=== PATIENT | female | born 1985 | race Caucasian/White ===

== ENCOUNTER 2018-04-10 06:57 | Emergency (ER) | payer BC, MEDICAID, SELFPAY ==
[2018-04-10 06:58] VITALS: BP 117/79; PULSE 81; RESP 18; TEMP 36.8; O2SAT 99; BMI 30.9
--- NOTE | 2018-04-10 07:19 | CT_ITS ---
STUDY: CT ABDOMEN AND PELVIS WITHOUT CONTRAST REASON FOR EXAM: Female, 33 years old. Abdominal pain and diarrhea. RADIATION DOSAGE (If Supplied By Facility): CTDIvol = ( 9.70 ) mGy, DLP = ( 484.84 ) mGycm TECHNIQUE: Transaxial images were obtained from the dome of the diaphragm to the symphysis pubis without oral contrast, and without intravenous contrast. Sagittal and coronal images were reconstructed. Individualized dose optimization techniques were used for this CT. COMPARISON: Comparison is made with prior study dated August 28, 2015. FINDINGS: Stable mild degree of increased linear markings at the bases and small bulla in the left lower lobe The visualized portions of the heart are within normal limits. Normal liver. The patient is status post cholecystectomy. Normal spleen. Normal pancreas. Normal bilateral adrenal glands. Normal right kidney. Normal left kidney. There is a small hiatal hernia. Normal small intestine. Normal colon. The appendix is visualized and appears normal. Normal abdominal aorta. Normal inferior vena cava. Normal retroperitoneum. Normal urinary bladder. IUD is seen within the uterus. Small benign-appearing bilateral inguinal lymph nodes. Normal abdominal wall. Normal osseous structures. CT/Abdomen/Pelvis without Cont IMPRESSION: No acute abnormality is seen. Electronically Signed: John Guan MD at 9:00 EDT Tel [phone], Service support ,
[2018-04-10] MEDS: Metoclopramide 10 MG Tablet PO (07:50)
[2018-04-10 08:01] LABS: Color, Urine Yellow (Yellow); Glucose, Dipstick Normal (Normal); Ketone-Dipstick Negative (Negative); Leukocyte Esterase-Dipstick 500 /ul (Negative); Nitrite-Dipstick Negative (Negative); Occult Blood-Urine 25 /ul (Negative); Protein-Dipstick 15 mg/dl (Negative); Specific Gravity, Urine 1.025 (1.002-1.030); Urine Clarity Cloudy (Clear); Urine Urobilinogen Normal (Normal)
[2018-04-10 08:02] LABS: Internal QC Validated? YES +Cl - CLEAR BKGD; Pregnancy, Urine Negative Negative
[2018-04-10 08:06] LABS: Urine Bilirubin Dipstick 1 mg/dL (Negative)
[2018-04-10 08:08] LABS: Bacteria 1+ /hpf (None Seen); Red Blood Cells-Urine 0-5 SEEN /hpf (0-5); Squamous Epithelial Cells - UA 0-5 SEEN /hpf (5-10); White Blood Cells 10-25 SEEN /hpf (0-5)
[2018-04-10 08:09] LABS: Mucous, Urine RARE /hpf (<or=2+)
--- NOTE | 2018-04-10 08:37 | ED.DCSUM_ITS ---
- ER Visit Summary Date of Service: 04/10/18 Chief Complaint: Diarrhea History of Present Illness: The patient is a 33 F who states that for the past several days she has been having diarrhea. She denies any urinary symptoms. She denies any fevers. She notes a diffuse crampy abdominal pain that is sharp and associated nausea. She describes the stool is mackey liquid without blood. She denies any recent travel any recent antibiotics. She has had prior cholecystectomy. She is on medications for GERD and depression. She is a smoker. Physical Examination: Afebrile vital signs are stable Gen: Well-nourished well-developed Head: Normocephalic atraumatic Eyes: Perrl EOMI ENT: TMs clear no rhinorrhea moist mucous membranes Neck: Supple no lymphadenopathy no JVD nontender CVS: Regular rate rhythm no murmurs normal S1-S2 Respiratory: No distress clear to auscultation bilaterally chest nontender Abdomen: Soft mild diffuse tenderness to palpation without guarding or rebound nondistended normal bowel sounds no masses Back: Nontender Extremity: Nontender no edema Skin: Normal color no rash Neuro: alert orientated ?3 CN II-XII intact normal strength sensation reflexes gait cerebellar Psych: Normal affect normal mood Test Results: Urinalysis demonstrated 10-25 white cells 1+ bacteria. Positive leukocyte esterase negative nitrate. test negative. Stool studies were negative for fecal leukocytes. CT the abdomen pelvis without contrast did not demonstrate any obvious obstructive pattern or inflammatory changes around the bowel. Emergency Department Course and Treatment: Patient received a dose of p.o. Reglan. Enteric pathogen panel is pending. I believe this to most likely be a viral illness. We will treat her urine with Macrobid. Diarrhea can be treated at home as needed Reglan. Patient will be notified if the enteric pathogen panel is positive. Impression: 1. Diarrhea 2. UTI This note was generated with [employer]hub dictation software. It may contain incorrect words, spelling, and punctuation that were not noted in review of the chart prior to signing ED Disposition - Plan for ED Patient: Disposition: Home or Assisted Living Chief Complaint: Diarrhea Instructions: ED Diarrhea Viral, ED UTI Cystitis Female Prescriptions: Nitrofurantoin Macrocrystals [Macrobid] 100 mg PO Q12 #10 cap Metoclopramide [Reglan] 10 mg PO 4X/DAY PRN #20 tab PRN Reason: abdominal cramps/nausea Referrals: Phil Jacobs MD [Primary Care Provider] - 3-5 Days if not improving Additional Instructions: Continue oral hydration. Take entire course of Macrobid for the urinary tract infection You will be notified if the stool studies are positive for the testable pathogens that can cause diarrhea.
[2018-04-10 09:50] VITALS: BP 113/59; PULSE 72; RESP 16; O2SAT 100
== END 2018-04-10 09:51 | disposition home or self-care (01) ==
PROVIDERS: Emergency Provider Emergency Medicine; Family Provider Family Medicine; PCP Family Medicine
DX: R19.7 Diarrhea, unspecified (principal); N39.0 Urinary tract infection, site not specified; K21.9 Gastro-esophageal reflux disease without esophagitis; F32.9 Major depressive disorder, single episode, unspecified; F17.200 Nicotine dependence, unspecified, uncomplicated; Z79.899 Other long term (current) drug therapy
CPT/HCPCS: 74176; 81001; 81025; 83630; 87506; 99283

== ENCOUNTER 2018-07-04 17:33 | Emergency (ER) | payer BC, MEDICAID, SELFPAY ==
[2018-07-04 17:34] VITALS: BP 145/74; PULSE 68; RESP 16; TEMP 36.9; O2SAT 98; BMI 32.2
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
--- NOTE | 2018-07-04 19:04 | ED.DEP ---
ED Disposition - Plan for ED Patient: Disposition: Home or Assisted Living Chief Complaint: Headache Instructions: ED Head Injury Closed, ED Fx Nasal Conf W X Ray Referrals: Phil Jacobs MD [Primary Care Provider] - As Needed Additional Instructions: Ice all sore areas. Tylenol and/or Motrin for pain. No skull fracture seen. You do have a nasal fracture.
[2018-07-04 19:15] VITALS: BP 107/74; PULSE 64; RESP 18; O2SAT 98
== END 2018-07-04 19:15 | disposition home or self-care (01) ==
PROVIDERS: Emergency Provider Emergency Medicine; Family Provider Family Medicine; PCP Family Medicine
DX: S02.2XXA Fracture of nasal bones, initial encounter for closed fracture (principal); S01.01XD Laceration without foreign body of scalp, subsequent encounter; R40.2410 Glasgow coma scale score 13-15, unspecified time; Y09 Assault by unspecified means; Y93.9 Activity, unspecified; Y92.9 Unspecified place or not applicable; K21.9 Gastro-esophageal reflux disease without esophagitis; F32.9 Major depressive disorder, single episode, unspecified; K58.9 Irritable bowel syndrome, unspecified; Z90.49 Acquired absence of other specified parts of digestive tract; Z79.899 Other long term (current) drug therapy; Z72.0 Tobacco use
CPT/HCPCS: 70450; 70486; 99283

== ENCOUNTER 2018-12-05 22:35 | Emergency (ER) | payer BC, SELFPAY ==
[2018-12-05 22:37] VITALS: BP 125/78; PULSE 80; RESP 16; TEMP 36.7; O2SAT 99; BMI 35.0
--- NOTE | 2018-12-05 23:12 | ED.VISSUMM ---
- ER Visit Summary Date of Service: 12/05/18 Chief Complaint: [] presents for cough History of Present Illness: The patient is a 33 F [] have a cough for last 30 days gradual onset intermittent. She had nasal congestion and runny nose. She is using albuterol, Flonase, Mucinex. She also came in because she has a chronic hernia that keeps popping out when she coughs. She said that for 10 years. She is able to reduce it. Physical Examination: [] Vital signs reviewed General: Well-nourished well-developed Head: Normocephalic atraumatic Eyes: Pupils equal round and reactive to light extraocular movements intact ENT: TMs clear no hemotympanum no trauma Neck: Nontender full range of motion Cardiovascular: Regular rate rhythm no murmurs normal S1-S2 Respiratory: No distress clear to auscultation bilaterally chest nontender Abdomen: Soft nontender nondistended. Easily reproducible periumbilical hernia, normal bowel sounds no masses Back: Nontender no CVA tenderness Extremities: Nontender active range of motion ?4 extremities no trauma Skin: Normal color no trauma Neuro alert oriented cranial nerves II through XII intact normal strength sensation reflexes Test Results: [] Emergency Department Course and Treatment: [] Chest x-ray negative. At this time I think patient likely just has a bronchitis or upper respiratory infection that is viral. I do not feel she needs antibiotics. Her hernia is easily visible. She will follow-up with surgery for this as an outpatient Treatment Plan: [] Disposition: [] Impression: [] Bronchitis viral Reducible umbilical hernia This note was generated with [employer] dictation software. It may contain incorrect words, spelling, and punctuation that were not noted in review of the chart prior to signing ED Disposition - Plan for ED Patient: Referrals: Phil Jacobs MD [Primary Care Provider] -
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
--- NOTE | 2018-12-05 23:36 | ED.DEP ---
ED Disposition - Plan for ED Patient: Disposition: Home or Assisted Living Instructions: Acute Bronchitis, What Is a Hernia? Referrals: Phil Jacobs MD [Primary Care Provider] - Gamal Christy MD [STAFF PHYSICIAN] -
[2018-12-05 23:37] VITALS: O2SAT 98
[2018-12-05 23:43] VITALS: PULSE 80; RESP 16; O2SAT 96
== END 2018-12-05 23:47 | disposition home or self-care (01) ==
PROVIDERS: Emergency Provider Emergency Medicine; Family Provider Family Medicine; PCP Family Medicine
DX: J40 Bronchitis, not specified as acute or chronic (principal); B34.9 Viral infection, unspecified; K42.9 Umbilical hernia without obstruction or gangrene; Z72.0 Tobacco use; Z79.899 Other long term (current) drug therapy
CPT/HCPCS: 71046; 99282

== ENCOUNTER 2019-07-28 18:34 | Emergency (ER) | payer BC, SELFPAY ==
[2019-07-28 18:36] VITALS: BP 115/73; PULSE 94; RESP 16; TEMP 36.9; O2SAT 96; BMI 30.9
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
[2019-07-28] MEDS: proCHLORPERazine 10 MG/2 ML Vial IV (19:17)
[2019-07-28] MEDS: DiphenhydrAMINE 50 MG/ML Syringe IV (19:17)
[2019-07-28] MEDS: 0.9% Normal Saline 1,000 ML 999 ML IV (19:17)
[2019-07-28 20:46] LABS: Internal QC Validated? YES +Cl - CLEAR BKGD; Pregnancy, Urine Negative Negative
[2019-07-28] MEDS: Ketorolac 15 MG/ML Vial IV (21:22)
[2019-07-28 21:52] VITALS: PULSE 88
== END 2019-07-28 21:53 | disposition home or self-care (01) ==
PROVIDERS: Emergency Provider Emergency Medicine; Family Provider Family Medicine; PCP Family Medicine
DX: R51 Headache (principal); F17.200 Nicotine dependence, unspecified, uncomplicated
CPT/HCPCS: 70450; 81025; 96361; 96374; 96375; 99283; J7030; A4216

== ENCOUNTER 2019-11-29 19:11 | Emergency (ER) | payer MEDICAID, SELFPAY ==
[2019-11-29 19:11] VITALS: BP 132/77; PULSE 90; RESP 15; TEMP 36.4; O2SAT 97; BMI 32.8
[2019-11-29] MEDS: 0.9% Normal Saline 1,000 ML 999 ML IV (19:40)
[2019-11-29] MEDS: DiphenhydrAMINE 50 MG/ML Syringe IV (19:41)
[2019-11-29] MEDS: Metoclopramide 10 MG/2 ML Vial IV (19:41)
[2019-11-29] MEDS: Ketorolac 30 MG/ML Syringe IV (19:42)
--- NOTE | 2019-11-29 19:58 | ED.DCSUM_ITS ---
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 She reports that she has a history of migraine headaches. She has a migraine that is typical for her that began a week ago and is gradually gotten worse. It is a dull, aching pain is 10 on 10 worsening a 10 currently. Is worsened by sitting up and light. Is relieved by laying down. She is had nausea without vomiting. She denies fever or recent injury. Physical Examination: Vitals: Stable. Afebrile. General: Well-nourished and well-developed. Head: Normocephalic atraumatic. Neck: Supple, no lymphadenopathy. No JVD. Nontender. Cardiovascular: Regular rate and rhythm. No murmurs. Respiratory: No respiratory distress. Clear to auscultation bilaterally. Abdominal: Soft, nontender, nondistended, normal bowel sounds. No guarding, rebound, or peritoneal signs. Back: Nontender. Extremities: Nontender, no edema. Skin: Normal color, no rash. Neurologic: Alert and oriented ?3. Cranial nerves II through XII are intact. Normal strength and sensation. Psych: Normal affect. Emergency Department Course and Treatment: Patient had an IV placed. She is given Toradol, Reglan, and Benadryl IV. She feels much improved and is resting comfortably. Treatment Plan: Patient be discharged instructed to follow-up with her primary care physician 1 to 2 days if not improving. Return to the emergency department for any worsening symptoms. Disposition: To home in improved and stable condition. Impression: 1. Cephalgia. This note was generated with [employer] dictation software. It may contain incorrect words, spelling, and punctuation that were not noted in review of the chart prior to signing ED Disposition - Plan for ED Patient: Disposition: Home or Assisted Living Instructions: ED, Migraine (Classical) Referrals: Phil Jacobs MD [Primary Care Provider] - 1-2 Days if not improving
== END 2019-11-29 22:01 | disposition home or self-care (01) ==
LOC: ED 19:46
PROVIDERS: Emergency Provider Emergency Medicine; PCP Family Medicine
DX: G43.909 Migraine, unspecified, not intractable, without status migrainosus (principal); Z87.820 Personal history of traumatic brain injury; F17.200 Nicotine dependence, unspecified, uncomplicated
CPT/HCPCS: 96361; 96374; 96375; 99283; A4216

== ENCOUNTER 2020-07-25 18:48 | Emergency (ER) | payer MEDICAID, SELFPAY ==
[2020-07-25 18:49] VITALS: BP 126/84; PULSE 88; RESP 16; TEMP 36.3; O2SAT 100; BMI 31.8
--- NOTE | 2020-07-25 19:01 | ED.DCSUM_ITS ---
History of Present Illness Chief Complaint: Laceration Informant: Patient Onset: Today Context: Sudden Onset Timing: Continuous Current Severity: Moderate Maximum Severity: Moderate Narrative: Patient is a [id number] female who presents to the emergency department with laceration to her right thumb. Patient was using a mandolin slicer. She states that she suffered a laceration to the thumb. She states that she was able to hold pressure but it was still bleeding. Her tetanus is up-to-date. She is otherwise been in her normal state of health. Prior similar symptoms: No Recent Illness/Hospitalization: No Past Medical History - Allergies and Home Meds Allergies/Adverse Reactions: Allergies adhesive Allergy (Verified 07/25/20 18:49) Rash codeine Adverse Reaction (Verified 07/25/20 18:49) Nausea Penicillins Adverse Reaction (Verified 07/25/20 18:49) Nausea Primary Care Physician: Phil Jacobs MD [Primary Care Provider] - 10 Day for suture removal Prior records reviewed: Yes Past Medical History: None Surgical History: noncontributory Smoking Status: Current every day smoker Review of Systems General: Denies: Chills, Fever, Sweats Eyes: Denies: Visual changes - bilaterally, Diplopia ENT: Denies: Rhinorrhea, Sore throat Cardiovascular: Denies: Chest pain, Palpitations Respiratory: Denies: Dyspnea, Cough, Dyspnea on exertion Gastrointestinal: Denies: Abdominal pain, Nausea, Vomiting, Diarrhea, Melena, Hematochezia Genitourinary: Denies: Dysuria, Hematuria, Frequency Musculoskeletal: Denies: Back pain, Extremity Pain Skin: Denies: Rash, Wounds Neurological: Denies: Headache, Weakness, Numbness Physical Exam Vital Signs/Narrative: Vital Signs Temp Pulse Resp BP Pulse Ox 07/25/20 18:49 97.4 F L 88 16 126/84 H 100 Inital Vital Signs reviewed: Yes General: Well nourished, Well developed, No Acute Distress Head: Normocephalic, Atraumatic Eyes: Perrl, EOMI ENT: Moist mucous membranes, No rhinorrhea Neck: Supple, Nontender Cardiovascular: Regular rate, Regular rhythm, No murmurs Respiratory: No distress, CTA bilaterally, Chest nontender Abdomen: Soft, Nontender, Nondistended, Normal bowel sounds Back: Nontender, Normal Inspection Extremities: No edema, Tenderness - Patient is 1 cm full-thickness laceration that is vertically oriented on the distal tip of the right thumb. It does lacerate through the nail approximately 2 mm. There is minimal bleeding. Two- point discrimination is preserved. Skin: Normal color, No rash Neurological: Alert, Oriented x3, Cranial nerves II-XII grossly intact, Normal Strength, Normal Sensation Psychological: Normal affect, Normal Mood Diagnostic/Tx/Re-eval - Medical Decision Making Patient presents with a 1.5 cm laceration of the distal tip of the right thumb. The area was anesthetized with 1% lidocaine without epinephrine. A total of 2 cc were used. It was irrigated and cleansed with chlorhexidine. It was closed using 2 simple 5-0 interrupted suture. The patient tolerated this without issue. She was counseled on local wound care and reasons to return. She will be discharged home. Impression 1. 1.5 cm thumb laceration with repair ED Disposition - Plan for ED Patient: Instructions: ED Laceration Hand Referrals: Phil Jacobs MD [Primary Care Provider] - 10 Day for suture removal
[2020-07-25 19:23] VITALS: BP 126/84; PULSE 88; RESP 15; O2SAT 100
== END 2020-07-25 19:15 | disposition home or self-care (01) ==
LOC: ED 19:45
PROVIDERS: Emergency Provider Emergency Medicine; PCP Family Medicine
DX: S61.011A Laceration without foreign body of right thumb without damage to nail, initial encounter (principal); W26.8XXA Contact with other sharp object(s), not elsewhere classified, initial encounter; Y93.9 Activity, unspecified; Y92.9 Unspecified place or not applicable; F17.200 Nicotine dependence, unspecified, uncomplicated
CPT/HCPCS: 12001; 99282

== ENCOUNTER 2020-10-07 07:09 | Emergency (ER) | payer MEDICAID, SELFPAY ==
[2020-10-07 07:10] VITALS: BP 123/77; PULSE 80; RESP 15; TEMP 37; O2SAT 97; BMI 34.6
[2020-10-07 07:12] VITALS: O2SAT 98
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
[2020-10-07 07:51] VITALS: BP 113/74; PULSE 62; RESP 15; O2SAT 99
== END 2020-10-07 07:51 | disposition home or self-care (01) ==
LOC: ED 07:44
PROVIDERS: Emergency Provider Emergency Medicine; PCP Family Medicine
DX: S16.1XXA Strain of muscle, fascia and tendon at neck level, initial encounter (principal); V49.40XA Driver injured in collision with unspecified motor vehicles in traffic accident, initial encounter; Y93.9 Activity, unspecified; Y92.9 Unspecified place or not applicable
CPT/HCPCS: 72040; 99284

== ENCOUNTER → 2020-11-06 | Outpatient (CLI) | payer MEDICAID, SELFPAY ==
[2020-11-06 16:28] VITALS: BMI 32.4
== END | disposition home or self-care (01) ==
LOC: LABSPEC 17:59
PROVIDERS: PCP Family Medicine; Visit Provider Physician Assistant Surgical
DX: Z20.822 Contact with and (suspected) exposure to COVID-19 (principal)
CPT/HCPCS: 87635; U0005; U0003

== ENCOUNTER → 2021-06-09 | Outpatient (CLI) | payer MEDICAID, SELFPAY ==
[2021-06-12 03:07] LABS: Covid Inpatient test code BILL Performed (.)
== END | disposition home or self-care (01) ==
LOC: LABSPEC 17:01
PROVIDERS: PCP Family Medicine; Visit Provider Physician Assistant
DX: Z11.52 Encounter for screening for COVID-19 (principal)
CPT/HCPCS: 87635; U0005; U0003

== ENCOUNTER 2022-10-17 08:00 | Outpatient (RCR) | payer MEDICAID, SELFPAY ==
--- NOTE | 2022-10-17 09:00 | BH.SGPN.GN ---
Behaviors/Verbalizations/Mental Status: [] Eye contact is good. Motor activity is appropriate. Appearance is casual. Speech is Appropriate. Mood is depressed. Affect is flat. Tearful. Thoughts are linear and logical. No evidence of psychosis. Reviewed daily check in sheet and no reports of suicidal ideations or intent. Client Response/Progress/Benefit: [] Pt participated at times during the group discussion. Attentive. This was her first day/group in [facility]. Briefly introduced herself stating that she entered [facility] to find herself. Admits to recently struggling however did not elaborate. Able to identify some progress over the weekend through self-reflection. Peers introduced themselves to patient and gave some feedback/suggestions for her first day and week in IOP which was beneficial. Will continue in IOP to prevent decompensation, stabilize mood, and improve functioning to return to work. Narrative Note: []
--- NOTE | 2022-10-17 10:06 | BH.SGPN.GN ---
Behaviors/Verbalizations/Mental Status: []Pt alert and oriented, casually dressed and groomed. Eye contact good. Motor activity appropriate. Speech within normal limits. Affect congruent, mood anxious, depressed. Thoughts linear, logical, no signs of hallucinations or delusions. Client Response/Progress/Benefit: []Pt new to IOP tx, however was able to be an active participant in group discussions. Participated with peers in experiential activity. Pt participated in an interactive discussion with peers in which they worked together to define what coping skills are. Group then identified unhealthy coping skills which included; isolating, not asking for help, procrastination, and lashing out on others or self. Group discussed what barriers commonly make using healthier coping skills more difficult. Pt displayed insight that she struggles with breaking unhealthy habits due to fear of the unknown and being uncomfortable which has been a barrier to choosing healthier coping skills in the past. Benefited from increased awareness and education the benefits of having a healthy coping repertoire and consequences of unhealthy coping on mental health and relationships. Will continue IOP tx to further promote healthy distress tolerance and stress management skills, improve emotion regulation, and prevent decompensation. Narrative Note: []
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
[2022-10-19 10:02] VITALS: BP 119/80; PULSE 86
--- NOTE | 2022-10-19 10:10 | BH.SGPN.GN ---
Behaviors/Verbalizations/Mental Status: []Client alert and oriented, casually dressed and groomed. Eye contact good. Motor activity appropriate. Speech within normal limits. Affect congruent, mood depressed and anxious. Thoughts linear, logical, no signs of hallucinations or delusions. Client Response/Progress/Benefit: []Client was an active participant in group discussions and activity. Attentive during psychoeducation. Client along with peers were able to identify several negatives on the picture given to the group. Client and peers also identified positives in the picture and made the connection that finding positives is much more difficult. Interactive discussion on the definition of perspective, how perspective is formed, and why perspective is important in treatment. Client along with peers also identified that perspective can either motivate and encourage treatment or become a barrier to receiving help. Client shared currently she has a more negative perspective towards life. Client stated current perspective has been impacted by a lack of healthy supports as well as past negative experiences. Will continue in IOP to continue use of healthy coping, increase emotion regulation skills, and prevent decompensation. Narrative Note: []
--- NOTE | 2022-10-19 11:10 | BH.SGPN.GN ---
Behaviors/Verbalizations/Mental Status: []Pt alert and oriented, casually dressed and groomed. Eye contact good. Motor activity appropriate. Speech within normal limits. Affect constricted, mood depressed. Thoughts linear, logical, no signs of hallucinations or delusions. Client Response/Progress/Benefit: []Pt was attentive and contributed in larger group discussion. Pt completed strengths exploration worksheet. Pt able to acknowledge how these strengths are helping pt and can continue to help pt in mental health journey. Reflected on how her honesty, love of learning, and artistic ability have helped pt in the past and continue to help pt with her mental health. Pt worked with group to identify strategies that can help increase utilization of personal strengths. Benefited from identifying personal strengths and strategies for enhancing use of identified strengths. Pt to continue IOP tx to improve daily functioning, increase healthy coping, and prevent decompensation.
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
--- NOTE | 2022-10-19 11:29 | BH.DR.ITP ---
Initial Treatment Plan Patient Information Visit Information: ADMISSION DATE: EXPECTED LOS: 4-6 weeks Problems/Symptoms Problem #1:: Depression Symptom:: Sadness, irritability, lack of motivation, worthlessness, hopelessness, difficulty completing tasks, anhedonia, biological disruption of sleep Problem #2:: Anxiety Symptom:: Worry, rumination, flashbacks, exaggerated startle reaction
--- NOTE | 2022-10-21 09:00 | BH.SGPN.GN ---
Behaviors/Verbalizations/Mental Status: []Eye contact fair to good, casually dressed, motor activity appropriate, speech normal rate and tone, mood depressed, agitated, and anxious, congruent affect, thoughts linear and intact, no evidence of delusions or hallucinations. Reviewed pt's symptom tracker, reports of suicidal ideation within pt baseline and pt denies any active plan, or intent as of this date 10/21/22. Future oriented. Client Response/Progress/Benefit: []Pt responded well to session, attentive and willing to process with group. Pt reports feeling bleh this morning as she in continuing to struggle with negative thoughts and anxiety associated with recent stressors. 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 Pt shared an additional win as not arguing when they shared plans to move pt to a different shift upon return to work, pt shared reminding herself ?this is a stressor for another day?. Noted that work and finances continue to be major sources of stress. Appeared to benefit from group?discussion and supportive environment. Recommended continued IOP tx to continue to improve consistency of healthy skill application, promote mood stability and use of healthy distress tolerance skills, as well as prevent decompensation. Narrative Note: []
--- NOTE | 2022-10-21 10:10 | BH.SGPN.GN ---
Behaviors/Verbalizations/Mental Status: []Client alert and oriented, casually dressed and groomed. Eye contact fair. Motor activity appropriate. Speech within normal limits, quiet. Affect constricted, mood dysthymic. Thoughts linear, logical, no signs of hallucinations or delusions. Client Response/Progress/Benefit: []Pt engaged participant AEB providing contributions throughout group discussion and taking notes. Pt appeared to be attentive during psychoeducation about acceptance. Pt worked with group to identify common barriers to acceptance to include: fear of relapse, anxious thoughts, fear of stigma, and fear of being vulnerable. Pt shared anxiety keeps her from being able to think clearly which has gotten in the way of her being able to accept certain things. Pt worked with small group to identify benefits of acceptance. Pt seemed to benefit from increased awareness of the benefits of being able to accept things out of her control. Pt to continue IOP to improve daily functioning, improve emotion regulation, and prevent decompensation.
--- NOTE | 2022-10-21 11:10 | BH.SGPN.GN ---
Behaviors/Verbalizations/Mental Status: []Pt alert and oriented, casually dressed and groomed. Eye contact good. Motor activity appropriate. Speech within normal limits. Affect constricted, mood dysthymic and irritable. Thoughts linear, logical, no signs of hallucinations or delusions. Client Response/Progress/Benefit: []Pt responded well to session, engaged and providing examples. Pt engaged as group continued discussion on acceptance and how lack of acceptance can impact mental health. Pt and peers identified what makes acceptance challenging and pt completed a self-reflection exercise on what is hard to accept in pt's life. Pt shared it is hard to accept that she does not always have control and her relationship status. Pt also identified how further lack of acceptance could lead to more harm for pt including: keeps pt from moving forward and prevents pt from getting the help she needs. Group identified strategies to increase acceptance and pt selected asking for help and setting more realistic goals to help pt increase acceptance. Pt appeared to benefit from gaining insight and strategies to increase acceptance. Pt will continue IOP tx to promote mood stability, increase work-related functioning, and improve emotional regulatioon skills. Narrative Note: []
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
--- NOTE | 2022-10-24 09:00 | BH.SGPN.GN ---
Behaviors/Verbalizations/Mental Status: []Pt alert and oriented, casually dressed and groomed. Eye contact good. Motor activity appropriate. Speech within normal limits. Affect constricted, mood depressed. Thoughts linear, logical, no signs of hallucinations or delusions. Reviewed pt?s symptom tracker, no risk for suicidal ideation, plan, or intent as of 10/24/22 Client Response/Progress/Benefit: []Pt responded well to session, attentive and receptive to feedback. Pt reports feeling blah this morning due to not feeling well physically and having stressors with her son. Pt shared her son has been expressing anger a lot more since pt and her boyfriend broke up which makes pt worried. Pt stated she and her son did have a good weekend together baking cookies and pt got to see her son at his wrestling match. Pt appeared to benefit from gentle thought challenging and acknowledging her wins. Pt will continue IOP tx to prevent decompensation, improve daily functioning, and increase distress tolerance skills. Narrative Note: []
--- NOTE | 2022-10-24 10:10 | BH.SGPN.GN ---
Behaviors/Verbalizations/Mental Status: [] Eye contact is good. Motor activity is appropriate. Appearance is casual. Speech is Appropriate. Mood is anxious. Affect is constricted. Thoughts are linear and logical. No evidence of psychosis. Client Response/Progress/Benefit: [] Client was did not provide much input during group, but was attentive AEB note taking and eye contact. Attentive during psychoeducation on the six types of boundaries (physical, emotional, intellectual, sexual, time, and material) AEB note-taking. Agreed with peers contributed interactive discussion on defining what a boundary is in mental health. Group identified challenges to setting boundaries which included; fear of other's response, not knowing how to set a boundary, fear of rejection, fear of disappointing the other person, historic patterns, etc. Group identified the benefits to setting boundaries such as to help maintain identity, increased control, minimize negative influences, and increased confidence. Group discussed the mental health benefits to establishing boundaries at work, school, and home. Client benefited from increased awareness and insight on the importance/benefit to setting health boundaries. Will continue in IOP to prevent decompensation, stabilize anxiety, and improve functioning. Narrative Note: []
--- NOTE | 2022-10-24 11:15 | BH.SGPN.GN ---
Behaviors/Verbalizations/Mental Status: [ ] Client alert and oriented, casually dressed and appropriately groomed. Eye contact good. Motor activity WNL. Speech within normal limits. Affect constricted, mood anxious and euthymic. Thoughts linear and intact. no signs of delusions or hallucinations. Client Response/Progress/Benefit: [] Client responded well to session AEB listening attentively to peers, providing some input, as well as taking notes throughout. Client contributed some throughout psychoeducation on different boundary setting styles with reporting connecting most with porous and rigid styles of boundary setting with indicating that its either or in situations and usually are extremes. Participated in group discussion brainstorming various strategies for improving healthy boundary setting. Client reports wanting to learn to say no more, especially in times where she is being using porous boundaries setting style. Seemed to benefit from increased awareness of how different boundary styles can impact mental health. Will continue IOP tx to increase consistent application of skills, increase self-care, decrease presenting anxiety, and prevent decompensation. Narrative Note: []
--- NOTE | 2022-10-26 10:45 | BH.MDN ---
Multi-Disciplinary Note - Note 45-min Individual Time Started:: 09:35 Date: 10/26/22 Purpose of session/treatment goals addressed:: To work on goal #1 of pt's tx plan. Another goal was to process current stressors. Eye Contact:: Good Motor Activity:: Appropriate Appearance:: Neat Speech:: Appropriate Mood:: Dysthymic Affect:: Constricted Thoughts:: Linear, Logical, No evidence of hallucinations/delusions noted Staff Interventions:: thought challenging, psychoeducation on: - maintenance cycles, CBT techniques, rapport building, strengths perspective, goal setting Client Response:: Pt responded well to session, open to meeting with therapist. Pt shared she has multiple mental health wins since last session including putting her dishes away, maintaining boundaries with her ex-boyfriend, and getting news that her short-term disability was approved. Pt stated she and her ex-boyfriend do not see each other now, but pt messages him daily. Pt shared he will respond in unkind ways, but pt has done well not to get escalated. Pt did not complete the homework from last session, but pt stated she has been sick recently. Feeling sick has made pt more fatigued and pt has been napping more than usual. Discussed being cognizant of why pt is sleep i.e because pt needs rest vs pt wanting to isolate. Pt receptive to learning about maintenance cycles and pt willing to work on practicing opposite action. Pt's goal this week is to continue cleaning her house as pt is currently trying to catch up what I haven't been doing. Risks/Concerns:: Pt denies any suicidal ideations, plan, or intent as of 10/26/22. Pt is future oriented. Progress Toward Goals/Plan:: Pt is responding well to tx AEB pt's consistent attendance and increasing engagement in group. Pt reports she is utilizing coping skills outside of IOP tx and is finding benefit. Pt's symptoms and stressors have not changed since last week, but pt is gaining insight. Pt endorses a depressed mood, negative thinking, lack of motivation, lack of energy, increased sleep, and rumination. Pt will continue IOP tx to prevent decompensation, improve distress tolerance skills, and improve daily functioning. Time Stopped:: 10:20
--- NOTE | 2022-10-28 09:10 | BH.SGPN.GN ---
Behaviors/Verbalizations/Mental Status: [] Eye contact is good. Motor activity is appropriate. Appearance is casual. Speech is Appropriate. Mood is anxious. Affect is congruent. Thoughts are linear and logical. No evidence of psychosis. Reviewed daily check in sheet and no reports of suicidal ideations or intent. Client Response/Progress/Benefit: [] Pt participated at times during the group discussion. Attentive. Pt states I'm doing OK. Shared that last evening she had what she believes was a mixture of an anxiety attacks and something medical. Woke up yesterday very anxious. I tried skills but nothing was working so I began to clean. Reports that she cleaned throughout the day I was even scrubbing floorboards. This was a nice distraction howeer she started to get dizzy and lightheaded. Reports that her BP dropped as well and ended up calling 911. Went to the ER and was evaluated, given fluids, and sent home. Anxious as she was given no answers. Group provided feedback and empathy. Less anxiety today, however ruminating on if this attack will occur again. Benefited from support and feedback. Will continue in IOP to prevent decompensation, stablize mood, and improve functioning to return to work. Narrative Note: []
--- NOTE | 2022-10-28 10:15 | BH.SGPN.GN ---
Behaviors/Verbalizations/Mental Status: []pt alert and oriented, casually dressed and groomed. Eye contact good. Motor activity appropriate. Speech within normal limits. Affect congruent, mood interested and stressed. Thoughts linear, logical, no signs of hallucinations or delusions.? Client Response/Progress/Benefit: []Pt responded well to session AEB contributing to discussion, taking notes, and listening attentively to others. Group discussed the benefits of managed anger and anger as a secondary emotion. Pt shared perspective on negatives from acting out in anger as damaged relationships and physical exhaustion.? Pt completed worksheet on anger triggers and personal warning signs of anger. Pt identified their biggest triggers as ?being lied to? and not being listened to.?Appeared to benefit from increased knowledge of the anger cycle as well as personal triggers. Will continue IOP tx to prevent decompensation, improve distress tolerance skills, and increase work-related functioning.? Narrative Note: []
--- NOTE | 2022-10-28 11:10 | BH.SGPN.GN ---
Behaviors/Verbalizations/Mental Status: []Client alert and oriented, casually dressed and groomed. Eye contact fair. Motor activity appropriate. Speech within normal limits. Affect constricted, mood dysthymic. Thoughts linear, logical, no signs of hallucinations or delusions. Client Response/Progress/Benefit: []Pt was engaged throughout AEB contributing to group discussion and self-reflection. Group finished processing cues to anger worksheet. Pt contributed as group brainstormed healthy coping skills for better managing anger which included: music, walking/exercise, changing the environment, communicating with supports, and journaling. Pt reported she would like to work on skill of stopping and thinking before responding to help decrease reactive anger responses. Pt appeared to benefit from identifying different techniques to manage anger as well as gaining awareness of potential consequences of unmanaged anger. Will continue IOP tx to improve emotion regulation, improve confidence, and prevent decompensation.
--- NOTE | 2022-10-31 09:05 | BH.SGPN.GN ---
Behaviors/Verbalizations/Mental Status: [] Eye contact is good. Motor activity is appropriate. Appearance is casual. Speech is Appropriate. Mood is euthymic. Affect is full. Thoughts are linear and logical. No evidence of psychosis. Reviewed daily check in sheet and no reports of suicidal ideations or intent. Client Response/Progress/Benefit: [] Narrative Note: []
--- NOTE | 2022-10-31 10:20 | BH.SGPN.GN ---
Behaviors/Verbalizations/Mental Status: []Client alert and oriented, casually dressed and groomed. Eye contact good. Motor activity appropriate. Speech within normal limits. Affect congruent, mood anxious, depressed. Thoughts linear, logical, no signs of hallucinations or delusions. Client Response/Progress/Benefit: []Client receptive to session AEB listening attentively to others, and taking notes. However, providing less input than in prior sessions. Worked with group to brainstorm the positive and negative aspects of stress on physical and mental health. Group did well to identify the benefits of stress as well as the impact of distress on performance, relationships, and mental health. Client identified their personal top stressors as: relationship issues, finances, and work. Client reports when the stress overflows client reacts by making impulsive decisions, giving up, and lashing out. Client seemed to benefit from increased awareness of current stressors and impact stress has on mental health. Recommended to continue IOP tx to stabilize moods, continue to promote consistent self-care and healthy conflict resolution, and prevent decompensation. Narrative Note: []
--- NOTE | 2022-10-31 11:20 | BH.SGPN.GN ---
Behaviors/Verbalizations/Mental Status: []Pt alert and oriented, casually dressed and groomed. Eye contact good. Motor activity appropriate. Speech within normal limits. Affect congruent, mood depressed, anxious. Thoughts linear, logical, no signs of hallucinations or delusions. Client Response/Progress/Benefit: []Pt engaged participant AEB listening attentively to others and contributing to discussion. Attentive during psychoeducation on the 4 A's of Coping with Stress (Avoid, Alter, Adapt, Accept). Participated in experiential activity in which group members had to utilize stress management skills in the moment. Pt was more passive during activity when the group was struggling with accomplishing the task however responded well to direction provided by peers. Pt engaged in review of the 4 A?s and picked wanting to work on adapting her mindset regarding her current occupational stress and focusing more on what is in her control in the situation. Benefited from processing in the moment stress management strategies and identifying new ways to cope with stress. Will continue in IOP tx to prevent decompensation, increase healthy coping skills, and improve application of self-care activities. Narrative Note: []
== END 2022-11-01 23:59 ==
LOC: BHIOP 08:00
PROVIDERS: PCP Family Medicine; Referring Provider Psychiatry & Neurology Psychiatry; Visit Provider Psychiatry & Neurology Psychiatry
DX: F33.1 Major depressive disorder, recurrent, moderate (principal); F41.1 Generalized anxiety disorder; F17.210 Nicotine dependence, cigarettes, uncomplicated
CPT/HCPCS: 90792; H2012; H2020; S9480; T1002; 90832; 90834

== ENCOUNTER 2022-10-27 17:47 | Emergency (ER) | payer MEDICAID, SELFPAY ==
[2022-10-27 17:48] VITALS: BP 97/71; PULSE 93; RESP 23; TEMP 36.3; O2SAT 97; BMI 30.9
--- NOTE | 2022-10-27 17:57 | EKG12_ITS ---
Test Reason : DYSRHYTHMIA Blood Pressure : / mmHG Vent. Rate : 091 BPM Atrial Rate : 091 BPM P-R Int : 160 ms QRS Dur : 096 ms QT Int : 370 ms P-R-T Axes : 054 -62 032 degrees QTc Int : 455 ms Normal sinus rhythm Left axis deviation Abnormal ECG Confirmed by HERBERT BAUTISTA, EUGENE ([id number]), material expeditor JOSE E GAN ([id number]) on 10/31/2022 9:13:33 AM Referred By: TL Confirmed By:EUGENE GODINEZ MD
--- NOTE | 2022-10-27 17:58 | EX.ED.DYSGE1 ---
HPI History of Present Illness Chief Complaint: Dizziness Informant: patient Narrative Narrative: 2 hours ago reports upon standing felt racing heart lightheaded and nausea. No syncopal episodes. No chest pains or shortness of breath. Denies recent cough. Denies recent vomiting or diarrhea. Denies urinary symptoms. She has the Mirena therefore does not have menstrual periods. Denies history of similar. States she is drinking fluids at home. Denies history of similar. Currently mild nausea. [facility] Medical History Encounter for screening for COVID-19 Generalized anxiety disorder Major depressive disorder, recurrent, moderate Home Medications levonorgestrel 21 mcg/24 hours (8 yrs) 52 mg intrauterine device (Mirena) 1 device intrauterine ONCE 11/06/20 [History Last Taken Unknown] albuterol sulfate 90 mcg/actuation aerosol inhaler 2 puff inhalation DAILY PRN PRN Shortness Of Breath 10/19/22 [History Last Taken Unknown] escitalopram oxalate 10 mg tablet (Lexapro) 10 mg PO DAILY 30 days #30 tabs 10/19/22 [Rx Last Taken Unknown] pantoprazole 40 mg tablet,delayed release (Protonix) 80 mg PO DAILY 10/19/22 [History Last Taken Unknown] hydroxyzine pamoate 25 mg capsule (Vistaril) 25 mg PO QHS 10/27/22 [History Last Taken Unknown] Allergy/AdvReac Type Severity Reaction Status Date / Time adhesive Allergy Rash Verified 10/27/22 17:51 codeine AdvReac Nausea Verified 10/27/22 17:51 Penicillins AdvReac Nausea Verified 10/27/22 17:51 Surgical History History of cholecystectomy History of removal of cyst History of tonsillectomy Social History Smoking Status: Current every day smoker tobacco type: cigarettes ROS ROS ED Constitutional Constitutional ED: Denies chills, fever(s) or sweats Eyes Eyes: Denies change in vision ENT ENT ED: Denies dysphagia or sore throat Cardiovascular Cardiovascular: Reports palpitations and racing heartbeat; Denies chest pain or leg edema Respiratory/Chest Respiratory/Chest: Denies cough, dyspnea or dyspnea on exertion Gastrointestinal Gastrointestinal: Reports nausea; Denies abdominal pain, diarrhea or vomiting Genitourinary Genitourinary ED: Denies dysuria, hematuria or urinary frequency Musculoskeletal Musculoskeletal: Denies back pain, extremity pain or neck pain Integumentary Denies rash or wounds Neurologic Neurologic: Denies headache(s), paresthesias or weakness EXAM Physical Exam Const Vital Signs: 10/27/22 17:48 10/27/22 17:52 10/27/22 19:42 Temperature 97.3 F L Temperature Source Temporal Pulse Rate 93 89 Respiratory Rate 23 H 18 Respiratory Pattern Normal Blood Pressure 97/71 111/71 Blood Pressure Mean 79 84 Pulse Ox 97 95 Oxygen Delivery Method Room Air Room Air Positive well nourished and well developed General Appearance ED: well developed and NAD HEENT Reports dry mucous membranes normocephalic and atraumatic Mouth ED: Yes dry mucous membranes Mouth: dry mucous membranes Eyes PERRL, EOMs intact bilaterally and conjunctivae normal General Eye ED: Yes normal appearance of both eyes Neck no lymphadenopathy and supple General: Negative for tenderness Chest Wall Chest: Negative for tenderness Resp normal respiratory effort and normal air movement Effort and Inspection: symmetric chest movement; Negative for respiratory distress Cardio regular rate, regular rhythm and no murmurs Peripheral Pulses: pulses 2+ throughout GI normal to inspection, nondistended, normoactive bowel sounds and non-tender Palpation: Negative for guarding or rebound tenderness present Back/Spine no CVA tenderness and no thoracic nor lumbar tenderness Extremity normal to inspection General Extremety ED: Negative for edema or tenderness General Extremity: Negative for edema Neuro oriented x3, CN's II-XII intact bilaterally and no sensory deficits noted Neuro Narrative: No focal deficits Sensorium / Orientation: awake and alert Skin no rashes or lesions noted and no wounds MDM MDM MDM Narrative Medical decision making narrative: Patient presented near syncope with palpitations. She has soft blood pressure on arrival and dry mucosal membranes. Differential dysrhythmia versus orthostasis. Possible electrolyte abnormalities. No focal deficit for concerns of stroke. She is given IV fluids EKG sinus rhythm with no signs of anemia. Laboratory studies notes normal hemoglobin therefore not anemia. Electrolytes potassium 3.4 orally replaced creatinine is normal BUN is 10. hCG negative. After fluids clinically feeling better blood pressure improved she is ambulating with no difficulties. Discussed near syncope likely orthostasis. She will continue oral fluids at home. She will monitor symptoms. Return precautions. All questions were answered. Lab Data Attestation: I reviewed the patient's lab results. Labs: Laboratory Results - last 24 hr 10/27/22 10/27/22 10/27/22 17:54 17:54 17:54 WBC 12.5 H RBC 5.38 Hgb 15.8 H Hct 46.4 MCV 86.2 MCH 29.4 MCHC 34.1 RDW Std Deviation 39.7 RDW Coeff of Narayan 12.7 Plt Count 220 MPV 11.4 Immature Gran % (Auto) 0.400 Neut % (Auto) 56.2 Lymph % (Auto) 37.3 [place] % (Auto) 4.8 Eos % (Auto) 0.9 Baso % (Auto) 0.4 Absolute Neuts (auto) 7.0 Absolute Lymphs (auto) 4.65 H Nucleated RBC % 0 Differential Comment SCANNED Reactive Lymphocytes 2+ Sodium 142 Potassium 3.4 L Chloride 110 H Carbon Dioxide 21.0 Anion Gap 11 BUN 10 Creatinine 0.84 Estim Creat Clear Calc 77.65 Est GFR (MDRD) Af Amer 97 Est GFR (MDRD) Non-Af 80 BUN/Creatinine Ratio 11.9 Glucose 103 Calcium 9.1 Serum , Qual NEGATIVE EKG Initial EKG: Attestation: I personally reviewed and interpreted this EKG as follows: Comments: Sinus rate 91, no ST or T wave changes Discharge Plan Triage Chief Complaint: Dizziness ED Provider: Sorin Brewster Dx/Rx/DC Orders Clinical Impression: Near syncope, Palpitation, Acute hypokalemia Instructions: ED Hypokalemia, ED Palpitations, ED Near-Fainting, Uncertain Cause Prescriptions: No Action levonorgestrel 20 mcg/24 hours (6 yrs) 52 mg intrauterine device 20 mcg/24 hours (6 yrs) 52 mg intrauterine device 1 device INTRA-UTER ONCE Rx Instructions: as a single dose escitalopram oxalate [Lexapro] 10 mg tablet 10 mg PO DAILY 30 Days Qty: 30 0RF pantoprazole [Protonix] 40 mg Tablet,Delayed Release (Dr/Ec) 80 mg PO DAILY albuterol sulfate 90 mcg/actuation HFA aerosol inhaler 2 puff INHALATION DAILY PRN PRN (Reason: Shortness Of Breath) Label Comments: TAKE 2 PUFFS BY MOUTH EVERY 4 HOURS NEEDED hydroxyzine pamoate [Vistaril] 25 mg capsule 25 mg PO QHS Primary Care Provider: Phil Jacobs Referrals: Phil Jacobs MD [Primary Care Provider] - Activity Restrictions/Additional Instructions: EKG normal labs stable except for potassium 3.4. Dry mucosal membranes continue oral fluids at home. Monitor symptoms follow-up with your doctor. Return if any worsening symptoms. Disposition Disposition: Home, Self Care Discharge Date/Time: 10/27/22 19:51
[2022-10-27] MEDS: 0.9% Normal Saline 1,000 ML 1000 ML IV (18:11)
[2022-10-27] MEDS: Ondansetron 4 MG/2 ML Vial IV (18:11)
[2022-10-27 18:17] LABS: Absolute Lymphocyte Count 4.65 X10^3/uL (0.83-4.51); Basophil# 0.05 X10^3/uL; Basophil% 0.4 % (0-1); Eosinophil# 0.11 X10^3/uL; Eosinophils% 0.9 % (0-5); Hematocrit 46.4 % (37-47); Hemoglobin 15.8 g/dL (12.0-15.0); Lymphocyte # 4.65 X10^3/ul (0.83-4.51); Lymphocyte % 37.3 % (19-41); Mean Corp Hgb Conc 34.1 g/dL (32-36); Mean Corpuscular Hgb 29.4 pg (27.0-32.0); Mean Corpuscular Volume 86.2 fL (81-99); Mean Platelet Vol. 11.4 fl (6.2-12.0); Monocyte% 4.8 % (0-10); NRBC Flagged by Analyzer 0 % (0-5); Neutrophil # 6.99 X10^3/uL (2.7-7.7); Neutrophil % 56.2 % (47-70); POSITIVE MORPHOLOGY YES; Platelet Count 220 K/mm3 (150-450); RBC Distribution Width CV 12.7 % (11.6-14.6); RBC Distribution Width SD 39.7 fl (35.1-43.9); Red Blood Count 5.38 M/mm3 (4.2-5.4); White Blood Count 12.5 K/mm3 (4.4-11.0)
[2022-10-27 18:20] LABS: Differential Indicated SCAN CRITERIA MET
[2022-10-27 18:37] LABS: Anion Gap 11 (5-15); BUN 10 mg/dL (7-18); BUN/Creat Ratio 11.9 RATIO (10-20); Calcium,Total 9.1 mg/dL (8.5-10.1); Chloride 110 mmol/L (98-107); Creatinine, Serum 0.84 mg/dL (0.55-1.02); EST Glomerular Filtration Rate 80 mL/min (>60); Est Glom Filt Rate - Afr Amer 97 mL/min (>60); Estimated Creatinine Clearance 77.65 ml/min; Glucose 103 mg/dL (74-106); Potassium 3.4 mmol/L (3.5-5.1); Sodium Level 142 mmol/L (136-145)
[2022-10-27 18:41] LABS: Differential Comment SCANNED; Reactive Lymphocyte 2+
[2022-10-27 19:00] LABS: Internal QC Validated? YES +Cl - CLEAR BKGD; Pregnancy, Serum, hCG Quali. NEGATIVE Negative
[2022-10-27] MEDS: Potassium Chloride Oral Tablet 20 MEQ 40 MEQ PO (19:41)
[2022-10-27 19:42] VITALS: BP 111/71; PULSE 89; RESP 18; O2SAT 95
== END 2022-10-27 19:51 | disposition home or self-care (01) ==
PROVIDERS: Emergency Provider Emergency Medicine; PCP Family Medicine; Visit Provider Emergency Medicine
DX: R55 Syncope and collapse (principal); F33.1 Major depressive disorder, recurrent, moderate; R00.2 Palpitations; E87.6 Hypokalemia; F41.1 Generalized anxiety disorder; F17.210 Nicotine dependence, cigarettes, uncomplicated; Z79.899 Other long term (current) drug therapy
CPT/HCPCS: 80048; 84703; 85025; 93005; 96361; 96374; 99285; J7030; A4216; J2405

== ENCOUNTER 2022-11-02 07:34 | Outpatient (RCR) | payer MEDICAID, SELFPAY ==
[2022-11-02 00:47] VITALS: BP 119/80; PULSE 86
--- NOTE | 2022-11-02 09:07 | BH.SGPN.GN ---
Behaviors/Verbalizations/Mental Status: []Eye contact good, casually dressed, motor activity appropriate, speech normal rate and tone, mood depressed and anxious, congruent affect, thoughts linear and intact, no evidence of delusions or hallucinations. Reviewed pt's symptom tracker, denies reports of suicidal ideation, plan, or intent as of this date. Future oriented. Client Response/Progress/Benefit: []Pt responded well to session, attentive and willing to process with group. Pt reports feeling overwhelmed this morning. Pt did well to identify current mental health wins which included officially completing the cleaning tasks in her home which is a major stress reliever for pt. Pt shared an additional win as being proactive and maintaining the maintenance work rather than letting the mess build up again. Shared stressor as finances and struggling to pay all of her bills each month. Receptive of supportive feedback and budgeting suggestions provided by the group. Appeared to benefit from group?discussion and supportive environment. Recommended continued IOP tx to continue to improve healthy skills, promote mood stability, as well as prevent decompensation. Narrative Note: []
--- NOTE | 2022-11-02 10:10 | BH.SGPN.GN ---
Behaviors/Verbalizations/Mental Status: [] Client alert and oriented, casually dressed and groomed. Eye contact good. Motor activity appropriate. Speech within normal limits. Affect congruent mood euthymic. Thoughts linear, logical, no signs of hallucinations or delusions. Client Response/Progress/Benefit: [] Client responded well to session AEB participating in discussion, taking notes throughout, and listening attentively to others. Client was attentive throughout group activity identifying famous individuals and how they overcame failure to be successful. Client helped group identify how fear of failure can impact mental health and relationships. Client with group identified how fear of failure leads to self-sabotage, not trying, and procrastination. Client participated in experiential activity, working with group members to problem solve. Appeared to benefit from increased knowledge of fear of failure. Will continue IOP tx to improve mood stability, reduce anxious thinking patterns, and improve overall thinking. Narrative Note: []
--- NOTE | 2022-11-02 11:10 | BH.SGPN.GN ---
Behaviors/Verbalizations/Mental Status: [] Client alert and oriented, casually dressed and groomed. Eye contact good. Motor activity appropriate. Speech within normal limits. Affect congruent, mood euthymic. Thoughts linear, logical, no signs of hallucinations or delusions. Client Response/Progress/Benefit: [] Client responded well to session, engaged in the experiential activity and attentive throughout group processing. Client reported fear of failure has kept client from happiness, good strong relationships, and job advancement. Client completed fear of failure worksheet and was able to identify thoughts and behaviors that reinforce personal fear of failure including memories of the past, lack of coping skills, and lack of support. Client participated in small group discussion regarding strategies to overcome fear of failure. Identified wanting to work on setting reachable boundaries, reflection and positive self talk. Appeared to benefit from increased knowledge of strategies to combat fear of failure and gaining self-awareness. Client will continue IOP tx to increase use of coping skills, prevent decompensation, and increase overall functioning. Narrative Note: []
--- NOTE | 2022-11-02 12:03 | PCM.BH.PN_ITS ---
Progress Note Progress Note: And history of Present Illness/Interim History: The patient is a 37-year-old female with a history of depression and anxiety who is seen in follow-up at the [facility] behavioral health IOP program. I last saw the patient 2 weeks ago and at that time she was started on Lexapro and hydroxyzine to help with sleep. The patient states she has been taking the medication her set for almost 2 weeks and is tolerating the medication well. She did go to the emergency room 1 week ago and these records were reviewed today and the patient was diagnosed with dehydration and low potassium. Her blood pressure was low but this resolved when the patient was given IV fluid and potassium. She has be en doing well since then. The patient feels she is benefiting from the program and learning valuable skills to help with her mental health symptoms. She states that her mood remains somewhat depressed and has not improved a lot. She still has some anxiety. She still has hopelessness on occasion less than before but still has it at times. She has financial stress now because its first of the month. She denies any passive thoughts of . Denies suicidal ideation, plan for suicide, homicidal ideation, hallucinations or delusions. Current Psychiatric Medications: [] Lexapro 10 mg p.o. daily (x2 weeks); hydroxyzine 25 mg, 1-2 nightly at bedtime as needed for sleep. Mental Status Examination: [] Patient is a 37-year-old female who appears normal for stated age and is casually dressed and groomed with good hygiene. She has a right lateral nose piercing and multiple bilateral ear piercings. She is ambulatory with a normal gait and has no psychomotor agitation or retardation. She is cooperative during the interview. Eye contact is good. Mood is depressed. Speech is normal rate and rhythm and fluent without pressure. Affect is constricted. Thought process is goal-directed and organized. Thought content: The patient feels she is benefiting from the IOP program. There is no evidence of passive thoughts of , plan for suicide, suicidal ideation, homicidal ideation, hallucinations or delusions. Reality testing is intact. Intelligence is average. Impulsivity is high. Insight is limited but improving. Diagnoses: [] 1. Major depressive disorder, recurrent, moderat 2. Generalized anxiety disorder 3. Cluster B and dependent traits 4. Poor primary support, job and financial issues Plan: [] The patient will continue the IOP program at [facility] as the structure, support, education and group therapy will hopefully prevent worsening of the patient's symptoms that might require hospitalization. She felt safe during the interview and if it anytime she does not feel safe she will let us know or go to the emergency room. The risks, options, possible complications and side effects of the medications were discussed with the patient and she understands and accepts these. They had the Lexapro was increased to 20 mg p.o. daily as she did okay on this in the past. She will continue the hydroxyzine as it has helped with her sleep. No other medication changes were made but I will still consider adding Wellbutrin later if it seems needed. She will continue to follow-up with her outpatient providers and I will see the patient in follow-up in several weeks.
--- NOTE | 2022-11-03 10:10 | BH.SGPN.GN ---
Behaviors/Verbalizations/Mental Status: []Eye contact is good. Motor activity is appropriate. Appearance is casual. Speech is Appropriate. Mood is mellow. Affect is congruent. Thoughts are linear and logical. No evidence of psychosis. Client Response/Progress/Benefit: []Pt was an active participant in group discussions and activities. Attentive during psychoeducation. Pt engaged during interactive discussion in which the group defined self-care and discussed its benefits. ?Worked with peers in a small group to identify myths related to self-care which included; Self-care is expensive, self-care is selfish, not everyone deserves self-care, self-care means a person is weak, and self-care takes up too much time. Pt participated in small groups where they worked to bust these self-care myths. Pt did well to relate experiential activity to the topic of self-care and its benefit to mental health. Benefited from increased awareness of self-care, its benefits, and the consequences of not utilizing self-care strategies. Pt made a lot of connections in group sharing that she has ?always? struggled with self-care. Will continue in IOP to improve mood stability, reduce avoidance, and increase emotional regulation skills. ??? Narrative Note: []
--- NOTE | 2022-11-03 11:10 | BH.SGPN.GN ---
Behaviors/Verbalizations/Mental Status: []Pt alert and oriented, casually dressed and groomed. Eye contact good. Motor activity appropriate. Speech within normal limits. Affect congruent, mood euthymic. Thoughts linear, logical, no signs of hallucinations or delusions. Client Response/Progress/Benefit: []Pt engaged participant AEB completing self-assessment worksheet and providing input throughout discussion. Participated in group discussion on the various areas of self-care. Pt completed worksheet identifying current self-care practices and what self-care activities pt wants to start using. Pt selected emotional and physical self-care to begin practicing more consistently. Pt plans to do this by challenging herself to laugh more often and stick to a sleep/wake schedule. Appeared to benefit from completing the self-care evaluation and gaining insights into current self-care practices, as well as identifying areas in which pt ?would like to improve upon. Will continue IOP tx to improve mood stability, reduce avoidance, and increase emotional regulation skills to help pt return to work. ? Narrative Note: []
--- NOTE | 2022-11-03 13:40 | BH.MDN_ITS ---
Multi-Disciplinary Note - Note 45-min Individual Time Started:: 09:20 Date: 11/03/22 Purpose of session/treatment goals addressed:: The purpose of this session was to practice grounding skills in the moment. Another goal was to provide psychoeducation on distortions. Eye Contact:: Good Motor Activity:: Appropriate Appearance:: Casual Speech:: Appropriate Mood:: Anxious, Dysthymic Affect:: Constricted Thoughts:: Linear, Logical, No evidence of hallucinations/delusions noted Staff Interventions:: thought challenging, CBT techniques, mindfulness skills - Practiced the 5-senses together, strengths perspective, goal setting Client Response:: Pt responded well to session, open to meeting with therapist. Pt reports feeling low energy today. Pt is still recovering from sickness and pt was recently in the ER for low blood pressure and potassium which has resolved. Pt reports she is doing okay and she feels like she is using skills outside of IOP. Pt continues to have stressors with her boyfriend, her son, and finances. P t still sees her boyfriend, but he is not living with pt. Pt shared this has been hard on her son as they were close. Pt continues to be unsure about her relationship with her boyfriend, but pt does not plan to completely end things yet. Pt receptive to practicing calming skills in session as pt recently had a panic attack at home. Pt shared sometimes deep breathing works and sometimes it does not. Pt and therapist practiced the 5-senses and also discussed PMR. Pt encouraged to practice these when pt is not anxious to help pt feel more confident in using it when she is anxious. Pt was given homework to look over the distortions worksheet in her binder and we will review these next session. Risks/Concerns:: Pt denies any suicidal ideations, plan, or intent as of 11/03/22. Progress Toward Goals/Plan:: Pt continues to make progress on her tx goals AEB pt's consistent attendance and report of increased ability to regulate her emotions. Pt continues to report depressive symptoms such as low energy, anhedonia, ruminations, and isolative behaviors. Pt is working on utilizing emotional regulation skills to manage anger and triggers. Pt was able to schedule with Dr. Mcneil and has an appointment on 12/15/22. Pt will continue IOP tx to prevent decompensation and improve emotional regulation skills. Time Stopped:: 10:00
--- NOTE | 2022-11-07 09:05 | BH.SGPN.GN ---
Behaviors/Verbalizations/Mental Status: []Eye contact good, casually dressed, motor activity appropriate, speech normal rate and tone, mood euthymic and anxious, congruent affect, thoughts linear and intact, no evidence of delusions or hallucinations. Reviewed pt's symptom tracker, suicidal ideation within baseline, pt denies plan, or intent as of this date. Future oriented. Client Response/Progress/Benefit: []Pt responded well to session, attentive and willing to process with group. Pt reports feeling mellow this morning. Pt did well to identify current mental health wins from the weekend, this included managing her emotions and not engaging in conflict with her boyfriend when instigated. Pt discussed utilizing grounding skills, such as the five senses, as well as walking away and taking some deep breaths to maintain calm. Expressed this helped to prevent escalation and contributed to her boyfriend calming down as well. Reconnecting with an old friend and being able to provide support without taking on her friend?s stressors too. Shared this felt empowering. Indicated that because she was able to utilize so many healthy skills, she feels she was able to prevent having any notable stressors this morning. Appeared to benefit from group?discussion and supportive environment. Recommended continued IOP tx to continue to improve healthy skills, promote mood stability, as well as prevent decompensation. Narrative Note: []
--- NOTE | 2022-11-07 10:10 | BH.SGPN.GN ---
Behaviors/Verbalizations/Mental Status: [ ] Client alert and oriented, neatly dressed and groomed. Eye contact normal. Motor activity appropriate. Speech within normal limits. Affect congruent, mood euthymic. Thoughts linear, logical, no signs of hallucinations or delusions. Client Response/Progress/Benefit: [] Client was an active participant AEB contributing to discussion, taking notes, and engaging in group activity. Connected with the topic of pitfalls and listened to group discussion on barriers that prevent from choosing a healthier path to mental wellness. Group worked together to identify examples of personal pitfalls which included; being in denial, emotional outbursts, and procrastination. Client identified emotional outbursts being a pitfall she is currently struggling with, Client benefited from group as client learned to better identify potential barriers to improving mental health symptoms. Client will continue IOP tx to increase self care, minimizing negative thinking patterns, and improve daily functioning. Narrative Note: []
--- NOTE | 2022-11-07 11:10 | BH.SGPN.GN ---
Behaviors/Verbalizations/Mental Status: [] Client alert and oriented, casually dressed and groomed. Eye contact good. Motor activity appropriate. Speech within normal limits. Affect congruent, mood euthymic. Thoughts linear, logical, no signs of hallucinations or delusions. Client Response/Progress/Benefit: [] Client receptive of session, engaged throughout AEB actively listening and contributing to discussion, as well as taking notes. Client participated in the experiential activity and did well to communicate ideas with peers and manage emotions. Client and group processed how the emotions and perspective of the group impacted the activity. Group worked together to identify different coping skills to help manage pitfalls. Client identified pitfalls they struggle with and shared wanting to work on strategies of open communication and boundary setting to help manage symptoms. Benefited from identifying personal pitfalls and strategies to overcome these pitfalls. Will continue IOP tx to increase overall functioning, prevent decompensation and challenge cognitive distortions. Narrative Note: []
--- NOTE | 2022-11-09 09:05 | BH.SGPN.GN ---
Behaviors/Verbalizations/Mental Status: []Eye contact good, casually dressed, motor activity appropriate, speech normal rate and tone, mood depressed and anxious, congruent affect, thoughts linear and intact, no evidence of delusions or hallucinations. Reviewed pt's symptom tracker, pt denies suicidal ideation, plan, or intent as of this date. Future oriented. Client Response/Progress/Benefit: []Pt responded well to session, attentive and willing to process with group. Pt reports feeling sleepy this morning. Pt did well to identify wins, which included getting up in time for group this morning despite not wanting to get out of bed. Additional win noted as challenging herself to make dinner rather than order out. Shared feeling more accomplished as a result. Discussed current stressor as her son?s mental health, indicating that he has been more irritable lately. Pt discussed trying to reach out and talk with him but that he has shut her out each time. Identified that she can continue to be a support without pushing him and reminding herself ?it?s not necessarily my fault that he?s angry?. Progress noted in increased acceptance and reported emotion regulation. Recommended continued IOP tx to continue to improve consistent use of healthy emotion regulation skills, promote mood stability, as well as prevent decompensation. Narrative Note: []
--- NOTE | 2022-11-09 10:10 | BH.SGPN.GN ---
Behaviors/Verbalizations/Mental Status: []Pt alert and oriented, neatly dressed and groomed. Eye contact good. Motor activity appropriate. Speech within normal limits. Affect constricted, mood irritable and tired. Thoughts linear, logical, no signs of hallucinations or delusions. Client Response/Progress/Benefit: []Pt responded well to session, attentive during psychoeducation on SMART goals (Specific, Measurable, Achievable, Realistic, and Time-bound) and engaged in group experiential activity. Participated in an interactive discussion with peers in which they worked together to define what a goal is and the benefits of having goals. Group identified benefits as; gives purpose, ?keeps us moving,? and personal growth. Participated in interactive discussion in which group identified barriers to setting goals and following through with goals. Personal barriers included negative self-talk, making excuses, lack of motivation, and being forgetful. Benefited from increased awareness of benefits and strategies for goal-setting. Will continue in IOP to improve mood stability, reduce negative thinking patterns, and improve daily functioning. Narrative Note: []
--- NOTE | 2022-11-09 11:10 | BH.SGPN.GN ---
Behaviors/Verbalizations/Mental Status: []Pt alert and oriented, neatly dressed and groomed. Eye contact good. Motor activity appropriate. Speech within normal limits. Affect constricted, mood irritable and tired. Thoughts linear, logical, no signs of hallucinations or delusions. Client Response/Progress/Benefit: []Pt was engaged during discussion and willing to complete the worksheet challenging them to develop a personal SMART goal. Pt chose the goal of saying two positive things about herself each day for one week. Pt stated this will benefit them by helping pt increase self-awareness, reduce anxiety, and increase confidence. Pt identified barriers which included lack of motivation, making excuses, being forgetful, and negative thoughts. Pt receptive to identifying solutions for these barriers and willing to begin working on this goal. Benefited from this group by developing a short-term SMART goal related to mental health. Will continue IOP tx to improve daily functioning, reduce negative thinking patterns, and increase symptom management skills. Narrative Note: []
--- NOTE | 2022-11-09 16:05 | BH.TPR ---
Treatment Plan Review Date of Admission:: 10/17/22 Date of Treatment Plan Review:: 11/09/22 Admitting Diagnoses:: Major depressive disorder, recurrent, moderate F 33.1; Generalized anxiety disorder F 41.1; Cluster B and dependent traits; Extensive trauma history, rule out PTSD Current Diagnoses:: Major depressive disorder, recurrent, moderate F 33.1; Generalized anxiety disorder F 41.1; Cluster B and dependent traits; Extensive trauma history, rule out PTSD Patient's Response to Treatment:: Pt has responded well to treatment AEB pt consistently attending IOP sessions and reduction of overall symptoms on the DSM-5 by 27% since admission. Pt contributes sometimes in group sessions, depending on her mood. Pt applies coping skills outside of IOP and reports overall biggest improvement in managing irritability. Pt reports improvement in functioning but pt is not at her baseline yet. Status of Current Problems and Symptoms: Pt's stressors with work and her relationships have not really changed since admission. Pt is receptive to reaching out to her work to figure out what the plan is for her return. Pt continues to report symptoms of depression and anxiety that are impacting her functioning, but she is making progress AEB sx reduction at 3 weeks. Problem #1 Problem Name:: depression, hopelessness, worthlessness, irritability, and anhedonia Status of Goals:: Objective 1-in progress. Pt?s depressive symptoms have decreased by 13% since admission and anger has decreased by 25%, but pt continues to report anhedonia and lack of motivation. Pt has gained knowledge of several coping skills for depression and has learned about maintenance cycles. Objective 2- not complete. Pt has gained awareness of distortions, but pt struggles to challenge distortions outside of IOP setting. Team Recommendations:: Treatment tx encourages pt to continue working on this tx goal as pt has made progress, but she can continue to reduce intensity of depressive symptoms. Pt also can benefit from challenging distortions as pt admits her motivation is dependent on her perspective for the day. Problem #2 Problem Name:: avoidance, anxiety, and rumination Status of Goals:: Objective 1- in progress. Pt?s DSM-5 scores for anxiety have decreased by 22% since admission. Pt continues to report constant worry, avoidance, and ruminations. Pt has practiced grounding skills in group and individual sessions. Objective 2- in progress. Pt self-reports improved ability to manage stressors and change her response to situations. This has helped pt de-escalate conflict and better communicate with her son. Team Recommendations:: Treatment tx encourages pt to continue working on this treatment goal to further reduce avoidance, increase self-confidence and mastery, and gain healthy support. Pt is also encouraged to practice coping skills when she is not anxious to help pt gain confidence in the skills.
--- NOTE | 2022-11-11 09:10 | BH.SGPN.GN ---
Behaviors/Verbalizations/Mental Status: []Eye contact good, casually dressed, motor activity appropriate, speech normal rate and tone, mood depressed and anxious, congruent affect, thoughts linear and intact, no evidence of delusions or hallucinations. Reviewed pt's symptom tracker, pt denies suicidal ideation, plan, or intent as of this date. Future oriented. Client Response/Progress/Benefit: []Pt responded well to session, attentive and willing to process with group. Pt reports feeling drained this morning as she had a busy day yesterday. Pt did well to identify wins, which included taking her car to have several parts fixed. 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 Additional win noted as making time for more enjoyable self-care activities and giving herself a manicure. Shared feeling refreshed as a result. Current stressor noted as ongoing difficulties in coordinating her return to work with her employer. Reports trying to remind herself that she is doing everything in her power to move forward with the process and it?s in their hands now. Appeared to benefit from group?discussion and supportive environment. Progress noted in increased engagement in the group setting. Recommended continued IOP tx to continue to improve consistent use of healthy distress tolerance skills, promote mood stability, as well as prevent decompensation. Narrative Note: []
--- NOTE | 2022-11-11 10:10 | BH.SGPN.GN ---
Behaviors/Verbalizations/Mental Status: [] Client alert and oriented, casually dressed and groomed. Eye contact good. Motor activity appropriate. Speech within normal limits. Affect congruent, mood euthymic. Thoughts linear, logical, no signs of hallucinations or delusions. Client Response/Progress/Benefit: [] Client responded well to session, contributing to discussion and engaged during the activity. Attentive during discussion on the quote and shared Anxiety is a big factor in preventing change. Group identified the benefits of change which included: personal growth, improved relationships, more confidence, and progress towards goals. Worked with the group to identify barriers to change, which included: uncomfortable emotions such as anxiety, lack of motivation, others's opinions, and negative thinking. Client participated along with group in activity where they identified and discussed the emotions related to change. Benefited from increased awareness and understanding of emotions, benefits, and barriers related to change. Will continue IOP tx to continue to increase positive self care and improve overall functioning. Narrative Note: []
--- NOTE | 2022-11-11 11:10 | BH.SGPN.GN ---
Behaviors/Verbalizations/Mental Status: [] Client alert and oriented, casually dressed and groomed. Eye contact good. Motor activity appropriate. Speech within normal limits. Affect congruent, mood euthymic. Thoughts linear, logical, no signs of hallucinations or delusions. Client Response/Progress/Benefit: [ ] Client responded well to session, attentive. Did well to process activity and work with group to relate the strategies used to overcome barriers in the activity to managing change in own life. Client identified she would like to focus on being more positive and thankful. Identified being in the preparation stage. Client stated her goal is to write in a gratitude journal 2 things she is thankful for each day. Appeared to benefit from identifying a small goal to work towards. Client will continue IOP tx to prevent decompensation, gain healthy coping skills, and increase self care. Narrative Note: []
--- NOTE | 2022-11-14 09:00 | BH.SGPN.GN ---
Behaviors/Verbalizations/Mental Status: [] Eye contact is good. Motor activity is appropriate. Appearance is casual. Speech is Appropriate. Mood is anxious/irritable. Affect is full. Thoughts are linear and logical. No evidence of psychosis. Reviewed daily check in sheet and no reports of suicidal ideations or intent. Client Response/Progress/Benefit: [] Pt was an active participant in group discussions. Attentive. Emotion for today is depressed and overwhelmed. She shared struggles that her son has had over the past week regarding his mental health. Believes that her son was more forthcoming and receptive to discussion due to her recent struggles. I think I'm more approachable and less angry. She reports that she continues to struggle with anxiety throughout most days and has been unable to find coping strategies than are consistently helpful. Primary coping skills is distraction and cleaning. Will continue in IOP to prevent decompensation, stabilize mood, and improve functioning to return to work. Narrative Note: []
--- NOTE | 2022-11-14 10:00 | BH.SGPN.GN ---
Behaviors/Verbalizations/Mental Status: []Eye contact is good. Motor activity is appropriate. Appearance is casual. Speech is Appropriate. Mood is anxious and dysthymic. Affect is congruent. Thoughts are linear and logical. No evidence of psychosis. Client Response/Progress/Benefit: []Pt was an active participant in group discussions and experiential activity. Attentive during psychoeducation on resilience. Participated in interactive discussion with peers on the definition of resilience and where it comes from. Shared beliefs that resilience has both genetic and learned components. Group identified that resiliency can be impacted by; past experiences, learned behaviors, and limited or toxic supports. Pt shared resilience has been difficult for her during times in which she has several different stressors she is juggling at once. Group also worked together to identify the benefits of being resilient and how it is related to mental health. Able to relate experiential activity of group juggle to topics of resilience. Worked well with peers in small group in which they identified factors that contribute to resilience. Benefited from increased awareness of resilience and the factors that contribute to building resilience. Will continue in IOP to prevent decompensation, increase healthy coping and mood stability, as well as continue to improve functioning in order to return to work. Narrative Note: []
--- NOTE | 2022-11-14 10:45 | PCM.BH.PN ---
Progress Note Progress Note: History of Present Illness/Interim History: The patient is a 37-year-old female with a history of depression and anxiety who is seen in follow-up at the [facility] behavioral health IOP program. I last saw the patient 2 weeks ago and at that time her dose of Lexapro was increased to 20 mg daily. The patient states that she is tolerating the medication well but has not noticed any improvement yet although she has barely taken it 2 weeks. She feels she has hit a wall. She feels that her mood has not gotten better in the last week or so and she is having trouble accomplishing things at home because she lacks motivation and has low energy level. She does enjoy still playing a game on her phone. She still feels that she is somewhat anxious still and has been stressed by wondering if her job is going to cover the IOP program. The patient denies passive thoughts of , suicidal ideation, homicidal ideation, hallucinations, delusions, hopelessness or thoughts of self-harm. She still feels somewhat depressed and occasionally worthless. She is benefiting from the IOP program and plans to attend the aftercare program after completing this program. Current Psychiatric Medications: [] Lexapro 20 mg p.o. daily (dose increased 2 weeks ago); hydroxyzine 25 mg, 1-2 nightly as needed for sleep Mental Status Examination: [] The patient is a 37-year-old female who appears normal for stated age and is casually dressed and groomed with good hygiene. She has a right lateral nose piercing and multiple bilateral ear piercings. She has no psychomotor agitation or retardation and is ambulatory with a normal gait. Eye contact is good and speech is normal rate and rhythm and fluent without pressure. Mood is depressed. Affect is somewhat flat. Thought process is goal-directed and organized. Thought content: The patient feels she has hit a wall. There is no evidence of passive thoughts of , suicidal ideation, plan for suicide, homicidal ideation, hallucinations or delusions. Reality testing is intact. Intelligence is average. Impulsivity is high. Insight is fair. Judgment is intact. Diagnoses: [] 1. Major depressive disorder, recurrent, moderate 2. Generalized anxiety disorder 3. Cluster B and dependent traits 4. Primary support, job and financial issues Plan: [] Patient will continue the IOP program at [facility] as the structure, support, education and group therapy will hopefully prevent worsening of the patient's symptoms which might require hospitalization. She felt safe during the interview and if it anytime she does not feel safe she will let us know or go to the emergency room. The risks, options, possible complications and side effects of the medications were discussed with the patient again and she understands and accepts these. In particular side effects of Wellbutrin were discussed and the patient agrees to add Wellbutrin XL 150 mg p.o. every morning to her medication regimen. Prescription is sent in for this. She will continue the other medications also. She took Wellbutrin in the past and did well on it. She will continue to follow-up with her outpatient providers and I will see the patient in follow-up while in the IOP program.
--- NOTE | 2022-11-14 11:10 | BH.SGPN.GN ---
Behaviors/Verbalizations/Mental Status: []Pt alert and oriented, casually dressed and groomed. Eye contact good. Motor activity appropriate. Speech within normal limits. Affect constricted, mood irritable. Thoughts linear, logical, no signs of hallucinations or delusions Client Response/Progress/Benefit: []Pt responded well to session AEB completing the resilience worksheet provided. Pt participated in the discussion and worked cooperatively with group to identify strategies to enhance each of the components discussed. Pt reports belief they already use resilience trait of??making connections? as pt had been consistent with therapy and she talks with her supports.?Pt stated they would like to continue to develop resilience trait of ?everything else? but more specifically, nurturing a positive view of self. Pt seemed to benefit from discussing strategies for improving personal resilience and identifying resilience traits pt already possesses. Pt reports belief she has regressed as pt feels more depressed this week. Will continue IOP tx to improve daily functioning, improve emotional regulation skills, and reduce negative thinking patterns. ? Narrative Note: []
--- NOTE | 2022-11-14 13:32 | BH.MDN ---
Multi-Disciplinary Note - Note 30-min Individual Time Started:: 12:10 Date: 11/14/22 Purpose of session/treatment goals addressed:: To work on goal #2 of pt's tx plan and discuss return to work. Eye Contact:: Fair Motor Activity:: Appropriate Appearance:: Casual Speech:: Soft Mood:: Anxious, Irritable Affect:: Constricted Thoughts:: Linear, Logical, No evidence of hallucinations/delusions noted Staff Interventions:: thought challenging, motivational interviewing, CBT techniques, discharge planning - and discussed return to work, strengths perspective Client Response:: Pt responded well to session, open to meeting with therapist. Pt reports feeling overwhelmed and stressed. Pt is not ready to return to work and feels increased anxiety. Pt also shared that her depression feels worse this week as pt is not doing much of anything. Pt stated she had noticed increased motivation and energy, but now pt is struggling to complete her ADLs. Pt is also anxious about her return to work and status of her job. Pt and therapist processed pt's choices and pt decided to contact her HR to discuss expectations. Pt also reminded of maintenance cycles and how to break these maintenance cycles. Pt reports her relationship is an ongoing stressor as well and so is managing her son's mental health. Risks/Concerns:: Pt denies any suicidal ideations, plan, or intent as of 11/14/22. There is a concern about pt's return to work as therapist recommended returning to work with restrictions for two weeks and then go to full-time after discharge, but pt wants to return to work full-time at the end of IOP. Progress Toward Goals/Plan:: Pt is making progress in some areas as pt reports increased ability to manage anger/irritability and better communication with her employer. Pt continues to struggle with managing anxiety and depression. Pt reports ongoing lack of motivation, poor sleep patterns, ruminations, lack of interest, and worry. Pt self-reports that she has not been using coping skills discussed for the last week due to increase stress and illness. Pt will continue IOP tx to promote use of healthy coping skills, improve work-related functioning, and increase motivation. Time Stopped:: 12:40
--- NOTE | 2022-11-16 09:00 | BH.SGPN.GN ---
Behaviors/Verbalizations/Mental Status: [] Eye contact is good. Motor activity is appropriate. Appearance is casual. Speech is Appropriate. Mood is anxious/irritable. Affect is congruent. Thoughts are linear and logical. No evidence of psychosis. Reviewed daily check in sheet and no reports of suicidal ideations or intent. Client Response/Progress/Benefit: [] Pt was an active participant in group discussions. Daily symptom tracker notes 02/03 for depression and anxiety. ?Provided appropriate feedback. Emotion for today is ?calm?. Mental health wins include utilizing skills. She shared that she was able to ?stop? and reframe negative thoughts. Improved awareness of negative automatic thoughts and instead of treating them as facts can identify them as untrue and apply coping strategies. Believed that Ramos?s Day was going to be very distressing to her however ? I handled things well?. Changed her mindset in the AM ? I woke up and told myself that today will be a good day and didn?t place any expectations on it?. Benefited from group support, encouragement, and feedback. Will continue in IOP to prevent decompensation, stabilize mood, and improve functioning to return to work. Narrative Note: []
--- NOTE | 2022-11-16 10:14 | BH.SGPN.GN ---
Behaviors/Verbalizations/Mental Status: [ ] Client alert and oriented, neatly dressed and groomed. Eye contact good. Motor activity appropriate. Speech normal. Affect congruent, mood euthymic. Thoughts linear, logical, no signs of hallucinations or delusions. Client Response/Progress/Benefit: [ ] Client was an engaged participant AEB client listening attentively to others and participating throughout. Attentive during psychoeducation on communication styles. Assisted group with identifying barriers of effective communication which included: assuming, shutting down, dominating the conversation, and getting emotional. Client identified she most often uses aggressive communication with her stating that she is trying to change and be more assertive. Client reports shes still learning how to approach conversations and see what works. Benefited from increased awareness of different communication barriers, styles, and the importance of communicating effectively to improve mental wellness. Will continue IOP tx to improve emotional regulation skills, increase self-awareness, and increase healthy coping. Narrative Note: []
--- NOTE | 2022-11-16 11:14 | BH.SGPN.GN ---
Behaviors/Verbalizations/Mental Status: [] Client alert and oriented, casually dressed and groomed. Eye contact good. Motor activity appropriate. Speech within normal limits. Affect congruent, mood euthymic. Thoughts linear, logical, no signs of hallucinations or delusions Client Response/Progress/Benefit: [] Client responded well to session AEB client listening attentively to others and providing input during group discussion. Client did well in the activity to be assertive and ask for feedback. Recognizes if group wasn't assertive in activity, they wouldn't have been successful. Discussed with group communication strategies used to make activity successful. Attentive during psychoeducation on interpersonal DBT skill TONY. Client set a goal to work on expressing herself better and appearing confident. Client seemed to benefit from increasing awareness of healthy strategies to improve communication. Will continue IOP tx to improve communication, increase self-awareness, and improve daily functioning. Narrative Note: []
--- NOTE | 2022-11-17 09:00 | BH.SGPN.GN ---
Behaviors/Verbalizations/Mental Status: [] Eye contact is good. Motor activity is appropriate. Appearance is casual. Speech is Appropriate. Mood is depressed/irritable. Affect is congruent. Thoughts are linear and logical. No evidence of psychosis. Reviewed daily check in sheet and no reports of suicidal ideations or intent. Client Response/Progress/Benefit: [] Pt was an active participant in group discussion. Attentive. Daily symptom tracker notes 02/03 for depression and anxiety. Pt's check-in was very brief and superficial this AM. Mental health win involved her son making a decision regarding his future that she felt was best for him. Reports being tired, depression, and anxious. She reports that she has been consistently low this week. Continues psychosocial stressors regarding here job and her currently relationship. She has plans to meet with her employer next week to discuss returning to work. Will continue in IOP to prevent decompensation, increase healthy coping, and to improve functioning to return to work. Narrative Note: []
--- NOTE | 2022-11-17 10:10 | BH.SGPN.GN ---
Behaviors/Verbalizations/Mental Status: []Client alert and oriented, casually dressed and groomed. Eye contact good. Motor activity appropriate. Speech within normal limits. Affect congruent, mood euthymic. Thoughts linear, logical, no signs of hallucinations or delusions Client Response/Progress/Benefit: []Client responded well to session AEB providing input, taking notes, and listening attentively to others. Client was engaged throughout group discussion defining fixed mindset and what it can look like. Group identified several aspects of fixed mindset which included; negative outlook, difficulties taking criticism, absolute thinking, and unrealistic expectations of self/others. Group discussed how fixed mindset affects mental health and why we use fixed thoughts. Client participated in experiential activity encouraging clients to find solutions to a seemingly impossible task. Client identified personal fixed thoughts in session which included ?I can?t?, ?I?m not good enough? and ?Nothing will change so why try??. Client gained insight to how these fixed thoughts reduce motivation, impact relationships, and keep client stuck in unhealthy cycles. Client appeared to benefit from increased knowledge of fixed mindset and self-awareness of personal fixed thoughts. Will continue IOP treatment to improve mood stability, increase healthy coping, and to prevent decompensation as pt transitions back to work. Narrative Note: []
--- NOTE | 2022-11-17 11:10 | BH.SGPN.GN ---
Behaviors/Verbalizations/Mental Status: []Pt alert and oriented, casually dressed and groomed. Eye contact good. Motor activity appropriate. Speech within normal limits. Affect constricted, mood euthymic. Thoughts linear, logical, no signs of hallucinations or delusions. Client Response/Progress/Benefit: []Pt engaged during activity and discussion AEB providing some input, connecting with peers, as well as taking notes throughout. Pt did well to engage as group worked on identifying characteristics and benefits of adopting a growth mindset. Worked with fellow participants in reframing the example fixed thoughts into growth mindset thoughts. Reframed personal fixed thought of ?nothing will change so why try? with growth mindset thought of ?with time things can change.? Benefitted from discussing benefits of growth mindset and brainstorming strategies for prompting growth-mindset. Pt selected ?thoughts are thoughts not facts? as the coping skill pt wants to work on this week. Pt reports difficulty challenging her thinking, but she has been advocating for herself at work. Pt will continue IOP tx to improve emotional regulation skills, reduce negative thinking, and improve daily functioning. ? Narrative Note: []
--- NOTE | 2022-11-21 09:03 | BH.SGPN.GN ---
Behaviors/Verbalizations/Mental Status: []Eye contact good, casually dressed, motor activity appropriate, speech normal rate and tone, mood depressed and anxious, constricted affect, thoughts linear and intact, no evidence of delusions or hallucinations. Reviewed pt's symptom tracker, pt denies suicidal ideation, plan, or intent as of this date. Future oriented. Client Response/Progress/Benefit: []Pt responded well to session, attentive and willing to process with group. Pt reports feeling ?numb, angry, and depressed? this morning noting that this is due to a recent stressor. Shared her boyfriend informed her that he does not plan for them to mend the relationship and he has started seeing someone else. Pt expressed feeling blindsided by this and struggling with sadness and grief throughout the weekend. Did however due well to reach out to healthy supports, as well as spend time with others to prevent negative rumination the entire weekend. Went on to identify additional win as going to meet with her employer about upcoming return to work. Shared feeling anxious but did well to address her concerns and take ownership for the mistakes she had made resulting in her previous suspension. Noted feeling accomplished as a result. Receptive of supportive feedback provided by the group and appeared to benefit from recognizing areas of personal progress. Recommended continued IOP tx to continue to improve consistent use of healthy coping skills, promote mood stability, as well as prevent decompensation in order for pt to return to work. Narrative Note: []
--- NOTE | 2022-11-21 10:10 | BH.SGPN.GN ---
Behaviors/Verbalizations/Mental Status: []Pt alert and oriented,casually dressed and groomed. Eye contact good. Motor activity appropriate. Speech within normal limits. Affect constricted, mood depressed. Thoughts linear, logical, no signs of hallucinations or delusions. Client Response/Progress/Benefit: []Pt was an engaged participant AEB providing input, listening to others, and taking notes. Participated in interactive group discussion on internal and external barriers to mental health progress. Pt described current reality using a roller coaster metaphor. Pt shared she feels ?stuck on the roller coaster? right now and she keeps experiencing the ?highs and lows.? Reported desired reality is being able to get unstuck and manage the highs and lows with boundaries and skills. Pt?s strengths in her current reality included willingness to get better and desire to be happy again. Pt shared personal barriers to desired realty include: fear of the unknown, lack of motivation, and negative thinking. Benefited from increased awareness of current barriers to progress as well as current/desired realities. Pt to continue IOP to improve work-related functioning, reduce negative thinking patterns, and increase mood stability. ? Narrative Note: []
--- NOTE | 2022-11-21 11:10 | BH.SGPN.GN ---
Behaviors/Verbalizations/Mental Status: []Pt alert and oriented, casually dressed and groomed. Eye contact fair. Motor activity appropriate. Speech within normal limits. Affect constricted, mood dysthymic. Thoughts linear, logical, no signs of hallucinations or delusions. Client Response/Progress/Benefit: []Pt engaged during activity, encouraging peers and contributed as group brainstormed ideas on how to cope with internal barriers that keep pts stuck from moving towards goals. Able to identify barriers to desired reality. Identified barriers to current reality to include: fear of the unknown, lack of support, and negative thinking. Pt wants to work on overcoming the barrier of fear of the unknown by purposefully getting out of her comfort zone. Benefited from group by identifying obstacles and solutions to desired reality.? Pt will continue IOP tx to increase consistent use of healthy coping skills, challenge negative/distorted perspective, and prevent decompensation.
--- NOTE | 2022-11-23 09:00 | BH.SGPN.GN ---
Behaviors/Verbalizations/Mental Status: []Pt alert and oriented, neatly dressed and groomed. Eye contact good. Motor activity appropriate. Speech within normal limits. Affect constricted, mood anxious. Thoughts linear, logical, no signs of hallucinations or delusions. Reviewed pt?s symptom tracker, no risk for suicidal ideation, plan, or intent as of 11/23/22 Client Response/Progress/Benefit: [] Pt responded well to session, attentive and receptive to feedback. Pt reports feeling anxious this morning due to relationship stressors and thoughts of returning to work. Pt shared her meeting with HR went well last week, but pt was approached by a lot of co-workers asking about pt which triggered anxiety. Group offered feedback on how to navigate returning to work after leave which pt appeared to benefit from. Pt reflecting on use of opposite action, emotional regulation skills, and self-care to manage recent stressors. Progress noted as pt's emotional regulation skills are improving, but pt continues to struggle with challenging her perspective. Pt will continue IOP tx to improve work-related functioning, increase mood stability, and combat distortions. Narrative Note: []
--- NOTE | 2022-11-23 10:15 | BH.SGPN.GN ---
Behaviors/Verbalizations/Mental Status: [] Eye contact is good. Motor activity is appropriate. Appearance is casual. Speech is Appropriate. Mood is depressed/irritable. Affect is congurent. Thoughts are linear and logical. No evidence of psychosis. Client Response/Progress/Benefit: [] Pt participated at times during group discussion. This group was very heavy on psychoeducation and pt was attentive AEB by note-taking, providing input when appropriate, and asking questions. Participated in interactive discussion in which peers attempted to define and give examples of automatic negative thoughts and cognitive distortions. Therapist presented and reviewed ten common cognitive distortions (All or Nothing thinking, mental filter, jumping to conclusions, emotional reasoning, labeling, overgeneralization, disqualifying the positives, catastrophizing, shoulds, and personalization). Benefited from increased understanding of cognitive distortions and how they impact automatic negative thoughts. Will continue in IOP to prevent decompensation, stabilize mood, and improve functioning to return to work. Narrative Note: []
--- NOTE | 2022-11-23 11:10 | BH.SGPN.GN ---
Behaviors/Verbalizations/Mental Status: []Eye contact is fair. Motor activity is appropriate. Appearance is casual. Speech is WNL. Mood is euthymic. Affect is constricted. Thoughts are linear and logical. No evidence of psychosis. Client Response/Progress/Benefit: []Pt engaged participant AEB providing input during small group discussion and engaging in activity. Activity involved working with peers to answer questions related to psychoeducation on cognitive distortions and practicing reframing distorted thoughts. Pt collaborated with the group to determine the answers. Identified cognitive distortion struggles with the most as all or nothing thinking. Benefited from rehearsing ways to challenge/reframe cognitive distortions and by gaining increased insight into examples/definitions of 10 most common cognitive distortions. Will continue in IOP to challenge negative thoughts, increase confidence, and prevent decompensation.
--- NOTE | 2022-11-23 12:36 | PCM.BH.PN_ITS ---
Progress Note Progress Note: History of Present Illness/Interim History: The patient is a 37-year-old female with a history of depression and anxiety who is seen in follow-up at the [facility] behavioral health IOP program. I last saw the patient 1 week ago and at that time Wellbutrin XL was added to her medication regimen to help with her depression. She is tolerating the medication well but it is too early to really notice any improvement. She had increased stress over the weekend and feels like she hit a brick wall again in terms of her depression and anxiety. The boyfriend issues she has been having were exacerbated when her boyfriend told her he has someone else in his life. The patient does not feel ready to return to work as her motivation is low and her energy is extremely low. She describes her mood and anxiety as horrible. When she is home she just sits on the couch and colors in her coloring book. She admits to passive thoughts of and decreased concentration. She denies suicidal ideation, plan for suicide, homicidal ideation, hallucinations or delusions. She endorses worthle ssness but denies hopelessness. She is trying to quit smoking again and has restarted her Chantix. Current Psychiatric Medications: [] Lexapro 20 mg p.o. daily; hydroxyzine 25 mg as needed nightly for sleep; Wellbutrin XL 150 mg p.o. every morning (x1 week) Mental Status Examination: [] The patient is a 37-year-old female who appears normal for stated age and is casually and dressed and groomed with good hygiene. She has no psychomotor agitation or retardation and is ambulatory with a normal gait. She is cooperative but tearful during the interview and eye contact is limited as she looks down when she is upset. Mood is depressed. Affect is constricted. Speech is normal rate and rhythm and fluent without pressure. Thought processes organized and goal-directed. Thought content: There is evidence of passive thoughts of but no evidence of suicidal ideation, homicidal ideation, hallucinations, delusions or plan for suicide. Reality testing is intact. Insight is improving. Impulsivity is moderate. Judgment is intact. Diagnoses: [] 1. Major depressive disorder, recurrent, moderate 2. Generalized anxiety disorder 3. Cluster B and dependent traits 4. Primary support, job and financial issues Plan: [] The patient will continue the IOP program at [facility] as the structure, support, education and group therapy will hopefully prevent worsening of the patient's symptoms. She felt safe during the interview and if it anytime she does not feel safe she will let us know or go to the emergency room. The risks, options, possible complications and side effects of medications were again discussed with the patient and she understands accepts these. I met with the treatment team after the patient and we are recommending an extension of her continuous leave from work until December 04, 2022 with a plan to return to work on December 05, 2022. She will continue to follow-up with outpatient providers and I will see the patient in follow-up while she is in the IOP program.
--- NOTE | 2022-11-25 11:01 | BH.COMM ---
Communication Note - Communication with Client Communication Note: Pt no called/no showed for her group and individual IOP sessions today. Due to this, pt was unable to meet with her individual therapist this week.
--- NOTE | 2022-11-28 09:05 | BH.SGPN.GN ---
Behaviors/Verbalizations/Mental Status: [] Eye contact is good. Motor activity is appropriate. Appearance is casual. Speech is Appropriate. Mood is depressed/irritable. Affect is congruent. Thoughts are linear and logical. No evidence of psychosis. Reviewed daily check in sheet and no reports of suicidal ideations or intent. Client Response/Progress/Benefit: [] Pt participated at times during group discussions. Attentive. Daily symptom tracker notes 01/04 for depression and irritability. Mental health win is that I haven't smoked since Monday. Stopped smoking to improve her health. Shared that she missed IOP last week due to a migraine. She took her PRN meds which led to sleeping a majority of Monday. She was proud of herself for not ruminating on her responsibilities and giving herself permission to slow down and have a low rainey weekend to aid in her recovery from the migraine. Briefly discussed her plan to return to work next week which is leading to increase anxiety. When asked about strategies to help with transitions pt stated I'm trying not to think about it. She has already met with her employer last week to discuss return which did ease anxiety. Beneifted from group support, encouragement, and feedback. Will continue in IOP to prevent decompensation, increase healthy coping skills, and to improve functioning to return to work. Narrative Note: []
--- NOTE | 2022-11-28 10:15 | BH.SGPN.GN ---
Behaviors/Verbalizations/Mental Status: []Client alert and oriented, casually dressed and groomed. Eye contact good. Motor activity appropriate. Speech within normal limits. Affect congruent, mood anxious and depressed. Thoughts linear, logical, no signs of hallucinations or delusions. Client Response/Progress/Benefit: []Client responded well to session AEB sharing and listening attentively to others. Client participated in group discussion defining anxiety and common characteristics. Group discussed the impacts of anxiety, its benefits, as well as when it becomes unhealthy. Clinician provided psychoeducation on anxiety diagnoses and the anxiety triangle of physical symptoms, safety behaviors, and common anxious thoughts. Client identified her own physical sx to include crying, migraines, and taping her feet and safety behaviors as avoidance, reassurance seeking, and lashing out at others. Client appeared to benefit from increased knowledge of anxiety diagnoses and causes, as well as improved self-awareness of anxiety symptoms. Will continue IOP treatment to increase consistency of healthy coping skills, maintain mood stability, and prevent decompensation in order to transition back to full-time work. Narrative Note: []
--- NOTE | 2022-11-28 11:10 | BH.SGPN.GN ---
Behaviors/Verbalizations/Mental Status: []Pt alert and oriented, casually dressed and groomed. Eye contact good. Motor activity appropriate. Speech within normal limits. Affect flat, mood irritable. Thoughts linear, logical, no signs of hallucinations or delusions. Client Response/Progress/Benefit: []Pt was an active participant in group discussion AEB? providing contributions throughout group and listening attentively to others. Pt able to connect how current safety behaviors are reinforcing anxiety. Attentive during psychoeducation on anxiety management skills. The group practiced gentle stretching and thought challenging during session. Engaged and attentive during group brainstorm of healthy anxiety reduction skills. Appeared to benefit from practicing in the moment coping skills and increasing repertoire of anxiety management skills. Pt selected wanting to work on ?breaking down or minimizing stressors? to reduce anxiety. Pt will continue IOP tx to further improve work-related functioning and reduce negative thinking patterns. ? Narrative Note: []
== END 2022-11-29 23:59 ==
LOC: BHIOP 07:34
PROVIDERS: PCP Family Medicine; Referring Provider Psychiatry & Neurology Psychiatry; Visit Provider Psychiatry & Neurology Psychiatry
DX: F33.1 Major depressive disorder, recurrent, moderate (principal); F41.1 Generalized anxiety disorder; Z79.899 Other long term (current) drug therapy
CPT/HCPCS: 99213; H2012; H2020; S9480; 90832; 90834

== ENCOUNTER 2022-11-30 06:45 | Outpatient (RCR) | payer MEDICAID, SELFPAY ==
[2022-11-30 00:29] VITALS: BP 119/80; PULSE 86
--- NOTE | 2022-11-30 09:05 | BH.SGPN.GN ---
Behaviors/Verbalizations/Mental Status: []Pt alert and oriented, casually dressed and groomed. Eye contact good. Motor activity appropriate. Speech within normal limits. Affect congruent, mood anxious. Thoughts linear, logical, no signs of hallucinations or delusions. Reviewed pt?s symptom tracker, no risk for suicidal ideation, plan, or intent as of 11/30/22 Client Response/Progress/Benefit: []Pt responded well to session, attentive and engaged. Pt reports feeling anxious this morning about returning to work soon. Pt shared she is most anxious about people asking her questions and how pt should respond. The group offered pt ideas which pt appeared to benefit from. Pt shared she had terrible headaches recently, so a mental health win today is that she is feeling better. Pt also reports belief that she is setting healthy boundaries and in general her communication has much improved. Pt will continue IOP tx to promote work-related functioning and increase mood stability. Narrative Note: []
--- NOTE | 2022-11-30 11:07 | BH.SGPN.GN ---
Behaviors/Verbalizations/Mental Status: []Client alert and oriented, casually dressed and groomed. Eye contact fair to good. Motor activity appropriate. Speech within normal limits. Affect congruent, mood anxious and dysthymic. Thoughts linear, logical, no signs of hallucinations or delusions. Client Response/Progress/Benefit: []Client responded well to session, taking notes and participating in worksheet discussion, at times however appearing to be distracted by own thoughts. Client connected with the zones of action/change and that making sustainable change comes from stepping out of one?s comfort zone into the learning zone. Client set a goal to gain control over smoking urges. Client reported plans to take her medication for smoking urges at the same time each day to prevent from forgetting this. Client identified keeping a progress tracker, having a medication shannon, and having supports remind her as supports needed to help accomplish this goal. Appeared to benefit from identifying a small goal to benefit mental health. Will continue IOP tx to increase healthy coping, promote mood stability, and prevent decompensation in order for client to transition back to work. Narrative Note: []
--- NOTE | 2022-11-30 14:48 | BH.MDN_ITS ---
Multi-Disciplinary Note - Note 45-min Individual Time Started:: 10:25 Date: 11/30/22 Purpose of session/treatment goals addressed:: To address anxiety and stressors about return to work and develop a return to work plan. Eye Contact:: Good Motor Activity:: Restless Appearance:: Casual Speech:: Appropriate Mood:: Anxious Affect:: Constricted Thoughts:: Linear, Logical, No evidence of hallucinations/delusions noted Staff Interventions:: thought challenging, discharge planning, strengths perspective, other - Worked on return to work coping skills plan. Client Response:: Pt responded well to session, receptive to meeting with therapist. Pt reports feeling anxious about returning to work next week. Pt shared she went to work to have a meeting with HR and her bosses and almost had a panic attack. Pt was triggered by the amount of people asking pt about how she was doing. Pt has changed her mind about going back full-time next week as pt previously desired. Pt receptive to returning part-time and having [facility] to help with the transition. Pt shared she continues to notice progress with her ability to communicate and manage conflict. Pt stated her employers also noticed a change and pt feels like they can support her when she returns. Pt receptive to completing a return to work plan. Pt's plan included warning signs and triggers for anxiety, irritability, and depression. Pt also identified coping skills she could use like deep breathing, taking breaks, positive self-talk, and communicating with her boss when she is not doing well. Pt also recognized that self-care such as coloring and meal-prepping will need to be a part of pt's work routine to maintain wellness. Pt hopes to also participate in IOP aftercare if pt can get her FMLA extended. Risks/Concerns:: No report of suicidal ideations or thoughts of . Progress Toward Goals/Plan:: Pt is making progress with her report of consistent use of healthy communication and better emotional regulation skills. Pt reports high anxiety, triggered by interpersonal relationships an return to work. Pt has also been experiencing psychical symptoms and was out earlier this week due to a migraine. Pt's symptom management is improving, but pt does not feel ready to return to work full-time next week. Pt and staff believe that having the support of [facility] while pt transitions back to work is beneficial. Plan is for pt to attend [facility] three times next week and work two days. Pt will then discharge from [facility] and return to full-time work. Time Stopped:: 11:10
--- NOTE | 2022-12-02 09:05 | BH.SGPN.GN ---
Behaviors/Verbalizations/Mental Status: [] Eye contact is good. Motor activity is appropriate. Appearance is casual. Speech is Appropriate. Mood is depressed/irritable. Affect is congruent. Thoughts are linear and logical. No evidence of psychosis. Reviewed daily check in sheet and no reports of suicidal ideations or intent. Client Response/Progress/Benefit: [] Pt participated when prompted. Attentive. Daily symptom tracker notes 3/5 for anxiety, depression, and irritability. Mental health win was completing self-care and going on a walk. Discussed how these choices benefited her mental health. She is stressed about returning to work next week. Attempting to decrease stress/anxiety by working with program therapist on plan for managing emotions when transitioning back to work. Group provided feedback and offered some suggestions for talking with co-workers who as where have you been? Benefited from group support, encouragement, and feedback. Will continue in IOP to prevent decompensation, stabilize mood, and improve functioning to return to work. Narrative Note: []
--- NOTE | 2022-12-02 10:20 | BH.SGPN.GN ---
Behaviors/Verbalizations/Mental Status: []Client alert and oriented, casually dressed and groomed. Eye contact good. Motor activity appropriate. Speech within normal limits. Affect congruent, mood euthymic. Thoughts linear, logical, no signs of hallucinations or delusions. Client Response/Progress/Benefit: []Client receptive to session AEB contributing to discussion, as well listening attentively to others, and taking notes. Worked with group to brainstorm the positive and negative aspects of stress on physical and mental health. Group did well to identify the benefits of stress as well as the impact of distress on performance, relationships, and mental health. Client identified their personal top stressors as: relationship issues, work, and financial issues. Client reports when the stress overflows client reacts with lashing out, crying, and shutting down. Client seemed to benefit from increased awareness of current stressors and impact stress has on mental health. Recommended to continue IOP tx to increase consistent use of coping skills, challenge distorted thoughts, and prevent decompensation.
--- NOTE | 2022-12-02 11:15 | BH.SGPN.GN ---
Behaviors/Verbalizations/Mental Status: []Pt alert and oriented, neatly dressed and groomed. Eye contact good. Motor activity appropriate. Speech within normal limits. Affect congruent, mood euthymic. Thoughts linear, logical, no signs of hallucinations or delusions. Client Response/Progress/Benefit: []?Pt engaged participant AEB listening attentively to others and contributing to discussion. Attentive during psychoeducation on the 4 A's of Coping with Stress (Avoid, Alter, Adapt, Accept). Participated in experiential activity in which group members had to utilize stress management skills in the moment. Pt was encouraging others and providing direction to group. Pt engaged in review of the 4 A?s and picked wanting to work on altering her thought patterns about returning to work.? Benefited from processing in the moment stress management strategies and identifying new ways to cope with stress. Will continue in IOP tx to promote mood stability, increase work-related functioning, and improve self-confidence. Narrative Note: []
--- NOTE | 2022-12-05 09:03 | BH.SGPN.GN ---
Behaviors/Verbalizations/Mental Status: []Eye contact is good. Motor activity is appropriate. Appearance is casual. Speech is Appropriate. Mood is euthymic, positive, some anxiety. Affect is congruent. Thoughts are linear and logical. No evidence of psychosis. Reviewed daily check in sheet and no reports of suicidal ideations or intent. Client Response/Progress/Benefit: []Pt was an active participant in group discussion. Attentive. Pt reported mental health positive as well as stressor as challenging herself to use healthy emotion regulation skills and not engage when her boyfriend became dysregulated over the weekend. Shared use of positive self-talk and deep breathing. Noted these skills will be important for her to implement upon returning to work tomorrow. Shared feeling anxious but hopeful about doing so. Went on to identify an additional positive as prioritizing self-care over the weekend and giving herself a pedicure which she enjoyed as well. Pt appeared to benefit from the supportive group environment as well as acknowledging her own progress. Will continue in [facility] tx to to improve consistent use of healthy anxiety management skills, promote mood stability, and prevent decompensation as pt transitions back to work. Narrative Note: []
--- NOTE | 2022-12-05 10:15 | BH.SGPN.GN ---
Behaviors/Verbalizations/Mental Status: []Pt alert and oriented, causally dressed and groomed. Eye contact good. Motor activity appropriate. Speech within normal limits. Affect congruent, mood euthymic. Thoughts linear, logical, no signs of hallucinations or delusions. Client Response/Progress/Benefit: []Pt participated at times during the group discussions. Participated during interactive discussion on defining conflict (internal/external) and possible benefits to conflict. Attentive during psychoeducation on conflict styles and engaged during small group activity in which peers identified the benefits and consequences to each conflict style. Pt identified that their primary conflict style used to be competing which led to feeling depressed and lost myself. Pt stated she now uses a more collaborating conflict resolution style and can see benefits of getting needs met more often. Benefited from increased awareness of the impact of conflict styles in mental health. Will continue in IOP to reinforce healthy coping skills and prevent decompensation.
--- NOTE | 2022-12-05 11:10 | BH.SGPN.GN ---
Behaviors/Verbalizations/Mental Status: []Pt alert and oriented, neatly dressed and groomed. Eye contact good. Motor activity appropriate. Speech within normal limits. Affect congruent, mood euthymic. Thoughts linear, logical, no signs of hallucinations or delusions. Client Response/Progress/Benefit: []Pt engaged in session AEB contributing to discussion and engaging in activity. Pt did well to review current conflict style and its impact on mental health. Attentive and taking notes during discussion on strategies for more effectively managing conflict in personal life.? Pt participated in activity and did well to talk through choices with peers. Pt given handout on fair fighting rules and identified that they want to work on discussing one topic at a time, not yelling, and being willing to compromise. Appeared to benefit from gaining strategies to help pt better manage conflict. Will continue IOP tx to reinforce healthy coping skills and establish aftercare. Narrative Note: []
--- NOTE | 2022-12-07 09:00 | BH.SGPN.GN ---
Behaviors/Verbalizations/Mental Status: [] Eye contact is good. Motor activity is appropriate. Appearance is casual. Speech is Appropriate. Mood is depressed/irritable. Affect is congruent. Thoughts are linear and logical. No evidence of psychosis. Reviewed daily check in sheet and no reports of suicidal ideations or intent. Client Response/Progress/Benefit: [] Pt participated at times during the group discussion. Attentive. Daily symptom tracker notes 12/04 for anxiety and 11/06 for depression. Shared with the group that she was supposed to return to work yesterday however according to pt there was a miscommunication. She showed to work and spoke with her boss who was unaware today was her first day back. Pt was upset however was assertive and had her paperwork with her to clarify the communication error. Able to utilize coping skills to manage stress, anxiety, and anger. I had a mini panic attack and was tearful yesterday during these events. She was proud of herself that she made it to work, encountered a stressor, and was able to manage. Increased confidence. Communication clarified with employer with plan to start tomorrow. Emotion for today is calm however nervous. Benefited from group support, encouragement, and feedback from group. Will continue in IOP to maintain gains and transition back to full-time work. Narrative Note: []
--- NOTE | 2022-12-07 10:15 | BH.SGPN.GN ---
Behaviors/Verbalizations/Mental Status: [] Client alert and oriented, casually dressed and groomed. Eye contact good. Motor activity appropriate. Speech within normal limits. Affect congruent, mood euthymic. Thoughts linear, logical, no signs of hallucinations or delusions. Client Response/Progress/Benefit: Pt participated at times during group discussion. Active during group activity. Attentive during psychoeducation on fear and the impact that fear of failure can have. Pt and peers provided insight on thoughts that contribute to fear of failure such as: I'm not good enough, I won't succeed, I know I can't/couldn't do it, and I could have done that better. Pt and peers were able to identify the benefits to failure in an attempt to reframe. Group identified that failure can be a way to: learn what to do differently, lead to personal growth, increase self-compassion, and problem-solve. Pt benefited from psychoeducation on the impact of fear of failure and changing perspective on how to view setbacks. Pt will continue in [facility] to help with transition back to work, maintain gains, and prevent decompensation.
--- NOTE | 2022-12-07 11:10 | BH.SGPN.GN ---
Behaviors/Verbalizations/Mental Status: []Client alert and oriented, casually dressed and groomed. Eye contact good. Motor activity appropriate. Speech within normal limits. Affect congruent, mood euthymic. Thoughts linear, logical, no signs of hallucinations or delusions. Client Response/Progress/Benefit: []Client responded well to session, engaged in the experiential activity and attentive throughout group processing. Client reported fear of failure has kept client from personal growth, healthy relationships, and happiness. Client completed fear of failure worksheet and was able to identify thoughts and behaviors that reinforce personal fear of failure including difficulty setting boundaries, negative core beliefs, and past experiences. Client participated in group discussion regarding strategies to overcome fear of failure. Identified wanting to work on giving herself credit for areas of progress. Appeared to benefit from increased knowledge of strategies to combat fear of failure and gaining self-awareness. Client will continue IOP tx to increase distress tolerance skills, healthy boundaries, and improve overall functioning. Narrative Note: []
--- NOTE | 2022-12-08 15:16 | BH.AFTERPLAN ---
Aftercare Plan - Demographics Treatment End Date:: 12/09/22 Psychiatrist:: Rajni Hinton Psychiatrist Office #:: [phone] [facility] Therapist:: Susannah Parada Therapist Phone #:: [phone] - Plan Details Progress/Aftercare Plan Details:: Chuyita has responded well to treatment as evidenced by Chuyita consistently attending IOP sessions and her reduction of DSM-5 scores since admission. Chuyita was always attentive and receptive to learning during group and individual sessions. Chuyita actively applied coping skills outside of IOP and reports overall her mood is improved and she is functioning better than she was several months ago. Chuyita?s overall symptom reduction is 73% since admission with anger decreasing by 75%, depression decreasing by 75%, and anxiety decreasing by 44%. Chuyita has increased self-confidence in her ability to manage stressors, emotions, and conflict. Strategies for Success:: 1. Opposite action! Continue to break that cycle of anxiety and depression by getting up and getting going. 2. Remember that thoughts are thoughts NOT facts! You have power in if you give thoughts the time of day or not. 3. self-care! You deserve to take time for you and you also deserve to face the not so fun self-care 4. Self-compassion! You are human and you will make a mistake?BUT that doesn?t mean you are a failure or not good enough. Give yourself credit for all the wonderful things you do. 5. continue with coloring and calming activities 6. Practice positive self-talk and keep track of your wins. 7. Remember progress isn?t linear! You may have a setback or bump in the road, but that doesn?t mean you?ve lost all progress. 8. self-reflection and self-awareness. 10. Live in the schmid!! - Appointments Appointments/Referrals to Other Services:: 1. Dr. Mcneil 12/15/22 2. [facility] 3. [facility] aftercare starting 12/15/22 - Medications Home Medications: Home Medications levonorgestrel 21 mcg/24 hours (8 yrs) 52 mg intrauterine device (Mirena) 1 device intrauterine ONCE 11/06/20 albuterol sulfate 90 mcg/actuation aerosol inhaler 2 puff inhalation DAILY PRN PRN Shortness Of Breath 01/18/23 pantoprazole 40 mg tablet,delayed release (Protonix) 80 mg PO DAILY 10/19/22 hydroxyzine pamoate 25 mg capsule (Vistaril) 25 mg PO QHS 10/27/22 escitalopram oxalate 20 mg tablet (Lexapro) 20 mg PO DAILY #30 tabs 11/02/22 bupropion HCl 150 mg 24 hr tablet, extended release (Wellbutrin XL) 150 mg PO DAILY 30 days #30 tabs 11/14/22
--- NOTE | 2022-12-09 10:15 | BH.MDN ---
Multi-Disciplinary Note - Note 45-min Individual Time Started:: 10:18 Date: 12/09/22 Purpose of session/treatment goals addressed:: To address current stressors and discuss strategies to help cope with these stressors. Another goal was to discuss discharge and aftercare. Eye Contact:: Good Motor Activity:: Appropriate Appearance:: Casual Speech:: Appropriate Mood:: Dysthymic Affect:: Congruent - tearful Thoughts:: Linear, Logical, No evidence of hallucinations/delusions noted Staff Interventions:: thought challenging, motivational interviewing, discharge planning, strengths perspective, other - provided emotional support Client Response:: Pt responded well to session, open to meeting with therapist. Pt was tearful throughout session because this morning her boyfriend told pt that she needed to pack up my things and go. Pt and her boyfriend have been on/off throughout pt's IOP tx, but recently pt felt like things were going better. Pt processed her thoughts, emotions, and worries about the future. Pt reports feeling frustrated and sad because her boyfriend will not get mental health and substance abuse treatment. Pt stated that his health is deteriorating due to his drinking. Pt has awareness that she needs to maintain boundaries when it comes to addiction, but pt still struggles with guilt. Pt receptive to normalizing this and reinforcing the need to boundaries. Pt reported she wants to isolate and fall into unhealthy skills, but pt knows that won't help. Pt reviewed her healthy coping skills and after seeing the progress she made in IOP, pt's mood slightly improved. Pt also shared that work went much better than expected which has helped pt stay positive. Pt was given her aftercare plan and congratulated on her progress. Risks/Concerns:: No report of suicidal ideations or thoughts of . Progress Toward Goals/Plan:: Despite this recent stressor, pt has made significant progress in IOP. Pt?s overall symptom reduction is 73% since admission with anger decreasing by 75%, depression decreasing by 75%, and anxiety decreasing by 44%. Pt has increased self-confidence in her ability to manage stressors, emotions, and conflict. Pt can continue to benefit from weekly counseling to process relationship stressors, past trauma, and work stress. Pt will discharge from IOP tx today. Time Stopped:: 11:00
--- NOTE | 2022-12-09 10:15 | BH.DS ---
Discharge Summary - Demographics Date of Admission:: 10/17/22 Discharge Date: 12/09/22 Presenting Problems at Admission:: Pt is a 37-year-old female with a history of MDD and MATT. Pt was referred to [facility] tx by [facility] crisis team following a walk-in assessment on 10/10/22. PT was seen by crisis due to increased mental health symptoms triggered by numerous psychosocial stressors at work and home. Pt reported that on 10/07/22 Pt blew up on her co-worker/boyfriend which resulted in suspension and her boyfriend moving out of their home. Pt has been experiencing frequent panic attacks, crying spells, and overwhelming stress. At admission, pt endorses a depressed mood, irritability, lack of motivation, ruminations, negative thinking, poor sleep, poor appetite, hopelessness, low energy, and avoidance. Pt's symptoms are currently impacting her daily functioning and her social and occupational functioning. Discharge Diagnoses:: Major depressive disorder, recurrent, moderate F 33.1; Generalized anxiety disorder F 41.1; Cluster B and dependent traits; Extensive trauma history, rule out PTSD Reason for Discharge:: Pt has accomplished her tx goals AEB her reduction of DSM-5 scores and self-report of improved mood, functioning, and ability to cope with stressors. Pt will continue with outpatient counseling and [facility] aftercare. - Treatment Progress During Treatment & Response: Pt has responded well to treatment as evidenced by Pt consistently attending IOP sessions and her reduction of DSM-5 scores since admission. Pt was always attentive and receptive to learning during group and individual sessions. Pt actively applied coping skills outside of [facility] and reports overall her mood is improved and she is functioning better than she was several months ago. Pt?s overall symptom reduction is 73% since admission with anger decreasing by 75%, depression decreasing by 75%, and anxiety decreasing by 44%. Pt has increased self-confidence in her ability to manage stressors, emotions, and conflict. Issues Still to be Addressed:: Interpersonal effectiveness skills, core beliefs, trauma (past) and ongoing triggers, self-care, and self-esteem. Discharge Recommendations/Instructions:: Pt will follow up with [facility] at [facility] for individual therapy. Pt is scheduled to see Angeline every Monday. Pt plans to attend [facility] aftercare starting on 12/15/22 for eight weeks. Pt is scheduled with Dr. Mcneil for psychiatry on 12/15/22 as well. Discharge Handout: Complete Discharge Handout with client on aftercare options and continuity of care.
--- NOTE | 2022-12-09 11:10 | BH.SGPN.GN ---
Behaviors/Verbalizations/Mental Status: []Pt alert and oriented, casually dressed and appropriately groomed. Eye contact good. Motor activity appropriate. Speech within normal limits. Affect congruent, mood anxious and euthymic. Thoughts linear, logical, no signs of hallucinations or delusions. Client Response/Progress/Benefit: []Pt responded well to session as evidenced by listening attentively to others and providing strategies during discussion.? Pt identified personal warning signs for crisis and gained further awareness of earliest warning signs. Pt created a crisis action plan to help better manage warning signs for crisis. Pt able to create action plan for warning sign of rapid mood swings. Pt's action plan included: communicating honestly with supports, reaching out, changing her surrounding, and using calming skills. Pt appeared to benefit from creating a crisis action plan and increasing self-awareness. Pt will d/c from program today and continue with individual outpatient tx to maintain gains, promote ongoing mood stability and healthy coping skill application. Narrative Note: []
== END 2022-12-09 12:24 | disposition home or self-care (01) ==
LOC: BHIOP 06:45
PROVIDERS: PCP Family Medicine; Referring Provider Psychiatry & Neurology Psychiatry; Visit Provider Psychiatry & Neurology Psychiatry
DX: F33.1 Major depressive disorder, recurrent, moderate (principal); F41.1 Generalized anxiety disorder; Z79.899 Other long term (current) drug therapy
CPT/HCPCS: H2012; H2020; S9480; 90834

== ENCOUNTER 2022-12-15 08:00 | Outpatient (RCR) | payer MEDICAID, SELFPAY ==
--- NOTE | 2022-12-15 14:00 | BH.COMM ---
Communication Note - Communication with Client Communication Note: Presented completed IOP and presents today to starting relapse prevention group which meets once weekly (1.5 hours) for 8 weeks. Case discussed with Dr. Toussaint with plan to admit with dx of F33.1
--- NOTE | 2022-12-15 14:00 | BH.SGPN.GN ---
Behaviors/Verbalizations/Mental Status: []Client alert and oriented, casual in appearance. Eye contact good. Motor activity appropriate. Speech within normal limits. Affect congruent. Mood euthymic. Thoughts linear, logical, no signs of hallucinations or delusions Client Response/Progress/Benefit: []Pt responded well to session AEB providing input throughout and listening attentively to others. Pt reported plans on meeting with outpatient counselor this month but is unsure of when and has a psychiatry appointment for later today. Reports taking medications as prescribed. Pt identified several coping skills she has been using over the past week to continue to manage mental health sx, which included: opposite action, thought challenging/reframing, and positive affirmations. Pt connected with self-reflection discussion. Worked with group to identify the benefits of self-reflection. Appeared to benefit from identifying how to incorporate self-reflection into daily life. Pt completed aftercare specific self-reflection activity and indicated she has seen improvements in her ability to consistently utilize positive self-talk when identifying negative thoughts but would like to continue to focus on making improvements in consistency. Willing to complete weekly self-reflection assignment for homework. Pt to continue aftercare to maintain gains and prevent decompensation. Narrative Note: []
--- NOTE | 2022-12-22 14:00 | BH.SGPN.GN ---
Behaviors/Verbalizations/Mental Status: []Pt alert and oriented, casually dressed and groomed. Eye contact good. Motor activity appropriate. Speech within normal limits. Affect congruent, mood euthymic. Thoughts linear, logical, no signs of hallucinations or delusions. Client Response/Progress/Benefit: []Pt responded well to session, pt reports she has been consistent with medications and seeing her outpatient therapist. ?Pt reports she has been using many calming skills at work as pt is working with someone who ?constantly criticizes.? Pt stated she is also using self-compassion and taking breaks. Pt engaged well during the discussion of the components of self-compassion. Pt connected with the benefits of self-compassion and participated in the activity of reframing a recent setback using self-compassion. Pt used self-compassion to combat negative self-talk and assisted peers in identifying examples of the three components of self-compassion.?Pt appeared to benefit from practicing self-compassion and connecting with peers. ?Will continue aftercare to promote mood stability and reinforce healthy coping skills.? Narrative Note: []
== END 2022-12-30 23:59 ==
LOC: BHOG 08:00
PROVIDERS: PCP Family Medicine; Referring Provider Psychiatry & Neurology Psychiatry; Visit Provider Psychiatry & Neurology Psychiatry
DX: F33.1 Major depressive disorder, recurrent, moderate (principal)
CPT/HCPCS: 90853

== ENCOUNTER 2023-01-02 08:13 | Outpatient (RCR) | payer MEDICAID, SELFPAY | END 2023-01-05 10:09 | disposition home or self-care (01) | LOC: BHOG 08:13 | PROVIDERS: PCP Family Medicine; Referring Provider Psychiatry & Neurology Psychiatry; Visit Provider Psychiatry & Neurology Psychiatry | DX: F33.1 Major depressive disorder, recurrent, moderate (principal) ==

== ENCOUNTER 2025-08-23 09:26 | Emergency (ER) | payer OTHER, SELFPAY ==
[2025-08-23 09:27] VITALS: BP 121/72; PULSE 78; RESP 14; TEMP 36.1; O2SAT 98; BMI 36.1
--- NOTE | 2025-08-23 09:54 | EDS_ITS ---
HPI History of Present Illness Chief Complaint: Headache Narrative Narrative: 40-year-old female past medical history of previous migraine headaches, although she has not had a headache in the last few years, presents with headache that she has had for the last 2 weeks. She denies any preceding aura, no paresthesias of arms or legs. She is nauseated but has not had vomiting. She states that she thought her headache was getting better, then it would worsen, and would fluctuate/wax and wane. She denies any fevers or chills. No exacerbating or alleviating factors. It is associated with mild photophobia and she states it depends on the intensity of the light. She states she does not have menstrual periods because she has a Mirena. She used to be on amitriptyline for her migraines, but the side effects were too great as it interfered with her antidepressant medications as well. She states that she has not had a headache in a few years, and additionally she has had to come to the emergency department for the migraine cocktail. [facility] Medical History Generalized anxiety disorder Major depressive disorder, recurrent, moderate Encounter for screening for COVID-19 Home Medications ?Medication ?Instructions ?Recorded ?Last Taken ?Type levonorgestrel (Mirena) 1 device intrauterine ONCE 0 11/06/20 Unknown History albuterol sulfate 90 mcg/actuation 2 puff inhalation D AILY PRN PRN 10/19/22 Unknown History aerosol inhaler Shortness Of Breath pantoprazole 40 mg tablet,delayed 80 mg PO DAILY 10/19 Unknown History release (Protonix) escitalopram oxalate 20 mg tablet 20 mg PO DAILY #90 t abs 08/12/24 Unknown Rx (Lexapro) bupropion HCl 300 mg 24 hr tablet, See Rx Instructions .Route 08/13/25 Unknown Rx extended release .COMPLEX #90 tabs Allergy/AdvReac Type Severity Reaction Status Date / Time adhesive Allergy Rash Verified 08/23/25 09:26 codeine AdvReac Nausea Verified 08/23/25 09:26 Penicillins AdvReac Nausea Verified 08/23/25 09:26 Family History Father , Cancer Cancer Esophageal Mother Depression Surgical History History of removal of cyst History of tonsillectomy History of cholecystectomy Social History (Updated 08/23/25 @ 11:31 by Michelle Pollock) household members: spouse Smoking Status: Current every day smoker tobacco type: cigarettes alcohol intake: current details: on occasion substance use type: does not use ROS ROS ED ROS Narrative Review of systems positive for migraine headache, mainly right-sided. No fevers or chills. Positive nausea but no vomiting. No paresthesias of arms or legs. Symptoms waxing and waning. No relief with [id number]-woexbyg medications including Tylenol, ibuprofen, and Excedrin. Currently rates it a 10 out of 10. EXAM Physical Exam Narrative Exam Narrative: Afebrile. Vital signs noted. Nontoxic-appearing. Cardiovascular examination reveals regular rate and rhythm. Lungs are clear to auscultation bilaterally. Abdomen is soft and nontender without guarding or rebound. Positive bowel sounds. Neurological examination nonfocal, nonlateralizing. Awake, alert, oriented x 3. DTRs bicipital and patellar equal and symmetric. Moves all extremities. PERRL, EOMI. Neck soft and supple without meningismus. Const Vital Signs: 08/23/25 09:27 08/23/25 11:57 Temperature 97 F L Temperature Source Temporal Pulse Rate 78 78 Respiratory Rate 14 16 Blood Pressure 121/72 H 113/62 Blood Pressure Mean 88 79 Pulse Ox 98 97 Oxygen Delivery Method Room Air Room Air MDM MDM MDM Narrative Medical decision making narrative: Differential diagnosis includes but not limited to recurrent migraine headache versus brain mass versus intracranial hemorrhage. She has a normal neurological examination. I do not feel CT of the brain is currently indicated. Seems like she is having more of another migraine headache. I reviewed her prior ED visits and she has received both Compazine and Reglan in the past. She was adminis tered Reglan 10 mg, Benadryl 25 mg and Toradol 15 mg intravenously as well as a bolus of normal saline. She will be reexamined. I do not feel that she currently needs any laboratory work or test as she has a Mirena and has not had menstrual periods. Upon repeat examination at approximately 1230, she states that her headache has improved, and instead of a 10 out of 10 it is a 5 out of 10. As it has come down a few points, I do feel she can be discharged to follow-up with her primary care provider. She was told she may need referral to neurology should her migraine headaches continue. There are newer medications out for prophylaxis as well. Return instructions to the emergency department were reviewed. Disposition is discharged home in stable condition. History & Record Review Discussion w/independent historian: Patient Discharge Plan Triage Chief Complaint: Headache ED Provider: Jose Johnson Dx/Rx/DC Orders Clinical Impression: Migraine headache, Nausea Instructions: ED Headache Unspecified, ED, Migraine (Classical) Prescriptions: No Action Mirena 20 mcg/24 hours (6 yrs) 52 mg intrauterine device 1 device INTRA-UTER ONCE Rx Instructions: as a single dose escitalopram oxalate [Lexapro] 20 mg tablet 20 mg PO DAILY Qty: 90 1RF bupropion HCl 300 mg tablet extended release 24 hr See Rx Instructions .ROUTE .COMPLEX Qty: 90 1RF Dose Instruction: TAKE 1 TABLET BY MOUTH EVERY DAY FOR 30 DAYS Rx Instructions: TAKE 1 TABLET BY MOUTH EVERY DAY FOR 30 DAYS pantoprazole [Protonix] 40 mg Tablet,Delayed Release (Dr/Ec) 80 mg PO DAILY albuterol sulfate 90 mcg/actuation HFA aerosol inhaler 2 puff INHALATION DAILY PRN PRN (Reason: Shortness Of Breath) Patient Comments: TAKE 2 PUFFS BY MOUTH EVERY 4 HOURS NEEDED Primary Care Provider: Mac Walsh NP Referrals: Phil Jacobs MD [Non-Staff, Family Practice] Activity Restrictions/Additional Instructions: Follow-up with your primary care provider in 3 to 5 days if not improving. Drink plenty of oral fluids today and rest. You may need follow-up with neurology regarding return of migraine headaches. Return to the emergency department with fever, new or worsening symptoms. Print Language: Irish Disposition Disposition: Home, Self Care
[2025-08-23] MEDS: DiphenhydrAMINE 50 MG/ML Syringe 25 MG IV (10:13)
[2025-08-23] MEDS: 0.9% Normal Saline (1000mL) 1,000 ML 999 ML IV (10:13)
--- OUTSIDE RECORDS SUMMARY | 2025-08-23 10:25 | XMS RPT_ITS | CCD ---
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 status; Translations: [Encounter for screening for human papillomavirus (HPV)] Episodic Mood disorders (1 source) Mood swings; Translations: [Emotional lability] 07-24-2023 Episodic Nausea and vomiting (2 sources) Nausea; Translations: [Nausea] Episodic Noninfectious gastroenteritis (2 sources) Chronic diarrhea; Translations: [Noninfective gastroenteritis and colitis, unspecified] Episodic Open wounds of extremities (1 source) Laceration of finger without foreign body; Translations: [Laceration without foreign body of right index finger without damage to nail, initial encounter] 05-28-2023 Episodic Other and unspecified benign neoplasm (2 sources) History of polyp of colon; Translations: [Personal history of colonic polyps] Episodic Other connective tissue disease (1 source) Pain in finger of left hand; Translations: [Pain in left finger(s)] 02-11-2024 Episodic Other ear and sense organ disorders (1 source) Popping sensation in ear; Translations: [Other specified disorders of right ear] Episodic Other endocrine disorders (3 sources) Adrenal hyperplasia; Translations: [Other specified disorders of adrenal gland] 06-18-2024 Chronic Other endocrine disorders (1 source) Other specified disorders of adrenal gland; Translations: [Adrenal hyperplasia (HCC)] Onset: 01-01-2025 Chronic Other female genital disorders (20 sources) Dyspareunia; Translations: [Dyspareunia] Onset: 11-04-2015 11-04-2015 Chronic Other female genital disorders (20 sources) Postcoital bleeding; Translations: [Postcoital and contact bleeding] Onset: 11-04-2015 11-04-2015 Chronic Other female genital disorders (3 sources) Abnormal uterine bleeding; Translations: [Abnormal uterine and vaginal bleeding, unspecified] Chronic Other gastrointestinal disorders (20 sources) Irritable bowel syndrome; Translations: [Mixed irritable bowel syndrome] Onset: 11-03-2010 Resolved: 12-23-2011 03-29-2018 Chronic Other gastrointestinal disorders (1 source) Abdominal distension, gaseous; Translations: [Abdominal distension (gaseous)] Episodic Other gastrointestinal disorders (2 sources) Abdominal bloating; Translations: [Abdominal distension (gaseous)] 06-07-2024 Episodic Other lower respiratory disease (20 sources) Respiratory bronchiolitis associated interstitial lung disease; Translations: [Respiratory bronchiolitis interstitial lung disease] Onset: 09-14-2015 09-27-2021 Chronic Other lower respiratory disease (1 source) Respiratory bronchiolitis interstitial lung disease; Translations: [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)] Onset: 09-27-2021 Chronic Other lower respiratory disease (2 sources) Cough; Translations: [Acute cough] Episodic Other lower respiratory disease (4 sources) Multiple lung cysts; Translations: [Other disorders of lung] 06-18-2024 Episodic Other lower respiratory disease (1 source) Wheezing; Translations: [Wheezing] 03-29-2021 Episodic Other lower respiratory disease (1 source) Cough; Translations: [Acute cough] 02-04-2025 Episodic Other non-traumatic joint disorders (2 sources) Multiple joint pain; Translations: [Pain in unspecified joint] 05-24-2024 Episodic Other nutritional; endocrine; and metabolic disorders (20 sources) Morbid obesity; Translations: [Morbid (severe) obesity due to excess calories] Onset: 10-09-2017 10-09-2017 Chronic Other nutritional; endocrine; and metabolic disorders (1 source) Obese class I; Translations: [Obesity, unspecified] 07-24-2023 Chronic Other nutritional; endocrine; and metabolic disorders (1 source) Weight gain; Translations: [Abnormal weight gain] 07-24-2023 Episodic Other skin disorders (1 source) Eruption; Translations: [Rash and other nonspecific skin eruption] Episodic Other skin disorders (1 source) Loss of hair; Translations: [Nonscarring hair loss, unspecified] 07-24-2023 Episodic Other upper respiratory disease (1 source) Hoarse; Translations: [Dysphonia] Episodic Other upper respiratory infections (2 sources) Chronic sinusitis; Translations: [Chronic sinusitis, unspecified] Onset: 02-04-2025 02-04-2025 Chronic Residual codes; unclassified (1 source) Flushing; Translations: [Flushing] 01-10-2025 Episodic Skin and subcutaneous tissue infections (1 source) Inflammatory dermatosis; Translations: [Local infection of the skin and subcutaneous tissue, unspecified] 02-11-2024 Episodic Substance-related disorders (2 sources) Smoker; Translations: [Nicotine dependence, unspecified, uncomplicated] Chronic Unclassified (1 source) Acute cough; Translations: [Acute cough] Onset: 02-04-2025 Past or Other Problems Problem Classification Problem Date Documented Da te Episodic/Chronic Abdominal pain (11 sources) Left upper quadrant pain; Translations: [Left upper quadrant pain] Onset: 4 Episodic Esophageal disorders (20 sources) Gastroesophageal reflux disease without esophagitis; Translations: [Gastro-esophageal reflux disease without esophagitis] Onset: 5 Resolved: 5 Chronic Malaise and fatigue (4 sources) Lack of energy; Translations: [Other fatigue] Onset: 5 07-24-2023 Episodic Open wounds of head; neck; and trunk (20 sources) Scalp laceration; Translations: [Laceration without foreign body of scalp, initial encounter] Onset: 8 07-09-2018 Episodic Other connective tissue disease (16 sources) Increased muscle tone; Translations: [Other specified disorders of muscle] Onset: 5 10-24-2024 Episodic Other connective tissue disease (1 source) Other specified disorders of muscle; Translations: [Muscle tightness] Onset: 5 Episodic Other gastrointestinal disorders (20 sources) Dysphagia, unspecified; Translations: [Dysphagia, unspecified] Onset: 5 Resolved: 5 Episodic Other gastrointestinal disorders (1 source) Abdominal distension (gaseous); Translations: [Abdominal bloating] Onset: 4 Episodic Other lower respiratory disease (1 source) Other disorders of lung; Translations: [Multiple idiopathic cysts of lung] Onset: 5 Episodic Other non-traumatic joint disorders (3 sources) Pain in left shoulder; Translations: [Pain in joint, shoulder region] Onset: 5 10-24-2024 Episodic Other non-traumatic joint disorders (14 sources) Chronic pain of left upper limb; Translations: [Pain in left shoulder] Onset: 5 11-05-2024 Episodic Other non-traumatic joint disorders (1 source) Pain in unspecified joint; Translations: [Polyarthralgia] Onset: 4 Episodic Other screening for suspected conditions (not mental disorders or infectious disease) (7 sources) Cancer cervix screening status; Translations: [Encounter for screening for malignant neoplasm of cervix] Onset: 4 Episodic Skull and face fractures (20 sources) Closed fracture of nasal bones; Translations: [Fracture of nasal bones, initial encounter for closed fracture] Onset: 8 07-09-2018 Episodic Sprains and strains (20 sources) Strain of neck muscle; Translations: [Strain of muscle, fascia and tendon at neck level, subsequent encounter] Onset: 1 Episodic Superficial injury; contusion (20 sources) Foreign body - finger; Translations: [Superficial foreign body of unspecified finger, initial encounter] Onset: 8 07-12-2018 Episodic Unclassified (1 source) Patient encounter status 03-25-2025 Results Test Name Value Interpretation Reference Range Facility MR/BMS.BP 02-10-2025 MR/BMS.[address], [place] [address] OFFICE VISIT Date of Service: 02/10/25 MR#: [id number] Acct: [id number] Name: THADDEUS CRAWFORD Rep #: [id number] : 1985 Provider: Dr. Elvin Keenan se, DO Age/Sex: 39/F Location: [facility] [place].BP Status: Signed Intake Vital Signs 08/12/24 15:59 02/10/25 16:07 Height 5 ft 4 in 5 ft 4 in Weight: 190 lb 184 lb BMI 32.5 31.6 BP 120/76 98/66 Blood Pressure Location Rt brachial Lt brachial Position Sitting Sitting Respiration 16 16 Pulse 76 82 Pulse Source Monitor Monitor BP Intake Visit Reasons: 6 M FU Accompanied by: Allergies adhesive Allergy (Verified 02/10/25 16:08) Rash codeine Adverse Reaction (Verified 02/10/25 16:08) Nausea Penicillins Adverse Reaction (Verified 02/10/25 16:08) Nausea Medications ???Medication ???Instructions ???Recorded ???Confirmed ???Type levonorgestrel (Mirena) 1 device intrauterine ONCE 1 02/10/25 History albuterol sulfate 90 mcg/actuation 2 puff inhalation DAILY PRN PRN 10/19/22 02/10/25 History aerosol inhaler Shortness Of Breath pantoprazole 40 mg tablet,delayed 80 mg PO DAILY 10/19/22 02/10/25 History release (Protonix) escitalopram oxalate 20 mg tablet 20 mg PO DAILY #90 tabs 08/12/24 02/10/25 Rx (Lexapro) bupropion HCl 300 mg 24 hr tablet, See Rx Instructions .Route 02/1002/10/25 Rx extended release .COMPLEX #90 tabs PFSH Medical History Generalized anxiety disorder Major depressive disorder, recurrent, moderate Encounter for screening for COVID-19 Surgical History History of removal of cyst History of tonsillectomy History of cholecystectomy Family History (Updated 08/12/24 @ 16:05 by Cielo Pelaez) Father , Cancer Cancer Esophageal Mother Depression Social History Smoking Status: Current every day smoker tobacco type: cigarettes alcohol intake: current details: on occasion substance use type: does not use HPI History of Present Illness History provided by: patient HPI: Thaddeus Crawford is a 39-year-old female who presents today for follow up evaluation. Patient reports that she has been sick in recent past. Still working at [employer]. Mood has been pretty good. Feels like she is overall doing well. Interested in potentially reducing medication as she has been doing largely well. Denies any major side effects. Sleep has been doing well, getting about 8 hours. Weight has remained stable. Denies SI/HI or AVH. Review of Systems Constitutional Denies: change in weight or fatigue Eyes Reports: change in vision, blurry vision and other (eye pain) Ears, Nose, Mouth, Throat Reports: dysphagia Cardiovascular Reports: dyspnea Respiratory Reports: dyspnea; Denies: wheezing Gastrointestinal Reports: abdominal pain, nausea, diarrhea, constipation, bloating, excessive flatus and dysphagia Genitourinary Denies: dysuria or urinary frequency Musculoskeletal Reports: back pain and joint pain; Denies: other (siffness,arthritis,sciati ca) Integumentary/Breast Reports: pruritus and other (dryness) Neurological Reports: headache(s) (stable) Endocrine Reports: cold intolerance and heat intolerance; Denies: fatigue Hematologic/Lymphatic Denies: easy bruising or easy bleeding Allergic/Immunologic Denies: wheezing Exam Mental Status Exam - Psych Appearance casually dressed Attitude cooperative and calm Activity/Motor Behavior MSE activity/motor behavior finding no adventitious movements Speech regular rate, regular volume and regular prosody Mood other (good) Affect restricted Thought Process linear, logical and coherent Thought Content no delusions and no hallucinations Suicidal Ideation none Homicidal Ideation none Attention intact Concentration intact Sensorium/Orientation awake, alert and oriented x3 Memory/Cognition other (appropriate for stated age) Insight good Judgement good Assessment Plan Assessment Plan (1) Major depressive disorder, recurrent, moderate: Plan: - Continue wellbutrin at 300 mg every day - reduce lexapro to 10 mg for 2 months, then 5 mg for one month, then will allow 3 months off of SSRI before considering adjustment to wellbutrin - largely doing very well - no acute concerns of side effects (2) Generalized anxiety disorder: Plan: - Continue hydroxyzine as needed Medications: Refilled bupropion HCl XL TAKE 1 TABLET BY MOUTH EVERY DAY FOR 30 DAYS 90 tabs 1RF Coding Level of Care Code Off vis,est,level 3 Diagnoses Major depressive disorder, recurrent, moderate F33.1 Ge (more content not included)... [facility] Office Visit (UCT[facility] ) -- YVETTETHADDEUS Saleh ([id number]) 1985 F Date Time Provider Department 02/04/25 4:00 PM LENNY BAIRD [facility] During your visit today, we recorded the following information about you: Temperature Pulse Respiration Blood pressure 98.6 degrees 80/minute 18/minute 124/80 Weight 87.8 kg Lenny Baird APRN.[employer] 02/04/2025 4:25 PM Signed [facility] Subjective HPI HPI Thaddeus Crawford is a 39 year old female who presents today for CC of cough, sob, wheezing, congestion, fatigue. This started 1 week ago. Has tried otc medication for relief. Symptoms are worsened by nothing. Risk factors smoker. Hx of asthma. .Patient presents with: Chest Congestion: cough, nasal congestion, drainage, wheezing, fatigue and lightheaded x over 1 week PAST MEDICAL HISTORY Diagnosis Date Asthma (HCC) Benign neoplasm of colon Benign polyp. 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 PAST SURGICAL HISTORY Procedure Laterality Date COLONOSCOPY 03/31/2023 COLONOSCOPY FLX DX W/COLLJ SPEC WHEN PFRMD 07/31/2012 Colonoscopy COLONOSCOPY FLX DX W/COLLJ SPEC WHEN PFRMD 08/07/2017 5 year repeat COLONOSCOPY SCREENING 08/19/2022 Diverticulosis, tubular adenoma, sessile serrated polyp. EGD W/O [facility] SPEC VARICIES INJ 08/19/2022 Active inflammation in lower esophagus ESOPHAGOGASTRODUODENOSCOPY TRANSORAL DIAGNOSTIC 11/20/2014 EGD ESOPHAGOGASTRODUODENOSCOPY TRANSORAL DIAGNOSTIC 02/20/2015 EGD ESOPHAGOGASTRODUODENOSCOPY TRANSORAL DIAGNOSTIC 08/07/2017 EGD ESOPHAGOGASTRODUODENOSCOPY TRANSORAL DIAGNOSTIC 12/18/2018 EGD INCISION AND REMOVAL FOREIGN BODY SUBQ TISS SIMPLE Left 07/12/2018 Removal foreign body left index finger INCISION AND REMOVAL FOREIGN BODY SUBQ TISS SIMPLE Left 07/12/2018 Excision foreign body left index finger LAPS SURG CHOLECYSTECTOMY W/CHOLANGIOGRAPHY 08/13/2010 MIRENA IUD 08/2012 OPEN REPAIR OF ROTATOR CUFF ACUTE Left 04/2000 Rotator cuff repair PAST SURGICAL HISTORY OF Removal ganglion cyst, foot, wrist, PAST SURGICAL HISTORY OF Excision Pilonidal cyst TONSILLECTOMY PRIMARY/SECONDARY Tonsillectomy ALLERGIES Adhesive, Codeine, and Penicillins MEDICATIONS pantoprazole DR (PROTONIX) 40 mg tablet Take 2 tablets by mouth once daily. methocarbamol (ROBAXIN) 500 mg tablet Take 1 tablet by mouth three times a day as needed. buPROPion XL (WELLBUTRIN XL) 300 mg 24 hr tablet Take 300 mg by mouth once daily. albuterol (PROVENTIL) 2.5 mg /3 mL (0.083 %) nebulizer solution Use 3 mL via nebulizer every 4 hours as needed for wheezing/shortness of breath. Use over 5-15minutes. budesonide-formoterol (SYMBICORT) 160-4.5 mcg/actuation inhaler Inhale 2 Puffs as instructed four times a day as needed. escitalopram oxalate (LEXAPRO) 20 mg tablet Take 1 tablet by mouth every afternoon. Ascorbic Acid 1,000 mg tablet Take 1,000 mg by mouth once daily. multivit,calc,mins/iron/fo lic (ONE-A-DAY WOMENS FORMULA ORAL) Take 1 tablet by mouth once daily. levonorgestrel (MIRENA) 20 mcg/24 hr (5 years) IUD Inserted in office dexAMETHasone (DECADRON) 1 mg tablet Take the tablet at 11 pm and go for labs the next morning on fasting at 8 am (Patient not taking: Reported on 01/10/2025) albuterol HFA (PROVENTIL HFA, VENTOLIN HFA) 90 mcg/actuation inhaler Inhale 2 Puffs as instructed every 4 hours as needed for wheezing/shortness of breath. FAMILY HISTORY Problem Relation Age of Onset Hypertension Mother 63 Stroke Mother Asthma Mother Heart disease Mother Cancer Father Throat cancer other (other) Maternal Grandmother Cancer Maternal Grandmother Colon other (other) Maternal Grandfather Cancer Maternal Grandfather Leukemia Heart Paternal Grandmother Breast Cancer Paternal Aunt other (DIverticulosis) Other Adrenal Insufficiency No Family History Social History Tobacco Use Smoking status: Every Day Current packs/day: 0.00 Average packs/day: 0.5 packs/day for 18.4 years (9.2 ttl pk-yrs) Types: Cigarettes Start date: 1997 Last attempt to quit: 08/23/2015 Years since quittin.4 Passive exposure: Current Smokeless tobacco: Never Vaping Use Vaping status: Never Used Substance Use Topics Alcohol use: Not Currently Drug use: No Review of Systems Constitutional: Positive for fatigue. Negative for chills and fever. HENT: Positive for rhinorrhea and sore throat. Negative for ear discharge, ear pain, sinus pressure and sinus pain. Eyes: Negative for discharge and redness. Respiratory: Positive for cough, shortness of breath and wheezing. Cardiovascular: Negative for chest pain. Skin: Negative (more content not included)... Normal [facility] XR CHEST 2V FRONTAL/LATon XR CHEST 2V FRONTAL/LAT * * *Final Report* * * DATE OF EXAM: Feb 04 2025 3:50PM WOX [id number] - XR CHEST 2V FRONTAL/LAT / PROCEDURE REASON: Acute cough * * * * Physician Interpretation * * * * EXAMINATION: CHEST RADIOGRAPH (2 VIEW FRONTAL and LATERAL) CLINICAL HISTORY: Acute cough MQ: XC2_6 EXAM DATE/TIME: 02/04/2025 3:50 PM COMPARISON: Chest x-ray of 07/12/2021 RESULT: Lines, tubes, and devices: None. Lungs and pleura: No consolidation. No lung mass. No pleural effusion. No pneumothorax. Cardiomediastinal silhouette: Normal cardiomediastinal silhouette. Bones and soft tissues: Unremarkable. IMPRESSION: No acute radiographic abnormality. Aerodynamic Consultant: [facility] Transcribe Date/Time: Feb 04 2025 3:54P Dictated by : NIGEL MA MD This examination was interpreted and the report reviewed and electronically signed by: NIGEL MA MD on Feb 04 2025 3:55PM EST [id number] Normal [facility] XR Chest PA and Lateralon IMPRESSION: No acute radiographic abnormality. Aerodynamic Consultant: [employer] Transcribe Date/Time: Feb 04 2025 3:54P Dictated by : NIGEL MA MD This examination was interpreted and the report reviewed and electronically signed by: NIGEL MA MD on Feb 04 2025 3:55PM EST DIVISION OF RADIOLOGY * * *Final Report* * * DATE OF EXAM: Feb 04 2025 3:50PM WOX [id number] - XR CHEST 2V FRONTAL/LAT / PROCEDURE REASON: Acute cough * * * * Physician Interpretation * * * * EXAMINATION: CHEST RADIOGRAPH (2 VIEW FRONTAL & LATERAL) CLINICAL HISTORY: Acute cough MQ: XC2_6 EXAM DATE/TIME: 02/04/2025 3:50 PM COMPARISON: Chest x-ray of 07/12/2021 RESULT: Lines, tubes, and devices: None. Lungs and pleura: No consolidation. No lung mass. No pleural effusion. No pneumothorax. Cardiomediastinal silhouette: Normal cardiomediastinal silhouette. Bones and soft tissues: Unremarkable. DIVISION OF RADIOLOGY Provider, [facility] - 02/04/2025 * * *Final Report* * * DATE OF EXAM: Feb 04 2025 3:50PM WOX [id number] - XR CHEST 2V FRONTAL/LAT / PROCEDURE REASON: Acute cough * * * * Physician Interpretation * * * * EXAMINATION: CHEST RADIOGRAPH (2 VIEW FRONTAL & LATERAL) CLINICAL HISTORY: Acute cough MQ: XC2_6 EXAM DATE/TIME: 02/04/2025 3:50 PM COMPARISON: Chest x-ray of 07/12/2021 RESULT: Lines, tubes, and devices: None. Lungs and pleura: No consolidation. No lung mass. No pleural effusion. No pneumothorax. Cardiomediastinal silhouette: Normal cardiomediastinal silhouette. Bones and soft tissues: Unremarkable. IMPRESSION IMPRESSION: No acute radiographic abnormality. Aerodynamic Consultant: [facility] Transcribe Date/Time: Feb 04 2025 3:54P Dictated by : NIGEL MA MD This examination was interpreted and the report reviewed and electronically signed by: NIGEL MA MD on Feb 04 2025 3:55PM EST [facility] Radiology Study observation (narrative) [facility] XR Chest PA and LateralOrder ed By: [facility] Provider on 02-04-2025 [facility] CNOVon 01-10-2025 [facility] Office Visit (ENWSTR ) -- THADDEUS CRAWFORD ([id number]) 1985 F Date Time Provider Department 01/10/25 11:00 AM AZUL MONTEJO ENWSTR During your visit today, we recorded the following information about you: Temperature Pulse Blood pressure Weight 97.8 degrees 83/minute 100/76 85.6 kg Azul Montejo MD 01/11/2025 7:35 PM Addendum [facility] Follow up note History of Present Illness: Ms. Thaddeus Crawford is a 39 year old female coming today for follow up of adrenal hyperplasia, referred to endocrinology by PCP Initial visit on 11/12/24 History in brief, she underwent CT abd/pelvis for left sided abdominal pain and bloating and was incidentally found to have b/l adrenal hyperplasia She is on mirena for control No issues with facial hair or body hair Hx of migraines, no worsening Intermittent blurriness of vision that corrects spontaneously Hair loss Feels thirsty a lot, mostly drinks water or tea, sometimes drinks pop No abdominal stretch disla, not even from . Has easy bruising, noticed it since last year Has delayed healing Fracture of left index finger from playing with dog, reports not healing well On further questioning about changes in voice, reports hoarseness difficulty raising arms overhead, difficulty getting up from a seated position: No No proximal muscle weakness Sometimes has flushing, jitteriness. She also has anxious spells sometimes Previous use of Steroids, oral, inhalers, injections: intermittently to reduce inflammation- I have been hurting all joints FH: not pertinent Past Medical History: PAST MEDICAL HISTORY Diagnosis Date Asthma (HCC) Benign neoplasm of colon Benign polyp. 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 Surgical History: PAST SURGICAL HISTORY Procedure Laterality Date COLONOSCOPY 03/31/2023 COLONOSCOPY FLX DX W/COLLJ SPEC WHEN PFRMD 07/31/2012 Colonoscopy COLONOSCOPY FLX DX W/COLLJ SPEC WHEN PFRMD 08/07/2017 5 year repeat COLONOSCOPY SCREENING 08/19/2022 Diverticulosis, tubular adenoma, sessile serrated polyp. EGD W/O [facility] SPEC VARICIES INJ 08/19/2022 Active inflammation in lower esophagus ESOPHAGOGASTRODUODENOSCOPY TRANSORAL DIAGNOSTIC 11/20/2014 EGD ESOPHAGOGASTRODUODENOSCOPY TRANSORAL DIAGNOSTIC 02/20/2015 EGD ESOPHAGOGASTRODUODENOSCOPY TRANSORAL DIAGNOSTIC 08/07/2017 EGD ESOPHAGOGASTRODUODENOSCOPY TRANSORAL DIAGNOSTIC 12/18/2018 EGD INCISION AND REMOVAL FOREIGN BODY SUBQ TISS SIMPLE Left 07/12/2018 Removal foreign body left index finger INCISION AND REMOVAL FOREIGN BODY SUBQ TISS SIMPLE Left 07/12/2018 Excision foreign body left index finger LAPS SURG CHOLECYSTECTOMY W/CHOLANGIOGRAPHY 08/13/2010 MIRENA IUD 08/2012 OPEN REPAIR OF ROTATOR CUFF ACUTE Left 04/2000 Rotator cuff repair PAST SURGICAL HISTORY OF Removal ganglion cyst, foot, wrist, PAST SURGICAL HISTORY OF Excision Pilonidal cyst TONSILLECTOMY PRIMARY/SECONDARY Tonsillectomy Family Medical History: FAMILY HISTORY Problem Relation Age of Onset Hypertension Mother 63 Stroke Mother Asthma Mother Heart disease Mother Cancer Father Throat cancer other (other) Maternal Grandmother Cancer Maternal Grandmother Colon other (other) Maternal Grandfather Cancer Maternal Grandfather Leukemia Heart Paternal Grandmother Breast Cancer Paternal Aunt other (DIverticulosis) Other Adrenal Insufficiency No Family History Social History: Social History Tobacco Use Smoking status: Every Day Current packs/day: 0.00 Average packs/day: 0.5 packs/day for 18.4 years (9.2 ttl pk-yrs) Types: Cigarettes Start date: 1997 Last attempt to quit: 08/23/2015 Years since quittin.3 Passive exposure: Current Smokeless tobacco: Never Vaping Use Vaping status: Never Used Substance Use Topics Alcohol use: Not Currently Drug use: No Allergies: ALLERGIES Allergen Reactions Adhesive Rash Codeine Vomiting Penicillins GI Upset Current medications: Current Outpatient Medications Medication Sig pantoprazole DR (PROTONIX) 40 mg tablet Take 2 tablets by mouth once daily. methocarbamol (ROBAXIN) 500 mg tablet Take 1 tablet by mouth three times a day as needed. buPROPion XL (WELLBUTRIN XL) 300 mg 24 hr tablet Take 300 mg by mouth once daily. albuterol (PROVENTIL) 2.5 mg /3 mL (0.083 %) nebulizer solution Use 3 mL via nebulizer every 4 hours as needed for wheezing/shortness of breath. Use over 5-15minutes. budesonide-formoterol (SYMBICORT) 160-4.5 mcg/actuation inhaler Inhale 2 Puffs as instructed four times a day as (more content not included)... Normal [facility] ALDOSTERONE/DIRECT RENIN RAT IOon 01-02-2025 SARAH RENIN RATIO 0.3 Normal <3.8 [facility]in [facility] Comment on above: Order Comment: Speci men Type: BLOOD SPECIMEN Ordering Facility: [facility] Address: [address] [place] [address] Result Comment: A ra armida of aldosterone in ng/dL to direct renin in pg/mL greater than or equal to 3.8 is a positive screening test result for primary aldosteronism, when aldosterone is greater than or equal to 15 ng/dL. Performed By: #### 1 157-5, 3015-12, 1988-01 #### [facility] CLIA [id number] [address] [place] [address] [place] Aldosterone [Mass/Vol] 6.4 ng/dL Normal 0.0-<35.4 [facility] Comment on above: Order Comment: Meka dugan Type: BLOOD SPECIMEN Ordering Facility: [facility] Address: [address] [place] [address] Result Comment: The reference interval for serum/plasma aldosterone is based on a normal sodium intake and upright position. High sodium intake may suppress aldosterone and low sodium intake may increase aldosterone. The supine reference interval is <23.7 ng/dL. A ratio of aldosterone in ng/dL to direct renin in pg/mL greater than or equal to 3.8 is a positive screening test result for primary aldosteronism, when aldosterone is greater than or equal to 15 ng/dL. Performed By: #### 1 1571-5, 1988-01 #### [facility] CLIA [id number] [address] [place] [address] [place] DIRECT RENIN 19.0 pg/mL Normal 3.6-81.6 [facility] Comment on above: Order Comment: Meka dugan Type: BLOOD SPECIMEN Ordering Facility: [facility] Address: [address] [place] [address] Result Comment: The reference interval for direct renin is based on an upright position. The supine reference intervals are: Age <41 years: 3.2-33.2 pg/mL Age >=41 years: 2.5-45.1 pg/mL A ratio of aldosterone in ng/dL to direct renin in pg/mL greater than or equal to 3.8 is a positive screening test result for primary aldosteronism, when aldosterone is greater than or equal to 15 ng/dL. Performed By: #### 1 1572-5, 3015-12, 1988-01 #### [facility] CLIA [id number] [address] [place] [address] [place] PATIENT UPRIGHT OR SUPINE Upright Normal [facility] Comment on above: Order Comment: Meka dugan Type: BLOOD SPECIMEN Ordering Facility: [facility] Address: [address] [place] [address] Performed By: #### 1 157-5, 3015-12, 1988-01 #### [facility] CLIA [id number] [address] [place] [address] [place] Cortis p Dex SerPl-mCncon Cortisol post dose dexamethasone [Mass/Vol] 1.0 ug/dL Normal <1.8 [facility] Comment on above: Order Comment: Meka dugan Type: BLOOD SPECIMENOrdering Facility: [facility] Address: [address] [place] [address] Result Comment: Afte r overnight 1 mg dexamethasone, an dental hygiene professor cortisol of <1.8 ug/dL may indicate an adequate cortisol suppression. This result should be interpreted within the clinical context and other test results. Pam et al. Evidence for the Low Dose Dexamethasone Suppression Test to Screen for Philo's Syndrome - Recommendations for a Protocol for Biochemistry Laboratories. 1997 Jessica. Clin. Biochem. 34 [phone]. Performed By: #### 4 7851-1 ####[facility] [id number] [address] [place] DEXAMETHASONEon 01-02-2025 DEXAMETHASONE 295.4 ng/dL Normal [facility] Comment on above: Order Comment: Meka dugan Type: BLOOD SPECIMEN Ordering Facility: [facility] Address: [address] [place] [address] Result Comment: INTE RPRETIVE INFORMATION: Dexamethasone, Serum or Plasma by LC-MS/MS Adults baseline: Less than 50 ng/dL 8:00 AM draw following 1 mg dexamethasone between 11:00 pm and 12:00 am the previous evenin - 295 ng/dL 8:00 AM draw following 8 mg dexamethasone (4 x 2 mg doses) between 11:00 pm and 12:00 am the previous evenin - 2850 ng/dL This test was developed and its performance characteristics determined by [employer]. It has not been cleared or approved by the US Food and Drug Administration. This test was performed in a CLIA certified laboratory and is intended for clinical purposes. Performed By: [facility] [employer] [address] [place] [address] Rfid Strategist: Lenny Kay MD, PhD CLIA Number: [id number] Performed By: #### D EXA #### [facility] CLIA [id number] [address] [place] [address] ACTH Plas-ncon 01-01-2025 Corticotropin (P) [Mass/Vol] 6.3 pg/mL Low 7.2-63.3 [facility] Comment on above: Order Comment: Speci men Type: BLOOD SPECIMEN Ordering Facility: [facility] Address: [address] [place] [address] Result Comment: ACTH Reference Range: 7-10 am: 7.2 - 63.3 pg/mL Performed By: #### 1 1572-5, 3016-3, 1988- #### [facility] CLIA [id number] [address] [place] [address] OF [facility] DHEA-S BLDon 01-01-2025 DHEA-S [Mass/Vol] 100.6 ug/dL Normal 60.9-337.0 [facility] Comment on above: Order Comment: Speci men Type: BLOOD SPECIMENOrdering Facility: [facility] Address: [address] [place] [address] Result Comment: Refe rence ranges are age and gender specific. For additional information, reference range tables can be found in the laboratory test directory. The normal values are based on the following source: Dehydroepiandrosterone sulfate (DHEA S) [package insert V 17.0 Citizen Of [place]]. [facility], [place], [place]: May 2013. Performed By: #### K 1, DHEAS ####[facility] [id number] [address] [place] POTASSIUMon 01-01-2025 Potassium [Moles/Vol] 4.7 mmol/L Normal 3.7-5.1 [facility] Comment on above: Order Comment: Speci men Type: BLOOD SPECIMENOrdering Facility: [facility] Address: [address] [place] [address] Performed By: #### K 1, DHEAS ####[facility] [id number] [address] [place] CNTHERAPYon 12-12-2024 CNTHERAPY OT/PT/Speech Visit ( PTWS) -- THADDEUS CRAWFORD ([id number]) 1985 F Date Time Provider Department 12/12/24 3:45 PM MATHEW MARKHAM PTWS Date Time Provider Department [place] 12/12/2024 3:45 PM [id number], BRENT PTWS Gerald Vragas Reason for Visit: Physical Therapy [503] PT Discharge [752] Primary Visit Diagnosis:Muscle tone increased [M62.89] Other Visit Diagnosis:Chronic left shoulder pain [M25.512, G89.29] Allergies As of Date: 12/12/2024 Noted Allergy Reaction ADHESIVE 07/28/2019 2 - Rash CODEINE 03/22/2007 11 - Vomiting PENICILLINS 03/22/2007 8 - GI Upset Date Reviewed: 11/12/2024 Reviewed by: Olinda Martinez, NICOL - Fully Assessed Prescriptions as of 12/12/2024 - dexAMETHasone (DECADRON) 1 mg tablet Take the tablet at 11 pm and go for labs the next morning on fasting at 8 am - methocarbamol (ROBAXIN) 500 mg tablet Take 1 tablet by mouth three times a day as needed. - buPROPion XL (WELLBUTRIN XL) 300 mg 24 hr tablet Take 300 mg by mouth once daily. - albuterol (PROVENTIL) 2.5 mg /3 mL (0.083 %) nebulizer solution Use 3 mL via nebulizer every 4 hours as needed for wheezing/shortness of breath. Use over 5-15minutes. - budesonide-formoterol (SYMBICORT) 160-4.5 mcg/actuation inhaler Inhale 2 Puffs as instructed four times a day as needed. - albuterol HFA (PROVENTIL HFA, VENTOLIN HFA) 90 mcg/actuation inhaler Inhale 2 Puffs as instructed every 4 hours as needed for wheezing/shortness of breath. - pantoprazole DR (PROTONIX) 40 mg tablet Take 2 tablets by mouth once daily. - escitalopram oxalate (LEXAPRO) 20 mg tablet Take 1 tablet by mouth every afternoon. - Ascorbic Acid 1,000 mg tablet Take 1,000 mg by mouth once daily. - multivit,calc,mins/iron/fo lic (ONE-A-DAY WOMENS FORMULA ORAL) Take 1 tablet by mouth once daily. - levonorgestrel (MIRENA) 20 mcg/24 hr (5 years) IUD Inserted in office Normal [facility] CNTHERAPYon 11-19-2024 CNTHERAPY OT/PT/Speech Visit ( PTWS) -- THADDEUS CRAWFORD ([id number]) 1985 F Date Time Provider Department 11/19/24 3:30 PM MATHEW MARKHAM PTOMAYRA Date Time Provider Department Center 11/19/2024 3:30 PM [id number], BRENT PTOMAYRA Vargas Reason for Visit: Physical Therapy [503] Primary Visit Diagnosis:Muscle tone increased [M62.89] Other Visit Diagnosis:Chronic left shoulder pain [M25.512, G89.29] Allergies As of Date: 11/19/2024 Noted Allergy Reaction ADHESIVE 07/28/2019 2 - Rash CODEINE 03/22/2007 11 - Vomiting PENICILLINS 03/22/2007 8 - GI Upset Date Reviewed: 11/12/2024 Reviewed by: Olinda Martinez RN - Fully Assessed Prescriptions as of 11/19/2024 - dexAMETHasone (DECADRON) 1 mg tablet Take the tablet at 11 pm and go for labs the next morning on fasting at 8 am - methocarbamol (ROBAXIN) 500 mg tablet Take 1 tablet by mouth three times a day as needed. - buPROPion XL (WELLBUTRIN XL) 300 mg 24 hr tablet Take 300 mg by mouth once daily. - albuterol (PROVENTIL) 2.5 mg /3 mL (0.083 %) nebulizer solution Use 3 mL via nebulizer every 4 hours as needed for wheezing/shortness of breath. Use over 5-15minutes. - budesonide-formoterol (SYMBICORT) 160-4.5 mcg/actuation inhaler Inhale 2 Puffs as instructed four times a day as needed. - albuterol HFA (PROVENTIL HFA, VENTOLIN HFA) 90 mcg/actuation inhaler Inhale 2 Puffs as instructed every 4 hours as needed for wheezing/shortness of breath. - pantoprazole DR (PROTONIX) 40 mg tablet Take 2 tablets by mouth once daily. - escitalopram oxalate (LEXAPRO) 20 mg tablet Take 1 tablet by mouth every afternoon. - Ascorbic Acid 1,000 mg tablet Take 1,000 mg by mouth once daily. - multivit,calc,mins/iron/fo lic (ONE-A-DAY WOMENS FORMULA ORAL) Take 1 tablet by mouth once daily. - levonorgestrel (MIRENA) 20 mcg/24 hr (5 years) IUD Inserted in office Normal [facility] CNTHERAPYon 11-13-2024 CNTHERAPY OT/PT/Speech Visit ( PTWS) -- THADDEUS CRAWFORD ([id number]) 1985 F Date Time Provider Department 11/13/24 4:00 PM MATHEW MARKHAM PTWS Date Time Provider Department [place] 11/13/2024 4:00 PM [id number], BRENT PTWS Gerald Vargas Reason for Visit: Physical Therapy [503] Primary Visit Diagnosis:Muscle tone increased [M62.89] Other Visit Diagnosis:Chronic left shoulder pain [M25.512, G89.29] Allergies As of Date: 11/13/2024 Noted Allergy Reaction ADHESIVE 07/28/2019 2 - Rash CODEINE 03/22/2007 11 - Vomiting PENICILLINS 03/22/2007 8 - GI Upset Date Reviewed: 11/12/2024 Reviewed by: Olinda Martinez RN - Fully Assessed Prescriptions as of 11/13/2024 - dexAMETHasone (DECADRON) 1 mg tablet Take the tablet at 11 pm and go for labs the next morning on fasting at 8 am - methocarbamol (ROBAXIN) 500 mg tablet Take 1 tablet by mouth three times a day as needed. - buPROPion XL (WELLBUTRIN XL) 300 mg 24 hr tablet Take 300 mg by mouth once daily. - albuterol (PROVENTIL) 2.5 mg /3 mL (0.083 %) nebulizer solution Use 3 mL via nebulizer every 4 hours as needed for wheezing/shortness of breath. Use over 5-15minutes. - budesonide-formoterol (SYMBICORT) 160-4.5 mcg/actuation inhaler Inhale 2 Puffs as instructed four times a day as needed. - albuterol HFA (PROVENTIL HFA, VENTOLIN HFA) 90 mcg/actuation inhaler Inhale 2 Puffs as instructed every 4 hours as needed for wheezing/shortness of breath. - pantoprazole DR (PROTONIX) 40 mg tablet Take 2 tablets by mouth once daily. - escitalopram oxalate (LEXAPRO) 20 mg tablet Take 1 tablet by mouth every afternoon. - Ascorbic Acid 1,000 mg tablet Take 1,000 mg by mouth once daily. - multivit,calc,mins/iron/fo lic (ONE-A-DAY WOMENS FORMULA ORAL) Take 1 tablet by mouth once daily. - levonorgestrel (MIRENA) 20 mcg/24 hr (5 years) IUD Inserted in office Shingle Grader: Therapy (PT/OT/Speech/Resp) ID: [id number] 11/13/2024 4:28 PM Author: MATHEW MARKHAM Signed by MATHEW MARKHAM PT on 11/13/2024 at 4:28 PM Document text: Program_ID:[id number] Access Code: [email or web address] URL: [email or web address] Date: 11-13-2024 Prepared By: Mathew Markham Program Notes Exercises - Gentle Levator Scapulae Stretch - 3 x daily - 7 x weekly - sets - 3 reps - Seated Cervical Retraction - 3 x daily - 7 x weekly - 2 sets - 10 reps - Corner Pec Major Stretch - 3 x daily - 7 x weekly - sets - 3 reps - Seated Thoracic Extension with Hands Behind Neck - 2 x daily - 7 x weekly - 2 sets - 10 reps Patient Education - cc Posture Training Slouch Overcorrect Normal [facility] THERAPY NTon 11-13-2024 THERAPY NT HNO ID: [id number] Author: MATHEW MARKHAM PT Service: ? Author Type: Physical Therapist Type: Therapy (PT/OT/Speech/Resp) Filed: 11/13/2024 16:28 Note Text: Program_ID:[id number] Access Code: [email or web address] URL: [email or web address] Date: 11-13-2024 Prepared By: Mathew Markham Program Notes Exercises - Gentle Levator Scapulae Stretch - 3 x daily - 7 x weekly - sets - 3 reps - Seated Cervical Retraction - 3 x daily - 7 x weekly - 2 sets - 10 reps - Corner Pec Major Stretch - 3 x daily - 7 x weekly - sets - 3 reps - Seated Thoracic Extension with Hands Behind Neck - 2 x daily - 7 x weekly - 2 sets - 10 reps Patient Education - cc Posture Training Slouch Overcorrect Normal [facility] CNOVon 11-12-2024 CNOV Office Visit (ENWSTR ) -- THADDEUS CRAWFORD ([id number]) 1985 F Date Time Provider Department 11/12/24 3:00 PM AZUL MONTEJO ENWSTR During your visit today, we recorded the following information about you: Pulse Respiration Blood pressure Weight 71/minute 19/minute 110/80 87.1 kg Height 1.6 m Azul Montejo MD 11/22/2024 12:54 PM Addendum [facility] Initial Clinic Visit Note Patient referred by: Mac Connelly APRN. FUR FINISHER My final recommendations will be communicated back to the requesting provider by way of shared medical record or letter via US mail. History of Present Illness: Ms. Thaddeus Crawford is a 39 year old female coming today for evaluation of adrenal hyperplasia History in brief, she underwent CT abd/pelvis for left sided abdominal pain and bloating and was incidentally found to have b/l adrenal hyperplasia She is on mirena for control No issues with facial hair or body hair Hx of migraines, no worsening Intermittent blurriness of vision that corrects spontaneously Hair loss Feels thirsty a lot, mostly drinks water or tea, sometimes drinks pop No abdominal stretch disla, not even from . Has easy bruising, noticed it since last year Has delayed healing Fracture of left index finger from playing with dog, reports not healing well On further questioning about changes in voice, reports hoarseness difficulty raising arms overhead, difficulty getting up from a seated position: No No proximal muscle weakness Sometimes has flushing, jitteriness. She also has anxious spells sometimes Previous use of Steroids, oral, inhalers, injections: intermittently to reduce inflammation- I have been hurting all joints FH: not pertinent Past Medical History: PAST MEDICAL HISTORY Diagnosis Date Asthma Benign neoplasm of colon Benign polyp. 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 Surgical History: PAST SURGICAL HISTORY Procedure Laterality Date COLONOSCOPY 03/31/2023 COLONOSCOPY FLX DX W/COLLJ SPEC WHEN PFRMD 07/31/2012 Colonoscopy COLONOSCOPY FLX DX W/COLLJ SPEC WHEN PFRMD 08/07/2017 5 year repeat COLONOSCOPY SCREENING 08/19/2022 Diverticulosis, tubular adenoma, sessile serrated polyp. EGD W/O BRSH SPEC VARICIES INJ 08/19/2022 Active inflammation in lower esophagus ESOPHAGOGASTRODUODENOSCOPY TRANSORAL DIAGNOSTIC 11/20/2014 EGD ESOPHAGOGASTRODUODENOSCOPY TRANSORAL DIAGNOSTIC 02/20/2015 EGD ESOPHAGOGASTRODUODENOSCOPY TRANSORAL DIAGNOSTIC 08/07/2017 EGD ESOPHAGOGASTRODUODENOSCOPY TRANSORAL DIAGNOSTIC 12/18/2018 EGD INCISION AND REMOVAL FOREIGN BODY SUBQ TISS SIMPLE Left 07/12/2018 Removal foreign body left index finger INCISION AND REMOVAL FOREIGN BODY SUBQ TISS SIMPLE Left 07/12/2018 Excision foreign body left index finger LAPS SURG CHOLECYSTECTOMY W/CHOLANGIOGRAPHY 08/13/2010 MIRENA IUD 08/2012 OPEN REPAIR OF ROTATOR CUFF ACUTE Left 04/2000 Rotator cuff repair PAST SURGICAL HISTORY OF Removal ganglion cyst, foot, wrist, PAST SURGICAL HISTORY OF Excision Pilonidal cyst TONSILLECTOMY PRIMARY/SECONDARY Tonsillectomy Family Medical History: FAMILY HISTORY Problem Relation Age of Onset Hypertension Mother 63 Stroke Mother Asthma Mother Heart disease Mother Cancer Father Throat cancer Breast Cancer Paternal Aunt other (other) Maternal Grandmother Cancer Maternal Grandmother Colon other (other) Maternal Grandfather Cancer Maternal Grandfather Leukemia Heart Paternal Grandmother other (DIverticulosis) Other Social History: Social History Tobacco Use Smoking status: Every Day Current packs/day: 0.00 Average packs/day: 0.5 packs/day for 18.4 years (9.2 ttl pk-yrs) Types: Cigarettes Start date: 1997 Last attempt to quit: 08/23/2015 Years since quittin.2 Smokeless tobacco: Never Vaping Use Vaping status: Never Used Substance Use Topics Alcohol use: Not Currently Drug use: No Allergies: ALLERGIES Allergen Reactions Adhesive Rash Codeine Vomiting Penicillins GI Upset Current medications: Current Outpatient Medications Medication Sig methocarbamol (ROBAXIN) 500 mg tablet Take 1 tablet by mouth three times a day as needed. buPROPion XL (WELLBUTRIN XL) 300 mg 24 hr tablet Take 300 mg by mouth once daily. albuterol (PROVENTIL) 2.5 mg /3 mL (0.083 %) nebulizer solution Use 3 mL via nebulizer every 4 hours as needed for wheezing/shortness of breath. Use over 5-15minutes. budesonide-formoterol (SYMBICORT) 160-4.5 mcg/actuation inhaler Inhale 2 Puffs as instructed four times a day as needed. (more content not included)... Normal [facility] CNTHERAPYon 11-05-2024 CNTHERAPY OT/PT/Speech Visit ( PTWS) -- THADDEUS CRAWFORD ([id number]) 1985 F Date Time Provider Department 11/05/24 1:15 PM MATHEW MARKHAM PTOMAYRA Date Time Provider Department Center 11/05/2024 1:15 PM [id number], BRENT PTOMAYRA Vargas Reason for Visit: PT Eval [747] Physical Therapy [503] Primary Visit Diagnosis:Muscle tone increased [M62.89] Other Visit Diagnoses:Muscle tightness [M62.89] Acute pain of left shoulder [M25.512] Chronic left shoulder pain [M25.512, G89.29] Allergies As of Date: 11/05/2024 Noted Allergy Reaction CODEINE 03/22/2007 11 - Vomiting PENICILLINS 03/22/2007 8 - GI Upset Date Reviewed: 10/30/2024 Reviewed by: Alexander Boston RPFT - Fully Assessed Prescriptions as of 11/05/2024 - methocarbamol (ROBAXIN) 500 mg tablet Take 1 tablet by mouth three times a day as needed. - buPROPion XL (WELLBUTRIN XL) 300 mg 24 hr tablet Take 300 mg by mouth once daily. - albuterol (PROVENTIL) 2.5 mg /3 mL (0.083 %) nebulizer solution Use 3 mL via nebulizer every 4 hours as needed for wheezing/shortness of breath. Use over 5-15minutes. - budesonide-formoterol (SYMBICORT) 160-4.5 mcg/actuation inhaler Inhale 2 Puffs as instructed four times a day as needed. - albuterol HFA (PROVENTIL HFA, VENTOLIN HFA) 90 mcg/actuation inhaler Inhale 2 Puffs as instructed every 4 hours as needed for wheezing/shortness of breath. - pantoprazole DR (PROTONIX) 40 mg tablet Take 2 tablets by mouth once daily. - escitalopram oxalate (LEXAPRO) 20 mg tablet Take 1 tablet by mouth every afternoon. - Ascorbic Acid 1,000 mg tablet Take 1,000 mg by mouth once daily. - multivit,calc,mins/iron/fo lic (ONE-A-DAY WOMENS FORMULA ORAL) Take by mouth. - levonorgestrel (MIRENA) 20 mcg/24 hr (5 years) IUD Inserted in office Shingle Grader: Addendum Therapy (PT/OT/Speech/Resp) ID: [id number] 11/05/2024 1:55 PM Author: MATHEW MARKHAM Signed by MATHEW MARKHAM PT on 11/05/2024 at 1:55 PM * * * This document replaces document [id number] * * * Document text: Program_ID:[id number] Access Code: [email or web address] URL: [email or web address] Date: 11-05-2024 Prepared By: Mathew Markham Program Notes Exercises - Gentle Levator Scapulae Stretch - 3 x daily - 7 x weekly - sets - 3 reps - Doorway Rhomboid Stretch - 3 x daily - 7 x weekly - sets - 3 reps - Seated Cervical Retraction - 3 x daily - 7 x weekly - 2 sets - 10 reps Patient Education - cc Posture Training Slouch Overcorrect Letter Text Normal [facility] THERAPY NTon 11-05-2024 THERAPY NT HNO ID: [id number] Author: MATHEW MARKHAM PT Service: ? Author Type: Physical Therapist Type: Therapy (PT/OT/Speech/Resp) Filed: 11/05/2024 13:55 Note Text: Program_ID:[id number] Access Code: [email or web address] URL: [email or web address] [email or web address]/ Date: 11-05-2024 Prepared By: Mathew Markham Program Notes Exercises - Gentle Levator Scapulae Stretch - 3 x daily - 7 x weekly - sets - 3 reps - Doorway Rhomboid Stretch - 3 x daily - 7 x weekly - sets - 3 reps - Seated Cervical Retraction - 3 x daily - 7 x weekly - 2 sets - 10 reps Patient Education - cc Posture Training Slouch Overcorrect Normal [facility] 10-31-2024 SAMINAN Telephone (ALEXANDR) -- THADDEUS CRAWFORD ([id number]) 1985 F Date Time Provider Department 10/31/24 [facility] During your visit today, we recorded the following information about you: Mac Connelly APRN.FUR FINISHER 10/31/2024 5:34 PM Signed Please let the patient know that her CT of the Chest shows scattered small lung nodules, some lymph node enlargement in the chest wall and an enlarged pulmonary artery. She potentially has a chronic lung disease. Recommendation is to see pulmonary medicine for further evaluation and treatment. I have placed a referral. Mac Connelly APRN.Holden Aggarwal LPN 11/01/2024 8:42 AM Signed Patient notified of results, verbalizes understanding of instructions. 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 - buPROPion XL (WELLBUTRIN XL) 300 mg 24 hr tablet Take 300 mg by mouth once daily. - albuterol (PROVENTIL) 2.5 mg /3 mL (0.083 %) nebulizer solution Use 3 mL via nebulizer every 4 hours as needed for wheezing/shortness of breath. Use over 5-15minutes. - budesonide-formoterol (SYMBICORT) 160-4.5 mcg/actuation inhaler Inhale 2 Puffs as instructed four times a day as needed. - albuterol HFA (PROVENTIL HFA, VENTOLIN HFA) 90 mcg/actuation inhaler Inhale 2 Puffs as instructed every 4 hours as needed for wheezing/shortness of breath. - pantoprazole DR (PROTONIX) 40 mg tablet Take 2 tablets by mouth once daily. - escitalopram oxalate (LEXAPRO) 20 mg tablet Take 1 tablet by mouth every afternoon. - Ascorbic Acid 1,000 mg tablet Take 1,000 mg by mouth once daily. - multivit,calc,mins/iron/fo lic (ONE-A-DAY WOMENS FORMULA ORAL) Take by mouth. - levonorgestrel (MIRENA) 20 mcg/24 hr (5 years) IUD Inserted in office Problem List As Of Date 10/31/2024 Noted Resolved S/P laparoscopic cholecystectomy [Z90.49] 11/03/2010 12/23/2011 Irritable bowel [K58.9] 11/03/2010 12/23/2011 Diverticulitis [K57.92] Dysphagia, unspecified(787.20) [R13.10] 11/20/2014 11/20/2014 Esophageal reflux [K21.9] 02/20/2015 02/20/2015 Respiratory bronchiolitis associated interstiti*09/14/2015 Dyspareunia [MVO7128] 11/04/2015 PCB (post coital bleeding) [N93.0] 11/04/2015 Morbid obesity (HCC) [E66.01] 10/09/2017 Asthma [J45.909] Irritable bowel syndrome with both constipation*03/29/2018 Superficial foreign body of finger without george*07/02/2018 Post concussion syndrome [F07.81] 07/09/2018 Scalp laceration [S01.01XA] 07/09/2018 Closed fracture of nasal bones [S02.2XXA] 07/09/2018 Cervical strain [S16.1XXA] 10/15/2020 Encounter Status:Closed by HOLDEN THOMPSON on 11/01/24 [facility] Amanda [facility] THADDE[facility] CRAWFORD ([id number]) 1985 F Date Time Provider Department 10/30/24 NIEVES JACOBS 4CQ During your visit today, we recorded the following information about you: Allergies As of Date: 10/30/2024 Noted Allergy Reaction CODEINE 03/22/2007 11 - Vomiting PENICILLINS 03/22/2007 8 - GI Upset Date Reviewed: 10/30/2024 Reviewed by: Alexander Boston RPFT - Fully Assessed Prescriptions as of 11/01/2024 - methocarbamol (ROBAXIN) 500 mg tablet Take 1 tablet by mouth three times a day as needed. - buPROPion XL (WELLBUTRIN XL) 300 mg 24 hr tablet Take 300 mg by mouth once daily. - albuterol (PROVENTIL) 2.5 mg /3 mL (0.083 %) nebulizer solution Use 3 mL via nebulizer every 4 hours as needed for wheezing/shortness of breath. Use over 5-15minutes. - budesonide-formoterol (SYMBICORT) 160-4.5 mcg/actuation inhaler Inhale 2 Puffs as instructed four times a day as needed. - albuterol HFA (PROVENTIL HFA, VENTOLIN HFA) 90 mcg/actuation inhaler Inhale 2 Puffs as instructed every 4 hours as needed for wheezing/shortness of breath. - pantoprazole DR (PROTONIX) 40 mg tablet Take 2 tablets by mouth once daily. - escitalopram oxalate (LEXAPRO) 20 mg tablet Take 1 tablet by mouth every afternoon. - Ascorbic Acid 1,000 mg tablet Take 1,000 mg by mouth once daily. - multivit,calc,mins/iron/fo lic (ONE-A-DAY WOMENS FORMULA ORAL) Take by mouth. - levonorgestrel (MIRENA) 20 mcg/24 hr (5 years) IUD Inserted in office Problem List As Of Date 10/30/2024 Noted Resolved S/P laparoscopic cholecystectomy [Z90.49] 11/03/2010 12/23/2011 Irritable bowel [K58.9] 11/03/2010 12/23/2011 Diverticulitis [K57.92] Dysphagia, unspecified(787.20) [R13.10] 11/20/2014 11/20/2014 Esophageal reflux [K21.9] 02/20/2015 02/20/2015 Respiratory bronchiolitis associated interstiti*09/14/2015 Dyspareunia [PPT4882] 11/04/2015 PCB (post coital bleeding) [N93.0] 11/04/2015 Morbid obesity (HCC) [E66.01] 10/09/2017 Asthma [J45.909] Irritable bowel syndrome with both constipation*03/29/2018 Superficial foreign body of finger without george*07/02/2018 Post concussion syndrome [F07.81] 07/09/2018 Scalp laceration [S01.01XA] 07/09/2018 Closed fracture of nasal bones [S02.2XXA] 07/09/2018 Cervical strain [S16.1XXA] 10/15/2020 Encounter Status:Closed by BELKYS QUINTERO on 11/01/24 [address] [facility] [address] CHEST WO IVCONon 10-30-19 CT CHEST WO IVCON * * *Final Report* * * DATE OF EXAM: Oct 30 2024 11:56AM [facility] 0541 - CT CHEST WO IVCON / PROCEDURE REASON: multiple diagnoses * * * * Physician Interpretation * * * * EXAMINATION: CHEST CT WITHOUT CONTRAST CLINICAL HISTORY: Interstitial disease Technique: Spiral CT acquisition of the chest from the thoracic inlet to the upper abdomen without contrast. MQ: CTCWO_6 CT Radiation dose: Integrated Dose-length product (DLP) for this visit = 369 mGy*cm CT Dose Reduction Employed: Automated exposure control(AEC) and iterative recon Comparison: CT abdomen and pelvis dated 06/18/2024 RESULT: Limitations: None. Lines, tubes, and devices: None. Lung parenchyma and airways: Again seen are innumerable bilateral renal cysts as well as subcentimeter pulmonary nodules scattered throughout both lungs. Consider cystic lung diseases such as pulmonary Langerhans cell histiocytosis, especially if there is a history of smoking. Nevertheless, other diseases are not excluded. There is no pneumothorax or endobronchial lesion. Pleural space: There is no pleural effusion. Lower neck, lymph nodes, and mediastinum: There is mediastinal and hilar lymphadenopathy. For example, a precarinal lymph node measures approximately 1.1 cm in short axis dimension (series 9, image #96). A right hilar lymph node measures approximately 1 cm in short axis dimension (series 9, image #132). Prominent, less than 1 cm bilateral axillary lymph nodes are likely reactive. Prominent distal paraesophageal lymph nodes are likely reactive. Heart, pericardium, and thoracic vessels: The main pulmonary is dilated, measuring approximately 3.1 cm, which can be seen with pulmonary arterial hypertension. The heart is normal in size. There is no significant pericardial effusion. Bones and soft tissues: There is no destructive bony lesion. Upper abdomen: Contents are seen within a distended stomach. Mild, nonspecific thickening of adrenal glands, bilaterally, with associated bilateral adrenal adenomas. Impression: 1. Again seen are innumerable bilateral renal cysts as well as subcentimeter pulmonary nodules scattered throughout both lungs. Consider cystic lung diseases such as pulmonary Langerhans cell histiocytosis, especially if there is a history of smoking. Nevertheless, other diseases are not excluded. 2. Mediastinal and hilar lymphadenopathy. 3. Dilated main pulmonary artery, measuring approximately 3.1 cm, which can be seen with pulmonary arterial hypertension. 4. Incidentally noted are bilateral adrenal adenomas. Aerodynamic Consultant: PSCB Transcribe Date/Time: Oct 31 2024 6:29A Dictated by : SUSAN MENDEZ MD This examination was interpreted and the report reviewed and electronically signed by: SUSAN MENDEZ MD on Oct 31 2024 4:04PM EST [id number] Normal [facility] CNOVon 10-24-2024 CNOV Office Visit (FAMPWS ) -- THADDEUS CRAWFORD ([id number]) 1985 F Date Time Provider Department 10/24/24 2:00 PM [facility] During your visit today, we recorded the following information about you: Pulse Respiration Blood pressure Weight 74/minute 16/minute 118/70 85.6 kg Nieves Jacobs MD 10/24/2024 4:58 PM Signed Chief Complaint Patient presents with: Pain: Left shoulder, upper back around shoulder blade HPI Thaddeus Crawford is a 39 year old female who presents here today for multiple concerns. Pt states she has missed work. Pain to left Shoulder and upper back left shoulder blade area intermittently for several months, constant last few weeks. Rated pain today 6-7/10, burning, ache. Pain does not go down the arm, just mostly across the shoulder blade and into shoulder. She has used biofreeze, heat, ibuprofen, Tylenol, massage which do not help much. Has not used any ice. Massage causes pain and hasn't really helped. Unsure what triggered the pain to start getting worse. Pretty much everything she does causes her pain. No injury to the arm or shoulder. She is having trouble sleeping due to pain, is a left side sleeper. The pain is causing nausea. She has missed work , Mon, and . Needs work excuse. Her job is pretty physical. She has been on Mobic in past but is no longer using it as it didn't help. Past medical history, appointments, medications, allergies reviewed. Previous Medical History PAST MEDICAL HISTORY Diagnosis Date Asthma Benign neoplasm of colon Benign polyp. 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 Previous Surgical History PAST SURGICAL HISTORY Procedure Laterality Date COLONOSCOPY 03/31/2023 COLONOSCOPY FLX DX W/COLLJ SPEC WHEN PFRMD 07/31/2012 Colonoscopy COLONOSCOPY FLX DX W/COLLJ SPEC WHEN PFRMD 08/07/2017 5 year repeat COLONOSCOPY SCREENING 08/19/2022 Diverticulosis, tubular adenoma, sessile serrated polyp. EGD W/O [facility] SPEC VARICIES INJ 08/19/2022 Active inflammation in lower esophagus ESOPHAGOGASTRODUODENOSCOPY TRANSORAL DIAGNOSTIC 11/20/2014 EGD ESOPHAGOGASTRODUODENOSCOPY TRANSORAL DIAGNOSTIC 02/20/2015 EGD ESOPHAGOGASTRODUODENOSCOPY TRANSORAL DIAGNOSTIC 08/07/2017 EGD ESOPHAGOGASTRODUODENOSCOPY TRANSORAL DIAGNOSTIC 12/18/2018 EGD INCISION AND REMOVAL FOREIGN BODY SUBQ TISS SIMPLE Left 07/12/2018 Removal foreign body left index finger INCISION AND REMOVAL FOREIGN BODY SUBQ TISS SIMPLE Left 07/12/2018 Excision foreign body left index finger LAPS SURG CHOLECYSTECTOMY W/CHOLANGIOGRAPHY 08/13/2010 MIRENA IUD 08/2012 OPEN REPAIR OF ROTATOR CUFF ACUTE Left 04/2000 Rotator cuff repair PAST SURGICAL HISTORY OF Removal ganglion cyst, foot, wrist, PAST SURGICAL HISTORY OF Excision Pilonidal cyst TONSILLECTOMY PRIMARY/SECONDARY Tonsillectomy Family History FAMILY HISTORY Problem Relation Age of Onset Hypertension Mother 63 Stroke Mother Asthma Mother Heart disease Mother Cancer Father Throat cancer Breast Cancer Paternal Aunt other (other) Maternal Grandmother Cancer Maternal Grandmother Colon other (other) Maternal Grandfather Cancer Maternal Grandfather Leukemia Heart Paternal Grandmother other (DIverticulosis) Other Patient Allergies ALLERGIES Allergen Reactions Codeine Vomiting Penicillins GI Upset Current Medications Current Outpatient Medications on File Prior to Visit Medication Sig meloxicam (MOBIC) 15 mg tablet Take 1 tablet by mouth once daily. With food. buPROPion XL (WELLBUTRIN XL) 300 mg 24 hr tablet Take 300 mg by mouth once daily. albuterol (PROVENTIL) 2.5 mg /3 mL (0.083 %) nebulizer solution Use 3 mL via nebulizer every 4 hours as needed for wheezing/shortness of breath. Use over 5-15minutes. budesonide-formoterol (SYMBICORT) 160-4.5 mcg/actuation inhaler Inhale 2 Puffs as instructed four times a day as needed. albuterol HFA (PROVENTIL HFA, VENTOLIN HFA) 90 mcg/actuation inhaler Inhale 2 Puffs as instructed every 4 hours as needed for wheezing/shortness of breath. pantoprazole DR (PROTONIX) 40 mg tablet Take 2 tablets by mouth once daily. escitalopram oxalate (LEXAPRO) 20 mg tablet Take 1 tablet by mouth every afternoon. Ascorbic Acid 1,000 mg tablet Take 1,000 mg by mouth once daily. (Patient not taking: Reported on 05/24/2024) multivit,calc,mins/iron/fo lic (ONE-A-DAY WOMENS FORMULA ORAL) Take by mouth. (Patient not taking: Reported on 05/24/2024) levonorgestrel (MIRENA) 20 mcg/24 hr (5 years) IUD Inserted in office No current facility-administered medications on file prior to visit. Social History (more content not included)... [facility] MR/Edward 08-12-2024 MR/BMS. [address], [place] [address] OFFICE VISIT Date of Service: 08/12/24 MR#: [id number] Acct: [id number] Name: THADDEUS CRAWFORD Rep #: [id number] : 1985 Provider: Dr. Elvin Keenan se, DO Age/Sex: 39/F Location: [facility] [place].BP Status: Signed Intake Vital Signs 02/05/24 08:36 08/12/24 15:59 Height 5 ft 4 in 5 ft 4 in Weight: 190 lb BMI 32.5 BP 106/69 120/76 Blood Pressure Location Rt brachial Rt brachial Position Sitting Sitting Respiration 16 Pulse 69 76 Pulse Source Monitor Monitor BP Intake Visit Reasons: 6 M FU Accompanied by: Self Allergies adhesive Allergy (Verified 08/12/24 16:01) Rash codeine Adverse Reaction (Verified 08/12/24 16:01) Nausea Penicillins Adverse Reaction (Verified 08/12/24 16:01) Nausea Medications ???Medication ???Instructions ???Recorded ???Confirmed ???Type levonorgestrel (Mirena) 1 device intrauterine ONCE 11/06/20 08/12/24 History albuterol sulfate 90 mcg/actuation 2 puff inhalation DAILY PRN PRN 10/19/22 08/12/24 History aerosol inhaler Shortness Of Breath pantoprazole 40 mg tablet,delayed 80 mg PO DAILY 10/19/22 08/12/24 History release (Protonix) bupropion HCl 300 mg 24 hr tablet, See Rx Instructions .Route 08/12/24 08/12/24 Rx extended release .COMPLEX #90 tabs escitalopram oxalate 20 mg tablet 20 mg PO DAILY #90 tabs 08/12/24 08/12/24 Rx (Lexapro) PFSH Medical History Generalized anxiety disorder Major depressive disorder, recurrent, moderate Encounter for screening for COVID-19 Surgical History History of removal of cyst History of tonsillectomy History of cholecystectomy Family History (Updated 08/12/24 @ 16:05 by Cielo Pelaez) Father , Cancer Cancer Esophageal Mother Depression Social History Smoking Status: Current every day smoker tobacco type: cigarettes alcohol intake: current details: on occasion substance use type: does not use HPI History of Present Illness History provided by: patient HPI: Thaddeus Crawford is a 39-year-old female who presents today for follow up evaluation. Has been working at [employer] and has been enjoying much more than her previous job. Finds that overall she is doing pretty good. Sleep has been largely ok. Does at time oversleep if she is working a lot. Feels like medication is alright. Recently found out that both her adrenal glands are enlarged and thinks that this might be contributing to the way she has been feeling. 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 Appetite is comes and goes but no changes in weight. Denies SI/HI or AVH. Review of Systems Constitutional Denies: change in weight or fatigue Eyes Reports: change in vision, blurry vision and other (eye pain) Ears, Nose, Mouth, Throat Reports: dysphagia and other (hoarseness) Cardiovascular Reports: dyspnea Respiratory Reports: dyspnea; Denies: wheezing Gastrointestinal Reports: abdominal pain, nausea, diarrhea, constipation, bloating, excessive flatus and dysphagia Genitourinary Denies: dysuria or urinary frequency Musculoskeletal Reports: back pain and joint pain; Denies: other (siffness,arthritis,sciati ca) Integumentary/Breast Reports: pruritus and other (dryness) Neurological Reports: headache(s) (stable) Endocrine Reports: cold intolerance and heat intolerance; Denies: fatigue Hematologic/Lymphatic Denies: easy bruising or easy bleeding Allergic/Immunologic Denies: wheezing Exam Mental Status Exam - Psych Appearance casually dressed Attitude cooperative and calm Activity/Motor Behavior MSE activity/motor behavior finding no adventitious movements Speech regular rate, regular volume, regular prosody and other (somewhat hoarse) Mood other (good) Affect restricted Thought Process linear, logical and coherent Thought Content no delusions and no hallucinations Suicidal Ideation none Homicidal Ideation none Attention intact Concentration intact Sensorium/Orientation awake, alert and oriented x3 Memory/Cognition other (appropriate for stated age) Insight good Judgement good Assessment Plan Assessment Plan (1) Major depressive disorder, recurrent, moderate: Plan: - Continue wellbutrin at 300 mg every day - Continue lexapro - largely doing very well - no acute concerns of side effects (2) Generalized anxiety disorder: Plan: - Continue hydroxyzine as needed Medications: Refilled bupropion HCl XL TAKE 1 TABLET BY MOUTH EVERY DAY FOR 30 DAYS 90 tabs 1RF escitalopram oxalate (Lexapro) 20 mg PO DAILY 90 tabs 1RF 08/13/24 0649 (more content not included)... Normal [facility] CNPRadha 06-18-2024 JAYMIE Telephone (FAMPWS) -- THADDEUS CRAWFORD ([id number]) 1985 F Date Time Provider Department 06/18/24 MAC CONNELLY [facility] During your visit today, we recorded the following information about you: Mac Connelly APRN.CNP 06/18/2024 12:32 PM Signed Please let the patient know that her CT of the abdomen pelvis is completed. She does have a fat-containing supraumbilical hernia. Unclear if this is causing her abdominal discomfort. I referred her to general surgery for second opinion. Other findings include thickening of the bilateral adrenal glands. This can be seen in some disorders involving cortisol levels. I have referred her to endocrinology for further evaluation. This could be causing her fatigue potentially. She also had an abnormal appearance on her left lower lung lobe. Few scattered cysts also. I reached out to pulmonology via an E consult to ask what further steps should be done. I will get back to her on this Mac Connelly APRN.Cheryl Swanson LPN 06/18/2024 12:40 PM Signed Left message to return call Latasha Thomson RN 06/18/2024 1:27 PM Signed Pt called and is notified of providers results and instructions. Pt voices understanding. She states she will call back in to scheduled with General Surgery and Endocrinology as she is still at work. NICOL Roman Jesse, APRN.CNP 06/20/2024 1:42 PM Signed Please let the patient know that I have heard back from pulmonology. They are recommending a dedicated CT of the chest and updated spirometry to test lung function. Depending on the results, I would refer to pulmonary. Two tests are ordered. Mac Connelly APRN.Radha Salinas MA 06/20/2024 2:02 PM Signed Pt notified and voiced understanding. Transferred to PSS to set up appts. 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 With food. - buPROPion XL (WELLBUTRIN XL) 300 mg 24 hr tablet Take 300 mg by mouth once daily. - albuterol (PROVENTIL) 2.5 mg /3 mL (0.083 %) nebulizer solution Use 3 mL via nebulizer every 4 hours as needed for wheezing/shortness of breath. Use over 5-15minutes. - budesonide-formoterol (SYMBICORT) 160-4.5 mcg/actuation inhaler Inhale 2 Puffs as instructed four times a day as needed. - albuterol HFA (PROVENTIL HFA, VENTOLIN HFA) 90 mcg/actuation inhaler Inhale 2 Puffs as instructed every 4 hours as needed for wheezing/shortness of breath. - pantoprazole DR (PROTONIX) 40 mg tablet Take 2 tablets by mouth once daily. - escitalopram oxalate (LEXAPRO) 20 mg tablet Take 1 tablet by mouth every afternoon. - Ascorbic Acid 1,000 mg tablet Take 1,000 mg by mouth once daily. - multivit,calc,mins/iron/fo lic (ONE-A-DAY WOMENS FORMULA ORAL) Take by mouth. - levonorgestrel (MIRENA) 20 mcg/24 hr (5 years) IUD Inserted in office Facility-Administered Medications as of 06/20/2024 - lidocaine (PF) 10 mg/mL (1 %) 1-2 mg injection (XYLOCAINE) - lactated ringers iv infusion - lactated ringers iv infusion Problem List As Of Date 06/18/2024 Noted Resolved S/P laparoscopic cholecystectomy [Z90.49] 11/03/2010 12/23/2011 Irritable bowel [K58.9] 11/03/2010 12/23/2011 Diverticulitis [K57.92] Dysphagia, unspecified(787.20) [R13.10] 11/20/2014 11/20/2014 Esophageal reflux [K21.9] 02/20/2015 02/20/2015 Respiratory bronchiolitis associated interstiti*09/14/2015 Dyspareunia [WGV2411] 11/04/2015 PCB (post coital bleeding) [N93.0] 11/04/2015 Morbid obesity (HCC) [E66.01] 10/09/2017 Asthma [J45.909] Irritable bowel syndrome with both constipation*03/29/2018 Superficial foreign body of finger without george*07/02/2018 Post concussion syndrome [F07.81] 07/09/2018 Scalp laceration [S01.01XA] 07/09/2018 Closed fracture of nasal bones [S02.2XXA] 07/09/2018 Cervical strain [S16.1XXA] 10/15/2020 Encounter Status:Closed by RADHA GENTILE on 06/20/[address] [facility] [address] ABD/PEL WO IVCONon 2023 CT ABD/PEL WO IVCON * * *Final Report* * * DATE OF EXAM: Jun 18 2024 9:59AM [facility] 0531 - CT ABD/PEL WO IVCON / PROCEDURE REASON: multiple diagnoses * * * * Physician Interpretation * * * * EXAMINATION: CT ABDOMEN AND PELVIS WITHOUT IV CONTRAST CLINICAL HISTORY: Left-sided pain. Abdominal bloating. TECHNIQUE: Non-IV contrast imaging of the abdomen and pelvis was performed using standard technique, scanning from just above the dome of the diaphragm to the symphysis pubis. Unenhanced imaging is limited for the evaluation of some intra-abdominal and pelvic pathology. MQ: CTAPWO_3 Contrast: IV: None Oral: 10 ml of Omni 240 10-25ml diluted with water CT Radiation dose: Integrated Dose-length product (DLP) for this visit = 651 mGy*cm. CT Dose Reduction Employed: Automated exposure control(AEC) and iterative recon COMPARISON: None. RESULT: Abdomen / Pelvis: Liver: Unremarkable unenhanced liver. Biliary: Gallbladder not visualized. Spleen: No splenomegaly. Pancreas: Unremarkable unenhanced pancreas. Adrenals: Mild thickening of the bilateral adrenal glands compatible with adenomatous hyperplasia. Kidneys: No calculus, hydronephrosis or finding to suggest a cyst or mass in the unenhanced kidney. GI Tract: No bowel dilation. Left-sided predominant colonic diverticulosis without CT evidence of complications. Normal appendix. Lymph Nodes: No lymphadenopathy. Mesentery/peritoneum: No ascites. Retroperitoneum: No mass. Vasculature: Arterial atherosclerotic disease without aneurysm. Pelvis: Bladder normal in appearance. Intrauterine device present. 5 cm left adnexal cyst. Bones/Soft Tissues: Small fat-containing umbilical hernia. Fat-containing supraumbilical hernia with the hernia mouth measuring 2 cm and with the hernia sac measuring 4.1 cm. This is supraumbilical hernia demonstrates infiltration of the herniated fat. No destructive osseous lesion. Lower thorax: Reticulonodular prominence of the interstitial markings in the bilateral lung bases. Couple of nonspecific thin-walled cysts scattered within the bilateral lower lobes measuring up to 1 cm in size in the left lower lobe. Localizer images: No additional findings. IMPRESSION: 1. 5 cm left adnexal cyst. 2. Fat-containing epigastric hernia with infiltration of the herniated fat. 3. Adenomatous hyperplasia of the bilateral adrenal glands. 4. Reticulonodular prominence of the interstitial markings in the bilateral visualized lung bases with a few scattered thin-walled cysts. Clinical correlation for an inflammatory or infectious process is advised. 5. Additional incidental findings as described. Aerodynamic Consultant: [facility] Transcribe Date/Time: Jun 18 2024 10:08A Dictated by : NEGAR FALLON MD This examination was interpreted and the report reviewed and electronically signed by: NEGAR FALLON MD on Jun 18 2024 10:22AM EST [id number] Normal [facility] CT Abdomen and Pelvis WO con traston 06-18-2024 IMPRESSION: 1. 5 cm left adnexal cyst. 2. Fat-containing epigastric hernia with infiltration of the herniated fat. 3. Adenomatous hyperplasia of the bilateral adrenal glands. 4. Reticulonodular prominence of the interstitial markings in the bilateral visualized lung bases with a few scattered thin-walled cysts. Clinical correlation for an inflammatory or infectious process is advised. 5. Additional incidental findings as described. Aerodynamic Consultant: [facility] Transcribe Date/Time: Jun 18 2024 10:08A Dictated by : NEGAR FALLON MD This examination was interpreted and the report reviewed and electronically signed by: NEGAR FALLON MD on Jun 18 2024 10:22AM [facility] DIVISION OF RADIOLOGY * * *Final Report* * * DATE OF EXAM: Jun 18 2024 9:59AM [facility] 0531 - CT ABD/PEL WO IVCON / PROCEDURE REASON: multiple diagnoses * * * * Physician Interpretation * * * * EXAMINATION: CT ABDOMEN AND PELVIS WITHOUT IV CONTRAST CLINICAL HISTORY: Left-sided pain. Abdominal bloating. TECHNIQUE: Non-IV contrast imaging of the abdomen and pelvis was performed using standard technique, scanning from just above the dome of the diaphragm to the symphysis pubis. Unenhanced imaging is limited for the evaluation of some intra-abdominal and pelvic pathology. MQ: CTAPWO_3 Contrast: IV: None Oral: 10 ml of Omni 240 10-25ml diluted with water CT Radiation dose: Integrated Dose-length product (DLP) for this visit = 651 mGy*cm. CT Dose Reduction Employed: Automated exposure control(AEC) and iterative recon COMPARISON: None. RESULT: Abdomen / Pelvis: Liver: Unremarkable unenhanced liver. Biliary: Gallbladder not visualized. Spleen: No splenomegaly. Pancreas: Unremarkable unenhanced pancreas. Adrenals: Mild thickening of the bilateral adrenal glands compatible with adenomatous hyperplasia. Kidneys: No calculus, hydronephrosis or finding to suggest a cyst or mass in the unenhanced kidney. GI Tract: No bowel dilation. Left-sided predominant colonic diverticulosis without CT evidence of complications. Normal appendix. Lymph Nodes: No lymphadenopathy. Mesentery/peritoneum: No ascites. Retroperitoneum: No mass. Vasculature: Arterial atherosclerotic disease without aneurysm. Pelvis: Bladder normal in appearance. Intrauterine device present. 5 cm left adnexal cyst. Bones/Soft Tissues: Small fat-containing umbilical hernia. Fat-containing supraumbilical hernia with the hernia mouth measuring 2 cm and with the hernia sac measuring 4.1 cm. This is supraumbilical hernia demonstrates infiltration of the herniated fat. No destructive osseous lesion. Lower thorax: Reticulonodular prominence of the interstitial markings in the bilateral lung bases. Couple of nonspecific thin-walled cysts scattered within the bilateral lower lobes measuring up to 1 cm in size in the left lower lobe. Localizer images: No additional findings. DIVISION OF RADIOLOGY Provider, [facility] - 06/18/2024 * * *Final Report* * * DATE OF EXAM: Jun 18 2024 9:59AM [facility] 0531 - CT ABD/PEL WO IVCON / PROCEDURE REASON: multiple diagnoses * * * * Physician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 following antigens: dsDNA, Chromatin, Ribosomal P, SS-A 60, SS-A 52, SS-B, Sm, SmRNP, [facility] A, [facility] 68, Scl-70, Cassidy-1, and Centromere B. Methodology: Multiplex flow immunoassay. Performed By: #### 4 7383-5 ####[facility] [id number] [place] [address] [place] Rheumatoid fact SerPl-aCncon 05-24-2024 Rheumatoid factor Qn 10 [IU]/mL Normal <16 [facility] Comment on above: Order Comment: Speci men Type: BLOOD SPECIMEN Ordering Facility: [facility] Address: [address] [place] [address] Performed By: #### 1 1572-5, 3015-12, 1988-01 #### [facility] CLIA [id number] [address] [place] [address] [place] TSH SerPl-aCncon 05-24-2024 TSH Qn 2.300 m[IU]/L Normal 0.270-4.200 [facility] Comment on above: Order Comment: Speci men Type: BLOOD SPECIMEN Ordering Facility: [facility] Address: [address] [place] [address] Result Comment: If t he patient is , TSH reference range varies by gestational period: First Trimester (weeks 9-12): 0.180-2.990 mIU/L Second Trimester: 0.110-3.980 mIU/L Third Trimester: 0.480-4.710 mIU/L Naseem Negrete et al. A Practical Approach for the Verifications and Determination of Site- and Trimester-Specific Reference Intervals for Thyroid Function tests in . Thyroid, 2019:29:3:412-420. Anthony E, et al. 2017 Guidelines of the [place] Thyroid [employer] for the Diagnosis and Management of Thyroid Disease during and the . Thyroid, 2017:27:3:315-389. Performed By: #### 1 1572-5, 3015-12, 1988-01 #### [facility] CLIA [id number] [address] [place], [place] [id number] [place] XR Finger - left AP and Late ral and obliqueon 02-12-2024 IMPRESSION: Acute fracture of the base of the second distal phalanx as described. Aerodynamic Consultant: PSCB Transcribe Date/Time: Feb 12 2024 12:24P Dictated by : NEGAR FALLON MD This examination was interpreted and the report reviewed and electronically signed by: NEGAR FALLON MD on Feb 12 2024 12:29PM [facility] DIVISION OF RADIOLOGY * * *Final Report* * * DATE OF EXAM: Feb 12 2024 12:24PM WOX [id number] - XR DIGIT 3V FRONTAL/LAT/OBL LT / PROCEDURE REASON: Finger pain, left * * * * Physician Interpretation * * * * CLINICAL INDICATION: Pain TECHNIQUE: 3 view radiographic study of the left second finger COMPARISON: Radiograph dated June 25, 2018 FINDINGS: Acute mildly comminuted though essentially nondisplaced fracture of the radial aspect of the base of the second distal phalanx. DIVISION OF RADIOLOGY Provider, [facility] - 02/12/2024 * * *Final Report* * * DATE OF EXAM: Feb 12 2024 12:24PM WOX [id number] - XR DIGIT 3V FRONTAL/LAT/OBL LT / PROCEDURE REASON: Finger pain, left * * * * Physician Interpretation * * * * CLINICAL INDICATION: Pain TECHNIQUE: 3 view radiographic study of the left second finger COMPARISON: Radiograph dated June 25, 2018 FINDINGS: Acute mildly comminuted though essentially nondisplaced fracture of the radial aspect of the base of the second distal phalanx. IMPRESSION IMPRESSION: Acute fracture of the base of the second distal phalanx as described. Aerodynamic Consultant: USHA Transcribe Date/Time: Feb 12 2024 12:24P Dictated by : NEGAR FALLON MD This examination was interpreted and the report reviewed and electronically signed by: NEGAR FALLON MD on Feb 12 2024 12:29PM [facility] Radiology Study observation (narrative) [facility] XR Finger - left AP and Late ral and obliqueOrdered By: Cc Provider on 02-12-2024 [facility] Colonoscopy Study observatio non 03-31-2023 [facility] Patient Name: Thaddeus Crawford Procedure Date: 03/31/2023 8:01 AM Date of : 1985 Admit Type: Outpatient Age: 37 Room: [place] [address] Gender: Female Note Status: Finalized Attending MD: Wiliam Iyer MD Procedure: Colonoscopy Indications: High risk colon cancer surveillance: Personal history of colonic polyps Providers: Wiliam Iyer MD Patient Profile: This is a 37 year old female. Last Colonoscopy: within the past year. Referring Physician: Etelvina Vasquez (pa) (Referring ) Medicines: Monitored Anesthesia Care Complications: No immediate complications. Requesting Provider: Procedure: Pre-Anesthesia Assessment: - [place] Protocol: - Pre-procedure Verification: Prior to the procedure, the patient's identity was verified by full name and date of . The patient's identity was verified on all pertinent medical records, including History and Physical. Also prior to the procedure, a History and Physical was performed, and patient medications, allergies and sensitivities were reviewed. The patient's tolerance of previous anesthesia was reviewed. The patient is competent. The risks and benefits of the procedure and the sedation options and risks were discussed with the patient. All questions were answered and informed consent was obtained. - Marking: The correct endoscopic procedure was verified by verbal agreement. - Time-Out: Prior to the start of the procedure, the patient's identification, proposed procedure, accurate signed consent, correctly labeled images and records, and need for prophylactic antibiotics were verified by the physician, the nurse and the anesthesiologist in the pre-procedure area in the procedure room in the endoscopy suite. - ASA Grade Assessment: II - A patient with mild systemic disease. After I obtained informed consent, the scope was passed under direct vision. Throughout the procedure, the patient's blood pressure, pulse, and oxygen saturations were monitored continuously. The Colonoscope was introduced through the anus and advanced to the cecum, identified by appendiceal orifice and ileocecal valve. I was present and participated during the entire procedure, including non-rainey portions, and during the administration and monitoring of Moderate Sedation. The colonoscopy was performed without difficulty. The patient tolerated the procedure well. The quality of the bowel preparation was good. The quality of the bowel preparation was evaluated using the BBPS (Castaner Bowel Preparation Scale) with scores of: Right Colon = 3, Transverse Colon = 3 and Left Colon = 3 (entire mucosa seen well with no residual staining, small fragments of stool or opaque liquid). The total BBPS score equals 9. The ileocecal valve, appendiceal orifice, and rectum were photographed. Moderate Sedation: MAC anesthesia was administered by the anesthesia team. Findings: Multiple small and large-mouthed diverticula were found in the sigmoid colon, transverse colon and ascending colon. The exam was otherwise without abnormality. Impression: - Diverticulosis in the sigmoid colon, in the transverse colon and in the ascending colon. - The examination was otherwise normal. - No specimens collected. Recommendation: - Repeat colonoscopy in 3 years for surveillance. - Return to referring physician as previously (more content not included)... PROVATION [facility] Radiology Study observation (narrative) [facility] Influenza virus A and B RNA and SARS-CoV-2 (COVID-19) N gene panel YOANNA+probe (Resp)on 09-13-2022 FLUAV RNA YOANNA+probe Ql (Unsp spec) Positive Abnormal Negative for Influenza A by RT-PCR [facility] FLUBV RNA YOANNA+probe Ql (Unsp spec) Negative Negative for Influenza B by RT-PCR [facility] SARS-CoV-2 (COVID-19) RNA YOANNA+probe Ql (Resp) SARS-CoV-2 (Agent of COVID-19) Not Detected by RT-PCR or equivalent method. Not Detected [facility] SURGICAL PATHOLOGYOrdered By : Alanna Rizzo on 08-23-2022 Case Report Surgical Pathology R eport Case: [id number] Authorizing Provider: Nicko Mcadams MD Collected: 08/19/2022 08:28 AM Ordering Location: Ambulatory Surgery Received: 08/19/2022 07:27 PM Pathologist: Alanna Rizzo MD Specimens: A) - STOMACH BIOPSY B) - ESOPHAGOGASTRIC JUNCTION BIOPSY C) - TRANSVERSE COLON POLYP D) - ASCENDING COLON POLYP E) - COLON BIOPSY, random F) - DESCENDING COLON POLYP [facility] Work Phone: FINAL DIAGNOSIS a9ogiWNlDGDmhZSzEKLh NVxhbn BfAQMyaFWnY8TsqkvvBUaxMP8v CF9qdYtvmEAqzJLyGFAxIeUca2 xbh671oQVbb5edQDOBfbqktDx2 yWqvN65qt9S9PtomA06qkUXpNG F7BIEoMMXxkUHaUKRoJNH8ASRa nXJbQ6lbHKAiBF4thpzhCZbzAD ysZZApkBC2MHAacUWmG9KrBZQg VSmuGICzxsr9DuXpTt2enSMjuI cyMFxwYXJkXHBsYWluXGZzMjAg YH9rYKQ6z35iF8lwTVKtz6KsnY fvNARDMCL2yjkyLQUvlUTupUMm flUhl6l0osNqAcIaePHkp2Oiq8 l1kRQfVMVxfTo3CTCbNDW9dz4b CSVevG8jjFgbOYTwIJ6iVE6vfy Bgt4lgO2hxMZJ6ePLgsmWhKD5q OEkxdLywm4XlJ9ImufHqzSgfqq phy4ZoZC5pu51sSvrhbI8nVXoi rdXtRu3xBFCla4IrEZvxR3IjhB KqKgRmnC9feMiehzxyHwonuXH9 Yj8kPC2liWFvJNPuX6RrFMjxIl XqNFbcHLB1oETpzZCui7JpIJVh VEqpyJm7KVYwc0YkqC06SJU4bT 3thVLnGOQrkOmar3wkLWHsXFAf eXNwbGFzaWEuXGxpbmUgLSBTcX HtbQ61kjWpyEOtl6Udr1w3zSKv ofCisTGvdm8gzDzfCIHesq0smO LliKZ5TodjuV8cGJlzhwQaRa2y MPPwiQ7sKVG4umNwy4KfvnPoMW Sqj5s4oZzyYegzwGP5WbHkHPS5 FmBjFCHnILLdqj0fCF4gqMyrCS bvlW9cIGEqSBZRv8cosoyxEXVb ZE5lpZ1rJQPdn4w6nJutCzpxvX R9KC3pE1Fmn9poDIIbKUNjLMCr NIOsj2i9cF8taOkoREgnhW9oTT DpYJKYu2gewvmourNyGF7fXIBf dU3qu9k8KJ7sR14fw14dUaQnxY Cdi4Ftz6j6cJMlobBcqRYkqz2y xIeyKZMeyh6kzQVntWT8OvzxFK GzCAOAnqEcxdlaGJ8bFLMlTzMu tFIkm3Gxr5UvDgEcl6cbjHkhTi iggN5dAXwjycFwIf5jYKUcrT3y VCXiEMQuEY9usO1eRMHxd2y2yJ syGzhrrKR5WhLmKBz6lZOuvBpy s9KhPkApz0o0bT3knWubWHcubR 8mFKOEH4mPTOUwQB7hMg9gIQPy XHBhcn0= [facility] Work Phone: Gross Description t2dbcVVuJTGddLNWLLYu MDNcYW 1suFsjvUa0gZgiZPHenhD9hLOt QYrnq4akSYB9z2lidhGQElueOH XrKLmiDRFxtppgLoN7TIzaFVNr ooptUCv2LMcpBUYatCG2TUTdgZ SqW8BoDAWfIO8lyys7COS3XFnb AYPpOtR3CQLyQaXyLzkhVGh0DZ WvvlT4Qwi3KFYbOVBgfZKus7D2 YVmyeqlnSECkpOSnB703RCbkn0 VjdGQgDQpccGFyZCANCntcKlxl sCvsz2VrfXCeKNwmOWIfCMNwSI tkkeheZVz4CCWlTLbiyRTjEH8h mAtyFvnlwFdgb5PqtOPmWKgsYI TwSUCmFWceGLClYE2EZoAyWYE4 PdY1Ayy3AqM2SAw4ABRLHyVtPx CoCsMxPHJ6TkTmLGl9ROj9HGaN ChD2RbEvLvcvRHCkCTO3CVUzYV xcdCAyIFxcZiBBcmlhbCBcXGZs EKeffhM6UOItHDbwQZLyXZPSK0 3IP9gxBktPVSKMRDLuraBADran cGljTmVzdERvYzEgDQpcbHRycG FyXGxpbjBccmluMCANClxsdHJj oKppwaCjJBByT2CnjzMoJSneDI Oxxo5weJsdPMUmHLTpqVq4eGVo LCIhlSBaBKBtl4JluOGpVTAco9 J9CLCxa9Q8YYPsP5hxUVrsvVcj UiF6dmClIxhqeRMsJtGoxUAaRw XeX52aOUWrgFPqgGrcu3ExyCp0 oZEbSQhtFH2cXHAvRXKzYUO1ER 8QLcrvdHuaUiSsuASzFjEeooO0 KAOhyZXnKXH8SR9lNVBirfxbAM YpVLDmEDM9WZtsaT66kLXeOJHh MTZccGFyfVxwbGFpbiANCntcKl czyLxqa3ZpnQYqZXqkNTUfVFUd RMdrTHXlXG9JTpRiDLX0GyZ8Lz x2AeG2YTo9KRPBOiPbUeVrAvKp TJDgTOhwDRi5OFw7QVqAWpL7Cp EaAahoLUB9DXE0MINtBRljkHWj IFxcZiBBcmlhbCBcXGZsIFxcbm M3YLJoJQweVBZzFUGqlScduB3q Mk4dRTYQDTmDZ77AMTQSJqwOIO tPTnMSYZ4OBVRKD1TUIZqsBGDq GIlmMSNbD80xb8HQq7MaPA0JMR p5gsLrwzbxhP0iPKSrkvSaPRsc rSLrX1jzExEcUMFPNNSzlHXnBJ IvksIav3MvOFifrrDdobXblqVx bEfuT9Epx8WvtRIwYMDiq0M9AN Wlu3G3OBBlEGJgtAPwubrgVQ48 BLiqBN8sFTboZB1oMSLeKlGEp8 CptKh5PSI9Gv0frXUdRDJserNs eoEvI2Kcu7Y5jWRfHDctAQViR8 3wg5UVs4XfPUAtd2pkyRbyh2Xq pYUrQTpuJDVrgKBlRWdcaN7zBe Ham1qwePj5AXvoioW4UUFvwb1g vUliwY8hHNq2NIjhHBNaU9KuR0 MoXApiLAR8LOOfZkDaXHHlDRWX LmRgMrCbBmKeEeH9UNOwGEv0ZS dmV7RKPDJiZKMiYmR0WPk8VcL1 TQt0IIVSZu1cOTSqFjM3IpX5XI L6OKXfXXPdPCDqLpJuYWYfHWQf BFteWZpxxOMqIB2tzOvliMEjfj oivpI1TLSbYIvoEGQeQMRYRA2E LoLOS7AlK86FV33bAL5GMYPspF AxTM8NVDOtvIGFRVD2UD3xVBIG XawsaENaZBSgiGwyHWdimI0fTL 0PFGz1wrFgIKYeJcGyXjWtRKr8 LNXafA2mAg9ngFEuzX0gJZVhNX 41sZXdhBnvUMWhZXJzpqOcHtZ0 XW8zBDEuGuRscOwro2OvWOJsJ3 HaX5P9vA6pFDVsDFWsLwN9UCWi PnZ3RGMcKaTcqD2hAR88TQvayJ KqrSOkpQH6ZXCsfV1vm45sUSYm z1GnuEJxVo2ZDRXwnUSHPHQ2IO 9tEDo8KPusYUJhI7AjB2NrevOp lSOdYCJqmlPml7llIVE0EXIxfA GvfCJuXiUwIwblJYA3YKTcJEyv CO3Xi9srHCGtkVPjVCN9BPfwoV VoALWvOXGeAPwqXpLtN7BGHIVy HSw6PpcmEisbVCw8GVh6BH8PSk ZxRXYjCsM9Mlt3CQBkBQo1ZMcc UR1JABzaGCX7JvR5UZGaKQJkQH TmBOa7GFRmKXtnVNCcuTUwCLea EftwYAeiB64riWgcqF3iYsCzAm ywoPLlxzFOMuIWA4ODVhEDWecf S59JP88sBD8XCTPneYRaHW3ADX ClpOUHSOG9RF3oOHYDCymtlLCb OAXylCpfFOouuD9kHI9TCOb7as FdLIXsUdCvZyNwVIp9TZGnyB4n Qy0wxILprH5hDPRoSL93iVOlqH tlMQPdT93oxxDmOX9lTSZxvhBr e7q7xA0hKNE9nBZetZTberFwG0 lvXaGiirPneIcnVCFil21uWC21 RCedQW78CWbvHH9kHKKiBDQsHH QdMfQ4KMZnTgC8CKVlMPYdnD8b BZ7yUEJ7UVdireEsflKflh01VX VqTRAGxIAzbTwhJYSir6XuzxIm QRL3qO4nZAKqILFmo2HfUC3gXV YrASWwYRKtOCLfg8CpD1ngIQ3g QENvQMVbaJRoY8UvZE1iRXKsBD BzbWFsbGVyIHNwZWNpbWVucyBh vfWick22DULjH5Kxq29yNG2vTL WliERtxCcov0VebDj2rHJtPZet ROWaqy2kcCwaPIfzKCShaDYxB2 Dsm9I0gVLnZp0DIEIkeOBSLWV1 LR0sBDy0FWdfPCEkX2VcG9Fxyn JnxZTvJTDbrxZjp0onXZW3CSTo mZJbcZYhFtLcLkixWVY3JWGnEK soYH5Ze4unIVZitRKrVUU6JCvp xWBlWBNkXWAgTTprOlExT4AWZI TnYFy7CnlxZtohZYv5QNr6IV5P QtXbKVMeLeR7VsWcPKUgDIt4HZ olHH8WMTgtNPQ6ThK1OXntUKDy ULVnDRr6RGWaVWrrVFQknVAfLH lbQesgSEeaM08evXmolW8lVlKn OellzPBicgLYTpMRP9tRNhPAJN 8KC3chiOBjDG3JCGIvcCYLOMS5 ZD2bVOTZJcifzOMsWKGocAujJN hopP0bXL7NLLk4jhKtQADvBiEg NtRlOIa4QIVyuN0eJz8sfJClpY 3tPNNuLY52aPWhdSkhMEGsRTYi giHjAqL8NZ9cNRCdAqCwzTjek8 BlGDEvO4HeV4M3qK3mQBDvPUIc KUE0AECiWnD9ELDxNiEamR0eMY 79CZshrNNvvZKgwGU0QBWxpS9i m55mGBHrk5FsrZOqXc7MLKEybE WCWFU1GD7tHTf6VDxnKQRoN4Dh U5ZykkUsyNWpNPWqdpFvh0wzJN A9GSGmnLIljPXhUsDjIfppZCY1 KAHgNOemPX4Zi7mdLAZfpDWwNV R3AHinrMQqSPNsRGNrVNulOsBq F6DKRRSxSYb6PgwiChkeHOl0FY b9SN5MEnAsMSZkXeS9DgLyQzPm BFm4UXouBG0IZJuvGRI9JlN5LS EtTNDwTKOqZSb0KFBeBCeyQVKa kELvUTfvNwxyZHtjR19ubHtquI 5cZnMxNlxwbGFpbiBGLiBERVND SA4PFJ9AWVKXLF5ZBGPTKAzSXJ BhciANClxlcGljTmVzdERvYzEg DQpcbHRycGFyXGxpbjBccmluMC NMQlplhGVqhMjsnqHxCMVpN7Av toJsLTvcNIAznk5zgExfSOypJA Eku8PucRCucHYoFpH9CX6ldN6s rISrqPTdfOevf0DkBZ5jAQL7rd luZyAxLjUgeCAwLjUgeCAwLjIg G08wCFNJuoUqfVWklsXkltEvb5 FtMZ0rEACaDFMvoJ4wGJ1jHGNq c0EvmYwhqgDzyiBky5KpCO9fVA XgGWFysVSdpQ3hczAancJpnYAl Q0CgUKKiglVagD25ADcqiBVflT GmvIN7LHOoBi1ddFAfaD7ddV0r d47tYUXzq6HzgIIhJjBazVWsSO 8CQWAjceJVNuqjx7MiAWD7NW0z ftH3zA0hRLEcfwNemn8iXCJcxF JMwIN9QRyabsPzC8kfiutfTUL5 YVKeGMH5W8jpCPFFfyJuCQJBxS T3XCpxmbEfJC3QGRG0GEj2YTVh muBMLevjBAQnTQnWXE8nBRDnYT epAqFvSzAwXMkfUBMMRS5IFSVe dOPOSMJ9EL2xTIv5YEquKNSoS7 NqK8WxxkJoeTCfLEIhxqAqd9rd RRW5WEVacCFftWLnKvUgUbemCD U8MATnPFmxDV6OLGViYNH7BOmk lA95zRLmGV3HXYToIHymDCLnEL CyweT4VDOhbLTxBMO6IK2qvEro lYNzbqeklsK0MH9HeH== [facility] Work Phone: Performing Lab b9vdfHMjQAVnsXPdHlHw MDAwXG Njb6faGTPbhFJhBcZxHhCaXhFt WgvvoBHlJUNuZvTry3tqy375nY Dbe4zjLYJaZhZ4vVFbYOBcdZKw C563EXLeAOtkg9mqb1BeOZKbiH Vez8E2KQTGbgdrjDt1jMpeQ52f c1L6JiwuL1hbVOHeJZKdO1KtHW 0jRGRpBqk9LDA5IBE6EIXrHATa Z0MsBP0fURRulOUpWYg7e9kheO gaNERyGHT3c5tbBZymmkElHY0b jr0zsEj5r7tuedDeUSRcMNXggK WWHIXbO2XqsEzjAj9ayNo2pFcu JvpbBML6Vtc6DE0mcu82vyj0kG zeTSVacqquMzJ7YFpvKSDkczgb FVj0BCoyEGNckWA4UVLhoTUjM9 ZmOAtpID5qauq3ADN1AWziJENv DmW6KQHdsECoPADdnPnhDUvoz2 03PKB9JmJbMR1aL6Gjl7O6fY0w iCHlMAMqnYEfJiTvZFSnal6ihP OzMQxzc9JeSTG1olJ4pHJzbLJj UDOrWF76Ufeht9GpZvpky0FlV4 6qmCT7WRshh6evFG9jRcJ4dhWq RMdpx2koeS9qNsS7WAhfVY7hAO 9zVHGhfW7pgmigPOVxLgVwpibi LZCnmDoyfuEwRw9haQzuQTR6LG rwG3tweF0tJzT4HXdhO1hktV9s QNx3VLdjxNX9MBAmiS5sPE0rea pqw1yuWAmgWIarHHOphrV1ioVp PWVjjQSaE3XagA1fYOBrLF9knd pjm2jkOXN6KCduKIIuLCW0UhEo PBMsy6Xfhtc8NuWel1YbaRDtNP zlR12lb130GZPucwSzV0ofiYRw yvplkZFevekoSPahsaH5TAMpNY BsYWluXGYxXGZzMjJcbGFuZzEw MzNcaGljaFxmMVxkYmNoXGYxXG mlY7yvJaRiOnKfQbOYdODdlo0d jJdoIThdmBVccFIbbEH5wU8lCL GpelHkck2aRTKccDXLlOP2PCfg swWiU9ujeivzFDQ4YURwDBT5I5 xpZCBBdmUsIENsZXZlbGFuZCBP BEL1DLZ6KMIiTQRXBUMgGBL9VG C8CXCoPTRdsAFwZDJdvgjtWUBz XHBsYWluXGYwXGZzMjRccGxhaW 4qYzTiPxTpNjlrPS0iNHSqR6hj qPYnVKVtKCEbE0nhEbTxnS3nlX xmMVxjZjJcZnMyMlxsdHJjaCBM IOPdkbO0s8Y9CHjnhUXuhlxlQU ojwiFkHLjoaybyTDEoTEalR2ia OpQdJJEzzNqhSNons5SsVIRqTS AeQuGdKDulMBB6m2Z1KChzjKIf klPUEePMVX5fvWZkwxfcEF5UPp xwYXJ9 [facility] Work Phone: [facility] Work Phone: EGD Study observation Narrat roman 08-19-2022 [facility] Patient Name: Thaddeus Crawford Procedure Date: 08/19/2022 8:16 AM Date of : 1985 Admit Type: Outpatient Age: 37 Room: [place] [address] Gender: Female Note Status: Finalized Attending MD: Nicko Mcadams MD Procedure: Upper GI endoscopy Indications: Heartburn Providers: Nicko Mcadams MD Patient Profile: This is a 37 year old female. Refer to note in patient chart for documentation of history and physical. Referring Physician: Etelvina Vasquez (pa) (Referring MD) Medicines: Propofol per Anesthesia Complications: No immediate complications. Requesting Provider: Procedure: Pre-Anesthesia Assessment: - Prior to the procedure, a History and Physical was performed, and patient medications and allergies were reviewed. The patient is competent. The risks and benefits of the procedure and the sedation options and risks were discussed with the patient. All questions were answered and informed consent was obtained. Patient identification and proposed procedure were verified by the physician and the nurse in the pre-procedure area in the procedure room. Mental Status Examination: alert and oriented. Airway Examination: normal oropharyngeal airway and neck mobility. Respiratory Examination: clear to auscultation. CV Examination: normal. Prophylactic Antibiotics: The patient does not require prophylactic antibiotics. Prior Anticoagulants: The patient has taken no anticoagulant or antiplatelet agents. ASA Grade Assessment: II - A patient with mild systemic disease. After reviewing the risks and benefits, the patient was deemed in satisfactory condition to undergo the procedure. The anesthesia plan was to use monitored anesthesia care (MAC). Immediately prior to administration of medications, the patient was re-assessed for adequacy to receive sedatives. The heart rate, respiratory rate, oxygen saturations, blood pressure, adequacy of pulmonary ventilation, and response to care were monitored throughout the procedure. The physical status of the patient was re-assessed after the procedure. - Pre-procedure physical examination revealed no contraindications to sedation. After obtaining informed consent, the endoscope was passed under direct vision. Throughout the procedure, the patient's blood pressure, pulse, and oxygen saturations were monitored continuously. The Colonoscope was introduced through the mouth, and advanced to the second part of duodenum. I was present and participated during the entire procedure, including non-rainey portions, and during the administration and monitoring of Moderate Sedation. The upper GI endoscopy was accomplished without difficulty. The patient tolerated the procedure well. Moderate Sedation: MAC anesthesia was administered by the anesthesia team. Findings: The Z-line was irregular and was found 39 cm from the incisors. Biopsies were taken with a cold forceps for histology. The examined esophagus was normal. Diffuse moderately erythematous mucosa without bleeding was found in the entire examined stomach. Biopsies were taken with a cold forceps for histology. Bilious fluid was found in the entire examined stomach. The duodenal bulb, first portion of the duodenum and second portion of the duodenum were normal. Impression: - Z-line irregular, 39 cm from the incisors. Biopsied. - Normal esophagus. - Erythematous mucosa in the stomach. Biopsied. - Bilious gastric fluid. (more content not included)... PROVATION [facility] Radiology Study observation (narrative) [facility] Flexible sigmoidoscopy study on 08-19-2022 [facility] G[facility] End[facility] Patient Name: Thaddeus Crawford Procedure Date: 08/19/2022 8:15 AM Date of : 1985 Admit Type: Outpatient Age: 37 Room: [facility] Gender: Female Note Status: Finalized Attending MD: Nicko Mcadams MD Procedure: Colonoscopy Indications: High risk colon cancer surveillance: Personal history of colonic polyps Providers: Nicko Mcadams MD Patient Profile: This is a 37 year old female. Refer to note in patient chart for documentation of history and physical. Last Colonoscopy: 5 years ago. Referring Physician: Etelvina Vasquez (pa) (Referring MD) Medicines: Propofol per Anesthesia Complications: No immediate complications. Requesting Provider: Procedure: Pre-Anesthesia Assessment: - Prior to the procedure, a History and Physical was performed, and patient medications and allergies were reviewed. The patient is competent. The risks and benefits of the procedure and the sedation options and risks were discussed with the patient. All questions were answered and informed consent was obtained. Patient identification and proposed procedure were verified by the physician and the nurse in the pre-procedure area. Mental Status Examination: alert and oriented. Airway Examination: normal oropharyngeal airway and neck mobility. Respiratory Examination: clear to auscultation. CV Examination: normal. Prophylactic Antibiotics: The patient does not require prophylactic antibiotics. Prior Anticoagulants: The patient has taken no anticoagulant or antiplatelet agents. ASA Grade Assessment: II - A patient with mild systemic disease. After reviewing the risks and benefits, the patient was deemed in satisfactory condition to undergo the procedure. The anesthesia plan was to use monitored anesthesia care (MAC). Immediately prior to administration of medications, the patient was re-assessed for adequacy to receive sedatives. The heart rate, respiratory rate, oxygen saturations, blood pressure, adequacy of pulmonary ventilation, and response to care were monitored throughout the procedure. The physical status of the patient was re-assessed after the procedure. After I obtained informed consent, the scope was passed under direct vision. Throughout the procedure, the patient's blood pressure, pulse, and oxygen saturations were monitored continuously. The Colonoscope was introduced through the anus and advanced to the terminal ileum. I was present and participated during the entire procedure, including non-rainey portions, and during the administration and monitoring of Moderate Sedation. The colonoscopy was performed without difficulty. The patient tolerated the procedure well. The quality of the bowel preparation was good. The terminal ileum, ileocecal valve, appendiceal orifice, and rectum were photographed. Moderate Sedation: MAC anesthesia was administered by the anesthesia team. Findings: A 20 mm polyp was found in the ascending colon. The polyp was sessile. The polyp was removed with a piecemeal technique using a cold snare. Resection and retrieval were complete. A 3 mm polyp was found in the transverse colon. The polyp was sessile. The polyp was removed with a cold biopsy forceps. Resection and retrieval were complete. A 10 mm polyp was found in the descending colon. The polyp was sessile. The polyp was removed with a cold snare. Resection and retrieval were complete. Many small-mouthed diverticula were found in the sigmoid colon and descending colon. Biopsies for histology wer (more content not included)... [employer] [facility] Radiology Study observation (narrative) [facility] MRI CERVICAL SPINE WO IVCONo n 04-19-2022 [facility] XR Chest PA and Lateralon IMPRESSION: No acute radiographic abnormality. Stable chest x-ray. Aerodynamic Consultant: [facility] Transcribe Date/Time: Jul 12 2021 5:47P Dictated by : TERRY HERNANDEZ MD This examination was interpreted and the report reviewed and electronically signed by: TERRY HERNANDEZ MD on Jul 12 2021 5:49PM [facility] DIVISION OF RADIOLOGY * * *Final Report* * * DATE OF EXAM: Jul 12 2021 5:44PM WOX [id number] - XR CHEST 2V FRONTAL/LAT / PROCEDURE REASON: Cough * * * * Physician Interpretation * * * * EXAMINATION: CHEST RADIOGRAPH (2 VIEW FRONTAL & LATERAL) CLINICAL HISTORY: Cough MQ: XC2_6 EXAM DATE/TIME: 07/12/2021 5:44 PM COMPARISON: 03/29/2021, 03/18/2016 RESULT: Lines, tubes, and devices: None. Lungs and pleura: There is persistence of diffuse bilateral reticular nodular opacities. No consolidation. No lung mass. No pleural effusion. No pneumothorax. Cardiomediastinal silhouette: Stable cardiomediastinal silhouette. Bones and soft tissues: Slight anterior wedging of a midthoracic vertebral body similar to prior studies. DIVISION OF RADIOLOGY Provider, [facility] - 07/12/2021 * * *Final Report* * * DATE OF EXAM: Jul 12 2021 5:44PM WOX [id number] - XR CHEST 2V FRONTAL/LAT / PROCEDURE REASON: Cough * * * * Physician Interpretation * * * * EXAMINATION: CHEST RADIOGRAPH (2 VIEW FRONTAL & LATERAL) CLINICAL HISTORY: Cough MQ: XC2_6 EXAM DATE/TIME: 07/12/2021 5:44 PM COMPARISON: 03/29/2021, 03/18/2016 RESULT: Lines, tubes, and devices: None. Lungs and pleura: There is persistence of diffuse bilateral reticular nodular opacities. No consolidation. No lung mass. No pleural effusion. No pneumothorax. Cardiomediastinal silhouette: Stable cardiomediastinal silhouette. Bones and soft tissues: Slight anterior wedging of a midthoracic vertebral body similar to prior studies. IMPRESSION IMPRESSION: No acute radiographic abnormality. Stable chest x-ray. Aerodynamic Consultant: [facility] Transcribe Date/Time: Jul 12 2021 5:47P Dictated by : TERRY HERNANDEZ MD This examination was interpreted and the report reviewed and electronically signed by: TERRY HERNANDEZ MD on Jul 12 2021 5:49PM EST [facility] Radiology Study observation (narrative) [facility] XR Chest PA and LateralOrder ed By: [facility] Provider on 07-12-2021 [facility] XR Chest PA and Lateralon IMPRESSION: No acute radiographic abnormality is identified. Refer to the result. Aerodynamic Consultant: [facility] Transcribe Date/Time: Mar 29 2021 5:04P Dictated by : SHERLYN BAÑUELOS MD This examination was interpreted and the report reviewed and electronically signed by: SHERLYN BAÑUELOS MD on Mar 29 2021 5:08PM [facility] DIVISION OF RADIOLOGY * * *Final Report* * * DATE OF EXAM: Mar 29 2021 5:04PM WOX 5291 - XR CHEST 2V FRONTAL/LAT / PROCEDURE REASON: Wheeze * * * * Physician Interpretation * * * * EXAMINATION: CHEST RADIOGRAPH (2 VIEW FRONTAL & LATERAL) CLINICAL HISTORY: Wheeze MQ: XC2_6 EXAM DATE/TIME: 03/29/2021 5:04 PM COMPARISON: 03/18/2016, correlation was also made with CT chest exam of 08/21/2015 RESULT: Lines, tubes, and devices: None. Lungs and pleura: No acute consolidation, significant pleural effusion or pneumothorax. Diffuse bilateral reticular nodular opacities again noted, similar to exam from 2016. Cardiomediastinal silhouette: Stable Bones and soft tissues: No acute osseous abnormality. DIVISION OF RADIOLOGY Provider, Darius Danielle - 03/29/2021 * * *Final Report* * * DATE OF EXAM: Mar 29 2021 5:04PM WOX 5291 - XR CHEST 2V FRONTAL/LAT / PROCEDURE REASON: Wheeze * * * * Physician Interpretation * * * * EXAMINATION: CHEST RADIOGRAPH (2 VIEW FRONTAL & LATERAL) CLINICAL HISTORY: Wheeze MQ: XC2_6 EXAM DATE/TIME: 03/29/2021 5:04 PM COMPARISON: 03/18/2016, correlation was also made with CT chest exam of 08/21/2015 RESULT: Lines, tubes, and devices: None. Lungs and pleura: No acute consolidation, significant pleural effusion or pneumothorax. Diffuse bilateral reticular nodular opacities again noted, similar to exam from 2016. Cardiomediastinal silhouette: Stable Bones and soft tissues: No acute osseous abnormality. IMPRESSION IMPRESSION: No acute radiographic abnormality is identified. Refer to the result. Aerodynamic Consultant: [facility] Transcribe Date/Time: Mar 29 2021 5:04P Dictated by : SHERLYN BAÑUELOS MD This examination was interpreted and the report reviewed and electronically signed by: SHERLYN BAÑUELOS MD on Mar 29 2021 5:08PM EST [facility] Radiology Study observation (narrative) [facility] XR Chest PA and LateralOrder ed By: [facility] Provider on 03-29-2021 [facility] Vital Signs Date Time Vital Sign Value Performing Clinician Dudley fernando 02-04-2025 15:32-0400 Body mass index (BMI) [Ratio] 34.29 kg/m2 Lenny Baird APRN.FUR FINISHER Work Phone: [facility] 02-04-2025 15:32-0400 Body temperature 98.6 [degF] Lenny Baird APRN.CNP Work Phone: [facility] 02-04-2025 15:32-0400 Body weight 87.8 kg Lenny Baird APRN.CNP Work Phone: [facility] 02-04-2025 15:32-0400 Diastolic blood pressure 80 mm[Hg] Lenny Oli 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 Work Phone: [facility] 02-04-2025 15:32-0400 Heart rate 80 /min Lenny Oli 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 Work Phone: [facility] 02-04-2025 15:32-0400 Respiratory rate 18 /min Lenny Baird 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 Work Phone: [facility] 02-04-2025 15:32-0400 SaO2% (BldA) [Mass fraction] 97 % Lenny Baird 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 Work Phone: [facility] 02-04-2025 15:32-0400 Systolic blood pressure 124 mm[Hg] Lenny Oli 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 Work Phone: [facility] 01-10-2025 11:04-0400 Body mass index (BMI) [Ratio] 33.44 kg/m2 Azul Montejo MD Work Phone: [facility] 01-10-2025 11:04-0400 Body temperature 97.81 [degF] Azul Montejo MD Work Phone: [facility] 01-10-2025 11:04-0400 Body weight 85.64 kg Azul Montejo MD Work Phone: [facility] 01-10-2025 11:04-0400 Diastolic blood pressure 76 mm[Hg] Azul Montejo MD Work Phone: [facility] 01-10-2025 11:04-0400 Heart rate 83 /min Azul Montejo MD Work Phone: [facility] 01-10-2025 11:04-0400 SaO2% (BldA) [Mass fraction] 96 % Azul Montejo MD Work Phone: [facility] 01-10-2025 11:04-0400 Systolic blood pressure 100 mm[Hg] Azul Montejo MD Work Phone: [facility] 11-12-2024 15:00-0500 Body height 160 cm Azul Montejo MD Work Phone: [facility] 11-12-2024 15:00-0500 Body mass index (BMI) [Ratio] 34.01 kg/m2 Azul Montejo MD Work Phone: [facility] 11-12-2024 15:00-0500 Body weight 87.09 kg Azul Montejo MD Work Phone: [facility] 11-12-2024 15:00-0500 Diastolic blood pressure 80 mm[Hg] Azul Montejo MD Work Phone: [facility] 11-12-2024 15:00-0500 Heart rate 71 /min Azul Montejo MD Work Phone: [facility] 11-12-2024 15:00-0500 Respiratory rate 19 /min Azul Montejo MD Work Phone: [facility] 11-12-2024 15:00-0500 SaO2% (BldA) [Mass fraction] 96 % Azul Montejo MD Work Phone: [facility] 11-12-2024 15:00-0500 Systolic blood pressure 110 mm[Hg] Azul Montejo MD Work Phone: [facility] 11-05-2024 13:00-0500 Diastolic blood pressure 73 mm[Hg] Mathew Golias PT Work Phone: [facility] 11-05-2024 13:00-0500 Heart rate 77 /min Mathew Golias PT Work Phone: [facility] 11-05-2024 13:00-0500 Systolic blood pressure 112 mm[Hg] Mathew Golias PT Work Phone: [facility] 10-30-2024 11:08-0500 Body height 160.1 cm Pulm Wstr Work Phone: [facility] 10-30-2024 11:08-0500 Body mass index (BMI) [Ratio] 32.94 kg/m2 Pulm Wstr Work Phone: [facility] 10-30-2024 11:08-0500 Body weight 84.37 kg Pulm Wstr Work Phone: [facility] 10-30-2024 11:08-0500 Heart rate 79 /min Pulm Wstr Work Phone: [facility] 10-30-2024 11:08-0500 Respiratory rate 14 /min Pulm Wstr Work Phone: [facility] 10-30-2024 11:08-0500 SaO2% (BldA) [Mass fraction] 97 % Pulm Wstr Work Phone: [facility] 10-24-2024 14:01-0500 Body mass index (BMI) [Ratio] 32.39 kg/m2 Nieves Jacobs MD Work Phone: [facility] 10-24-2024 14:01-0500 Body weight 85.6 kg Nieves Jacobs MD Work Phone: [facility] 10-24-2024 14:01-0500 Diastolic blood pressure 70 mm[Hg] Nieves Jacobs MD Work Phone: [facility] 10-24-2024 14:01-0500 Heart rate 74 /min Nieves Jacobs MD Work Phone: [facility] 10-24-2024 14:01-0500 Respiratory rate 16 /min Nieves Jacobs MD Work Phone: [facility] 10-24-2024 14:01-0500 Systolic blood pressure 118 mm[Hg] Nieves Jacobs MD Work Phone: [facility] 06-07-2024 13:41-0400 Body mass index (BMI) [Ratio] 32.85 kg/m2 Mac Connelly APRN.FUR FINISHER Work Phone: [facility] 06-07-2024 13:41-0400 Body weight 86.8 kg Mac Connelly APRN.CNP Work Phone: [facility] 06-07-2024 13:41-0400 Diastolic blood pressure 70 mm[Hg] Mac Godwin 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 Work Phone: [facility] 06-07-2024 13:41-0400 Heart rate 79 /min Mac Godwin 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 Work Phone: [facility] 06-07-2024 13:41-0400 Respiratory rate 16 /min Mac Godwin 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 Work Phone: [facility] 06-07-2024 13:41-0400 SaO2% (BldA) [Mass fraction] 98 % Mac Godwin 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 Work Phone: [facility] 06-07-2024 13:41-0400 Systolic blood pressure 110 mm[Hg] Mac Godwin 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 Work Phone: [facility] 05-24-2024 15:25-0400 Body mass index (BMI) [Ratio] 32.17 kg/m2 Mac Godwin 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 Work Phone: [facility] 05-24-2024 15:25-0400 Body weight 85 kg Mac Godwin 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 Work Phone: [facility] 05-24-2024 15:25-0400 Diastolic blood pressure 70 mm[Hg] Mac Godwin 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 Work Phone: [facility] 05-24-2024 15:25-0400 Heart rate 75 /min Mac Godwin 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 Work Phone: [facility] 05-24-2024 15:25-0400 Respiratory rate 16 /min Mac Godwin 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 Work Phone: [facility] 05-24-2024 15:25-0400 SaO2% (BldA) [Mass fraction] 97 % Mac Godwin 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 Work Phone: [facility] 05-24-2024 15:25-0400 Systolic blood pressure 110 mm[Hg] Mac Godwin 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 Work Phone: [facility] 02-11-2024 12:15-0400 Body mass index (BMI) [Ratio] 32.92 kg/m2 Lenny King 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 Work Phone: [facility] 02-11-2024 12:15-0400 Body temperature 97.7 [degF] Lenny Oli 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 Work Phone: [facility] 02-11-2024 12:15-0400 Body weight 87 kg Lenny Oli 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 Work Phone: [facility] 02-11-2024 12:15-0400 Diastolic blood pressure 64 mm[Hg] Lenny King 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 Work Phone: [facility] 02-11-2024 12:15-0400 Heart rate 95 /min Lenny Oli 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 Work Phone: [facility] 02-11-2024 12:15-0400 Respiratory rate 18 /min Lenny Baird 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 Work Phone: [facility] 02-11-2024 12:15-0400 SaO2% (BldA) [Mass fraction] 96 % Lenny Baird 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 Work Phone: [facility] 02-11-2024 12:15-0400 Systolic blood pressure 101 mm[Hg] Lenny Oli 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 Work Phone: [facility] 02-02-2024 13:52-0400 Body mass index (BMI) [Ratio] 32.13 kg/m2 Nieves Jacobs MD Work Phone: [facility] 02-02-2024 13:52-0400 Body weight 84.91 kg Nieves Jacobs MD Work Phone: [facility] 02-02-2024 13:52-0400 Diastolic blood pressure 78 mm[Hg] Nieves Jacobs MD Work Phone: [facility] 02-02-2024 13:52-0400 Heart rate 98 /min Nieves Jacobs MD Work Phone: [facility] 02-02-2024 13:52-0400 Respiratory rate 18 /min Nieves Jacobs MD Work Phone: [facility] 02-02-2024 13:52-0400 SaO2% (BldA) [Mass fraction] 95 % Nieves Jacobs MD Work Phone: [facility] 02-02-2024 13:52-0400 Systolic blood pressure 128 mm[Hg] Nieves Jacobs MD Work Phone: [facility] 07-24-2023 18:27-0400 Body weight 89.99 kg Nieves Jacobs MD Work Phone: [facility] 07-24-2023 18:27-0400 Diastolic blood pressure 78 mm[Hg] Nieves Jacobs MD Work Phone: [facility] 07-24-2023 18:27-0400 Heart rate 68 /min Nieves Jacobs MD Work Phone: [facility] 07-24-2023 18:27-0400 Respiratory rate 16 /min Nieves Jacobs MD Work Phone: [facility] 07-24-2023 18:27-0400 Systolic blood pressure 114 mm[Hg] Nieves Jacobs MD Work Phone: [facility] 05-28-2023 11:32-0400 Body temperature 98.2 [degF] Terrence Yeager 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 Work Phone: [facility] 05-28-2023 11:32-0400 Body weight 83.01 kg Terrence Yeager 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 Work Phone: [facility] 05-28-2023 11:32-0400 Diastolic blood pressure 80 mm[Hg] Terrence Yeager 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 Work Phone: [facility] 05-28-2023 11:32-0400 Heart rate 68 /min Terrence Yeager 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 Work Phone: [facility] 05-28-2023 11:32-0400 Respiratory rate 16 /min Terrence Golddonte 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 Work Phone: [facility] 05-28-2023 11:32-0400 SaO2% (BldA) [Mass fraction] 99 % Terrence Yeager 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 Work Phone: [facility] 05-28-2023 11:32-0400 Systolic blood pressure 126 mm[Hg] Terrence Golddonte 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 Work Phone: [facility] 04-14-2023 16:34-0400 Body height 162.6 cm Mimi Razo MD Work Phone: [facility] 04-14-2023 16:34-0400 Body weight 80.74 kg Mimi Razo MD Work Phone: [facility] 04-14-2023 16:34-0400 Diastolic blood pressure 65 mm[Hg] Mimi Razo MD Work Phone: [facility] 04-14-2023 16:34-0400 Heart rate 59 /min Mimi Razo MD Work Phone: [facility] 04-14-2023 16:34-0400 Respiratory rate 16 /min Mimi Razo MD Work Phone: [facility] 04-14-2023 16:34-0400 SaO2% (BldA) [Mass fraction] 97 % Mimi Razo MD Work Phone: [facility] 04-14-2023 16:34-0400 Systolic blood pressure 120 mm[Hg] Mimi Razo MD Work Phone: [facility] 03-31-2023 08:47-0400 Body temperature 97.39 [degF] Wiliam Iyer MD Work Phone: [facility] 03-31-2023 08:47-0400 Diastolic blood pressure 75 mm[Hg] Wiliam Iyer MD Work Phone: [facility] 03-31-2023 08:47-0400 Heart rate 59 /min Wiliam Iyer MD Work Phone: [facility] 03-31-2023 08:47-0400 Respiratory rate 16 /min Wiliam Iyer MD Work Phone: [facility] 03-31-2023 08:47-0400 SaO2% (BldA) [Mass fraction] 97 % Wiliam Iyer MD Work Phone: [facility] 03-31-2023 08:47-0400 Systolic blood pressure 120 mm[Hg] Wiliam Iyer MD Work Phone: [facility] 03-31-2023 07:14-0400 Body height 162.6 cm Wiliam Iyer MD Work Phone: [facility] 03-31-2023 07:14-0400 Body mass index (BMI) [Ratio] 29.87 kg/m2 Wiliam Iyer MD Work Phone: [facility] 03-31-2023 07:14-0400 Body weight 78.93 kg Wiliam Iyer MD Work Phone: [facility] 12-10-2022 13:47-0500 Body temperature 97.5 [degF] Cuca Christian 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 Work Phone: [facility] 12-10-2022 13:47-0500 Body weight 78.93 kg Cuca Christian 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 Work Phone: [facility] 12-10-2022 13:47-0500 Diastolic blood pressure 72 mm[Hg] Cuca Christian 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 Work Phone: [facility] 12-10-2022 13:47-0500 Heart rate 97 /min Cuca Christian 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 Work Phone: [facility] 12-10-2022 13:47-0500 Respiratory rate 21 /min Cuca Christian 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 Work Phone: [facility] 12-10-2022 13:47-0500 SaO2% (BldA) [Mass fraction] 98 % Cuca Christian 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 Work Phone: [facility] 12-10-2022 13:47-0500 Systolic blood pressure 100 mm[Hg] Cuca Gonzales APRN.FUR FINISHER Work Phone: [facility] 10-10-2022 19:06-0500 Body weight 82.19 kg Nieves Jacobs MD Work Phone: [facility] 10-10-2022 19:06-0500 Diastolic blood pressure 78 mm[Hg] Nieves Jacobs MD Work Phone: [facility] 10-10-2022 19:06-0500 Heart rate 88 /min Nieves Jacbos MD Work Phone: [facility] 10-10-2022 19:06-0500 Respiratory rate 16 /min Nieves Jacobs MD Work Phone: [facility] 10-10-2022 19:06-0500 Systolic blood pressure 120 mm[Hg] Nieves Jacobs MD Work Phone: [facility] 09-12-2022 13:11-0500 Body temperature 97.9 [degF] Margie Bogner PA-C Work Phone: [facility] 09-12-2022 13:11-0500 Body weight 82.28 kg Margie Bogner PA-C Work Phone: [facility] 09-12-2022 13:11-0500 Diastolic blood pressure 72 mm[Hg] Margie Bogner PA-C Work Phone: [facility] 09-12-2022 13:11-0500 Heart rate 78 /min Margie Bogner PA-C Work Phone: [facility] 09-12-2022 13:11-0500 Respiratory rate 18 /min Margie Bogner PA-C Work Phone: [facility] 09-12-2022 13:11-0500 SaO2% (BldA) [Mass fraction] 100 % Margie Bogner PA-C Work Phone: [facility] 09-12-2022 13:11-0500 Systolic blood pressure 102 mm[Hg] Margie Lamas PA-C Work Phone: [facility] 09-05-2022 16:08-0500 Body height 162.6 cm Etelvina Kalka PA-C Work Phone: [facility] 09-05-2022 16:08-0500 Body weight 83.46 kg Etelvina Kalka PA-C Work Phone: [facility] 09-05-2022 16:08-0500 Diastolic blood pressure 72 mm[Hg] Etelvina Kalka PA-C Work Phone: [facility] 09-05-2022 16:08-0500 Heart rate 67 /min Etelvina Kalka PA-C Work Phone: [facility] 09-05-2022 16:08-0500 Systolic blood pressure 108 mm[Hg] Etelvina Kalka PA-C Work Phone: [facility] 08-19-2022 09:15-0500 Diastolic blood pressure 75 mm[Hg] Nicko Mcadams MD Work Phone: [facility] 08-19-2022 09:15-0500 Heart rate 67 /min Nicko Mcadams MD Work Phone: [facility] 08-19-2022 09:15-0500 Respiratory rate 16 /min Nicko Mcadams MD Work Phone: [facility] 08-19-2022 09:15-0500 SaO2% (BldA) [Mass fraction] 100 % Nicko Mcadams MD Work Phone: [facility] 08-19-2022 09:15-0500 Systolic blood pressure 109 mm[Hg] Nicko Mcadams MD Work Phone: [facility] 08-19-2022 08:59-0500 Body temperature 97.39 [degF] Nicko Mcadams MD Work Phone: [facility] 08-19-2022 07:50-0500 Body height 162.6 cm Nicko Mcadams MD Work Phone: [facility] 08-19-2022 07:50-0500 Body mass index (BMI) [Ratio] 31.07 kg/m2 Nicko Mcadams MD Work Phone: [facility] 08-19-2022 07:50-0500 Body weight 82.1 kg Nicko Mcadams MD Work Phone: [facility] 08-16-2022 16:03-0500 Body height 160 cm Mer [place] 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 Work Phone: [facility] 08-16-2022 16:03-0500 Body weight 84.91 kg Mer Senia 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 Work Phone: [facility] 08-16-2022 16:03-0500 Diastolic blood pressure 62 mm[Hg] Mer Senia 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 Work Phone: [facility] 08-16-2022 16:03-0500 Systolic blood pressure 118 mm[Hg] Mer Senia 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 Work Phone: [facility] 07-29-2022 15:31-0400 Body weight 81.47 kg Mer [place] 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 Work Phone: [facility] 07-29-2022 15:31-0400 Diastolic blood pressure 66 mm[Hg] Mer Senia 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 Work Phone: [facility] 07-29-2022 15:31-0400 Systolic blood pressure 110 mm[Hg] Mer [place] 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 Work Phone: [facility] 03-30-2022 18:14-0400 Body weight 82.1 kg Nieves Jacobs MD Work Phone: [facility] 03-30-2022 18:14-0400 Diastolic blood pressure 64 mm[Hg] Nieves Jacobs MD Work Phone: [facility] 03-30-2022 18:14-0400 Heart rate 78 /min Nieves Jacobs MD Work Phone: [facility] 03-30-2022 18:14-0400 Respiratory rate 16 /min Nieves Jacobs MD Work Phone: [facility] 03-30-2022 18:14-0400 Systolic blood pressure 112 mm[Hg] Nieves Jacobs MD Work Phone: [facility] Encounters Encounter Date Encounter Type Care Provider Facility Start: 03-25-2025 End: 04-25-2025 ambulatory Nieves Jacobs MD Work Phone: [facility] [place] Start: 02-10-2025 End: 02-10-2025 ambulatory Nieves Jacobs Facility:[facility] Start: 02-04-2025 End: 02-04-2025 Patient encounter procedure Lenny Baird APRN.FUR FINISHER Work Phone: [facility] Comment on above: Sinobronchitis (Prim nydia Dx); Acute cough Start: 02-04-2025 End: 02-04-2025 Subsequent hospital visit by physician Jina [facility] Work Phone: Radiology Comment on above: Acute cough [R05.1] Start: 02-04-2025 End: 02-04-2025 ambulatory LENNY BAIRD Facility:[facility] Start: 01-10-2025 End: 01-10-2025 ambulatory AZUL [facility] Facility:[facility] Start: 01-10-2025 End: 01-10-2025 Patient encounter procedure Azul Montejo MD Work Phone: Endocrinology Comment on above: Flushing (Primary Dx ); Adrenal hyperplasia (HCC) Start: 01-03-2025 End: 01-03-2025 Refill Mac Connelly 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 Work Phone: [facility] [place] Comment on above: Refill Request Start: 01-02-2025 End: 01-02-2025 [facility] Start: 01-01-2025 End: 01-01-2025 ambulatory NIEVES JACOBS Facility:[facility] Start: 12-12-2024 End: 12-12-2024 ambulatory Mathew Golias PT Work Phone: [facility] Comment on above: Muscle tone increase d (Primary Dx); Chronic left shoulder pain Start: 11-19-2024 End: 11-19-2024 ambulatory Mathew Golias PT Work Phone: [facility] Comment on above: Muscle tone increase d (Primary Dx); Chronic left shoulder pain Start: 11-13-2024 End: 11-13-2024 ambulatory Mathew Golias PT Work Phone: [facility] Comment on above: Muscle tone increase d (Primary Dx); Chronic left shoulder pain Start: 11-12-2024 End: 11-12-2024 ambulatory MAC CONNELLY Facility:[facility] Start: 11-12-2024 End: 11-12-2024 Patient encounter procedure Azul Montejo MD Work Phone: Endocrinology Comment on above: Adrenal hyperplasia (HCC) (Primary Dx) Start: 11-05-2024 End: 11-05-2024 ambulatory Mathew Golias PT Work Phone: [facility] Comment on above: Muscle tone increase d (Primary Dx); Muscle tightness; Acute pain of left shoulder; Chronic left shoulder pain Start: 10-31-2024 End: 11-01-2024 Telephone encounter Mac Connelly APRN.FUR FINISHER Work Phone: [facility] Comment on above: Results Start: 10-30-2024 End: 11-01-2024 Telephone encounter Nieves Jacobs MD Work Phone: [place] Start: 10-30-2024 End: 10-30-2024 ambulatory Pulm Lab [facility] Work Phone: [facility] Comment on above: Spirometry Start: 10-30-2024 End: 10-30-2024 Patient encounter procedure Pulm Lab [facility] Work Phone: [facility] Start: 10-30-2024 End: 10-30-2024 Subsequent [facility] Work Phone: Cat Scan Comment on above: Abnormal CT of the a yuliana [R93.5] Start: 10-24-2024 End: 10-24-2024 ambulatory NIEVES JACOBS Facility:[facility] Start: 10-24-2024 End: 10-24-2024 Patient encounter procedure Nieves Jacobs MD Work Phone: [facility] [place] Comment on above: Muscle tightness (Pr imary Dx); Acute pain of left shoulder Start: 08-12-2024 End: 08-12-2024 ambulatory Elvin Mcneil Facility:[facility] Start: 06-20-2024 End: 06-20-2024 Patient encounter procedure Jasmin Cano MD Work Phone: [facility] Start: 06-18-2024 End: 06-20-2024 Telephone encounter Mac Connelly APRN.FUR FINISHER Work Phone: [facility] Comment on above: Results Start: 06-18-2024 End: 06-18-2024 ambulatory MAC GODWIN Facility:[facility] Start: 06-18-2024 End: 06-18-2024 Subsequent hospital visit by physician [facility] Work Phone: Cat Scan Comment on above: Left upper quadrant abdominal pain [R10.12] Start: 06-11-2024 End: 06-11-2024 ambulatory MAC GODWIN Facility:[facility] Start: 06-11-2024 End: 06-11-2024 Subsequent hospital visit by physician Us [facility] Work Phone: Radiology Comment on above: Abnormal CBC [R79.89 ] Start: 06-07-2024 End: 06-07-2024 ambulatory MAC GODWIN Facility:[facility] Start: 06-07-2024 End: 06-07-2024 Office outpatient visit 25 minutes Mac Connelly 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 Work Phone: [facility] [place] Comment on above: Polyarthralgia (Prim nydia Dx); Left upper quadrant abdominal pain; Flank pain; Abdominal bloating Start: 05-24-2024 End: 05-24-2024 ambulatory MAC CONNELLY Facility:[facility] Start: 05-24-2024 End: 05-24-2024 Office outpatient visit 25 minutes Mac Connelly APRN.FUR FINISHER Work Phone: [facility] [place] Comment on above: Polyarthralgia (Prim nydia Dx) Start: 04-24-2024 ambulatory Nieves gomez MD Work Phone: Internal Medicine [facility] Start: 02-12-2024 Telephone encounter Lenny higgins APRN.FUR FINISHER Work Phone: [facility] Comment on above: Results Start: 02-12-2024 End: 02-12-2024 Subsequent hospital visit by physician Xr [facility] Work Phone: Radiology Comment on above: Finger pain, left [M 79.645] Start: 02-11-2024 End: 02-11-2024 Patient encounter procedure Lenny Baird APRN.FUR FINISHER Work Phone: [facility] Comment on above: Finger pain, left (P rimary Dx); Skin inflammation Start: 02-02-2024 End: 02-02-2024 Patient encounter procedure Nieves Jacobs MD Work Phone: [facility] Comment on above: Moderate persistent asthma with (acute) exacerbation (Primary Dx) Start: 02-01-2024 Refill Nieves gomez MD Work Phone: [facility] Comment on above: Opened In Error Start: 01-31-2024 ambulatory Nieves gomez MD Work Phone: [facility] Comment on above: Inhaler and nebulize r Start: 11-01-2023 Refill Mac Connelly APRN.FUR FINISHER Work Phone: [facility] Comment on above: Refill Request Start: 07-24-2023 End: 07-24-2023 Patient encounter procedure Nieves Jacobs MD Work Phone: [facility] Comment on above: Decreased energy (Pr imary Dx); Mood swings; Hair loss; Weight gain; Smoking; Screening for lipid disorders; Obesity, Class I, BMI 30-34.9; Dental infection Start: 07-23-2023 Refill Nieves gomez MD Work Phone: [facility] Comment on above: Refill Request Start: 05-28-2023 End: 05-28-2023 Office outpatient visit 15 minutes Terrence Yeager APRN.CNP Work Phone: [facility] Comment on above: Laceration of right index finger without foreign body without damage to nail, initial encounter (Primary Dx) Start: 05-17-2023 ambulatory Nieves gomez MD Work Phone: Internal Medicine [facility] [place] Start: 05-10-2023 Refill Mimi Razo MD Work Phone: Neurology Comment on above: Refill Request Start: 04-14-2023 End: 04-14-2023 Office outpatient visit 15 minutes Mimi Razo MD Work Phone: Neurology Comment on above: Post concussion synd blaze (Primary Dx) Start: 03-31-2023 End: 03-31-2023 Subsequent hospital visit by physician Wiliam Iyer MD Work Phone: Ambulatory Surgery Comment on above: History of colonic p olyps [Z86.010] Start: 03-28-2023 ambulatory Nieves gomez MD Work Phone: [facility] Comment on above: Inhaler Start: 03-12-2023 Orders Only Nieves gomez MD Work Phone: [facility] Start: 01-25-2023 Telephone encounter Etelvina cohn PA-C Work Phone: Gastroenterology [place] Comment on above: repeat colonscopy Start: 01-14-2023 Refill Nieves gomez MD Work Phone: [facility] Comment on above: Refill Request Medication Start: 12-13-2022 Telephone encounter Nieves finn MD [facility] Comment on above: Forms/letter Start: 12-11-2022 Telephone encounter Cuca Gonzales APRWilliamFUR FINISHER Work Phone: [facility] Comment on above: Results Start: 12-10-2022 End: 12-10-2022 Patient encounter procedure Cuca Gonzales BYRON.FUR FINISHER Work Phone: [facility] Comment on above: Rash (Primary Dx) Start: 10-19-2022 ambulatory Nieves gomez MD Work Phone: [facility] Comment on above: Chantix Start: 10-10-2022 End: 10-10-2022 Patient encounter procedure Nieves Jacobs MD [facility] Comment on above: Anxiety with depress ion (Primary Dx) Start: 09-12-2022 End: 09-12-2022 Office outpatient visit 15 minutes Margie Lamas PA-C Work Phone: [facility] Comment on above: Acute cough (Primary Dx) Start: 09-06-2022 ambulatory Nieves gomez MD [facility] Comment on above: Chantix Start: 09-05-2022 End: 09-05-2022 Patient encounter procedure Etelvina Vasquez PA-C Work Phone: [facility] [place] Comment on above: LUQ pain (Primary Dx ); Abdominal distension (gaseous); Gastroesophageal reflux disease with esophagitis without hemorrhage; Chronic diarrhea; History of colonic polyps; Nausea Start: 08-29-2022 Telephone encounter Nieves finn MD Work [facility] Comment on above: Medication Problem Start: 08-19-2022 End: 08-19-2022 Subsequent hospital visit by physician Nicko Mcadams MD Work Phone: Ambulatory Surgery Comment on above: Gastroesophageal ref lux disease, unspecified whether esophagitis present [K21.9] Start: 08-17-2022 ambulatory Nicko Peralta i, MD Work Phone: Ambulatory Surgery Start: 08-16-2022 End: 08-16-2022 Patient encounter procedure Mer Franciscocalf BYRON.FUR FINISHER Work Phone: OB/Gynecology Comment on above: Encounter for gyneco logical examination (general) (routine) without abnormal findings (Primary Dx); Encounter for screening for human papillomavirus (HPV); Screening for malignant neoplasm of cervix; DUB (dysfunctional uterine bleeding); Encounter for IUD insertion Start: 08-16-2022 End: 08-16-2022 Patient encounter status Mer Conn BYRON.FUR FINISHER Work Phone: OB/Gynecology Start: 08-11-2022 End: 08-11-2022 Patient encounter procedure Josefina Brasher MD Work Phone: OB/Gynecology Comment on above: DUB (dysfunctional u terine bleeding) (Primary Dx) Start: 07-29-2022 End: 07-29-2022 Patient encounter procedure Mer Franciscocalf 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 Work Phone: OB/Gynecology Comment on above: Abnormal uterine ble eding (AUB) (Primary Dx) Start: 07-18-2022 Refill Mimi Razo MD Work Phone: Neurology Comment on above: Refill Request Start: 06-23-2022 Refill Nieves gomez MD Work Phone: [facility] Comment on above: Refill Request Start: 04-27-2022 End: 04-27-2022 Patient encounter procedure Courtney Danielson MD Work Phone: Otolaryngology Comment on above: Gastroesophageal ref lux disease without esophagitis (Primary Dx); Ear popping, right Start: 04-27-2022 Telephone encounter Courtney Danielson MD Work Phone: Otolaryngology Comment on above: New Gastro Consult O rder Start: 04-25-2022 Telephone encounter Mac negrete APRN.FUR FINISHER Work Phone: [facility] Comment on above: Results Start: 04-19-2022 End: 04-19-2022 Subsequent hospital visit by physician Mri Radio [facility] (I-Stat/1.5t) Work Phone: Radiology Comment on above: Cervical strain, sub sequent encounter [S16.1XXD] Start: 04-09-2022 ambulatory Nieves gomez MD Work Phone: [facility] Comment on above: Mri Start: 2022 Telephone encounter Nieves finn MD Work Phone: [facility] Comment on above: Peer To Peer Consult ation (MRI cervical spine wo ivcon) Start: 03-30-2022 End: 03-30-2022 Patient encounter procedure Nieves Jacobs MD Work Phone: [facility] Comment on above: Cervical strain, sub sequent encounter (Primary Dx); Hoarse; Smoking Start: 07-12-2021 End: 07-12-2021 Subsequent hospital visit by physician Xr [facility] Work Phone: Radiology Comment on above: Cough [R05.9] Start: 03-29-2021 End: 03-29-2021 Subsequent hospital visit by physician Xr [facility] Work Phone: Radiology Comment on above: Wheeze [R06.2] Procedures Date Procedure Procedure Detail Performing Clinician Start: 02-04-2025 Radiologic exam chest 2 views Lenny higgins APRN.FUR FINISHER Work Phone: Start: 10-30-2024 Brncdilat rspse spmtry pre&post-brncdilat admn Mac Connelly APRN.FUR FINISHER Work Phone: Start: 06-18-2024 Ct abdomen & pelvis w/o contrast material Mac Connelly APRN.FUR FINISHER Work Phone: Start: 06-11-2024 Us abdominal real time w/image limited Mac Connelly APRN.FUR FINISHER Work Phone: Start: 02-12-2024 Radex fingr minimum 2 views Lenny townsend APRN.FUR FINISHER Work Phone: Start: 03-31-2023 Colonoscopy flx dx w/collj spec when pfrmd Etelvina Kalka PA-C Work Phone: Start: 03-31-2023 Colonoscopy Mimi Razo MD Work Phone: Start: 09-12-2022 COVID WITH FLUA+B, ROUTINE Margie Lalit gner PA-C Work Phone: Start: 08-19-2022 Level iv surg pathology gross&microscopic exam Nicko Mcadams MD Work Phone: Start: 08-19-2022 Esophagogastroduodenoscopy transoral diagnostic Etelvina Kalka PA-C Work Phone: Start: 08-19-2022 Colonoscopy flx dx w/collj spec when pfrmd Etelvina Kalka PA-C Work Phone: Start: 08-19-2022 Colonoscopy Nieves Jacobs MD Work Phone: Start: 04-19-2022 Mri spinal canal cervical w/o contrast matrl Nieves Jacobs MD Work Phone: Start: 07-12-2021 Radiologic exam chest 2 views Angeline Romo 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 Work Phone: Start: 03-29-2021 Radiologic exam chest 2 views Kalpesh negrete 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 Work Phone: Start: 12-09-2020 Adult depression screening assessment Nieves Jacobs MD Work Phone: Start: 08-07-2017 Colonoscopy Nieves Jacobs MD Work Phone: Start: 11-03-2010 End: 12-23-2011 History of cholecystectomy S/P laparoscopic cholecystectomy Nieves Jacobs MD Work Phone: Plan of Treatment Date Care Activity Detail Author Start: 03-31-2030 Colonoscopy COLONOSCOPY [facility] Start: 03-31-2030 COLORECTAL CANCER SCREENING COLORECTAL CANCER SCREENING [facility] Start: 08-19-2029 Colonoscopy COLONOSCOPY [facility] Start: 08-19-2029 COLORECTAL CANCER SCREENING COLORECTAL CANCER SCREENING [facility] Start: 06-25-2028 Urine microalbumin profile [facility] Start: 08-16-2027 HPV TESTING HPV TESTING [facility] Start: 08-16-2027 PAP TESTING PAP TESTING [facility] Start: 08-16-2027 Screening for malign ant neoplasm of cervix [facility] Start: 03-31-2026 Colonoscopy COLONOSCOPY [facility] Start: 03-31-2026 COLORECTAL CANCER SCREENING COLORECTAL CANCER SCREENING [facility] Start: 03-31-2026 Screening for malign ant neoplasm of colon [facility] Start: 10-24-2025 Annual PCP Team Lathe Set Up Operator mark Disease Visit Annual PCP Team Chronic Disease Visit [facility] Start: 10-24-2025 Covid-19 Vaccine () Covid-19 Vaccine () [facility] Comment on above: Postponed from 06/02 (Declined at this time) Start: 10-24-2025 Hepatitis C screening Hepatitis C [facility] Comment on above: Postponed from 04/05 (Declined at this time) Start: 10-24-2025 HIV screening HIV Screening [facility] Comment on above: Postponed from 04/05 (Declined at this time) Start: 10-24-2025 Pneumococcal vaccination Pneumococcal Vaccine (1 of 2 - PCV) [facility] Comment on above: Postponed from 04/05 (Declined at this time) Start: 06-07-2025 Annual PCP Team Lathe Set Up Operator mark Disease Visit Annual PCP Team Chronic Disease Visit [facility] Start: 06-02-2025 Influenza vaccination [facility] Start: 05-24-2025 Annual PCP Team Lathe Set Up Operator mark Disease Visit Annual PCP Team Chronic Disease Visit [facility] Start: 03-31-2025 Influenza vaccination Influenza Vacc ine (#1) [facility] Comment on above: Postponed from 06/02 (Declined at this time) Start: 02-01-2025 Annual PCP Team Lathe Set Up Operator mark Disease Visit Annual PCP Team Chronic Disease Visit [facility] Start: 01-10-2025 End: 01-10-2025 Patient encounter procedure 01/10/2025 3:40 PM EDT Office Visit Endocrinology [address] [place] [address] Azul Montejo MD [address] [place] [address] 2 MTH F/U Endocrinology Comment on above: 2 MTH F/U Start: 12-12-2024 End: 12-12-2024 ambulatory 12/12/2024 3:45 PM EDT OT/PT/Speech Visit [facility] [address] [place] [address] GolMathew novoa, PT [address] [place] [address] M62.89 (ICD-10-CM) - Muscle tightness [facility] Comment on above: M62.89 (ICD-10-CM) - Muscle tightness Start: 11-26-2024 End: 11-26-2024 ambulatory 11/26/2024 3:30 PM EST OT/PT/Speech Visit [facility] [address] [place] [address] Sharmin Phyllis, VEHICLE SERVICE ATTENDANT [address] [place] [address] M62.89 (ICD-10-CM) - Muscle tightness [facility] Comment on above: M62.89 (ICD-10-CM) - Muscle tightness Start: 11-19-2024 End: 11-19-2024 ambulatory 11/19/2024 3:30 PM EST OT/PT/Speech Visit [facility] [address] [place] [address] GoliasTaylornt, PT [address] [place] [address] M62.89 (ICD-10-CM) - Muscle tightness [facility] Comment on above: M62.89 (ICD-10-CM) - Muscle tightness Start: 11-13-2024 End: 11-13-2024 ambulatory 11/13/2024 4:00 PM EST OT/PT/Speech Visit [facility] [address] [place] [address] Mathew Markham, PT [address] [place] [address] M62.89 (ICD-10-CM) - Muscle tightness [facility] Comment on above: M62.89 (ICD-10-CM) - Muscle tightness Start: 11-13-2024 End: 02-12-2025 Corticotropin [Mass/volume] in Plasma ACTH BLD Lab Routine Adrenal hyperplasia (HCC) Expected: 11/13/2024, Expires: 02/12/2025 [facility] Work Phone: Comment on above: Expected: 11/13/2024 , Expires: 02/12/2025 Start: 11-13-2024 End: 02-12-2025 Cortisol [Mass/volume] in Serum or Plasma --post dose dexamethasone CORTISOL SUPRES POST Lab Routine Adrenal hyperplasia (HCC) Expected: 11/13/2024, Expires: 02/12/2025 [facility] Comment on above: Expected: 11/13/2024 , Expires: 02/12/2025 Start: 11-13-2024 End: 02-12-2025 DEXAMETHASONE DEXAMETHASONE Lab Routine Adrenal hyperplasia (HCC) Expected: 11/13/2024, Expires: 02/12/2025 [facility] Comment on above: Expected: 11/13/2024 , Expires: 02/12/2025 Start: 11-13-2024 End: 02-12-2025 DHEA-S BLD DHEA-S BLD Lab Routine Adrenal hyperplasia (HCC) Expected: 11/13/2024, Expires: 02/12/2025 [facility] Comment on above: Expected: 11/13/2024 , Expires: 02/12/2025 Start: 11-12-2024 End: 11-12-2024 Patient encounter procedure 11/12/2024 3:00 PM EST Office Visit Endocrinology [address] [place] [address] Azul Montejo MD [address] [place] [address] Adrenal hyperplasia Endocrinology Comment on above: Adrenal hyperplasia Start: 11-12-2024 End: 02-11-2025 ALDOSTERONE/DIRECT RENIN RATIO ALDOSTERONE/DIRECT RENIN RATIO Lab Routine Adrenal hyperplasia (HCC) Expected: 11/12/2024, Expires: 02/11/2025 [facility] Comment on above: Expected: 11/12/2024 , Expires: 02/11/2025 Start: 11-12-2024 End: 02-11-2025 Potassium [Moles/volume] in Serum or Plasma POTASSIUM Lab Routine Adrenal hyperplasia (HCC) Expected: 11/12/2024, Expires: 02/11/2025 [facility] Comment on above: Expected: 11/12/2024 , Expires: 02/11/2025 Start: 11-05-2024 End: 11-05-2024 ambulatory 11/05/2024 1:15 PM EST OT/PT/Speech Visit [facility] [address] [place] [address] Mathew Markham PT [address] [place] [address] Muscle tightness [M62.89]; Acute pain of left shoulder [M25.512] [facility] Comment on above: Muscle tightness [M6 2.89]; Acute pain of left shoulder [M25.512] Start: 10-30-2024 End: 10-30-2024 Patient encounter procedure 10/30/2024 11:40 AM EST Appointment Cat Scan [address] [place] [address] CT CHEST WO IVCON Cat Scan Comment on above: CT CHEST WO IVCON Start: 10-30-2024 End: 10-30-2024 ambulatory 10/30/2024 11:00 AM EST Procedure [facility] [address] [place] [address] [facility], Pulm Lab [facility] [address] [facility] [place] [address] SPIROMETRY - BASELINE AND POST DILATOR PULM LAB [facility] Comment on above: SPIROMETRY - BASELIN E AND POST DILATOR Start: 08-07-2024 Colonoscopy COLONOSCOPY [facility] Start: 08-07-2024 COLORECTAL CANCER SCREENING COLORECTAL CANCER SCREENING [facility] Start: 07-24-2024 Annual PCP Team Lathe Set Up Operator mark Disease Visit Annual PCP Team Chronic Disease Visit [facility] Start: 06-18-2024 End: 06-18-2024 Patient encounter procedure Cat Scan Comment on above: Left upper quadrant abdominal pain [R10.12]; Flank pain [R10.9]; Abdominal bloating [R14.0] Start: 06-11-2024 End: 06-11-2024 Patient encounter procedure 06/11/2024 8:30 AM EDT Appointment Radiology [address] [address] Abnormal CBC [R79.89]; Left sided abdominal pain [R10.9] Radiology Comment on above: Abnormal CBC [R79.89 ]; Left sided abdominal pain [R10.9] Start: 06-07-2024 End: 06-07-2024 Patient encounter procedure 06/07/2024 2:00 PM EDT Office Visit Family [facility] [address] [place] [address] Mac Connelly APRN.FUR FINISHER [address] [facility] [address] 2 wk f/u Family [facility] Gerald Comment on above: 2 wk f/u Start: 06-02-2024 Covid-19 Vaccine () Covid-19 Vaccine () [facility] Start: 06-02-2024 Covid-19 Vaccine () Covid-19 Vaccine () [facility] Start: 06-02-2024 Influenza vaccination C [facility] Start: 05-24-2024 End: 08-23-2024 C reactive protein [Mass/volume] in Serum or Plasma [facility] Comment on above: Expected: 05/24/2024 , Expires: 08/23/2024 Start: 05-24-2024 End: 08-23-2024 Erythrocyte sedimentation rate [facility] Work Phone: Comment on above: Expected: 05/24/2024 , Expires: 08/23/2024 Start: 05-24-2024 End: 08-23-2024 Nuclear Ab [Presence] in Serum by Immunoassay [facility] Comment on above: Expected: 05/24/2024 , Expires: 08/23/2024 Start: 05-24-2024 End: 08-23-2024 Rheumatoid factor [Units/volume] in Serum or Plasma [facility] Comment on above: Expected: 05/24/2024 , Expires: 08/23/2024 Start: 05-24-2024 End: 08-23-2024 Thyrotropin [Units/volume] in Serum or Plasma [facility] Comment on above: Expected: 05/24/2024 , Expires: 08/23/2024 Start: 02-02-2024 End: 02-02-2024 Patient encounter procedure 02/02/2024 2:00 PM EDT Office Visit Family [facility] [address] [place], [place] [id number] Nieves Jacobs MD [address] [place], [place] [id number] Inhaler and nebulizer refills [facility] Comment on above: Inhaler and nebulize r refills Start: 10-10-2023 ANNUAL PCP TEAM STRINGER UP SOLDERING MACHINE MARK DISEASE VISIT ANNUAL PCP TEAM CHRONIC DISEASE VISIT [facility] Start: 10-02-2023 Behavioral Health Screening Behavioral Health Screening [facility] Start: 10-02-2023 Depression Assessment Depression Ass essment [facility] Start: 07-24-2023 End: 10-23-2023 CBC panel - Blood by Automated count CBC Lab Routine Decreased energy Hair loss Weight gain Expected: 07/24/2023, Expires: 10/23/2023 [facility] Work Phone: Comment on above: Expected: 07/24/2023 , Expires: 10/23/2023 Start: 07-24-2023 End: 10-23-2023 Comprehensive metabolic 2000 panel - Serum or Plasma COMP METABOLIC PANEL Lab Routine Decreased energy Hair loss Weight gain Expected: 07/24/2023, Expires: 10/23/2023 [facility] Work Phone: Comment on above: Expected: 07/24/2023 , Expires: 10/23/2023 Start: 07-24-2023 End: 10-23-2023 Lipid 1996 panel - Serum or Plasma LIPID PANEL BASIC Lab Routine Weight gain Smoking Screening for lipid disorders Obesity, Class I, BMI 30-34.9 Expected: 07/24/2023, Expires: 10/23/2023 [facility] Work Phone: Comment on above: Expected: 07/24/2023 , Expires: 10/23/2023 Start: 07-24-2023 End: 10-23-2023 Thyrotropin [Units/volume] in Serum or Plasma TSH BLD Lab Routine Decreased energy Hair loss Weight gain Expected: 07/24/2023, Expires: 10/23/2023 [facility] Work Phone: Comment on above: Expected: 07/24/2023 , Expires: 10/23/2023 Start: 06-02-2023 Covid-19 Vaccine () Covid-19 Vaccine () [facility] Start: 06-02-2023 Influenza vaccination C [facility] Start: 2023 Mammography [facility] Start: 2023 Screening for malign ant neoplasm of breast Mammogram Screening [facility] Start: 03-30-2023 ANNUAL PCP TEAM STRINGER UP SOLDERING MACHINE MARK DISEASE VISIT ANNUAL PCP TEAM CHRONIC DISEASE VISIT [facility] Start: 02-03-2023 End: 09-05-2023 Screening colonoscopy COLONOSCOPY SCREENING Endoscopy Routine History of colonic polyps Expected: 02/03/2023, Expires: 09/05/2023 [facility] Work Phone: Comment on above: Expected: 02/03/2023 , Expires: 09/05/2023 Start: 12-10-2022 End: 02-09-2023 Herpes simplex virus+Varicella zoster virus DNA [Presence] in Unspecified specimen by YOANNA with probe detection HSV1,2/VZV NAAT LESION Lab Routine Rash Expected: 12/10/2022, Expires: 02/09/2023 [facility] Work Phone: Comment on above: Expected: 12/10/2022 , Expires: 02/09/2023 Start: 09-05-2022 End: 11-05-2022 CELIAC SCREEN WITH REFLEX CELIAC SCREEN WITH REFLEX Lab Routine Chronic diarrhea Expected: 09/05/2022, Expires: 11/05/2022 [facility] Work Phone: Comment on above: Expected: 09/05/2022 , Expires: 11/05/2022 Start: 07-29-2022 End: 07-29-2023 PELVIC US WHI PELVIC US WHI Anc Imaging Routine Abnormal uterine bleeding (AUB) Expected: 07/29/2022, Expires: 07/29/2023 [facility] Work Phone: Comment on above: Expected: 07/29/2022 , Expires: 07/29/2023 Start: 06-02-2022 Influenza vaccination C [facility] Start: 12-09-2021 Adult depression screening assessment DEPRESSION SCREENING [facility] Start: 10-28-2021 COVID-19 VACCINE (3 - Booster for Pfizer series) COVID-19 VACCINE (3 - Booster for Pfizer series) [facility] Start: 10-02-2021 DEPRESSION ASSESSMENT DEPRESSION ASS ESSMENT [facility] Start: 07-23-2021 COVID-19 VACCINE (3 - Booster for Pfizer series) COVID-19 VACCINE (3 - Booster for Pfizer series) [facility] Start: 07-23-2021 COVID-19 VACCINE (3 - Pfizer series) COVID-19 VACCINE (3 - Pfizer series) [facility] Start: 11-04-2020 HPV TESTING HPV TESTING [facility] Start: 11-04-2020 PAP TESTING PAP TESTING [facility] Start: 11-21-2010 HEPATITIS B (3 of 3 - 19+ 3-dose series) HEPATITIS B (3 of 3 - 19+ 3-dose series) [facility] Start: 08-16-2010 HEPATITIS B (3 of 3 - 3-dose series) [facility] Start: 08-16-2010 Hepatitis B Vaccine (3 of 3 - 19+ 3-dose series) Hepatitis B Vaccine (3 of 3 - 19+ 3-dose series) [facility] Start: 2001 Anxiety Screening Anxiety Screening [facility] Start: 2001 Depression Screening Depression Scre ening [facility] Start: 2001 HEPATITIS C SCREENING HEPATITIS C [facility] Start: 2001 Hepatitis C screening Hepatitis C [facility] Start: 2001 HIV SCREENING HIV SCREENING [facility] Start: 2001 HIV screening HIV Screening [facility] Start: 1989 PNEUMOCOCCAL (1 - PCV) PNEUMOCOCCAL (1 - PCV) [facility] Start: 1989 Pneumococcal vaccination [facility] 5-Hydroxyindoleaceta te [Mass/time] in 24 hour Urine HIAA-5 QUANT 24H UR Lab Routine Flushing Ordered: 01/10/2025 [facility] Comment on above: Ordered: 01/10/2025 CBC W Auto Different ial panel - Blood COMPLETE BLOOD COUNT AND DIFFERENTIAL Lab Routine Polyarthralgia 05/24/2024 3:53 PM EDT [facility] CREATININE, 24 HOUR URINE CREATININE, 24 HOUR URINE Lab Routine Flushing Ordered: 01/10/2025 [facility] Work Phone: Comment on above: Ordered: 01/10/2025 End: 10-05-2023 Ct abdomen & pelvis w/contrast material CT ABD/PEL W IVCON Radiology Routine Abdominal distension (gaseous) LUQ pain Nausea 1 Occurrences starting 09/05/2022 until 10/05/2023 [facility] Work Phone: Comment on above: 1 Occurrences starti ng 09/05/2022 until 10/05/2023 End: 07-07-2025 CT Abdomen and Pelvis WO contrast CT ABD/PEL WO IVCON Radiology Routine Left upper quadrant abdominal pain Flank pain Abdominal bloating 1 Occurrences starting 06/07/2024 until 07/07/2025 [facility] Work Phone: Comment on above: 1 Occurrences starti ng 06/07/2024 until 07/07/2025 End: 07-20-2025 CT Chest WO contrast CT CHEST WO IVCON Radiology Routine Abnormal CT of the abdomen Multiple idiopathic cysts of lung Fatigue, unspecified type 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) 1 Occurrences starting 06/20/2024 until 07/20/2025 [facility] Work Phone: Comment on above: 1 Occurrences starti ng 06/20/2024 until 07/20/2025 CT Chest WO contrast CT CHEST WO IVCON Radiology Routine Abnormal CT of the abdomen Multiple idiopathic cysts of lung Fatigue, unspecified type 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) 10/30/2024 11:57 AM EST [facility] Work Phone: End: 05-24-2025 DBT Breast - bilateral screening SOFIA SCREENING W [facility] Radiology Routine Encounter for screening mammogram for breast cancer 1 Occurrences starting 04/24/2024 until 05/24/2025 [facility] Work Phone: Comment on above: 1 Occurrences starti ng 04/24/2024 until 05/24/2025 End: 04-24-2026 DBT Breast - bilateral screening SOFIA SCREENING W [facility] Radiology Routine Encounter for screening mammogram for breast cancer 1 Occurrences starting 03/25/2025 until 04/24/2026 [facility] Work Phone: Comment on above: 1 Occurrences starti ng 03/25/2025 until 04/24/2026 Insertion intrauteri ne device iud INSERT INTRAUTERINE DEVICE Procedures Routine DUB (dysfunctional uterine bleeding) Ordered: 08/16/2022 [facility] Work Phone: Comment on above: Ordered: 08/16/2022 End: 06-15-2024 SOFIA SCREENING SOFIA SCREENING Radiology Routine Encounter for screening mammogram for breast cancer 1 Occurrences starting 05/17/2023 until 06/15/2024 [facility] Work Phone: Comment on above: 1 Occurrences starti ng 05/17/2023 until 06/15/2024 End: 04-29-2023 Mri spinal canal cervical w/o contrast matrl MRI CERVICAL SPINE WO IVCON Radiology Routine Cervical strain, subsequent encounter 1 Occurrences starting 03/30/2022 until 04/29/2023 [facility] Work Phone: Comment on above: 1 Occurrences starti ng 03/30/2022 until 04/29/2023 PANC ELASTASE, FECAL PANC ELASTA SE, FECAL Lab Routine Chronic diarrhea Ordered: 09/05/2022 [facility] Work Phone: Comment on above: Ordered: 09/05/2022 PAP FLUID CERVICAL SCREENING PAP FLUID CERVICAL SCREENING Lab Routine Encounter for screening for human papillomavirus (HPV) Screening for malignant neoplasm of cervix Ordered: 08/16/2022 [facility] Work Phone: Comment on above: Ordered: 08/16/2022 Removal intrauterine device iud REMOVE INTRAUTERINE DEVICE Procedures Routine DUB (dysfunctional uterine bleeding) Ordered: 08/16/2022 [facility] Work Phone: Comment on above: Ordered: 08/16/2022 End: 07-20-2025 SPIROMETRY - BASELINE AND POST DILATOR SPIROMETRY - BASELINE AND POST DILATOR PFT Routine Abnormal CT of the abdomen 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) 1 Occurrences starting 06/20/2024 until 07/20/2025 [facility] Comment on above: 1 Occurrences starti ng 06/20/2024 until 07/20/2025 SPIROMETRY - BASELIN E AND POST DILATOR SPIROMETRY - BASELINE AND POST DILATOR PFT Routine Abnormal CT of the abdomen 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 08-02-2022 influenza, seasonal, injectable Nieves Jacobs MD Work Phone: [facility] 08-02-2022 influenza virus vaccine, unspecified formulation Nieves Jacobs MD Work Phone: [facility] 05-28-2021 COVID-19 vaccine, ag e 12+ yr ([employer] - [facility]) Nieves Jacobs MD Work Phone: [facility] 05-07-2021 COVID-19 vaccine, ag e 12+ yr ([employer] - [facility]) Nieves Jacobs MD Work Phone: [facility] 08-23-2019 Influenza, injectabl e, Madin Sharon Canine Kidney, preservative free, quadrivalent Nieves Jacobs MD Work Phone: [facility] 07-13-2018 influenza, injectabl e, quadrivalent, contains preservative Nieves Jacobs MD Work Phone: [facility] 06-25-2018 tetanus toxoid, reduced diphtheria toxoid, and acellular pertussis vaccine, adsorbed Nieves Jacobs MD Work Phone: [facility] Work Phone: 07-04-2011 influenza virus vaccine, whole virus Nieves Jacobs MD Work Phone: [facility] 06-21-2010 hepatitis B vaccine, adult dosage Nieves Jacobs MD Work Phone: [facility] 06-21-2010 tuberculin skin test ; purified protein derivative solution, intradermal Mac Godwin 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 Work Phone: [facility] 06-21-2010 hepatitis B vaccine, unspecified formulation Mac Godwin 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 Work Phone: [facility] 10-27-2009 novel [id number], preservative-free, injectable Nieves Jacobs MD Work Phone: [facility] 06-08-2007 hepatitis B vaccine, adult dosage Nieves Jacobs MD Work Phone: [facility] 04-02-2007 tuberculin skin test ; purified protein derivative solution, intradermal Mac Godwin 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 Work Phone: [facility] Work Phone: 03-22-2007 tuberculin skin test ; purified protein derivative solution, intradermal Mac Godwin 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 Work Phone: [facility] 06-12-2006 hepatitis B immune globulin Nieves Jacobs MD Work Phone: [facility] 05-10-2006 diphtheria, tetanus toxoids and pertussis vaccine Nieves Jacobs MD Work Phone: [facility] 05-10-2006 hepatitis B immune globulin Nieves Jacobs MD Work Phone: [facility] 05-10-2006 hepatitis B vaccine, pediatric or pediatric/adolescent dosage Nieves Jacobs MD Work Phone: [facility] 05-10-2006 tetanus toxoid, reduced diphtheria toxoid, and acellular pertussis vaccine, adsorbed Nieves Jacobs MD Work Phone: [facility] 05-10-2006 tuberculin skin test ; purified protein derivative solution, intradermal Mac Godwin 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 Work Phone: [facility] 05-24-1995 measles, mumps and rubella virus vaccine Nieves Jacobs MD Work Phone: [facility] 05-27-1988 diphtheria, tetanus toxoids and acellular pertussis vaccine Nieves Jacobs MD Work Phone: [facility] 05-27-1988 trivalent poliovirus vaccine, live, oral Nieves Jacobs MD Work Phone: [facility] 05-07-1988 DTP-Haemophilus influenzae type b conjugate vaccine Nieves Jacobs MD Work Phone: [facility] 12-14-1984 diphtheria, tetanus toxoids and pertussis vaccine Nieves Jacobs MD Work Phone: [facility] 12-14-1984 DTP-Haemophilus influenzae type b conjugate vaccine Nieves Jacobs MD Work Phone: [facility] 12-14-1984 measles, mumps and rubella virus vaccine Nieves Jacobs MD Work Phone: [facility] 12-14-1984 trivalent poliovirus vaccine, live, oral Nieves Jacobs MD Work Phone: [facility] 12-14-1984 tuberculin skin test ; purified protein derivative solution, intradermal 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 Godwin 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 Work Phone: [facility] 1985 DTP-Haemophilus influenzae type b conjugate vaccine Nieves Jacobs MD Work Phone: [facility] 1985 diphtheria, tetanus toxoids and pertussis vaccine Nieves Jacobs MD Work Phone: [facility] 1985 trivalent poliovirus vaccine, live, oral Nieves Jacobs MD Work Phone: [facility] 1985 diphtheria, tetanus toxoids and pertussis vaccine Nieves Jacobs MD Work Phone: [facility] 1985 DTP-Haemophilus influenzae type b conjugate vaccine Nieves Jacobs MD Work Phone: [facility] 1985 trivalent poliovirus vaccine, live, oral Nieves Jacobs MD Work Phone: [facility] 1985 diphtheria, tetanus toxoids and pertussis vaccine Nieves Jacobs MD Work Phone: [facility] 1985 poliovirus vaccine, unspecified formulation Nievse Jacobs MD Work Phone: [facility] 1985 DTP-Haemophilus influenzae type b conjugate vaccine Nieves Jacobs MD Work Phone: [facility] 1985 trivalent poliovirus vaccine, live, oral Nieves Jacobs MD Work Phone: [facility] Payers Date Payer Category Payer Unknown [id number] 2024 Self-pay 2024 Private Health Insurance [id number] 2024 Unknown [id number] 2022 Medicaid [id number] 2020 Medicaid [facility] MEDICAID [id number] 2020-Present [phone] [address] [place] [address] Medicaid [id number] 2020 Medicaid [id number] Unknown [id number] Unknown [id number] Social History Date Type Detail Facility Start: 1997 End: 11-12-2024 Tobacco smoking status NHIS Smokes tobacco daily [facility] Start: 1997 End: 08-23-2015 History of tobacco use Cigarette Smoker [facility] Start: 12-07-2018 End: 04-14-2023 Cigarettes smoked current (pack per day) - Reported 0.5 [facility] Work Phone: Start: 12-07-2018 End: 11-12-2024 Tobacco use and exposure Smokeless tobacco non-user [facility] Start: 03-30-2022 End: 01-10-2025 Alcohol intake Ex-drinker (finding) [facility] Start: 1985 Sex Assigned At Female C [facility] Start: 02-27-2021 End: 09-05-2022 Exposure to SARS-CoV-2 (event) Not sure [facility] Start: 05-24-2022 End: 06-03-2022 Exposure to SARS-CoV-2 (event) Unable to assess [facility] Work Phone: Start: 10-10-2022 End: 04-14-2023 Tobacco use panel [facility] Work Phone: Adult Depression Screening Assessment 4 [facility] Work Phone: Start: 03-28-2022 Gender identity Identifies as female gender (finding) [facility] Start: 03-28-2022 Sexual orientation Heterosexual (autumn rawls) [facility] History of tobacco use Passive smoker [facility] Functional Status Date Assessment Result Facility 02-06-2015 Are you deaf, or do you have serious difficulty hearing No 02/06/2015 2:17 PM EDT Katie Snyder Cma No [facility] 02-06-2015 Are you blind, or do you have serious difficulty seeing, even when wearing glasses No 02/06/2015 2:17 PM EDT Claudio CmaKatie No [facility] 02-06-2015 Do you have serious difficulty walking or climbing stairs No 02/06/2015 2:17 PM EDT Claudio Katie Vasquez No [facility] 02-06-2015 Do you have difficul ty dressing or bathing No 02/06/2015 2:17 PM EDT Claudio Katie Vasquez No [facility] 02-06-2015 Because of a physica l, mental, or emotional condition, do you have difficulty doing errands alone such as visiting a physician's office or shopping No 02/06/2015 2:17 PM EDT Claudio CmaKatie No [facility] Mental Status Date Assessment Result Facility 02-06-2015 Because of a physica l, mental, or emotional condition, do you have serious difficulty concentrating, remembering, or making decisions No 02/06/2015 2:17 PM EDT Claudio CmaKatie No [facility] Clinical Notes 02-20-2015 to 03-25-2025 Lenny Baird APRN.CNP - 02/04/2025 3:50 PM Mandie Vegas Tech - 02/04/2025 3:50 PM EDTPatient Azul Velasquez MD - 01/10/2025 11:12 AM EDTPatient Instructions Note Date & Type Note Facility 03-25-2025 Note Patient Outreach (FA MPWS) THADDEUS CRAWFORD ([id number]) 1985 F Date Time Provider Department 03/25/25 NIEVES JACOBS During your visit today, we recorded the following information about you: Allergies As of Date: 03/25/2025 Noted Allergy Reaction ADHESIVE 07/28/2019 2 - Rash CODEINE 03/22/2007 11 - Vomiting PENICILLINS 03/22/2007 8 - GI Upset Date Reviewed: 02/04/2025 Reviewed by: Rebecca Celestin MA - Fully Assessed Visit Diagnosis:Encounter for screening mammogram for breast cancer [Z12.31] Order(s):SOFIA SCREENING W [facility] [[id number]] Order #: [id number] FUTURE Prescriptions as of 04/25/2025 - albuterol HFA (PROVENTIL HFA, VENTOLIN HFA) 90 mcg/actuation inhaler Inhale 2 puffs as instructed every 4 hours as needed for wheezing/shortness of breath. - pantoprazole DR (PROTONIX) 40 mg tablet Take 2 tablets by mouth once daily. - methocarbamol (ROBAXIN) 500 mg tablet Take 1 tablet by mouth three times a day as needed. - buPROPion XL (WELLBUTRIN XL) 300 mg 24 hr tablet Take 300 mg by mouth once daily. - albuterol (PROVENTIL) 2.5 mg /3 mL (0.083 %) nebulizer solution Use 3 mL via nebulizer every 4 hours as needed for wheezing/shortness of breath. Use over 5-15minutes. - budesonide-formoterol (SYMBICORT) 160-4.5 mcg/actuation inhaler Inhale 2 Puffs as instructed four times a day as needed. - albuterol HFA (PROVENTIL HFA, VENTOLIN HFA) 90 mcg/actuation inhaler Inhale 2 Puffs as instructed every 4 hours as needed for wheezing/shortness of breath. - escitalopram oxalate (LEXAPRO) 20 mg tablet Take 1 tablet by mouth every afternoon. - Ascorbic Acid 1,000 mg tablet Take 1,000 mg by mouth once daily. - multivit,calc,mins/iron/folic (ONE-A-DAY WOMENS FORMULA ORAL) Take 1 tablet by mouth once daily. - levonorgestrel (MIRENA) 20 mcg/24 hr (5 years) IUD Inserted in office Problem List As Of Date 03/25/2025 Noted Resolved S/P laparoscopic cholecystectomy [Z90.49] 11/03/2010 12/23/2011 Irritable bowel [K58.9] 11/03/2010 12/23/2011 Diverticulitis [K57.92] Dysphagia, unspecified(787.20) [R13.10] 11/20/2014 11/20/2014 Esophageal reflux [K21.9] 02/20/2015 02/20/2015 Respiratory bronchiolitis associated interstiti*09/14/2015 Dyspareunia [[id number]] 11/04/2015 PCB (post coital bleeding) [N93.0] 11/04/2015 Morbid obesity (HCC) [E66.01] 10/09/2017 Asthma [J45.909] Irritable bowel syndrome with both constipation*03/29/2018 Superficial foreign body of finger without george*07/02/2018 Post concussion syndrome [F07.81] 07/09/2018 Scalp laceration [S01.01XA] 07/09/2018 Closed fracture of nasal bones [S02.2XXA] 07/09/2018 Cervical strain [S16.1XXA] 10/15/2020 Muscle tone increased [M62.89] 11/05/2024 Chronic left shoulder pain [M25.512, G89.29] 11/05/2024 Encounter Status:Closed by EPIC, PRODUSER on 04/25/25 [facility] 02-04-2025 Note HNO ID: [id number] Author: LENNY BAIRD APRN.FUR FINISHER Service: ? Author Type: Nurse Practitioner Type: Progress Notes Filed: 02/04/2025 16:25 Note Text: [facility] Subjective HPI HPI Thaddeus Crawford is a 39 year old female who presents today for CC of cough, sob, wheezing, congestion, fatigue. This started 1 week ago. Has tried otc medication for relief. Symptoms are worsened by nothing. Risk factors smoker. Hx of asthma. .Patient presents with: Chest Congestion: cough, nasal congestion, drainage, wheezing, fatigue and lightheaded x over 1 week PAST MEDICAL HISTORY Diagnosis Date Asthma (HCC) Benign neoplasm of colon Benign polyp. 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 PAST SURGICAL HISTORY Procedure Laterality Date COLONOSCOPY 03/31/2023 COLONOSCOPY FLX DX W/COLLJ SPEC WHEN PFRMD 07/31/2012 Colonoscopy COLONOSCOPY FLX DX W/COLLJ SPEC WHEN PFRMD 08/07/2017 5 year repeat COLONOSCOPY SCREENING 08/19/2022 Diverticulosis, tubular adenoma, sessile serrated polyp. EGD W/O BRSH SPEC VARICIES INJ 08/19/2022 Active inflammation in lower esophagus ESOPHAGOGASTRODUODENOSCOPY TRANSORAL DIAGNOSTIC 11/20/2014 EGD ESOPHAGOGASTRODUODENOSCOPY TRANSORAL DIAGNOSTIC 02/20/2015 EGD ESOPHAGOGASTRODUODENOSCOPY TRANSORAL DIAGNOSTIC 08/07/2017 EGD ESOPHAGOGASTRODUODENOSCOPY TRANSORAL DIAGNOSTIC 12/18/2018 EGD INCISION AND REMOVAL FOREIGN BODY SUBQ TISS SIMPLE Left 07/12/2018 Removal foreign body left index finger INCISION AND REMOVAL FOREIGN BODY SUBQ TISS SIMPLE Left 07/12/2018 Excision foreign body left index finger LAPS SURG CHOLECYSTECTOMY W/CHOLANGIOGRAPHY 08/13/2010 MIRENA IUD 08/2012 OPEN REPAIR OF ROTATOR CUFF ACUTE Left 04/2000 Rotator cuff repair PAST SURGICAL HISTORY OF Removal ganglion cyst, foot, wrist, PAST SURGICAL HISTORY OF Excision Pilonidal cyst TONSILLECTOMY PRIMARY/SECONDARY Tonsillectomy ALLERGIES Adhesive, Codeine, and Penicillins MEDICATIONS pantoprazole DR (PROTONIX) 40 mg tablet Take 2 tablets by mouth once daily. methocarbamol (ROBAXIN) 500 mg tablet Take 1 tablet by mouth three times a day as needed. buPROPion XL (WELLBUTRIN XL) 300 mg 24 hr tablet Take 300 mg by mouth once daily. albuterol (PROVENTIL) 2.5 mg /3 mL (0.083 %) nebulizer solution Use 3 mL via nebulizer every 4 hours as needed for wheezing/shortness of breath. Use over 5-15minutes. budesonide-formoterol (SYMBICORT) 160-4.5 mcg/actuation inhaler Inhale 2 Puffs as instructed four times a day as needed. escitalopram oxalate (LEXAPRO) 20 mg tablet Take 1 tablet by mouth every afternoon. Ascorbic Acid 1,000 mg tablet Take 1,000 mg by mouth once daily. multivit,calc,mins/iron/folic (ONE-A-DAY WOMENS FORMULA ORAL) Take 1 tablet by mouth once daily. levonorgestrel (MIRENA) 20 mcg/24 hr (5 years) IUD Inserted in office dexAMETHasone (DECADRON) 1 mg tablet Take the tablet at 11 pm and go for labs the next morning on fasting at 8 am (Patient not taking: Reported on 01/10/2025) albuterol HFA (PROVENTIL HFA, VENTOLIN HFA) 90 mcg/actuation inhaler Inhale 2 Puffs as instructed every 4 hours as needed for wheezing/shortness of breath. FAMILY HISTORY Problem Relation Age of Onset Hypertension Mother 63 Stroke Mother Asthma Mother Heart disease Mother Cancer Father Throat cancer other (other) Maternal Grandmother Cancer Maternal Grandmother Colon other (other) Maternal Grandfather Cancer Maternal Grandfather Leukemia Heart Paternal Grandmother Breast Cancer Paternal Aunt other (DIverticulosis) Other Adrenal Insufficiency No Family History Social History Tobacco Use Smoking status: Every Day Current packs/day: 0.00 Average packs/day: 0.5 packs/day for 18.4 years (9.2 ttl pk-yrs) Types: Cigarettes Start date: 1997 Last attempt to quit: 08/23/2015 Years since quittin.4 Passive exposure: Current Smokeless tobacco: Never Vaping Use Vaping status: Never Used Substance Use Topics Alcohol use: Not Currently Drug use: No Review of Systems Constitutional: Positive for fatigue. Negative for chills and fever. HENT: Positive for rhinorrhea and sore throat. Negative for ear discharge, ear pain, sinus pressure and sinus pain. Eyes: Negative for discharge and redness. Respiratory: Positive for cough, shortness of breath and wheezing. Cardiovascular: Negative for chest pain. Skin: Negative for rash. Neurological: Positive for headaches. Objective BP 124/80 Pulse 80 Temp 37 ?C (98.6 ?F) Resp 18 Wt 87.8 kg (193 lb 9 oz) LMP (LMP Unknown) SpO2 97% BMI 34.29 kg/m? Physical Exam Constitutional: General: She is not in acute distress. Appearance: She is n (more content not included)... [facility] 02-04-2025 History of Presen t illness Narrative [facility] Subjective HPI HPI Thaddeus Crawford is a 39 year old female who presents today for CC of cough, sob, wheezing, congestion, fatigue. This started 1 week ago. Has tried otc medication for relief. Symptoms are worsened by nothing. Risk factors smoker. Hx of asthma. .Patient presents with: Chest Congestion: cough, nasal congestion, drainage, wheezing, fatigue and lightheaded x over 1 week PAST MEDICAL HISTORY Diagnosis Date Asthma (HCC) Benign neoplasm of colon Benign polyp. 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 PAST SURGICAL HISTORY Procedure Laterality Date COLONOSCOPY 03/31/2023 COLONOSCOPY FLX DX W/COLLJ SPEC WHEN PFRMD 07/31/2012 Colonoscopy COLONOSCOPY FLX DX W/COLLJ SPEC WHEN PFRMD 08/07/2017 5 year repeat COLONOSCOPY SCREENING 08/19/2022 Diverticulosis, tubular adenoma, sessile serrated polyp. EGD W/O BRSH SPEC VARICIES INJ 08/19/2022 Active inflammation in lower esophagus ESOPHAGOGASTRODUODENOSCOPY TRANSORAL DIAGNOSTIC 11/20/2014 EGD ESOPHAGOGASTRODUODENOSCOPY TRANSORAL DIAGNOSTIC 02/20/2015 EGD ESOPHAGOGASTRODUODENOSCOPY TRANSORAL DIAGNOSTIC 08/07/2017 EGD ESOPHAGOGASTRODUODENOSCOPY TRANSORAL DIAGNOSTIC 12/18/2018 EGD INCISION & REMOVAL FOREIGN BODY SUBQ TISS SIMPLE Left 07/12/2018 Removal foreign body left index finger INCISION & REMOVAL FOREIGN BODY SUBQ TISS SIMPLE Left 07/12/2018 Excision foreign body left index finger LAPS SURG CHOLECYSTECTOMY W/CHOLANGIOGRAPHY 08/13/2010 MIRENA IUD 08/2012 OPEN REPAIR OF ROTATOR CUFF ACUTE Left 04/2000 Rotator cuff repair PAST SURGICAL HISTORY OF Removal ganglion cyst, foot, wrist, PAST SURGICAL HISTORY OF Excision Pilonidal cyst TONSILLECTOMY PRIMARY/SECONDARY <AGE 12 Tonsillectomy ALLERGIES Adhesive, Codeine, and Penicillins MEDICATIONS pantoprazole DR (PROTONIX) 40 mg tablet Take 2 tablets by mouth once daily. methocarbamol (ROBAXIN) 500 mg tablet Take 1 tablet by mouth three times a day as needed. buPROPion XL (WELLBUTRIN XL) 300 mg 24 hr tablet Take 300 mg by mouth once daily. albuterol (PROVENTIL) 2.5 mg /3 mL (0.083 %) nebulizer solution Use 3 mL via nebulizer every 4 hours as needed for wheezing/shortness of breath. Use over 5-15minutes. budesonide-formoterol (SYMBICORT) 160-4.5 mcg/actuation inhaler Inhale 2 Puffs as instructed four times a day as needed. escitalopram oxalate (LEXAPRO) 20 mg tablet Take 1 tablet by mouth every afternoon. Ascorbic Acid 1,000 mg tablet Take 1,000 mg by mouth once daily. multivit,calc,mins/iron/folic (ONE-A-DAY WOMENS FORMULA ORAL) Take 1 tablet by mouth once daily. levonorgestrel (MIRENA) 20 mcg/24 hr (5 years) IUD Inserted in office dexAMETHasone (DECADRON) 1 mg tablet Take the tablet at 11 pm and go for labs the next morning on fasting at 8 am (Patient not taking: Reported on 01/10/2025) albuterol HFA (PROVENTIL HFA, VENTOLIN HFA) 90 mcg/actuation inhaler Inhale 2 Puffs as instructed every 4 hours as needed for wheezing/shortness of breath. FAMILY HISTORY Problem Relation Age of Onset Hypertension Mother 63 Stroke Mother Asthma Mother Heart disease Mother Cancer Father Throat cancer other (other) Maternal Grandmother Cancer Maternal Grandmother Colon other (other) Maternal Grandfather Cancer Maternal Grandfather Leukemia Heart Paternal Grandmother Breast Cancer Paternal Aunt other (DIverticulosis) Other Adrenal Insufficiency No Family History Social History Tobacco Use Smoking status: Every Day Current packs/day: 0.00 Average packs/day: 0.5 packs/day for 18.4 years (9.2 ttl pk-yrs) Types: Cigarettes Start date: 1997 Last attempt to quit: 08/23/2015 Years since quittin.4 Passive exposure: Current Smokeless tobacco: Never Vaping Use Vaping status: Never Used Substance Use Topics Alcohol use: Not Currently Drug use: No Review of Systems Constitutional: Positive for fatigue. Negative for chills and fever. HENT: Positive for rhinorrhea and sore throat. Negative for ear discharge, ear pain, sinus pressure and sinus pain. Eyes: Negative for discharge and redness. Respiratory: Positive for cough, shortness of breath and wheezing. Cardiovascular: Negative for chest pain. Skin: Negative for rash. Neurological: Positive for headaches. Objective BP 124/80 Pulse 80 Temp 37 C (98.6 F) Resp 18 Wt 87.8 kg (193 lb 9 oz) LMP (LMP Unknown) SpO2 97% BMI 34.29 kg/m Physical Exam Constitutional: General: She is not in acute distress. Appearance: She is not toxic-appearing or diaphoretic. HENT: Head: Normocephalic and atraumatic. Cardiovascular: Rate and Rhythm: Normal rate and regular rhythm. Heart sounds: Normal heart sounds, S1 normal and S2 normal. Pulmonary: Effort: Pulmonary effort is normal. Breath sounds: Rhonchi (scattered bilat, clear with cough) present. No decreased breath sounds, wheezing or rales. Neurological: Mental Status: She is alert and oriented to person, place, and time. {ASSESSMENT/PLAN: 1. Sinobronchitis - ICD9: 473.9, 490, ICD10: J32.9, J40 (primary diagnosis) - Will begin treatment with as per antibiotic as written, see orders - Supportive care with plenty of fluids, rest, and analgesia prn. - Follow up in 3-5 days if symptoms persist or worsen. - DOXYCYCLINE HYCLATE 100 MG TABLET - PREDNISONE 20 MG TABLET - ALBUTEROL SULFATE HFA 90 MCG/ACTUATION AEROSOL INHALER 2. Acute cough - ICD9: 786.2, ICD10: R05.1 - XR CHEST 2V FRONTAL/LAT IMPRESSION: No acute radiographic abnormality. Dictated by : MD Lenny MOLINA APRN.CNP History and Record Review External record(s) reviewed: prior outpatient record. Findings from review of outpatient records: asthmatic Systemic symptoms present included: Fatigue Disposition The patient was discharged. Procedures documented in this encounter [facility] 02-04-2025 History of Presen t illness Narrative Radiology Service Progress Note PATIENT NAME: Thaddeus Crawford DATE OF SERVICE: February 04, 2025 TIME: 3:46 PM PATIENT IDENTITY VERIFICATION COMPLETED USING TWO (2) IDENTIFIERS: Name and Date of confirmed by patient verbally. FALL SCREENING: Has the patient had 2 falls in the last year or 1 fall with injury or currently using an Ambulatory Assistive Device (Walker, Cane, Wheelchair, Crutches, etc.)? No PATIENT GENDER DATA: Assigned female at . status: : No status: NO. PATIENT RELEVANT IMPLANT DATA REVIEWED: Not Applicable PATIENT PRESENTS WITH AN IMPLANTABLE OR ATTACHED PLASTICS AND COMPOSITES INSPECTOR: No RADIOLOGY DEPARTMENT: General X-ray: Exam(s) Completed: Chest X-Ray PERIPHERAL IV DATA: Not applicable SIGNED BY: Tim Rahman February 04, 2025 3:46 PM documented in this encounter [facility] 02-04-2025 Note HNO ID: [id number] Author: MANDIE NELSON Tech Service: ? Author Type: Technologist Type: Progress Notes Filed: 02/04/2025 15:50 Note Text: Radiology Service Progress Note PATIENT NAME: Thaddeus Crawford DATE OF SERVICE: February 04, 2025 TIME: 3:46 PM PATIENT IDENTITY VERIFICATION COMPLETED USING TWO (2) IDENTIFIERS: Name and Date of confirmed by patient verbally. FALL SCREENING: Has the patient had 2 falls in the last year or 1 fall with injury or currently using an Ambulatory Assistive Device (Walker, Cane, Wheelchair, Crutches, etc.)? No PATIENT GENDER DATA: Assigned female at . status: : No status: NO. PATIENT RELEVANT IMPLANT DATA REVIEWED: Not Applicable PATIENT PRESENTS WITH AN IMPLANTABLE OR ATTACHED PLASTICS AND COMPOSITES INSPECTOR: No RADIOLOGY DEPARTMENT: General X-ray: Exam(s) Completed: Chest X-Ray PERIPHERAL IV DATA: Not applicable SIGNED BY: Tim Rahman February 04, 2025 3:46 PM [facility] 01-10-2025 Instructions Azul Montejo MD - 01/10/2025 11:18 AM EDT COLLECTING URINE FOR 24 HOURS: 1. Best done the morning of one day to the morning of the next day ( two consecutive mornings). 2. Imperative that you arise from bed at the exact same time on Day 1 and Day 2. 3. When you arise on Day 1 you will have to urinate. This goes into the toilet and is flushed away. 4. Every time from then on for the remainder of Day 1 and at night Day 1 to Day 2, every drop of urine that you pass must go into the container that we will provide for you. 5. When you arise on Day 2 you will also have to urinate. This goes into the container and completes the urine collection. 6. The container should be kept refrigerated until it is turned in to the laboratory. 7. Bring the completed urine collection container to the laboratory as soon as possible. Please avoid these for atleast 3 days before starting to collect urine: Foods like avocados, pineapples, bananas, kiwi fruit, plums, eggplants, walnuts, hickory nuts, pecans, tomatoes, plantains, butternut squash Medications like tylenol, ibuprofen, cough medications, anti-seizure medications Drinks containing alcohol, caffeine documented in this encounter [facility] 01-10-2025 Note HNO ID: [id number] Author: AZUL MONTEJO MD Service: ? Author Type: Physician Type: Progress Notes Filed: 01/11/2025 19:35 Note Text: [facility] Follow up note History of Present Illness: Ms. Thaddeus Crawford is a 39 year old female coming today for follow up of adrenal hyperplasia, referred to endocrinology by PCP Initial visit on 11/12/24 History in brief, she underwent CT abd/pelvis for left sided abdominal pain and bloating and was incidentally found to have b/l adrenal hyperplasia She is on mirena for control No issues with facial hair or body hair Hx of migraines, no worsening Intermittent blurriness of vision that corrects spontaneously Hair loss Feels thirsty a lot, mostly drinks water or tea, sometimes drinks pop No abdominal stretch disla, not even from . Has easy bruising, noticed it since last year Has delayed healing Fracture of left index finger from playing with dog, reports not healing well On further questioning about changes in voice, reports hoarseness difficulty raising arms overhead, difficulty getting up from a seated position: No No proximal muscle weakness Sometimes has flushing, jitteriness. She also has anxious spells sometimes Previous use of Steroids, oral, inhalers, injections: intermittently to reduce inflammation- I have been hurting all joints FH: not pertinent Past Medical History: PAST MEDICAL HISTORY Diagnosis Date Asthma (HCC) Benign neoplasm of colon Benign polyp. 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 Surgical History: PAST SURGICAL HISTORY Procedure Laterality Date COLONOSCOPY 03/31/2023 COLONOSCOPY FLX DX W/COLLJ SPEC WHEN PFRMD 07/31/2012 Colonoscopy COLONOSCOPY FLX DX W/COLLJ SPEC WHEN PFRMD 08/07/2017 5 year repeat COLONOSCOPY SCREENING 08/19/2022 Diverticulosis, tubular adenoma, sessile serrated polyp. EGD W/O BRSH SPEC VARICIES INJ 08/19/2022 Active inflammation in lower esophagus ESOPHAGOGASTRODUODENOSCOPY TRANSORAL DIAGNOSTIC 11/20/2014 EGD ESOPHAGOGASTRODUODENOSCOPY TRANSORAL DIAGNOSTIC 02/20/2015 EGD ESOPHAGOGASTRODUODENOSCOPY TRANSORAL DIAGNOSTIC 08/07/2017 EGD ESOPHAGOGASTRODUODENOSCOPY TRANSORAL DIAGNOSTIC 12/18/2018 EGD INCISION AND REMOVAL FOREIGN BODY SUBQ TISS SIMPLE Left 07/12/2018 Removal foreign body left index finger INCISION AND REMOVAL FOREIGN BODY SUBQ TISS SIMPLE Left 07/12/2018 Excision foreign body left index finger LAPS SURG CHOLECYSTECTOMY W/CHOLANGIOGRAPHY 08/13/2010 MIRENA IUD 08/2012 OPEN REPAIR OF ROTATOR CUFF ACUTE Left 04/2000 Rotator cuff repair PAST SURGICAL HISTORY OF Removal ganglion cyst, foot, wrist, PAST SURGICAL HISTORY OF Excision Pilonidal cyst TONSILLECTOMY PRIMARY/SECONDARY Tonsillectomy Family Medical History: FAMILY HISTORY Problem Relation Age of Onset Hypertension Mother 63 Stroke Mother Asthma Mother Heart disease Mother Cancer Father Throat cancer other (other) Maternal Grandmother Cancer Maternal Grandmother Colon other (other) Maternal Grandfather Cancer Maternal Grandfather Leukemia Heart Paternal Grandmother Breast Cancer Paternal Aunt other (DIverticulosis) Other Adrenal Insufficiency No Family History Social History: Social History Tobacco Use Smoking status: Every Day Current packs/day: 0.00 Average packs/day: 0.5 packs/day for 18.4 years (9.2 ttl pk-yrs) Types: Cigarettes Start date: 1997 Last attempt to quit: 08/23/2015 Years since quittin.3 Passive exposure: Current Smokeless tobacco: Never Vaping Use Vaping status: Never Used Substance Use Topics Alcohol use: Not Currently Drug use: No Allergies: ALLERGIES Allergen Reactions Adhesive Rash Codeine Vomiting Penicillins GI Upset Current medications: Current Outpatient Medications Medication Sig pantoprazole DR (PROTONIX) 40 mg tablet Take 2 tablets by mouth once daily. methocarbamol (ROBAXIN) 500 mg tablet Take 1 tablet by mouth three times a day as needed. buPROPion XL (WELLBUTRIN XL) 300 mg 24 hr tablet Take 300 mg by mouth once daily. albuterol (PROVENTIL) 2.5 mg /3 mL (0.083 %) nebulizer solution Use 3 mL via nebulizer every 4 hours as needed for wheezing/shortness of breath. Use over 5-15minutes. budesonide-formoterol (SYMBICORT) 160-4.5 mcg/actuation inhaler Inhale 2 Puffs as instructed four times a day as needed. albuterol HFA (PROVENTIL HFA, VENTOLIN HFA) 90 mcg/actuation inhaler Inhale 2 Puffs as instructed every 4 hours as needed for wheezing/shortness of breath. escitalopram oxalate (LEXAPRO) 20 mg tablet Take 1 tablet by mouth every afternoon. Ascorbic Acid 1,000 mg tablet Take 1,000 (more content not included)... [facility] 01-10-2025 History of Presen t illness Narrative [facility] Follow up note History of Present Illness: Ms. Thaddeus Crawford is a 39 year old female coming today for follow up of adrenal hyperplasia, referred to endocrinology by PCP Initial visit on 11/12/24 History in brief, she underwent CT abd/pelvis for left sided abdominal pain and bloating and was incidentally found to have b/l adrenal hyperplasia She is on mirena for control No issues with facial hair or body hair Hx of migraines, no worsening Intermittent blurriness of vision that corrects spontaneously Hair loss Feels thirsty a lot, mostly drinks water or tea, sometimes drinks pop No abdominal stretch disla, not even from . Has easy bruising, noticed it since last year Has delayed healing Fracture of left index finger from playing with dog, reports not healing well On further questioning about changes in voice, reports hoarseness difficulty raising arms overhead, difficulty getting up from a seated position: No No proximal muscle weakness Sometimes has flushing, jitteriness. She also has anxious spells sometimes Previous use of Steroids, oral, inhalers, injections: intermittently to reduce inflammation- I have been hurting all joints FH: not pertinent Past Medical History: PAST MEDICAL HISTORY Diagnosis Date Asthma (HCC) Benign neoplasm of colon Benign polyp. 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 Surgical History: PAST SURGICAL HISTORY Procedure Laterality Date COLONOSCOPY 03/31/2023 COLONOSCOPY FLX DX W/COLLJ SPEC WHEN PFRMD 07/31/2012 Colonoscopy COLONOSCOPY FLX DX W/COLLJ SPEC WHEN PFRMD 08/07/2017 5 year repeat COLONOSCOPY SCREENING 08/19/2022 Diverticulosis, tubular adenoma, sessile serrated polyp. EGD W/O [facility] SPEC VARICIES INJ 08/19/2022 Active inflammation in lower esophagus ESOPHAGOGASTRODUODENOSCOPY TRANSORAL DIAGNOSTIC 11/20/2014 EGD ESOPHAGOGASTRODUODENOSCOPY TRANSORAL DIAGNOSTIC 02/20/2015 EGD ESOPHAGOGASTRODUODENOSCOPY TRANSORAL DIAGNOSTIC 08/07/2017 EGD ESOPHAGOGASTRODUODENOSCOPY TRANSORAL DIAGNOSTIC 12/18/2018 EGD INCISION & REMOVAL FOREIGN BODY SUBQ TISS SIMPLE Left 07/12/2018 Removal foreign body left index finger INCISION & REMOVAL FOREIGN BODY SUBQ TISS SIMPLE Left 07/12/2018 Excision foreign body left index finger LAPS SURG CHOLECYSTECTOMY W/CHOLANGIOGRAPHY 08/13/2010 MIRENA IUD 08/2012 OPEN REPAIR OF ROTATOR CUFF ACUTE Left 04/2000 Rotator cuff repair PAST SURGICAL HISTORY OF Removal ganglion cyst, foot, wrist, PAST SURGICAL HISTORY OF Excision Pilonidal cyst TONSILLECTOMY PRIMARY/SECONDARY <AGE 12 Tonsillectomy Family Medical History: FAMILY HISTORY Problem Relation Age of Onset Hypertension Mother 63 Stroke Mother Asthma Mother Heart disease Mother Cancer Father Throat cancer other (other) Maternal Grandmother Cancer Maternal Grandmother Colon other (other) Maternal Grandfather Cancer Maternal Grandfather Leukemia Heart Paternal Grandmother Breast Cancer Paternal Aunt other (DIverticulosis) Other Adrenal Insufficiency No Family History Social History: Social History Tobacco Use Smoking status: Every Day Current packs/day: 0.00 Average packs/day: 0.5 packs/day for 18.4 years (9.2 ttl pk-yrs) Types: Cigarettes Start date: 1997 Last attempt to quit: 08/23/2015 Years since quittin.3 Passive exposure: Current Smokeless tobacco: Never Vaping Use Vaping status: Never Used Substance Use Topics Alcohol use: Not Currently Drug use: No Allergies: ALLERGIES Allergen Reactions Adhesive Rash Codeine Vomiting Penicillins GI Upset Current medications: Current Outpatient Medications Medication Sig pantoprazole DR (PROTONIX) 40 mg tablet Take 2 tablets by mouth once daily. methocarbamol (ROBAXIN) 500 mg tablet Take 1 tablet by mouth three times a day as needed. buPROPion XL (WELLBUTRIN XL) 300 mg 24 hr tablet Take 300 mg by mouth once daily. albuterol (PROVENTIL) 2.5 mg /3 mL (0.083 %) nebulizer solution Use 3 mL via nebulizer every 4 hours as needed for wheezing/shortness of breath. Use over 5-15minutes. budesonide-formoterol (SYMBICORT) 160-4.5 mcg/actuation inhaler Inhale 2 Puffs as instructed four times a day as needed. albuterol HFA (PROVENTIL HFA, VENTOLIN HFA) 90 mcg/actuation inhaler Inhale 2 Puffs as instructed every 4 hours as needed for wheezing/shortness of breath. escitalopram oxalate (LEXAPRO) 20 mg tablet Take 1 tablet by mouth every afternoon. Ascorbic Acid 1,000 mg tablet Take 1,000 mg by mouth once daily. multivit,calc,mins/iron/folic (ONE-A-DAY WOMENS FORMULA ORAL) Take 1 tablet by mouth once daily. levonorgestrel (MIRENA) 20 mcg/24 hr (5 years) IUD Inserted in office dexAMETHasone (DECADRON) 1 mg tablet Take the tablet at 11 pm and go for labs the next morning on fasting at 8 am (Patient not taking: Reported on 01/10/2025) No current facility-administered medications for this visit. Review of Systems: 10 point ROS was reviewed and negative unless indicated in the HPI Physical exam: BP 100/76 (BP Site: Right Arm, BP Position: Sitting, BP Cuff Size: Regular Adult) Pulse 83 Temp 36.6 C (97.8 F) (Temporal Artery) Wt 85.6 kg (188 lb 12.8 oz) LMP (LMP Unknown) SpO2 96% BMI 33.44 kg/m Unchanged from prior visit 2 months ago General Appearance: Well appearing, alert, in no acute distress, well-hydrated, well nourished, obese body habitus Skin: Skin color, texture, turgor normal, no suspicious rashes or lesions. Eyes: Anicteric sclera. Extraocular movements are intact. Neck: Supple, no adenopathy; thyroid symmetric, normal size, no bruits. Dorsal neck fat pad noted Lungs: unlabored breathing on room air Heart: Regular rate and rhythm, S1 and S2 normal. Abdomen:: no stretch disla on abdomen Extremities: No deformities, edema, skin discoloration, clubbing or cyanosis. No tremors of outstretched arms Musculoskeletal: No joint swelling, deformity, or tenderness. Peripheral Pulses: Normal. Neurologic: Gait normal. Reflexes normal and symmetric. Previous laboratory results: Latest Ref Rng 01/01/2025 01/02/2025 Aldosterone 0.0 - <35.4 ng/dL 6.4 Direct Renin 3.6 - 81.6 pg/mL 19.0 Aldosterone/Renin Ratio <3.8 0.3 Patient Upright or Supine Upright ACTH 7.2 - 63.3 pg/mL 6.3 (L) DHEA-S 60.9 - 337.0 ug/dL 100.6 Potassium 3.7 - 5.1 mmol/L 4.7 Cortisol,ON DEX,Post <1.8 ug/dL 1.0 Dexamethasone ng/dL 295.4 Legend: (L) Low Imaging: CT abdomen/pelvis without IV contrast: 06/18/2024 CLINICAL HISTORY: Left-sided pain. Abdominal bloating. TECHNIQUE: Non-IV contrast imaging of the abdomen and pelvis was performed using standard technique, scanning from just above the dome of the diaphragm to the symphysis pubis. Unenhanced imaging is limited for the evaluation of some intra-abdominal and pelvic pathology. MQ: [id number] Contrast: IV: None Oral: 10 ml of Omni 240 10-25ml diluted with water CT Radiation dose: Integrated Dose-length product (DLP) for this visit = 651 mGy*cm. CT Dose Reduction Employed: Automated exposure control(AEC) and iterative recon COMPARISON: None. RESULT: Abdomen / Pelvis: Liver: Unremarkable unenhanced liver. Biliary: Gallbladder not visualized. Spleen: No splenomegaly. Pancreas: Unremarkable unenhanced pancreas. Adrenals: Mild thickening of the bilateral adrenal glands compatible with adenomatous hyperplasia. Kidneys: No calculus, hydronephrosis or finding to suggest a cyst or mass in the unenhanced kidney. GI Tract: No bowel dilation. Left-sided predominant colonic diverticulosis without CT evidence of complications. Normal appendix. Lymph Nodes: No lymphadenopathy. Mesentery/peritoneum: No ascites. Retroperitoneum: No mass. Vasculature: Arterial atherosclerotic disease without aneurysm. Pelvis: Bladder normal in appearance. Intrauterine device present. 5 cm left adnexal cyst. Bones/Soft Tissues: Small fat-containing umbilical hernia. Fat-containing supraumbilical hernia with the hernia mouth measuring 2 cm and with the hernia sac measuring 4.1 cm. This is supraumbilical hernia demonstrates infiltration of the herniated fat. No destructive osseous lesion. Lower thorax: Reticulonodular prominence of the interstitial markings in the bilateral lung bases. Couple of nonspecific thin-walled cysts scattered within the bilateral lower lobes measuring up to 1 cm in size in the left lower lobe. Localizer images: No additional findings. IMPRESSION: 1. 5 cm left adnexal cyst. 2. Fat-containing epigastric hernia with infiltration of the herniated fat. 3. Adenomatous hyperplasia of the bilateral adrenal glands. 4. Reticulonodular prominence of the interstitial markings in the bilateral visualized lung bases with a few scattered thin-walled cysts. Clinical correlation for an inflammatory or infectious process is advised. 5. Additional incidental findings as described ASSESSMENT/PLAN: Patient presents for evaluation of incidentally found adrenal hyperplasia DDx include micronodular adrenal hyperplasia, macronodular hyperplasia, Philo's disease - subclinical Labs done with 1 mg DST, DHEAs normal, while ACTH is low, although concerning for adrenal Kit's, DST was normal. No clinical signs of Kit's noted either For evaluating flushing, we discussed checking 5HIAA. I discussed that this is a rare diagnosis, but she would prefer this. I will check urine cortisol along with the 24 hr urine 5HIAA. Instructions with urine collection, foods to avoid before collection reviewed Patient understands and agrees with the plan discussed. Follow up TBD Azul Montejo MD Endocrinology Associate Staff [facility] Endocrinology and Metabolism [place] [phone] Medical Decision Making: Problems: Moderate: New problem with uncertain prognosis Data: Unique test result(s) reviewed: 3+ Unique test(s) ordered: 3+ Medical Decision Making Level: 4 - Moderate documented in this encounter [facility] 01-03-2025 Telephone encounter Note The following approved medication requests have been transmitted electronically. Requested Prescriptions Pending Prescriptions Disp Refills pantoprazole DR (PROTONIX) 40 mg tablet 60 tablet 11 Sig: Take 2 tablets by mouth once daily. Mac Connelly APRN.CNP [facility] 01-03-2025 Miscellaneous Notes The following approved medication requests have been transmitted electronically. Requested Prescriptions Pending Prescriptions Disp Refills pantoprazole DR (PROTONIX) 40 mg tablet 60 tablet 11 Sig: Take 2 tablets by mouth once daily. Mac Connelly APRN.CNP Prescription Refill Information The patient has been identified by name and date of : Yes Caregiver verified no other encounters exist for this prescription request: Yes Caregiver confirmed with patient/requestor that no other refills are due, in the near future, with this provider at this time: Yes The last office visit in the department: 10/24/24 Does the patient have a future office visit with this provider/department: No My chart message sent Requested Prescriptions Pending Prescriptions Disp Refills pantoprazole DR (PROTONIX) 40 mg tablet 60 tablet 0 Sig: Take 2 tablets by mouth once daily. Holden Thompson LPN January 03, 2025 7:22 AM documented in this encounter [facility] 01-03-2025 Telephone encounter Note Prescription Refill Information The patient has been identified by name and date of : Yes Caregiver verified no other encounters exist for this prescription request: Yes Caregiver confirmed with patient/requestor that no other refills are due, in the near future, with this provider at this time: Yes The last office visit in the department: 10/24/24 Does the patient have a future office visit with this provider/department: No My chart message sent Requested Prescriptions Pending Prescriptions Disp Refills pantoprazole DR (PROTONIX) 40 mg tablet 60 tablet 0 Sig: Take 2 tablets by mouth once daily. Holden Thompson LPN January 03, 2025 7:22 AM [facility] 12-12-2024 Note HNO ID: [id number] Author: MATHEW MARKHAM PT Service: ? Author Type: Physical Therapist Type: Progress Notes Filed: 12/12/2024 17:14 Note Text: Episode Visit Count: 4 Therapist That Will Accept/Oversee The Plan Of Care: Mathew Markham PT Start of Care Date: 11/05/24 Onset Date: 09/04/24 Plan of Care Certification Date: 01/05/21 Next Certification Due Date: 03/07/21 Patient Identified by Name and Date of : Yes REHABILITATION AND SPORTS THERAPY PHYSICAL THERAPY DISCONTINUANCE OF CARE PLAN OF CARE UPDATE: Assessment: Thaddeus Crawford is discontinued from Physical Therapy services due to goal achievement. and Patient/Clinician mutual decision to discontinue current plan of care.. Patient was seen for 4 visits from Start of Care Date: 11/05/24 to 12/12/2024 and treatment included: Therapeutic exercise, Manual therapy, Self-custodial management, Patient/Family/Caregiver Education, and Body mechanics training. Updated:12/12/24 Goals for Episode of Care: established 11/05/24 Patient reported outcome of physical function will increase T-score by a minimum 5 points. - Partially MET Independent in a Home Exercise Program. - MET Patient will decrease pain to 0/10 with functional activities to allow patient to improve lifting, work and sleep. - MET Restore pain free cervical ROM to WFL to allow for improved sleep. - MET Sleep throughout the night without pain/symptoms. - MET Patient will increase strength of postural muscles to WFL to allow for improve ability to maintain proper posture, improve mechanics, and decrease pain. - MET Patient Goals: eliminate pain - MET SUBJECTIVE: Pt reports that overall she is slightly better since starting PT. She reports increased postural awareness and improved alignment on a more consistent basis. She reports that she is no longer having the severe pain, just fatigue from difficult work. She reports compliance with HEP 2-3x day and that HEP is successful in relieving symptoms of tension when she has them. She feels confident that she can self-manage with HEP after d/c from supervised PT. She denies any limitations with lifting, working or sleeping. She reports sleeping through the night. Pain: Pain Pain Level: 0 (more soreness than pain) Pain Location: Scapula - Left Description: (I haven't felt that familiar pain) Frequency: Intermittent Post Treatment Pain Post Treatment Pain Level: Better Post Treatment Pain Location: Scapula - Left Post Treatment Symptoms: After manual therapy pt reported feeling much better with tension decreased. PROMIS Scales 12/12/2024 11/05/2024 Higher is Better Phys Func - T Score 44 (mild dysfunction) 42 (mild dysfunction) Phys Func - Percentile 27 21 Self-Eff Symptom - T Score 41 (Average) 32 (Low) Self-Eff Symptom - Percentile 18 4 Proxy-reported T-scores: mean of general population = 50. 5 points is clinically meaningfully difference Percentiles provide an indication of how the patient's score ranks in relation to the general population. Higher percentile rankings indicate better function/quality of life. 50th percentile is the average of the general population and indicates half of respondents had a worse score. OBJECTIVE MEASURES WITH LEVEL OF FUNCTION: Posture / Alignment Posture: (much improved awareness and alignment) Cervical Spine ROM Cervical ROM : Limitation AROM Cervical Flexion AROM: Normal Cervical Extension AROM: Normal Cervical Side-Bend Right AROM: Normal (57 degrees) Cervical Side-Bend Left AROM: Normal (50 degrees) Cervical Rotation Right AROM: Normal (87 degrees) Cervical Rotation Left AROM: Normal (88 degrees) TREATMENT: Therapeutic Exercise: 1: SciFit StepOne seat #12 x6 minutes (Pt provided an update on her condition and subjective portion of goals assessed) 2: seated cervical retraction 2x10 3: seated L levator scapulae stretch 3x30 seconds 4: corner pectoral stretch 3x30 seconds 5: seated scapular retraction 2x10 in front of mirror to avoid scapular elevation. 6: re-assessment results were reviewed with pt and used as rationale for d/c recommendations. 7: HEP was reviewed and continuation encouraged to tolerance. She was also urged to contact PT via [employer] with any future concerns. Skilled Intervention: Patient was educated in proper exercise technique and purpose for exercises. Skilled judgment was used in selection of appropriate interventions. Correct performance of therapeutic exercises was facilitated with verbal, visual, and tactile cuing. Patient education as noted. Manual Therapy: Soft Tissue Mobilization: After therex, manual therapy to cervical spine and surrounding musculature with pt supine. Techniques include massage, muscle bending, trigger point release, sub occipital release and finally intermittent manual cervical traction with 20 second holds and 10 second rests. Total time with manual therapy was 15 min (more content not included)... [facility] 12-12-2024 History of Presen t illness Narrative Images from the original note were not included. Episode Visit Count: 4 Therapist That Will Accept/Oversee The Plan Of Care: Mathew Markham PT Start of Care Date: 11/05/24 Onset Date: 09/04/24 Plan of Care Certification Date: 01/05/21 Next Certification Due Date: 03/07/21 Patient Identified by Name and Date of : Yes REHABILITATION AND SPORTS THERAPY PHYSICAL THERAPY DISCONTINUANCE OF CARE PLAN OF CARE UPDATE: Assessment: Thaddeus Crawford is discontinued from Physical Therapy services due to goal achievement. and Patient/Clinician mutual decision to discontinue current plan of care.. Patient was seen for 4 visits from Start of Care Date: 11/05/24 to 12/12/2024 and treatment included: Therapeutic exercise, Manual therapy, Self-custodial management, Patient/Family/Caregiver Education, and Body mechanics training. Updated:12/12/24 Goals for Episode of Care: established 11/05/24 Patient reported outcome of physical function will increase T-score by a minimum 5 points. - Partially MET Independent in a Home Exercise Program. - MET Patient will decrease pain to 0/10 with functional activities to allow patient to improve lifting, work and sleep. - MET Restore pain free cervical ROM to WFL to allow for improved sleep. - MET Sleep throughout the night without pain/symptoms. - MET Patient will increase strength of postural muscles to WFL to allow for improve ability to maintain proper posture, improve mechanics, and decrease pain. - MET Patient Goals: eliminate pain - MET SUBJECTIVE: Pt reports that overall she is slightly better since starting PT. She reports increased postural awareness and improved alignment on a more consistent basis. She reports that she is no longer having the severe pain, just fatigue from difficult work. She reports compliance with HEP 2-3x day and that HEP is successful in relieving symptoms of tension when she has them. She feels confident that she can self-manage with HEP after d/c from supervised PT. She denies any limitations with lifting, working or sleeping. She reports sleeping through the night. Pain: Pain Pain Level: 0 (more soreness than pain) Pain Location: Scapula - Left Description: (I haven't felt that familiar pain) Frequency: Intermittent Post Treatment Pain Post Treatment Pain Level: Better Post Treatment Pain Location: Scapula - Left Post Treatment Symptoms: After manual therapy pt reported feeling much better with tension decreased. PROMIS Scales 12/12/2024 11/05/2024 Higher is Better Phys Func - T Score 44 (mild dysfunction) 42 (mild dysfunction) Phys Func - Percentile 27 21 Self-Eff Symptom - T Score 41 (Average) 32 (Low) Self-Eff Symptom - Percentile 18 4 Proxy-reported T-scores: mean of general population = 50. 5 points is clinically meaningfully difference Percentiles provide an indication of how the patient's score ranks in relation to the general population. Higher percentile rankings indicate better function/quality of life. 50th percentile is the average of the general population and indicates half of respondents had a worse score. OBJECTIVE MEASURES WITH LEVEL OF FUNCTION: Posture / Alignment Posture: (much improved awareness and alignment) Cervical Spine ROM Cervical ROM : Limitation AROM Cervical Flexion AROM: Normal Cervical Extension AROM: Normal Cervical Side-Bend Right AROM: Normal (57 degrees) Cervical Side-Bend Left AROM: Normal (50 degrees) Cervical Rotation Right AROM: Normal (87 degrees) Cervical Rotation Left AROM: Normal (88 degrees) TREATMENT: Therapeutic Exercise: 1: SciFit StepOne seat #12 x6 minutes (Pt provided an update on her condition and subjective portion of goals assessed) 2: seated cervical retraction 2x10 3: seated L levator scapulae stretch 3x30 seconds 4: corner pectoral stretch 3x30 seconds 5: seated scapular retraction 2x10 in front of mirror to avoid scapular elevation. 6: re-assessment results were reviewed with pt and used as rationale for d/c recommendations. 7: HEP was reviewed and continuation encouraged to tolerance. She was also urged to contact PT via [employer] with any future concerns. Skilled Intervention: Patient was educated in proper exercise technique and purpose for exercises. Skilled judgment was used in selection of appropriate interventions. Correct performance of therapeutic exercises was facilitated with verbal, visual, and tactile cuing. Patient education as noted. Manual Therapy: Soft Tissue Mobilization: After therex, manual therapy to cervical spine and surrounding musculature with pt supine. Techniques include massage, muscle bending, trigger point release, sub occipital release and finally intermittent manual cervical traction with 20 second holds and 10 second rests. Total time with manual therapy was 15 minutes. Skilled Intervention: Manual skills to improve joint mobility, ROM, and decrease pain. Utilized anatomy knowledge of the therapist, and assessment of patient's response to intervention. Billing Therapeutic Exercise Treatment Minutes: 27 Manual TherapyTreatment Minutes: 15 Skilled Treatment Time Minutes (timed and untimed codes): 42 Total Session Time (minutes): 42 Session Start Time : 1547 Session Stop Time : 162 Mathew Markham PT documented in this encounter [facility] 11-19-2024 Note HNO ID: [id number] Author: MATHEW MARKHAM PT Service: ? Author Type: Physical Therapist Type: Progress Notes Filed: 11/19/2024 17:19 Note Text: Episode Visit Count: 3 Therapist That Will Accept/Oversee The Plan Of Care: Mathew Markham PT Start of Care Date: 11/05/24 Onset Date: 09/04/24 Plan of Care Certification Date: 01/05/21 Next Certification Due Date: 03/07/21 Patient Identified by Name and Date of : Yes REHABILITATION AND SPORTS THERAPY PHYSICAL THERAPY TREATMENT NOTE ASSESSMENT: Thaddeus Crawford tolerated the session with decreased symptoms. She demonstrated improvements in pain and exercise tolerance. The patient will continue to benefit from ongoing skilled physical therapy to progress toward set goals. PLAN FOR NEXT VISIT: Continue with postural stretching and strengthening and manual therapy. SUBJECTIVE: Pt reports that overall she is better. She reports having good days and bad days. She reports feeling better for several days after manual therapy done last session. She reports compliance with HEP. She reports that she worked a 14 hour shift yesterday and is sore today as a result. Pain: Pain Pain Level: 8 Pain Location: Scapula - Left Description: Dull Frequency: Intermittent, With movement (currently constant) Post Treatment Pain Post Treatment Pain Level: Better Post Treatment Pain Location: Scapula - Left Post Treatment Symptoms: After manual therapy, pt reported feeling better with less pain and less tightness. OBJECTIVE MEASURES WITH LEVEL OF FUNCTION: TREATMENT: Therapeutic Exercise: 1: [employer] StepOne seat #12 x5 minutes (Pt provided an update on her condition and plan of care reviewed.) 2: seated cervical retraction x10 3: seated L levator scapulae stretch x30 seconds 4: L UE horizontal adduction stretch 3x30 seconds 5: seated thoracic extension 2x10 with fingers laced behind neck. 6: corner pectoral stretch 3x30 seconds 7: seated scapular retraction 2x10 in front of mirror to avoid scapular elevation. Skilled Intervention: Patient was educated in proper exercise technique and purpose for exercises. Skilled judgment was used in selection of appropriate interventions. Correct performance of therapeutic exercises was facilitated with verbal and visual cuing. Manual Therapy: Soft Tissue Mobilization: After therex, manual therapy to cervical spine and surrounding musculature with pt supine. Techniques include massage, muscle bending, trigger point release, sub occipital release and finally intermittent manual cervical traction with 20 second holds and 10 second rests. Total time with manual therapy was 16 minutes. Skilled Intervention: Manual skills to improve joint mobility, ROM, and decrease pain. Utilized anatomy knowledge of the therapist, and assessment of patient's response to intervention. Billing Therapeutic Exercise Treatment Minutes: 29 Manual TherapyTreatment Minutes: 16 Skilled Treatment Time Minutes (timed and untimed codes): 45 Total Session Time (minutes): 45 Session Start Time : 1535 Session Stop Time : 1620 Mathew Markham PT [facility] 11-19-2024 History of Presen t illness Narrative Episode Visit Count: 3 Therapist That Will Accept/Oversee The Plan Of Care: Mathew Markham PT Start of Care Date: 11/05/24 Onset Date: 09/04/24 Plan of Care Certification Date: 01/05/21 Next Certification Due Date: 03/07/21 Patient Identified by Name and Date of : Yes REHABILITATION AND SPORTS THERAPY PHYSICAL THERAPY TREATMENT NOTE ASSESSMENT: Thaddeus Crawford tolerated the session with decreased symptoms. She demonstrated improvements in pain and exercise tolerance. The patient will continue to benefit from ongoing skilled physical therapy to progress toward set goals. PLAN FOR NEXT VISIT: Continue with postural stretching and strengthening and manual therapy. SUBJECTIVE: Pt reports that overall she is better. She reports having good days and bad days. She reports feeling better for several days after manual therapy done last session. She reports compliance with HEP. She reports that she worked a 14 hour shift yesterday and is sore today as a result. Pain: Pain Pain Level: 8 Pain Location: Scapula - Left Description: Dull Frequency: Intermittent, With movement (currently constant) Post Treatment Pain Post Treatment Pain Level: Better Post Treatment Pain Location: Scapula - Left Post Treatment Symptoms: After manual therapy, pt reported feeling better with less pain and less tightness. OBJECTIVE MEASURES WITH LEVEL OF FUNCTION: TREATMENT: Therapeutic Exercise: 1: SciFit StepOne seat #12 x5 minutes (Pt provided an update on her condition and plan of care reviewed.) 2: seated cervical retraction x10 3: seated L levator scapulae stretch x30 seconds 4: L UE horizontal adduction stretch 3x30 seconds 5: seated thoracic extension 2x10 with fingers laced behind neck. 6: corner pectoral stretch 3x30 seconds 7: seated scapular retraction 2x10 in front of mirror to avoid scapular elevation. Skilled Intervention: Patient was educated in proper exercise technique and purpose for exercises. Skilled judgment was used in selection of appropriate interventions. Correct performance of therapeutic exercises was facilitated with verbal and visual cuing. Manual Therapy: Soft Tissue Mobilization: After therex, manual therapy to cervical spine and surrounding musculature with pt supine. Techniques include massage, muscle bending, trigger point release, sub occipital release and finally intermittent manual cervical traction with 20 second holds and 10 second rests. Total time with manual therapy was 16 minutes. Skilled Intervention: Manual skills to improve joint mobility, ROM, and decrease pain. Utilized anatomy knowledge of the therapist, and assessment of patient's response to intervention. Billing Therapeutic Exercise Treatment Minutes: 29 Manual TherapyTreatment Minutes: 16 Skilled Treatment Time Minutes (timed and untimed codes): 45 Total Session Time (minutes): 45 Session Start Time : 1535 Session Stop Time : 1620 Mathew Markham PT documented in this encounter [facility] 11-13-2024 Note HNO ID: [id number] Author: MATHEW MARKHAM PT Service: ? Author Type: Physical Therapist Type: Progress Notes Filed: 11/13/2024 17:28 Note Text: Episode Visit Count: 2 Therapist That Will Accept/Oversee The Plan Of Care: Mathew Markham PT Start of Care Date: 11/05/24 Onset Date: 09/04/24 Plan of Care Certification Date: 01/05/21 Next Certification Due Date: 03/07/21 Patient Identified by Name and Date of : Yes REHABILITATION AND SPORTS THERAPY PHYSICAL THERAPY TREATMENT NOTE ASSESSMENT: Thaddeus Crawford tolerated the session with decreased symptoms. She demonstrated improvements in pain and muscle tension. The patient will continue to benefit from ongoing skilled physical therapy to progress toward set goals. PLAN FOR NEXT VISIT: Continue with postural stretching and strengthening and manual therapy. SUBJECTIVE: Pt reports that overall her neck is better but pain between shoulder blades is no different. She also reports that L rhomboid doorknob stretch causes pain in L flank. She reports compliance with HEP multiple times throughout the day. Pt reports increased postural awareness and that she is working on this. Pain: Pain Pain Level: (5-6/10) Pain Location: Scapula - Left Description: Dull Frequency: Intermittent, With movement Post Treatment Pain Post Treatment Pain Level: Better (1-2/10) Post Treatment Pain Location: Scapula - Left Post Treatment Pain Description: (relaxed) Post Treatment Symptoms: After session, pt reported a decrease in pain from 5-6/10 at start to 1-2/10 as she was leaving OBJECTIVE MEASURES WITH LEVEL OF FUNCTION: Posture / Alignment Posture: Forward head, Increased thoracic kyphosis, Rounded shoulders Special Tests - Cervical Cervical Special Tests: Vertebral Artery Test, Spurling Vertebral Artery Test: Negative Spurling: Left Positive, Right Negative TREATMENT: Therapeutic Exercise: 1: SciFit StepOne seat #12 x5 minutes (Pt provided an update on her condition and plan of care reviewed.) 2: seated cervical retraction 2x10 3: seated L levator scapulae stretch 3x30 seconds 4: L rhomboid doorknob stretch reviewed but stopped and removed from HEP secondary to discomfort in L flank and L shoulder. 5: *seated thoracic extension 2x10 with fingers laced behind neck. 6: *corner pectoral stretch 3x30 seconds 7: seated scapular retraction 2x10 in front of mirror to avoid scapular elevation. Skilled Intervention: Patient was educated in proper exercise technique and purpose for exercises. Reviewed and educated patient on additions/changes for home exercise program as above (*). Skilled judgment was used in selection of appropriate interventions. Provided written instruction for home exercise program to facilitate proper performance and compliance. Correct performance of therapeutic exercises was facilitated with verbal, visual, and tactile cuing. Patient education as noted. Manual Therapy: Soft Tissue Mobilization: After therex, manual therapy to cervical spine and surrounding musculature with pt supine. Techniques include massage, muscle bending, trigger point release, sub occipital release and finally intermittent manual cervical traction with 20 second holds and 10 second rests. Total time with manual therapy was 16 minutes. Skilled Intervention: Manual skills to improve joint mobility, ROM, and decrease pain. Utilized anatomy knowledge of the therapist, and assessment of patient's response to intervention. Self-Residential Management: 1: postural correction reviewed and encouraged Skilled Intervention: Reviewed patient specific diagnosis in relation to activities of daily living/home management. Billing Therapeutic Exercise Treatment Minutes: 31 Manual TherapyTreatment Minutes: 16 Self-Care/Home Management Treatment Minutes: 5 Skilled Treatment Time Minutes (timed and untimed codes): 52 Total Session Time (minutes): 52 Session Start Time : 1603 Session Stop Time : 1655 Mathew Markham PT [facility] 11-13-2024 History of Presen t illness Narrative Episode Visit Count: 2 Therapist That Will Accept/Oversee The Plan Of Care: Mathew Markham PT Start of Care Date: 11/05/24 Onset Date: 09/04/24 Plan of Care Certification Date: 01/05/21 Next Certification Due Date: 03/07/21 Patient Identified by Name and Date of : Yes REHABILITATION AND SPORTS THERAPY PHYSICAL THERAPY TREATMENT NOTE ASSESSMENT: Thaddeus Crawford tolerated the session with decreased symptoms. She demonstrated improvements in pain and muscle tension. The patient will continue to benefit from ongoing skilled physical therapy to progress toward set goals. PLAN FOR NEXT VISIT: Continue with postural stretching and strengthening and manual therapy. SUBJECTIVE: Pt reports that overall her neck is better but pain between shoulder blades is no different. She also reports that L rhomboid doorknob stretch causes pain in L flank. She reports compliance with HEP multiple times throughout the day. Pt reports increased postural awareness and that she is working on this. Pain: Pain Pain Level: (5-6/10) Pain Location: Scapula - Left Description: Dull Frequency: Intermittent, With movement Post Treatment Pain Post Treatment Pain Level: Better (1-2/10) Post Treatment Pain Location: Scapula - Left Post Treatment Pain Description: (relaxed) Post Treatment Symptoms: After session, pt reported a decrease in pain from 5-6/10 at start to 1-2/10 as she was leaving OBJECTIVE MEASURES WITH LEVEL OF FUNCTION: Posture / Alignment Posture: Forward head, Increased thoracic kyphosis, Rounded shoulders Special Tests - Cervical Cervical Special Tests: Vertebral Artery Test, Spurling Vertebral Artery Test: Negative Spurling: Left Positive, Right Negative TREATMENT: Therapeutic Exercise: 1: SciFit StepOne seat #12 x5 minutes (Pt provided an update on her condition and plan of care reviewed.) 2: seated cervical retraction 2x10 3: seated L levator scapulae stretch 3x30 seconds 4: L rhomboid doorknob stretch reviewed but stopped and removed from HEP secondary to discomfort in L flank and L shoulder. 5: *seated thoracic extension 2x10 with fingers laced behind neck. 6: *corner pectoral stretch 3x30 seconds 7: seated scapular retraction 2x10 in front of mirror to avoid scapular elevation. Skilled Intervention: Patient was educated in proper exercise technique and purpose for exercises. Reviewed and educated patient on additions/changes for home exercise program as above (*). Skilled judgment was used in selection of appropriate interventions. Provided written instruction for home exercise program to facilitate proper performance and compliance. Correct performance of therapeutic exercises was facilitated with verbal, visual, and tactile cuing. Patient education as noted. Manual Therapy: Soft Tissue Mobilization: After therex, manual therapy to cervical spine and surrounding musculature with pt supine. Techniques include massage, muscle bending, trigger point release, sub occipital release and finally intermittent manual cervical traction with 20 second holds and 10 second rests. Total time with manual therapy was 16 minutes. Skilled Intervention: Manual skills to improve joint mobility, ROM, and decrease pain. Utilized anatomy knowledge of the therapist, and assessment of patient's response to intervention. Self-Residential Management: 1: postural correction reviewed and encouraged Skilled Intervention: Reviewed patient specific diagnosis in relation to activities of daily living/home management. Billing Therapeutic Exercise Treatment Minutes: 31 Manual TherapyTreatment Minutes: 16 Self-Care/Home Management Treatment Minutes: 5 Skilled Treatment Time Minutes (timed and untimed codes): 52 Total Session Time (minutes): 52 Session Start Time : 1603 Session Stop Time : 1655 Mathew Markham PT Program_ID:[id number] Access Code: [email or web address] URL: [email or web address] Date: 11-13-2024 Prepared By: Mathew Markham Program Notes Exercises - Gentle Levator Scapulae Stretch - 3 x daily - 7 x weekly - sets - 3 reps - Seated Cervical Retraction - 3 x daily - 7 x weekly - 2 sets - 10 reps - Corner Pec Major Stretch - 3 x daily - 7 x weekly - sets - 3 reps - Seated Thoracic Extension with Hands Behind Neck - 2 x daily - 7 x weekly - 2 sets - 10 reps Patient Education - cc Posture Training Slouch Overcorrect documented in this encounter [facility] 11-12-2024 Instructions Azul Montejo MD - 11/12/2024 3:19 PM EST Labs to be done on 2 days , fasting at 8 am Hold supplements with biotin for 3 to 4 days before labs are drawn Day 1: ACTH, DHEA-s Day 2: Dexamethasone suppression test: Directions for dexamethasone suppression test: 1. Take dexamethasone 1-mg tab by mouth at 11 PM the evening before your test. 2. Go to the lab the next morning and have your blood drawn at ~8 AM. *Do not eat or drink anything other than water from the time you take dexamethasone to the time you get your blood drawn. 3. If either of the following situations happen, DO NOT HAVE YOUR BLOOD DRAWN: A. You forget to take the pill at 11 PM the evening before B. You cannot get your blood drawn the next morning at ~8 AM C. If either situation happens, please call me to let me know documented in this encounter [facility] 11-12-2024 Note HNO ID: [id number] Author: AZUL MONTEJO MD Service: ? Author Type: Physician Type: Progress Notes Filed: 11/22/2024 12:54 Note Text: [facility] Initial Clinic Visit Note Patient referred by: Mac Connelly APRN. SAMINA My final recommendations will be communicated back to the requesting provider by way of shared medical record or letter via US mail. History of Present Illness: Ms. Thaddeus Crawford is a 39 year old female coming today for evaluation of adrenal hyperplasia History in brief, she underwent CT abd/pelvis for left sided abdominal pain and bloating and was incidentally found to have b/l adrenal hyperplasia She is on mirena for control No issues with facial hair or body hair Hx of migraines, no worsening Intermittent blurriness of vision that corrects spontaneously Hair loss Feels thirsty a lot, mostly drinks water or tea, sometimes drinks pop No abdominal stretch disla, not even from . Has easy bruising, noticed it since last year Has delayed healing Fracture of left index finger from playing with dog, reports not healing well On further questioning about changes in voice, reports hoarseness difficulty raising arms overhead, difficulty getting up from a seated position: No No proximal muscle weakness Sometimes has flushing, jitteriness. She also has anxious spells sometimes Previous use of Steroids, oral, inhalers, injections: intermittently to reduce inflammation- I have been hurting all joints FH: not pertinent Past Medical History: PAST MEDICAL HISTORY Diagnosis Date Asthma Benign neoplasm of colon Benign polyp. 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 Surgical History: PAST SURGICAL HISTORY Procedure Laterality Date COLONOSCOPY 03/31/2023 COLONOSCOPY FLX DX W/COLLJ SPEC WHEN PFRMD 07/31/2012 Colonoscopy COLONOSCOPY FLX DX W/COLLJ SPEC WHEN PFRMD 08/07/2017 5 year repeat COLONOSCOPY SCREENING 08/19/2022 Diverticulosis, tubular adenoma, sessile serrated polyp. EGD W/O BRSH SPEC VARICIES INJ 08/19/2022 Active inflammation in lower esophagus ESOPHAGOGASTRODUODENOSCOPY TRANSORAL DIAGNOSTIC 11/20/2014 EGD ESOPHAGOGASTRODUODENOSCOPY TRANSORAL DIAGNOSTIC 02/20/2015 EGD ESOPHAGOGASTRODUODENOSCOPY TRANSORAL DIAGNOSTIC 08/07/2017 EGD ESOPHAGOGASTRODUODENOSCOPY TRANSORAL DIAGNOSTIC 12/18/2018 EGD INCISION AND REMOVAL FOREIGN BODY SUBQ TISS SIMPLE Left 07/12/2018 Removal foreign body left index finger INCISION AND REMOVAL FOREIGN BODY SUBQ TISS SIMPLE Left 07/12/2018 Excision foreign body left index finger LAPS SURG CHOLECYSTECTOMY W/CHOLANGIOGRAPHY 08/13/2010 MIRENA IUD 08/2012 OPEN REPAIR OF ROTATOR CUFF ACUTE Left 04/2000 Rotator cuff repair PAST SURGICAL HISTORY OF Removal ganglion cyst, foot, wrist, PAST SURGICAL HISTORY OF Excision Pilonidal cyst TONSILLECTOMY PRIMARY/SECONDARY Tonsillectomy Family Medical History: FAMILY HISTORY Problem Relation Age of Onset Hypertension Mother 63 Stroke Mother Asthma Mother Heart disease Mother Cancer Father Throat cancer Breast Cancer Paternal Aunt other (other) Maternal Grandmother Cancer Maternal Grandmother Colon other (other) Maternal Grandfather Cancer Maternal Grandfather Leukemia Heart Paternal Grandmother other (DIverticulosis) Other Social History: Social History Tobacco Use Smoking status: Every Day Current packs/day: 0.00 Average packs/day: 0.5 packs/day for 18.4 years (9.2 ttl pk-yrs) Types: Cigarettes Start date: 1997 Last attempt to quit: 08/23/2015 Years since quittin.2 Smokeless tobacco: Never Vaping Use Vaping status: Never Used Substance Use Topics Alcohol use: Not Currently Drug use: No Allergies: ALLERGIES Allergen Reactions Adhesive Rash Codeine Vomiting Penicillins GI Upset Current medications: Current Outpatient Medications Medication Sig methocarbamol (ROBAXIN) 500 mg tablet Take 1 tablet by mouth three times a day as needed. buPROPion XL (WELLBUTRIN XL) 300 mg 24 hr tablet Take 300 mg by mouth once daily. albuterol (PROVENTIL) 2.5 mg /3 mL (0.083 %) nebulizer solution Use 3 mL via nebulizer every 4 hours as needed for wheezing/shortness of breath. Use over 5-15minutes. budesonide-formoterol (SYMBICORT) 160-4.5 mcg/actuation inhaler Inhale 2 Puffs as instructed four times a day as needed. albuterol HFA (PROVENTIL HFA, VENTOLIN HFA) 90 mcg/actuation inhaler Inhale 2 Puffs as instructed every 4 hours as needed for wheezing/shortness of breath. pantoprazole DR (PROTONIX) 40 mg tablet Take 2 tablets by mouth once daily. escitalopram oxalate (LEXAPRO) 20 mg tablet Take 1 tablet by mouth jacklyn (more content not included)... [facility] 11-12-2024 History of Presen t illness Narrative [facility] Initial Clinic Visit Note Patient referred by: Mac Connelly APRN. SAMINA History of Present Illness: Ms. Thaddeus Crawford is a 39 year old female coming today for evaluation of adrenal hyperplasia History in brief, she underwent CT abd/pelvis for left sided abdominal pain and bloating and was incidentally found to have b/l adrenal hyperplasia She is on mirena for control No issues with facial hair or body hair Hx of migraines, no worsening Intermittent blurriness of vision that corrects spontaneously Hair loss Feels thirsty a lot, mostly drinks water or tea, sometimes drinks pop No abdominal stretch disla, not even from . Has easy bruising, noticed it since last year Has delayed healing Fracture of left index finger from playing with dog, reports not healing well On further questioning about changes in voice, reports hoarseness difficulty raising arms overhead, difficulty getting up from a seated position: No No proximal muscle weakness Sometimes has flushing, jitteriness. She also has anxious spells sometimes Previous use of Steroids, oral, inhalers, injections: intermittently to reduce inflammation- I have been hurting all joints FH: not pertinent Past Medical History: PAST MEDICAL HISTORY Diagnosis Date Asthma Benign neoplasm of colon Benign polyp. 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 Surgical History: PAST SURGICAL HISTORY Procedure Laterality Date COLONOSCOPY 03/31/2023 COLONOSCOPY FLX DX W/COLLJ SPEC WHEN PFRMD 07/31/2012 Colonoscopy COLONOSCOPY FLX DX W/COLLJ SPEC WHEN PFRMD 08/07/2017 5 year repeat COLONOSCOPY SCREENING 08/19/2022 Diverticulosis, tubular adenoma, sessile serrated polyp. EGD W/O BRSH SPEC VARICIES INJ 08/19/2022 Active inflammation in lower esophagus ESOPHAGOGASTRODUODENOSCOPY TRANSORAL DIAGNOSTIC 11/20/2014 EGD ESOPHAGOGASTRODUODENOSCOPY TRANSORAL DIAGNOSTIC 02/20/2015 EGD ESOPHAGOGASTRODUODENOSCOPY TRANSORAL DIAGNOSTIC 08/07/2017 EGD ESOPHAGOGASTRODUODENOSCOPY TRANSORAL DIAGNOSTIC 12/18/2018 EGD INCISION & REMOVAL FOREIGN BODY SUBQ TISS SIMPLE Left 07/12/2018 Removal foreign body left index finger INCISION & REMOVAL FOREIGN BODY SUBQ TISS SIMPLE Left 07/12/2018 Excision foreign body left index finger LAPS SURG CHOLECYSTECTOMY W/CHOLANGIOGRAPHY 08/13/2010 MIRENA IUD 08/2012 OPEN REPAIR OF ROTATOR CUFF ACUTE Left 04/2000 Rotator cuff repair PAST SURGICAL HISTORY OF Removal ganglion cyst, foot, wrist, PAST SURGICAL HISTORY OF Excision Pilonidal cyst TONSILLECTOMY PRIMARY/SECONDARY <AGE 12 Tonsillectomy Family Medical History: FAMILY HISTORY Problem Relation Age of Onset Hypertension Mother 63 Stroke Mother Asthma Mother Heart disease Mother Cancer Father Throat cancer Breast Cancer Paternal Aunt other (other) Maternal Grandmother Cancer Maternal Grandmother Colon other (other) Maternal Grandfather Cancer Maternal Grandfather Leukemia Heart Paternal Grandmother other (DIverticulosis) Other Social History: Social History Tobacco Use Smoking status: Every Day Current packs/day: 0.00 Average packs/day: 0.5 packs/day for 18.4 years (9.2 ttl pk-yrs) Types: Cigarettes Start date: 1997 Last attempt to quit: 08/23/2015 Years since quittin.2 Smokeless tobacco: Never Vaping Use Vaping status: Never Used Substance Use Topics Alcohol use: Not Currently Drug use: No Allergies: ALLERGIES Allergen Reactions Adhesive Rash Codeine Vomiting Penicillins GI Upset Current medications: Current Outpatient Medications Medication Sig methocarbamol (ROBAXIN) 500 mg tablet Take 1 tablet by mouth three times a day as needed. buPROPion XL (WELLBUTRIN XL) 300 mg 24 hr tablet Take 300 mg by mouth once daily. albuterol (PROVENTIL) 2.5 mg /3 mL (0.083 %) nebulizer solution Use 3 mL via nebulizer every 4 hours as needed for wheezing/shortness of breath. Use over 5-15minutes. budesonide-formoterol (SYMBICORT) 160-4.5 mcg/actuation inhaler Inhale 2 Puffs as instructed four times a day as needed. albuterol HFA (PROVENTIL HFA, VENTOLIN HFA) 90 mcg/actuation inhaler Inhale 2 Puffs as instructed every 4 hours as needed for wheezing/shortness of breath. pantoprazole DR (PROTONIX) 40 mg tablet Take 2 tablets by mouth once daily. escitalopram oxalate (LEXAPRO) 20 mg tablet Take 1 tablet by mouth every afternoon. Ascorbic Acid 1,000 mg tablet Take 1,000 mg by mouth once daily. multivit,calc,mins/iron/folic (ONE-A-DAY WOMENS FORMULA ORAL) Take by mouth. levonorgestrel (MIRENA) 20 mcg/24 hr (5 years) IUD Inserted in office No current facility-administered medications for this visit. Review of Systems: 10 point ROS was reviewed and negative unless indicated in the HPI Physical exam: BP 110/80 (BP Site: Right Arm, BP Position: Sitting, BP Cuff Size: Regular Adult) Pulse 71 Resp 19 Ht 160 cm (5' 3) Wt 87.1 kg (192 lb) LMP (LMP Unknown) SpO2 96% BMI 34.01 kg/m General Appearance: Well appearing, alert, in no acute distress, well-hydrated, well nourished, obese body habitus Skin: Skin color, texture, turgor normal, no suspicious rashes or lesions. Eyes: Anicteric sclera. Extraocular movements are intact. Neck: Supple, no adenopathy; thyroid symmetric, normal size, no bruits. Dorsal neck fat pad noted Lungs: unlabored breathing on room air Heart: Regular rate and rhythm, S1 and S2 normal. Abdomen:: no stretch disla on abdomen Extremities: No deformities, edema, skin discoloration, clubbing or cyanosis. No tremors of outstretched arms Musculoskeletal: No joint swelling, deformity, or tenderness. Peripheral Pulses: Normal. Neurologic: Gait normal. Reflexes normal and symmetric. Previous laboratory results: No pertinent labs available in the recent past Imaging: CT abdomen/pelvis without IV contrast: 06/18/2024 CLINICAL HISTORY: Left-sided pain. Abdominal bloating. TECHNIQUE: Non-IV contrast imaging of the abdomen and pelvis was performed using standard technique, scanning from just above the dome of the diaphragm to the symphysis pubis. Unenhanced imaging is limited for the evaluation of some intra-abdominal and pelvic pathology. MQ: [id number] Contrast: IV: None Oral: 10 ml of Omni 240 10-25ml diluted with water CT Radiation dose: Integrated Dose-length product (DLP) for this visit = 651 mGy*cm. CT Dose Reduction Employed: Automated exposure control(AEC) and iterative recon COMPARISON: None. RESULT: Abdomen / Pelvis: Liver: Unremarkable unenhanced liver. Biliary: Gallbladder not visualized. Spleen: No splenomegaly. Pancreas: Unremarkable unenhanced pancreas. Adrenals: Mild thickening of the bilateral adrenal glands compatible with adenomatous hyperplasia. Kidneys: No calculus, hydronephrosis or finding to suggest a cyst or mass in the unenhanced kidney. GI Tract: No bowel dilation. Left-sided predominant colonic diverticulosis without CT evidence of complications. Normal appendix. Lymph Nodes: No lymphadenopathy. Mesentery/peritoneum: No ascites. Retroperitoneum: No mass. Vasculature: Arterial atherosclerotic disease without aneurysm. Pelvis: Bladder normal in appearance. Intrauterine device present. 5 cm left adnexal cyst. Bones/Soft Tissues: Small fat-containing umbilical hernia. Fat-containing supraumbilical hernia with the hernia mouth measuring 2 cm and with the hernia sac measuring 4.1 cm. This is supraumbilical hernia demonstrates infiltration of the herniated fat. No destructive osseous lesion. Lower thorax: Reticulonodular prominence of the interstitial markings in the bilateral lung bases. Couple of nonspecific thin-walled cysts scattered within the bilateral lower lobes measuring up to 1 cm in size in the left lower lobe. Localizer images: No additional findings. IMPRESSION: 1. 5 cm left adnexal cyst. 2. Fat-containing epigastric hernia with infiltration of the herniated fat. 3. Adenomatous hyperplasia of the bilateral adrenal glands. 4. Reticulonodular prominence of the interstitial markings in the bilateral visualized lung bases with a few scattered thin-walled cysts. Clinical correlation for an inflammatory or infectious process is advised. 5. Additional incidental findings as described ASSESSMENT/PLAN: Patient presents for evaluation of incidentally found adrenal hyperplasia DDx include micronodular adrenal hyperplasia, macronodular hyperplasia, Kit's disease - subclinical I discussed about lab testing as below on separate days: - ARR, Potassium, ACTH, DHEA-s - 1 mg DST - due to CT abd reveals adenomatous hyperplasia, will only be doing the above labs. Might consider pituitary MRI or adrenal CT once labs results are out, in addition to possible further testing Instructions given in detail Patient understands and agrees with the plan discussed. Follow up in 1 to 2 months with labs SIGNATURE: Azul Montejo MD DATE of SERVICE: November 12, 2024 TIME of SERVICE: 2:57 PM Medical Decision Making: Problems: Moderate: New problem with uncertain prognosis Data: Unique test result(s) reviewed: 2 Unique test(s) ordered: 3+ Independent interpretation of test from other physician/QHCP Risk: Moderate: Moderate risk from testing/treatment Medical Decision Making Level: 4 - Moderate documented in this encounter [facility] 11-05-2024 Note HNO ID: [id number] Author: MATHEW MARKHAM PT Service: ? Author Type: Physical Therapist Type: Progress Notes Filed: 11/05/2024 18:13 Note Text: Episode Visit Count: 1 Therapist That Will Accept/Oversee The Plan Of Care: Mathew Markham PT Start of Care Date: 11/05/24 Onset Date: 09/04/24 Plan of Care Certification Date: 01/05/21 Next Certification Due Date: 03/07/21 Patient Identified by Name and Date of : Yes REHABILITATION AND SPORTS THERAPY PHYSICAL THERAPY EVALUATION PLAN OF CARE: Assessment: Thaddeus Crawford presents with chief complaint of pain in L scapular region that interferes with working, lifting, sleeping, physical activities. The patient presents with impairments in ADL's, independence in exercise, overall function, patient reported outcome measures, posture, strength, symptom management, and tissue tenderness. PROMIS? (Patient-Reported Outcomes Measurement Information System) scores were reviewed and identified as a rehabilitation concern. Prognosis for therapy is Good due to: current objective clinical presentation, good overall health status, positive past response to therapy, within-session changes, good support system/ coping skills. The patient will benefit from skilled therapy services to meet the goals established for this plan of care as noted below. Goals for Episode of Care: established 11/05/24 Patient reported outcome of physical function will increase T-score by a minimum 5 points. Independent in a Home Exercise Program. Patient will decrease pain to 0/10 with functional activities to allow patient to improve lifting, work and sleep. Restore pain free cervical ROM to WFL to allow for improved sleep. Sleep throughout the night without pain/symptoms. Patient will increase strength of postural muscles to WFL to allow for improve ability to maintain proper posture, improve mechanics, and decrease pain. Patient Goals: eliminate pain Time Frame for Goals and Treatment : 12/17/24 Planned Interventions, Frequency, and Duration: Current Frequency: 2x/week Duration: 6 weeks Total Number of Visits Planned: 12 Planned Treatment Interventions: Therapeutic exercise (53338), Neuromuscular re-education (14443), Manual therapy (53575), Therapeutic activities (15163), Self-custodial management (22582), Patient/Family/Caregiver Education, Body Mechanics Training PLAN FOR NEXT VISIT: Review, correct and progress HEP to tolerance. Continue with postural correction, postural stretching and strengthening. Consider manual therapy prn. Patient demonstrates good understanding of plan of care and treatment. The above goals and plan of care were discussed and agreed upon by patient/family. SUBJECTIVE: Pt reports intermittent pain in L scapular region that was previously constant. Pain is aggravated by increased physical use of L UE. She reports that the muscle relaxing medication has helped. 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 Infection Clinical Reasoning: No identified risk factors. Cervical Arterial Dysfunction Clinical Reasoning: No identified risk factors Red Flags - Cervical Cancer Clinical Reasoning: No identified risk factors. Infection Clinical Reasoning: No identified risk factors. Cervical Arterial Dysfunction Clinical Reasoning: No identified risk factors Spine History Symptoms Location at Onset: Back Symptoms Since Onset: Improving Pain is Worse Always: On the Move Pain is Better Always: Rest Previous Episodes: No Sleeping Position: Side lying left Sleep Affected by Pain: Pain keeps from falling asleep, Pain awakens Pain: Pain Pain Level: 4 Pain Location: Scapula - Left Description: Dull Frequency: Intermittent, With movement Post Treatment Pain Post Treatment Pain Level: Better Post Treatment Symptoms: After session pt stated that she could tell that she worked it but that she felt looser and better. PROMIS Scales 11/05/2024 Higher is Better Phys Func - T Score 42 (mild dysfunction) Phys Func - Percentile 21 Self-Eff Symptom - T Score 32 (Low) Self-Eff Symptom - Percentile 4 T-scores: mean of general population = 50. 5 points is clinically meaningfully difference Percentiles provide an indication of how the patient's score ranks in relation to the general population. [place]he (more content not included)... [facility] 11-05-2024 History of Presen t illness Narrative Images from the original note were not included. Episode Visit Count: 1 Therapist That Will Accept/Oversee The Plan Of Care: Mathew Markham PT Start of Care Date: 11/05/24 Onset Date: 09/04/24 Plan of Care Certification Date: 01/05/21 Next Certification Due Date: 03/07/21 Patient Identified by Name and Date of : Yes REHABILITATION AND SPORTS THERAPY PHYSICAL THERAPY EVALUATION PLAN OF CARE: Assessment: Thaddeus Crawford presents with chief complaint of pain in L scapular region that interferes with working, lifting, sleeping, physical activities. The patient presents with impairments in ADL's, independence in exercise, overall function, patient reported outcome measures, posture, strength, symptom management, and tissue tenderness. PROMIS (Patient-Reported Outcomes Measurement Information System) scores were reviewed and identified as a rehabilitation concern. Prognosis for therapy is Good due to: current objective clinical presentation, good overall health status, positive past response to therapy, within-session changes, good support system/ coping skills. The patient will benefit from skilled therapy services to meet the goals established for this plan of care as noted below. Goals for Episode of Care: established 11/05/24 Patient reported outcome of physical function will increase T-score by a minimum 5 points. Independent in a Home Exercise Program. Patient will decrease pain to 0/10 with functional activities to allow patient to improve lifting, work and sleep. Restore pain free cervical ROM to WFL to allow for improved sleep. Sleep throughout the night without pain/symptoms. Patient will increase strength of postural muscles to WFL to allow for improve ability to maintain proper posture, improve mechanics, and decrease pain. Patient Goals: eliminate pain Time Frame for Goals and Treatment : 12/17/24 Planned Interventions, Frequency, and Duration: Current Frequency: 2x/week Duration: 6 weeks Total Number of Visits Planned: 12 Planned Treatment Interventions: Therapeutic exercise (98003), Neuromuscular re-education (22829), Manual therapy (02585), Therapeutic activities (39690), Self-custodial management (48055), Patient/Family/Caregiver Education, Body Mechanics Training PLAN FOR NEXT VISIT: Review, correct and progress HEP to tolerance. Continue with postural correction, postural stretching and strengthening. Consider manual therapy prn. Patient demonstrates good understanding of plan of care and treatment. The above goals and plan of care were discussed and agreed upon by patient/family. SUBJECTIVE: Pt reports intermittent pain in L scapular region that was previously constant. Pain is aggravated by increased physical use of L UE. She reports that the muscle relaxing medication has helped. 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 Infection Clinical Reasoning: No identified risk factors. Cervical Arterial Dysfunction Clinical Reasoning: No identified risk factors Red Flags - Cervical Cancer Clinical Reasoning: No identified risk factors. Infection Clinical Reasoning: No identified risk factors. Cervical Arterial Dysfunction Clinical Reasoning: No identified risk factors Spine History Symptoms Location at Onset: Back Symptoms Since Onset: Improving Pain is Worse Always: On the Move Pain is Better Always: Rest Previous Episodes: No Sleeping Position: Side lying left Sleep Affected by Pain: Pain keeps from falling asleep, Pain awakens Pain: Pain Pain Level: 4 Pain Location: Scapula - Left Description: Dull Frequency: Intermittent, With movement Post Treatment Pain Post Treatment Pain Level: Better Post Treatment Symptoms: After session pt stated that she could tell that she worked it but that she felt looser and better. PROMIS Scales 11/05/2024 Higher is Better Phys Func - T Score 42 (mild dysfunction) Phys Func - Percentile 21 Self-Eff Symptom - T Score 32 (Low) Self-Eff Symptom - Percentile 4 T-scores: mean of general population = 50. 5 points is clinically meaningfully difference Percentiles provide an indication of how the patient's score ranks in relation to the general population. Higher percentile rankings indicate better function/quality of life. 50th percentile is the average of the general population and indicates half of respondents had a worse score. OBJECTIVE MEASURES WITH LEVEL OF FUNCTION: Posture / Alignment Posture: Forward head, Increased thoracic kyphosis, Rounded shoulders L Shoulder Alignment: Rounded shoulder, Protracted scapula, Humeral internal rotation Shoulder Observations L Shoulder Palpation Tenderness: No tenderness noted (slight tenderness at sub AC region but minor) Spine Observations L Thoracic Spine Palpation Tenderness: Rhomboid, Levator Scapulae Sensation - Cervical Spine Cervical Spine Sensation: Impaired Cervical Spine Sensation - Impaired: (pt reports decreased sensation throughout L UE) Cervical Spine ROM Cervical ROM : Limitation AROM Cervical Flexion AROM: Normal Cervical Extension AROM: Normal Cervical Side-Bend Right AROM: Normal Cervical Side-Bend Left AROM: Normal Cervical Rotation Right AROM: Normal Cervical Rotation Left AROM: Normal, Increased pain UE and Cervical Strength Strength Tested: Cervical Cervical Strength: Pt's postural deficits, job demands and reported functional difficulties indicate that she will benefit from increased postural strength. Special Tests - Cervical Cervical Special Tests: Cervical Compression, Cervical Distraction, Spurling Cervical Compression: Negative Cervical Distraction: Negative Spurling: Right Negative, Left Positive (L reproduced chief complaint along medial border of L scapula) Vitals BP: 112/73 Pulse: 77 Education: Education Learning Preferences: Demonstration, Explanation, Performance, Printed Materials Barriers: None Learning/educational needs: Home exercise program, Plan of Care, Posture, Body Mechanics Education Provided: Yes, see treatment interventions for education provided Education Provided To: Patient Education Mode/Type: Demonstration, Explanation/Discussion, Literature/Printed Materials, Performance Response to Education/Teach Back: States/Identifies, Return Demonstration, Requires Review/Additional Education TREATMENT: PT Treatment Interventions: Therapeutic Exercise, Self-Residential Management Evaluation Therapeutic Exercise: 1: Pt was educated on proper intensity with all therex and the importance of stopping any exercise that causes increased pain. Anatomy of symptomatic area discussed and pictures used to clarify education. 2: *seated cervical retraction 2x10 3: *seated L levator scapulae stretch 3x30 seconds 4: *L rhomboid door knob stretch 3x30 seconds Skilled Intervention: Patient was educated in proper exercise technique and purpose for exercises. Reviewed and educated patient on additions/changes for home exercise program as above (*). Skilled judgment was used in selection of appropriate interventions. Provided written instruction for home exercise program to facilitate proper performance and compliance. Correct performance of therapeutic exercises was facilitated with verbal and visual cuing. Patient education as noted. Self-Residential Management: 1: Pt was educated extensively on the anatomy of symptomatic areas, likely etiology of symptoms and rationale for recommended PT plan of care. Postural correction explained and emphasized. Pt was educated on how to use a towel roll in her pillow case to support her cervical lordosis. Handout on postural correction provided. Skilled Intervention: Skilled judgment in the selection of proper modification for activity of daily living/home management based on clinical presentation, deficits, and needs. Reviewed patient specific diagnosis in relation to activities of daily living/home management. Billing * Evaluation Low Complexity: 1 Unit Therapeutic Exercise Treatment Minutes: 10 Self-Care/Home Management Treatment Minutes: 8 Skilled Treatment Time Minutes (timed and untimed codes): 38 Total Session Time (minutes): 38 Session Start Time : 1320 Session Stop Time : 1358 Mathew Markham PT Program_ID:[id number] Access Code: [email or web address] URL: [email or web address] Date: 11-05-2024 Prepared By: Mathew Markham Program Notes Exercises - Gentle Levator Scapulae Stretch - 3 x daily - 7 x weekly - sets - 3 reps - Doorway Rhomboid Stretch - 3 x daily - 7 x weekly - sets - 3 reps - Seated Cervical Retraction - 3 x daily - 7 x weekly - 2 sets - 10 reps Patient Education - cc Posture Training Slouch Overcorrect documented in this encounter [facility] 11-01-2024 Telephone encounter Note Patient notified of results, verbalizes understanding of instructions. Holden Thompson LPN [facility] 11-01-2024 Miscellaneous Notes Patient notified of results, verbalizes understanding of instructions. Holden Thompson LPN Please let the patient know that her CT of the Chest shows scattered small lung nodules, some lymph node enlargement in the chest wall and an enlarged pulmonary artery. She potentially has a chronic lung disease. Recommendation is to see pulmonary medicine for further evaluation and treatment. I have placed a referral. Mac Connelly APRN.CNP documented in this encounter [facility] 10-31-2024 Telephone encounter Note Please let the patient know that her CT of the Chest shows scattered small lung nodules, some lymph node enlargement in the chest wall and an enlarged pulmonary artery. She potentially has a chronic lung disease. Recommendation is to see pulmonary medicine for further evaluation and treatment. I have placed a referral. Mac Connelly APRN.CNP [facility] 10-30-2024 History of Presen t illness Narrative Radiology Service Progress Note PATIENT NAME: Thaddeus Crawford DATE OF SERVICE: October 30, 2024 TIME: 12:04 PM PATIENT IDENTITY VERIFICATION COMPLETED USING TWO (2) IDENTIFIERS: Name and Date of confirmed by patient verbally. FALL SCREENING: Has the patient had 2 falls in the last year or 1 fall with injury or currently using an Ambulatory Assistive Device (Walker, Cane, Wheelchair, Crutches, etc.)? No PATIENT GENDER DATA: Assigned female at . status: : No status: NO. PATIENT RELEVANT IMPLANT DATA REVIEWED: Yes PATIENT PRESENTS WITH AN IMPLANTABLE OR ATTACHED PLASTICS AND COMPOSITES INSPECTOR: No RADIOLOGY DEPARTMENT: CT; Exam(s) Completed: Chest PERIPHERAL IV DATA: Not applicable SIGNED BY: RT Juice(Tim) October 30, 2024 12:04 PM documented in this encounter [facility] 10-30-2024 Note HNO ID: [id number] Author: ALLISON OLSEN RT(R) Service: ? Author Type: Customer Technical Services Manager Type: Progress Notes Filed: 10/30/2024 12:04 Note Text: Radiology Service Progress Note PATIENT NAME: Thaddeus Crawford DATE OF SERVICE: October 30, 2024 TIME: 12:04 PM PATIENT IDENTITY VERIFICATION COMPLETED USING TWO (2) IDENTIFIERS: Name and Date of confirmed by patient verbally. FALL SCREENING: Has the patient had 2 falls in the last year or 1 fall with injury or currently using an Ambulatory Assistive Device (Walker, Cane, Wheelchair, Crutches, etc.)? No PATIENT GENDER DATA: Assigned female at . status: : No status: NO. PATIENT RELEVANT IMPLANT DATA REVIEWED: Yes PATIENT PRESENTS WITH AN IMPLANTABLE OR ATTACHED PLASTICS AND COMPOSITES INSPECTOR: No RADIOLOGY DEPARTMENT: CT; Exam(s) Completed: Chest PERIPHERAL IV DATA: Not applicable SIGNED BY: HARDY Bose) October 30, 2024 12:04 PM [facility] 10-30-2024 Note HNO ID: [id number] Author: ALEXANDER BOSTON RPFT Service: ? Author Type: Respiratory Therapist Type: Progress Notes Filed: 10/30/2024 11:18 Note Text: PULM FUNCTION: Provider: Mac Connelly APRN.FUR FINISHER Assisting Tech: Alexander Boston RPFT Spirometry w/BD: 1 [facility] 10-30-2024 History of Presen t illness Narrative PULM FUNCTION: Provider: Mac Connelly APRN.FUR FINISHER Assisting Tech: Alexander Boston RPFT Spirometry w/BD: 1 documented in this encounter [facility] 10-24-2024 History of Presen t illness Narrative Chief Complaint Patient presents with: Pain: Left shoulder, upper back around shoulder blade HPI Thaddeus Crawford is a 39 year old female who presents here today for multiple concerns. Pt states she has missed work. Pain to left Shoulder and upper back left shoulder blade area intermittently for several months, constant last few weeks. Rated pain today 6-7/10, burning, ache. Pain does not go down the arm, just mostly across the shoulder blade and into shoulder. She has used biofreeze, heat, ibuprofen, Tylenol, massage which do not help much. Has not used any ice. Massage causes pain and hasn't really helped. Unsure what triggered the pain to start getting worse. Pretty much everything she does causes her pain. No injury to the arm or shoulder. She is having trouble sleeping due to pain, is a left side sleeper. The pain is causing nausea. She has missed work , Mon, and . Needs work excuse. Her job is pretty physical. She has been on Mobic in past but is no longer using it as it didn't help. Past medical history, appointments, medications, allergies reviewed. Previous Medical History PAST MEDICAL HISTORY Diagnosis Date Asthma Benign neoplasm of colon Benign polyp. 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 Previous Surgical History PAST SURGICAL HISTORY Procedure Laterality Date COLONOSCOPY 03/31/2023 COLONOSCOPY FLX DX W/COLLJ SPEC WHEN PFRMD 07/31/2012 Colonoscopy COLONOSCOPY FLX DX W/COLLJ SPEC WHEN PFRMD 08/07/2017 5 year repeat COLONOSCOPY SCREENING 08/19/2022 Diverticulosis, tubular adenoma, sessile serrated polyp. EGD W/O BRSH SPEC VARICIES INJ 08/19/2022 Active inflammation in lower esophagus ESOPHAGOGASTRODUODENOSCOPY TRANSORAL DIAGNOSTIC 11/20/2014 EGD ESOPHAGOGASTRODUODENOSCOPY TRANSORAL DIAGNOSTIC 02/20/2015 EGD ESOPHAGOGASTRODUODENOSCOPY TRANSORAL DIAGNOSTIC 08/07/2017 EGD ESOPHAGOGASTRODUODENOSCOPY TRANSORAL DIAGNOSTIC 12/18/2018 EGD INCISION & REMOVAL FOREIGN BODY SUBQ TISS SIMPLE Left 07/12/2018 Removal foreign body left index finger INCISION & REMOVAL FOREIGN BODY SUBQ TISS SIMPLE Left 07/12/2018 Excision foreign body left index finger LAPS SURG CHOLECYSTECTOMY W/CHOLANGIOGRAPHY 08/13/2010 MIRENA IUD 08/2012 OPEN REPAIR OF ROTATOR CUFF ACUTE Left 04/2000 Rotator cuff repair PAST SURGICAL HISTORY OF Removal ganglion cyst, foot, wrist, PAST SURGICAL HISTORY OF Excision Pilonidal cyst TONSILLECTOMY PRIMARY/SECONDARY <AGE 12 Tonsillectomy Family History FAMILY HISTORY Problem Relation Age of Onset Hypertension Mother 63 Stroke Mother Asthma Mother Heart disease Mother Cancer Father Throat cancer Breast Cancer Paternal Aunt other (other) Maternal Grandmother Cancer Maternal Grandmother Colon other (other) Maternal Grandfather Cancer Maternal Grandfather Leukemia Heart Paternal Grandmother other (DIverticulosis) Other Patient Allergies ALLERGIES Allergen Reactions Codeine Vomiting Penicillins GI Upset Current Medications Current Outpatient Medications on File Prior to Visit Medication Sig meloxicam (MOBIC) 15 mg tablet Take 1 tablet by mouth once daily. With food. buPROPion XL (WELLBUTRIN XL) 300 mg 24 hr tablet Take 300 mg by mouth once daily. albuterol (PROVENTIL) 2.5 mg /3 mL (0.083 %) nebulizer solution Use 3 mL via nebulizer every 4 hours as needed for wheezing/shortness of breath. Use over 5-15minutes. budesonide-formoterol (SYMBICORT) 160-4.5 mcg/actuation inhaler Inhale 2 Puffs as instructed four times a day as needed. albuterol HFA (PROVENTIL HFA, VENTOLIN HFA) 90 mcg/actuation inhaler Inhale 2 Puffs as instructed every 4 hours as needed for wheezing/shortness of breath. pantoprazole DR (PROTONIX) 40 mg tablet Take 2 tablets by mouth once daily. escitalopram oxalate (LEXAPRO) 20 mg tablet Take 1 tablet by mouth every afternoon. Ascorbic Acid 1,000 mg tablet Take 1,000 mg by mouth once daily. (Patient not taking: Reported on 05/24/2024) multivit,calc,mins/iron/folic (ONE-A-DAY WOMENS FORMULA ORAL) Take by mouth. (Patient not taking: Reported on 05/24/2024) levonorgestrel (MIRENA) 20 mcg/24 hr (5 years) IUD Inserted in office No current facility-administered medications on file prior to visit. Social History Social History Tobacco Use Smoking status: Every Day Current packs/day: 0.00 Average packs/day: 0.5 packs/day for 18.4 years (9.2 ttl pk-yrs) Types: Cigarettes Start date: 1997 Last attempt to quit: 08/23/2015 Years since quittin.1 Smokeless tobacco: Never Vaping Use Vaping status: Never Used Substance Use Topics Alcohol use: Not Currently Drug use: No EXAM: BP 118/70 Pulse 74 Resp 16 Wt 85.6 kg (188 lb 11.4 oz) LMP 01/12/2024 (Approximate) BMI 32.39 kg/m General Appearance: Well appearing, alert, in no acute distress, well-hydrated, well nourished. and Overweight. Back: tenderness to rhomboid muscle to the upper left side, shoulder blade Extremities: left shoulder, pain with movement in all directions. Health Maintenance List Depression Screening Never done Anxiety Screening Never done Hepatitis B Vaccine(3 of 3 - 19+ 3-dose series) due on 08/16/2010 Mammogram Screening Never done Influenza Vaccine(1) due on 03/31/2025 Hepatitis C Screening due on 10/24/2025 HIV Screening due on 10/24/2025 Covid-19 Vaccine( - season) due on 10/24/2025 Pneumococcal Vaccine(1 of 2 - PCV) due on 10/24/2025 Annual PCP Team Chronic Disease Visit due on 10/24/2025 Colorectal Cancer Screening due on 03/31/2026 Cervical Cancer Screening due on 08/16/2027 DTaP,Tdap,Td Vaccine(9 - Td or Tdap) due on 06/25/2028 Spirometry Completed HPV Vaccine Aged Out Data reviewed None ASSESSMENT/PLAN: 1. Muscle tightness - ICD9: 728.9, ICD10: M62.89 (primary diagnosis) Rx for Robaxin prn Consult Physical Therapy Continue with heat, ibuprofen, tylenol 2. Acute pain of left shoulder - ICD9: 719.41, ICD10: M25.512 Rx for Robaxin prn Consult Physical Therapy Continue with heat, ibuprofen, tylenol Follow up as needed. Work noted given to be off 10/22/24 through 10/25/24. Return to work Monday10/28/24. I agree with the Chief Complaint, ROS, and Past Histories independently gathered by the clinical business support specialist and the remaining scribed note accurately describes my personal service to the patient. Medical Decision Making: Problems: Low: Acute, uncomplicated illness or injury Risk: Moderate: Drug management Medical Decision Making Level: 3 - Low Nieves Jacobs MD The documentation for this note was completed by Radha Gentile MA acting as scribe for Nieves Jacobs MD. October 24, 2024 2:04 PM. Radha Gentile MA documented in this encounter [facility] 10-24-2024 Note HNO ID: [id number] Author: NIEVES JACOBS MD Service: ? Author Type: Physician Type: Progress Notes Filed: 10/24/2024 16:58 Note Text: Chief Complaint Patient presents with: Pain: Left shoulder, upper back around shoulder blade HPI Thaddeus Crawford is a 39 year old female who presents here today for multiple concerns. Pt states she has missed work. Pain to left Shoulder and upper back left shoulder blade area intermittently for several months, constant last few weeks. Rated pain today 6-7/10, burning, ache. Pain does not go down the arm, just mostly across the shoulder blade and into shoulder. She has used biofreeze, heat, ibuprofen, Tylenol, massage which do not help much. Has not used any ice. Massage causes pain and hasn't really helped. Unsure what triggered the pain to start getting worse. Pretty much everything she does causes her pain. No injury to the arm or shoulder. She is having trouble sleeping due to pain, is a left side sleeper. The pain is causing nausea. She has missed work , Mon, and . Needs work excuse. Her job is pretty physical. She has been on Mobic in past but is no longer using it as it didn't help. Past medical history, appointments, medications, allergies reviewed. Previous Medical History PAST MEDICAL HISTORY Diagnosis Date Asthma Benign neoplasm of colon Benign polyp. 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 Previous Surgical History PAST SURGICAL HISTORY Procedure Laterality Date COLONOSCOPY 03/31/2023 COLONOSCOPY FLX DX W/COLLJ SPEC WHEN PFRMD 07/31/2012 Colonoscopy COLONOSCOPY FLX DX W/COLLJ SPEC WHEN PFRMD 08/07/2017 5 year repeat COLONOSCOPY SCREENING 08/19/2022 Diverticulosis, tubular adenoma, sessile serrated polyp. EGD W/O [facility] SPEC VARICIES INJ 08/19/2022 Active inflammation in lower esophagus ESOPHAGOGASTRODUODENOSCOPY TRANSORAL DIAGNOSTIC 11/20/2014 EGD ESOPHAGOGASTRODUODENOSCOPY TRANSORAL DIAGNOSTIC 02/20/2015 EGD ESOPHAGOGASTRODUODENOSCOPY TRANSORAL DIAGNOSTIC 08/07/2017 EGD ESOPHAGOGASTRODUODENOSCOPY TRANSORAL DIAGNOSTIC 12/18/2018 EGD INCISION AND REMOVAL FOREIGN BODY SUBQ TISS SIMPLE Left 07/12/2018 Removal foreign body left index finger INCISION AND REMOVAL FOREIGN BODY SUBQ TISS SIMPLE Left 07/12/2018 Excision foreign body left index finger LAPS SURG CHOLECYSTECTOMY W/CHOLANGIOGRAPHY 08/13/2010 MIRENA IUD 08/2012 OPEN REPAIR OF ROTATOR CUFF ACUTE Left 04/2000 Rotator cuff repair PAST SURGICAL HISTORY OF Removal ganglion cyst, foot, wrist, PAST SURGICAL HISTORY OF Excision Pilonidal cyst TONSILLECTOMY PRIMARY/SECONDARY Tonsillectomy Family History FAMILY HISTORY Problem Relation Age of Onset Hypertension Mother 63 Stroke Mother Asthma Mother Heart disease Mother Cancer Father Throat cancer Breast Cancer Paternal Aunt other (other) Maternal Grandmother Cancer Maternal Grandmother Colon other (other) Maternal Grandfather Cancer Maternal Grandfather Leukemia Heart Paternal Grandmother other (DIverticulosis) Other Patient Allergies ALLERGIES Allergen Reactions Codeine Vomiting Penicillins GI Upset Current Medications Current Outpatient Medications on File Prior to Visit Medication Sig meloxicam (MOBIC) 15 mg tablet Take 1 tablet by mouth once daily. With food. buPROPion XL (WELLBUTRIN XL) 300 mg 24 hr tablet Take 300 mg by mouth once daily. albuterol (PROVENTIL) 2.5 mg /3 mL (0.083 %) nebulizer solution Use 3 mL via nebulizer every 4 hours as needed for wheezing/shortness of breath. Use over 5-15minutes. budesonide-formoterol (SYMBICORT) 160-4.5 mcg/actuation inhaler Inhale 2 Puffs as instructed four times a day as needed. albuterol HFA (PROVENTIL HFA, VENTOLIN HFA) 90 mcg/actuation inhaler Inhale 2 Puffs as instructed every 4 hours as needed for wheezing/shortness of breath. pantoprazole DR (PROTONIX) 40 mg tablet Take 2 tablets by mouth once daily. escitalopram oxalate (LEXAPRO) 20 mg tablet Take 1 tablet by mouth every afternoon. Ascorbic Acid 1,000 mg tablet Take 1,000 mg by mouth once daily. (Patient not taking: Reported on 05/24/2024) multivit,calc,mins/iron/folic (ONE-A-DAY WOMENS FORMULA ORAL) Take by mouth. (Patient not taking: Reported on 05/24/2024) levonorgestrel (MIRENA) 20 mcg/24 hr (5 years) IUD Inserted in office No current facility-administered medications on file prior to visit. Social History Social History Tobacco Use Smoking status: Every Day Current packs/day: 0.00 Average packs/day: 0.5 packs/day for 18.4 years (9.2 ttl pk-yrs) Types: Cigarettes Start date: 1997 Last attempt to quit: 08/23/2015 Years since quittin.1 Smokeless tobacco: Nev (more content not included)... [facility] 06-20-2024 Telephone encounter Note Pt notified and voiced understanding. Transferred to PSS to set up appts. Radha Gentile MA [facility] 06-20-2024 Miscellaneous Notes Pt notified and voiced understanding. Transferred to PSS to set up appts. Radha Gentile MA Please let the patient know that I have heard back from pulmonology. They are recommending a dedicated CT of the chest and updated spirometry to test lung function. Depending on the results, I would refer to pulmonary. Two tests are ordered. Mac Connelly APRN.SAMINA Pt called and is notified of providers results and instructions. Pt voices understanding. She states she will call back in to scheduled with General Surgery and Endocrinology as she is still at work. Latasha Thomson RN Left message to return call Please let the patient know that her CT of the abdomen pelvis is completed. She does have a fat-containing supraumbilical hernia. Unclear if this is causing her abdominal discomfort. I referred her to general surgery for second opinion. Other findings include thickening of the bilateral adrenal glands. This can be seen in some disorders involving cortisol levels. I have referred her to endocrinology for further evaluation. This could be causing her fatigue potentially. She also had an abnormal appearance on her left lower lung lobe. Few scattered cysts also. I reached out to pulmonology via an E consult to ask what further steps should be done. I will get back to her on this Mac Connelly APRN.CNP documented in this encounter [facility] 06-20-2024 Telephone encounter Note Please let the patient know that I have heard back from pulmonology. They are recommending a dedicated CT of the chest and updated spirometry to test lung function. Depending on the results, I would refer to pulmonary. Two tests are ordered. Mac Connelly APRN.CNP [facility] 06-20-2024 Note HNO ID: [id number] Author: JASMIN CANO MD Service: ? Author Type: Physician Type: Progress Notes Filed: 06/20/2024 13:15 Note Text: E-Consult Response Thank you Mac Connelly APRN, CNP for the E consult. In response to your eConsult request to [facility] for Thaddeus Crawford regarding clinical question : Patient had findings of Reticulnodular prominence of the interstitial markings in the bilateral visualized lung bases with few scattered thin-walled cysts. Other than fatigue, she has no other complaints. Looking for next step? . History of present illness provided through requesting provider documentation and current treatment plan was reviewed. Based on the patient history provided, my impression is as follows: 39 yo F with PMHx asthma, obesity, IBS. Reviewed CT A/P showing incidentally reticunodular opacities in lower lobes and cysts. Ddx aspiration, cannot rule out cystic lung disease. -recommend: - obtain Chest CT with High resolution protocol to rule out ILD. No contrast - update spirometry with bronchodilator response, DLCO and exhaled NO. - if primary provide is agreeable we can arrange for a pulmonary evaluation E-Consult follow up recommendation:An appointment will be coordinated by [facility] Jasmin Lynch MD June 20, 2024 [facility] 09-19-2024 History of Presen t illness Narrative E-Consult Response Thank you Mac Connelly APRN, CNP for the E consult. In response to your eConsult request to [facility] for Thaddeus Crawford regarding clinical question : Patient had findings of Reticulnodular prominence of the interstitial markings in the bilateral visualized lung bases with few scattered thin-walled cysts. Other than fatigue, she has no other complaints. Looking for next step? . History of present illness provided through requesting provider documentation and current treatment plan was reviewed. Based on the patient history provided, my impression is as follows: 39 yo F with PMHx asthma, obesity, IBS. Reviewed CT A/P showing incidentally reticunodular opacities in lower lobes and cysts. Ddx aspiration, cannot rule out cystic lung disease. -recommend: - obtain Chest CT with High resolution protocol to rule out ILD. No contrast - update spirometry with bronchodilator response, DLCO and exhaled NO. - if primary provide is agreeable we can arrange for a pulmonary evaluation E-Consult follow up recommendation:An appointment will be coordinated by [facility] Jasmin Lynch MD June 20, 2024 documented in this encounter [facility] 06-18-2024 Telephone encounter Note Pt called and is notified of providers results and instructions. Pt voices understanding. She states she will call back in to scheduled with General Surgery and Endocrinology as she is still at work. Latasha Thomson RN [facility] 06-18-2024 Telephone encounter Note Left message to return call [facility] 06-18-2024 Telephone encounter Note Please let the patient know that her CT of the abdomen pelvis is completed. She does have a fat-containing supraumbilical hernia. Unclear if this is causing her abdominal discomfort. I referred her to general surgery for second opinion. Other findings include thickening of the bilateral adrenal glands. This can be seen in some disorders involving cortisol levels. I have referred her to endocrinology for further evaluation. This could be causing her fatigue potentially. She also had an abnormal appearance on her left lower lung lobe. Few scattered cysts also. I reached out to pulmonology via an E consult to ask what further steps should be done. I will get back to her on this Mac Connelly APRN.SAMINA [facility] 06-18-2024 History of Presen t illness Narrative Radiology Service Progress Note PATIENT NAME: Thaddeus Crawford DATE OF SERVICE: June 18, 2024 TIME: 4:05 PM PATIENT IDENTITY VERIFICATION COMPLETED USING TWO (2) IDENTIFIERS: Name and Date of confirmed by patient verbally. FALL SCREENING: Has the patient had 2 falls in the last year or 1 fall with injury or currently using an Ambulatory Assistive Device (Walker, Cane, Wheelchair, Crutches, etc.)? No PATIENT GENDER DATA: Female. status: : No status: NO. PATIENT RELEVANT IMPLANT DATA REVIEWED: Not Applicable PATIENT PRESENTS WITH AN IMPLANTABLE OR ATTACHED PLASTICS AND COMPOSITES INSPECTOR: No RADIOLOGY DEPARTMENT: CT; Exam(s) Completed: Abdomen/Pelvis PERIPHERAL IV DATA: Not applicable SIGNED BY: RT Juice(Tim) June 18, 2024 4:05 PM documented in this encounter [facility] 06-18-2024 Note HNO ID: [id number] Author: ALLISON OLSEN RT(Tim) Service: ? Author Type: Customer Technical Services Manager Type: Progress Notes Filed: 06/18/2024 16:05 Note Text: Radiology Service Progress Note PATIENT NAME: Thaddeus Crawford DATE OF SERVICE: June 18, 2024 TIME: 4:05 PM PATIENT IDENTITY VERIFICATION COMPLETED USING TWO (2) IDENTIFIERS: Name and Date of confirmed by patient verbally. FALL SCREENING: Has the patient had 2 falls in the last year or 1 fall with injury or currently using an Ambulatory Assistive Device (Walker, Cane, Wheelchair, Crutches, etc.)? No PATIENT GENDER DATA: Female. status: : No status: NO. PATIENT RELEVANT IMPLANT DATA REVIEWED: Not Applicable PATIENT PRESENTS WITH AN IMPLANTABLE OR ATTACHED PLASTICS AND COMPOSITES INSPECTOR: No RADIOLOGY DEPARTMENT: CT; Exam(s) Completed: Abdomen/Pelvis PERIPHERAL IV DATA: Not applicable SIGNED BY: RT Juice(R) June 18, 2024 4:05 PM [facility] 06-11-2024 History of Presen t illness Narrative Radiology Service Progress Note PATIENT NAME: Thaddeus Crawford DATE OF SERVICE: June 11, 2024 TIME: 8:49 AM PATIENT IDENTITY VERIFICATION COMPLETED USING TWO (2) IDENTIFIERS: Name and Date of confirmed by patient verbally. FALL SCREENING: Has the patient had 2 falls in the last year or 1 fall with injury or currently using an Ambulatory Assistive Device (Walker, Cane, Wheelchair, Crutches, etc.)? No PATIENT GENDER DATA: Female. status: : No status: NO. PATIENT RELEVANT IMPLANT DATA REVIEWED: Not Applicable PATIENT PRESENTS WITH AN IMPLANTABLE OR ATTACHED PLASTICS AND COMPOSITES INSPECTOR: No RADIOLOGY DEPARTMENT: Ultrasound PERIPHERAL IV DATA: Not applicable SIGNED BY: Marisela Medeiros RDMS June 11, 2024 8:49 AM documented in this encounter [facility] 06-11-2024 Note HNO ID: [id number] Author: MARISELA MEDEIROS RDMS Service: ? Author Type: Customer Technical Services Manager Type: Progress Notes Filed: 06/11/2024 08:49 Note Text: Radiology Service Progress Note PATIENT NAME: Thaddeus Crawford DATE OF SERVICE: June 11, 2024 TIME: 8:49 AM PATIENT IDENTITY VERIFICATION COMPLETED USING TWO (2) IDENTIFIERS: Name and Date of confirmed by patient verbally. FALL SCREENING: Has the patient had 2 falls in the last year or 1 fall with injury or currently using an Ambulatory Assistive Device (Walker, Cane, Wheelchair, Crutches, etc.)? No PATIENT GENDER DATA: Female. status: : No status: NO. PATIENT RELEVANT IMPLANT DATA REVIEWED: Not Applicable PATIENT PRESENTS WITH AN IMPLANTABLE OR ATTACHED PLASTICS AND COMPOSITES INSPECTOR: No RADIOLOGY DEPARTMENT: Ultrasound PERIPHERAL IV DATA: Not applicable SIGNED BY: Marisela Medeiros RDMS June 11, 2024 8:49 AM [facility] 06-07-2024 Instructions Mac Connelly APRN.CNP - 06/07/2024 2:03 PM EDT Start meloxicam with food for joint pain Schedule ultrasound spleen Schedule CT of abdomen Let us know if you joint pain worsens and we can get to rheumatology. Mac Connelly APRN.CNP documented in this encounter [facility] 06-07-2024 History of Presen t illness Narrative Chief Complaint Patient presents with: Follow Up: 2 week HPI Thaddeus Crawford is a 39 year old female who presents here today for Above Complaints. Here to follow up for complaint of generalized pain of joints. Patient is here for 2-week follow-up. At her last visit she had complaints of generalized pain which included her mid back, wrist, feet, hips, neck. Described as chronic but worse since March 2024. Also complains of fatigue. Occasional numbness and tingling in her hands. TSH, CBC were unremarkable. MAMIE, RF negative. CRP mildly elevated at 1.2, sed rate 22. Given prednisone taper. Today the patient states that all of her joint pain has improved. Seems much better. Pain of the left side, flank with radiation to the front of rib cage is constant. Feels like it is getting worse. Feels bloated. Eating makes it worse. She is on Protonix 80 mg daily. No nausea or vomiting. No fevers, night sweats, hematuria. Has not lost weight. In March 2024 she had upper and lower endoscopy completed. Upper scope showing erythema. Past medical history, appointments, medications, allergies reviewed. EXAM: BP 110/70 Pulse 79 Resp 16 Wt 86.8 kg (191 lb 5.8 oz) LMP 01/12/2024 (Approximate) SpO2 98% BMI 32.85 kg/m General Appearance: Well appearing, alert, in no acute distress, well-hydrated, well nourished.. Back: Mild flank pain of the left side, some within intercostal area Lungs: Lungs clear to auscultation. No wheezing, rhonchi, rales.. Heart: RRR without murmur, gallop, or rubs. No ectopy. Abdomen: Positive findings: tenderness moderate LUQ. M/S: Mild tenderness of the intercostal space of the left side Latest Ref Rng 05/24/2024 WBC 3.70 - 11.00 k/uL 9.01 RBC 3.90 - 5.20 m/uL 5.17 Hemoglobin 11.5 - 15.5 g/dL 15.5 Hematocrit 36.0 - 46.0 % 45.9 MCV 80.0 - 100.0 fL 88.8 MCH 26.0 - 34.0 pg 30.0 MCHC 30.5 - 36.0 g/dL 33.8 RDW-CV 11.5 - 15.0 % 12.4 Platelet Count 150 - 400 k/uL 216 MPV 9.0 - 12.7 fL 12.4 NRBC /100 WBC 0.0 Absolute nRBC <0.01 k/uL <0.01 Neut% % 55.0 Abs Neut (ANC) 1.45 - 7.50 k/uL 4.96 Lymph% % 38.0 Abs Lymph 1.00 - 4.00 k/uL 3.42 [place]% % 6.0 Abs [place] <0.87 k/uL 0.54 Eosin% % 1.0 Abs Eosin <0.46 k/uL 0.09 Baso% % 0.0 Abs Baso <0.11 k/uL 0.00 Platelet Estimate Adequate Red Cell Morph Reviewed: unremarkable Polychromasia Slight DTYPE Manual WSR 0 - 20 mm/hr 22 (H) CRP <0.9 mg/dL 1.2 (H) Rheumatoid Factor <16 IU/mL 10 MAMIE Scr Qual Negative Negative TSH 0.270 - 4.200 mIU/L 2.300 ASSESSMENT/PLAN: 1. Polyarthralgia - ICD9: 719.49, ICD10: M25.50 (primary diagnosis) -RF, MAMIE is negative. Has improvement with prednisone. Trial continue with meloxicam. If pain returns to previous levels then consider referral to rheumatology for second opinion. - MELOXICAM 15 MG TABLET 2. Left upper quadrant abdominal pain - ICD9: 789.02, ICD10: R10.12 -Musculoskeletal versus stones? She does have intercostal tenderness but is stating on exam that her pain is deeper. We have had labs completed, upper scope, lower scope. Continue with plan for CT - CT ABD/PEL WO IVCON - ENTERIC CONTRAST (RADIOLOGY PROCEDURE) 3. Flank pain - ICD9: 789.09, ICD10: R10.9 -See #2 - CT ABD/PEL WO IVCON - ENTERIC CONTRAST (RADIOLOGY PROCEDURE) 4. Abdominal bloating - ICD9: 787.3, ICD10: R14.0 -History of GERD, on 80 mg Protonix, following with GI. Further assess with CT. - CT ABD/PEL WO IVCON - ENTERIC CONTRAST (RADIOLOGY PROCEDURE) aMc Connelly APRN.FUR FINISHER This note was partly generated using [employer] voice recognition dictation and may contain some misspelled or inaccurate words missed on review. documented in this encounter [facility] 06-07-2024 Note HNO ID: [id number] Author: MAC CONNELLY APRN.SAMINA Service: ? Author Type: Nurse Practitioner Type: Progress Notes Filed: 06/07/2024 14:12 Note Text: Chief Complaint Patient presents with: Follow Up: 2 week HPI Thaddeus Crawford is a 39 year old female who presents here today for Above Complaints. Here to follow up for complaint of generalized pain of joints. Patient is here for 2-week follow-up. At her last visit she had complaints of generalized pain which included her mid back, wrist, feet, hips, neck. Described as chronic but worse since March 2024. Also complains of fatigue. Occasional numbness and tingling in her hands. TSH, CBC were unremarkable. MAMIE, RF negative. CRP mildly elevated at 1.2, sed rate 22. Given prednisone taper. Today the patient states that all of her joint pain has improved. Seems much better. Pain of the left side, flank with radiation to the front of rib cage is constant. Feels like it is getting worse. Feels bloated. Eating makes it worse. She is on Protonix 80 mg daily. No nausea or vomiting.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 04/2000 Rotator cuff repair PAST SURGICAL HISTORY OF Removal ganglion cyst, foot, wrist, PAST SURGICAL HISTORY OF Excision Pilonidal cyst TONSILLECTOMY PRIMARY/SECONDARY <AGE 12 Tonsillectomy Family History FAMILY HISTORY Problem Relation Age of Onset Hypertension Mother 63 Stroke Mother Asthma Mother Heart disease Mother Cancer Father Throat cancer Breast Cancer Paternal Aunt other (other) Maternal Grandmother Cancer Maternal Grandmother Colon other (other) Maternal Grandfather Cancer Maternal Grandfather Leukemia Heart Paternal Grandmother other (DIverticulosis) Other Patient Allergies ALLERGIES Allergen Reactions Codeine Vomiting Penicillins GI Upset Post Op Bandaids [O* Itching Current Medications Current Outpatient Medications on File Prior to Visit Medication Sig amitriptyline (ELAVIL) 10 mg tablet TAKE 1 TABLET BY MOUTH EVERYDAY AT BEDTIME albuterol HFA (PROVENTIL HFA, VENTOLIN HFA) 90 mcg/actuation inhaler Inhale 2 Puffs as instructed every 4 hours as needed for wheezing/shortness of breath. buPROPion XL (WELLBUTRIN XL) 150 mg 24 hr tablet TAKE 1 TABLET BY MOUTH EVERY DAY (Patient taking differently: Take 300 mg by mouth once daily.) escitalopram oxalate (LEXAPRO) 10 mg tablet TAKE 1 TABLET BY MOUTH EVERY DAY gabapentin (NEURONTIN) 300 mg capsule Take 1 capsule by mouth three times daily as needed for up to 30 days. (Patient not taking: Reported on 04/14/2023) hydrOXYzine pamoate (VISTARIL) 25 mg capsule TAKE 2 CAPSULES BY MOUTH AT BEDTIME FOR 30 DAYS (Patient not taking: Reported on 04/14/2023) varenicline (CHANTIX) 0.5 mg tablet Take One tablet x 3 days then 1 tablet twice a day for 4 days (Patient not taking: Reported on 12/10/2022) varenicline (CHANTIX) 1 mg tablet Take 0.5 tablets by mouth once daily for 3 days, THEN 0.5 tablets twice daily for 4 days, THEN 1 tablet twice daily for 23 days. varenicline (CHANTIX) 1 mg tablet Take 1 tablet by mouth twice daily. benzonatate (TESSALON PERLES) 100 mg capsule Take 1-2 capsules by mouth three times daily as needed. (Patient not taking: Reported on 12/10/2022) ondansetron orally disintegrating (ZOFRAN ODT) 4 mg disintegrating tablet Take 1 tablet by mouth every 6 hours as needed for nausea/vomiting. (Patient not taking: Reported on 05/28/2023) LORazepam (ATIVAN) 0.5 mg TAKE 1 TABLET BY MOUTH ONE TIME ONLY FOR 1 DOSE. 30-45 MINUTES BEFORE PROCEDURE. miSOPROStol (CYTOTEC) 200 mcg tablet Use 2 tablets vaginally as directed. The night before the procedure and the morning of the procedure. baclofen (LIORESAL) 10 mg tablet TAKE 1 TABLET BY MOUTH TWICE A DAY NEEDED (Patient not taking: Reported on 04/14/2023) pantoprazole DR (PROTONIX) 40 mg tablet Take 2 tablets by mouth once daily. Ascorbic Acid 1,000 mg tablet Take 1,000 mg by mouth once daily. multivit,calc,mins/iron/folic (ONE-A-DAY WOMENS FORMULA ORAL) Take by mouth. levonorgestrel (MIRENA) 20 mcg/24 hr (5 years) IUD Inserted in office (Patient not taking: Reported on 04/14/2023) Current Facility-Administered Medications on File Prior to Visit Medication lidocaine (PF) 10 mg/mL (1 %) 1-2 mg injection (XYLOCAINE) lactated ringers iv infusion lactated ringers iv infusion Social History Social History Tobacco Use Smoking status: Every Day Packs/day: 0.50 Years: 18.00 Additional pack years: 0.00 Total pack years: 9.00 Types: Cigarettes Start date: 1997 Last attempt to quit: 08/23/2015 Years since quittin.9 Smokeless tobacco: Never Vaping Use Vaping Use: Never used Substance Use Topics Alcohol use: Not Currently Drug use: No EXAM: BP 114/78 (BP Site: Left Arm, BP Position: Sitting, BP Cuff Size: Regular Adult) Pulse 68 Resp 16 Wt 90 kg (198 lb 6.4 oz) LMP 09/17/2012 BMI 34.06 kg/m General Appearance: Well appearing, alert, in no acute distress, well-hydrated, well nourished. and Obese. Neck: Supple, no adenopathy; thyroid symmetric, normal size, no bruits. Lungs: Lungs clear to auscultation. No wheezing, rhonchi, rales.. Heart: RRR without murmur, gallop, or rubs. No ectopy. Health Maintenance List Pneumococcal Vaccine(1 - PCV) Never done Hepatitis C Screening Never done HIV Screening Never done Hepatitis B Vaccine(3 of 3 - 19+ 3-dose series) due on 08/16/2010 Mammogram Screening Never done Influenza Vaccine(1) due on 06/02/2023 Covid-19 Vaccine(3 - 2022- season) due on 06/02/2023 Annual PCP Team Chronic Disease Visit due on 10/10/2023 Colorectal Cancer Screening due on 03/31/2026 Pap Testing due on 08/16/2027 HPV Testing due on 08/16/2027 DTaP,Tdap,Td Vaccine(9 - Td or Tdap) due on 06/25/2028 Spirometry Completed Depression Assessment Completed HPV Vaccine Aged Out Data reviewed None ASSESSMENT/PLAN: 1. Decreased energy - ICD9: 780.79, ICD10: R53.83 (primary diagnosis) - TSH BLD - COMP METABOLIC PANEL - CBC 2. Mood swings - ICD9: 799.24, ICD10: R45.86 3. Hair loss - ICD9: 704.00, ICD10: L65.9 - TSH BLD - COMP METABOLIC PANEL - CBC 4. Weight gain - ICD9: 783.1, ICD10: R63.5 - TSH BLD - COMP METABOLIC PANEL - LIPID PANEL BASIC - CBC 5. Smoking - ICD9: 305.1, ICD10: F17.200 - LIPID PANEL BASIC 6. Screening for lipid disorders - ICD9: V77.91, ICD10: Z13.220 - LIPID PANEL BASIC 7. Obesity, Class I, BMI 30-34.9 - ICD9: 278.00, ICD10: E66.9 - LIPID PANEL BASIC 8. Dental infection Clindamycin Will get labs, notify of results and fax to Dr. Mcneil Follow up prn I agree with the Chief Complaint, ROS, and Past Histories independently gathered by the clinical business support specialist and the remaining scribed note accurately describes my personal service to the patient. Medical Decision Making: Problems: Low: Acute, uncomplicated illness or injury Moderate: 1+ chronic illnesses with change Data: Unique test(s) ordered: 3+ Risk: Moderate: Drug management Medical Decision Making Level: 4 - Moderate Nieves Jacobs MD The documentation for this note was completed by Yee Reynoso Ma acting as scribe for Nieves Jacobs MD. July 24, 2023 6:41 PM. Yee Reynoso Ma documented in this encounter [facility] 07-24-2023 Miscellaneous Notes The following approved medication requests have been transmitted electronically. Requested Prescriptions Pending Prescriptions Disp Refills pantoprazole DR (PROTONIX) 40 mg tablet 180 tablet 3 Sig: Take 2 tablets by mouth once daily. Mac Connelly APRN.CNP documented in this encounter [facility] 05-28-2023 History of Presen t illness Narrative Images from the original note were not included. Subjective HPI Nontoxic-appearing female presents urgent care chief complaint right hand injury. Duration of symptoms today. Associated symptoms right hand laceration. 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 Patient states cut the tip of her right index finger. Presents today for evaluation. No numbness no tingling no weakness. Overall feels well. Past medical history prescription medication use allergies reviewed. States tetanus shot is within 5 years. .Patient presents with: Trauma: Right hand ring finger cut PAST MEDICAL HISTORY Diagnosis Date Asthma Benign neoplasm of colon Benign polyp. 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 PAST SURGICAL HISTORY Procedure Laterality Date COLONOSCOPY 03/31/2023 COLONOSCOPY FLX DX W/COLLJ SPEC WHEN PFRMD 07/31/2012 Colonoscopy COLONOSCOPY FLX DX W/COLLJ SPEC WHEN PFRMD 08/07/2017 5 year repeat COLONOSCOPY SCREENING 08/19/2022 Diverticulosis, tubular adenoma, sessile serrated polyp. EGD W/O [facility] SPEC VARICIES INJ 08/19/2022 Active inflammation in lower esophagus ESOPHAGOGASTRODUODENOSCOPY TRANSORAL DIAGNOSTIC 11/20/2014 EGD ESOPHAGOGASTRODUODENOSCOPY TRANSORAL DIAGNOSTIC 02/20/2015 EGD ESOPHAGOGASTRODUODENOSCOPY TRANSORAL DIAGNOSTIC 08/07/2017 EGD ESOPHAGOGASTRODUODENOSCOPY TRANSORAL DIAGNOSTIC 12/18/2018 EGD INCISION & REMOVAL FOREIGN BODY SUBQ TISS SIMPLE Left 07/12/2018 Removal foreign body left index finger INCISION & REMOVAL FOREIGN BODY SUBQ TISS SIMPLE Left 07/12/2018 Excision foreign body left index finger LAPS SURG CHOLECYSTECTOMY W/CHOLANGIOGRAPHY 08/13/2010 MIRENA IUD 08/2012 OPEN REPAIR OF ROTATOR CUFF ACUTE Left 04/2000 Rotator cuff repair PAST SURGICAL HISTORY OF Removal ganglion cyst, foot, wrist, PAST SURGICAL HISTORY OF Excision Pilonidal cyst TONSILLECTOMY PRIMARY/SECONDARY <AGE 10 Tonsillectomy ALLERGIES Codeine, Penicillins, and Post Op Bandaids [Other] MEDICATIONS amitriptyline (ELAVIL) 10 mg tablet^TAKE 1 TABLET BY MOUTH EVERYDAY AT BEDTIME^Disp: 30 tablet^Rfl: 3 albuterol HFA (PROVENTIL HFA, VENTOLIN HFA) 90 mcg/actuation inhaler^Inhale 2 Puffs as instructed every 4 hours as needed for wheezing/shortness of breath.^Disp: 18 g^Rfl: 11 buPROPion XL (WELLBUTRIN XL) 150 mg 24 hr tablet^TAKE 1 TABLET BY MOUTH EVERY DAY^Disp: 30 tablet^Rfl: 5 (Patient taking differently: Take 300 mg by mouth once daily.) escitalopram oxalate (LEXAPRO) 10 mg tablet^TAKE 1 TABLET BY MOUTH EVERY DAY^Disp: 30 tablet^Rfl: 5 Ascorbic Acid 1,000 mg tablet^Take 1,000 mg by mouth once daily.^Disp: ^Rfl: multivit,calc,mins/iron/folic (ONE-A-DAY WOMENS FORMULA ORAL)^Take by mouth.^Disp: ^Rfl: gabapentin (NEURONTIN) 300 mg capsule^Take 1 capsule by mouth three times daily as needed for up to 30 days.^Disp: 45 capsule^Rfl: 1 (Patient not taking: Reported on 04/14/2023) hydrOXYzine pamoate (VISTARIL) 25 mg capsule^TAKE 2 CAPSULES BY MOUTH AT BEDTIME FOR 30 DAYS^Disp: ^Rfl: (Patient not taking: Reported on 04/14/2023) varenicline (CHANTIX) 0.5 mg tablet^Take One tablet x 3 days then 1 tablet twice a day for 4 days^Disp: 11 tablet^Rfl: 0 (Patient not taking: Reported on 12/10/2022) varenicline (CHANTIX) 1 mg tablet^Take 0.5 tablets by mouth once daily for 3 days, THEN 0.5 tablets twice daily for 4 days, THEN 1 tablet twice daily for 23 days.^Disp: 52 tablet^Rfl: 0 varenicline (CHANTIX) 1 mg tablet^Take 1 tablet by mouth twice daily.^Disp: 60 tablet^Rfl: 1 benzonatate (TESSALON PERLES) 100 mg capsule^Take 1-2 capsules by mouth three times daily as needed.^Disp: 30 capsule^Rfl: 0 (Patient not taking: Reported on 12/10/2022) ondansetron orally disintegrating (ZOFRAN ODT) 4 mg disintegrating tablet^Take 1 tablet by mouth every 6 hours as needed for nausea/vomiting.^Disp: 20 tablet^Rfl: 1 (Patient not taking: Reported on 05/28/2023) LORazepam (ATIVAN) 0.5 mg^TAKE 1 TABLET BY MOUTH ONE TIME ONLY FOR 1 DOSE. 30-45 MINUTES BEFORE PROCEDURE.^Disp: ^Rfl: miSOPROStol (CYTOTEC) 200 mcg tablet^Use 2 tablets vaginally as directed. The night before the procedure and the morning of the procedure.^Disp: 4 tablet^Rfl: 0 baclofen (LIORESAL) 10 mg tablet^TAKE 1 TABLET BY MOUTH TWICE A DAY NEEDED^Disp: 60 tablet^Rfl: 0 (Patient not taking: Reported on 04/14/2023) pantoprazole DR (PROTONIX) 40 mg tablet^Take 2 tablets by mouth once daily.^Disp: 180 tablet^Rfl: 3 levonorgestrel (MIRENA) 20 mcg/24 hr (5 years) IUD^Inserted in office^Disp: 1 Each^Rfl: 0 (Patient not taking: Reported on 04/14/2023) FAMILY HISTORY Problem Relation Age of Onset Hypertension Mother 63 Stroke Mother Asthma Mother Heart disease Mother Cancer Father Throat cancer Breast Cancer Paternal Aunt other (other) Maternal Grandmother Cancer Maternal Grandmother Colon other (other) Maternal Grandfather Cancer Maternal Grandfather Leukemia Heart Paternal Grandmother other (DIverticulosis) Other Social History Tobacco Use Smoking status: Every Day Packs/day: 0.50 Years: 18.00 Additional pack years: 0.00 Total pack years: 9.00 Types: Cigarettes Start date: 1997 Last attempt to quit: 08/23/2015 Years since quittin.7 Smokeless tobacco: Never Vaping Use Vaping Use: Never used Substance Use Topics Alcohol use: Not Currently Drug use: No BP 126/80 Pulse 68 Temp 36.8 C (98.2 F) Resp 16 Wt 83 kg (183 lb) LMP 09/17/2012 SpO2 99% BMI 31.41 kg/m Review of Systems Constitutional: Negative for chills, fever and malaise/fatigue. HENT: Negative for congestion, ear discharge, ear pain, sinus pain and sore throat. Eyes: Negative for blurred vision, pain, discharge and redness. Respiratory: Negative for cough, hemoptysis, sputum production, shortness of breath, wheezing and stridor. Cardiovascular: Negative for chest pain. Gastrointestinal: Negative for abdominal pain, diarrhea, nausea and vomiting. Musculoskeletal: Negative for myalgias. Skin: Negative for itching and rash. Neurological: Negative for dizziness and headaches. Objective Physical Exam Constitutional: General: She is not in acute distress. Appearance: She is not toxic-appearing. HENT: Head: Normocephalic. Nose: Nose normal. Eyes: Pupils: Pupils are equal, round, and reactive to light. Cardiovascular: Rate and Rhythm: Normal rate. Pulmonary: Effort: Pulmonary effort is normal. No respiratory distress. Musculoskeletal: Hands: Cervical back: Normal range of motion. Comments: 1/2 cm laceration noted to palmar aspect second digit right hand. Neurovascular intact. No nailbed involvement. No weaknesses. Full range of motion. No bone ligament tendon injury noted. No foreign bodies noted. Skin: General: Skin is warm and dry. Neurological: General: No focal deficit present. Mental Status: She is alert. Verbal consent obtained. Area cleansed. 0.5 cc of lidocaine used to anesthetize wound. Area copiously irrigated with water and antimicrobial scrub. 60 cc of tap water irrigated post surgical scrub. Area investigated for foreign bodies ligament tendons and bone involvement noted. Two 4-0 nylon sutures placed simple rapid fashion. Good wound approximation obtained. Area bandaged. Tolerated well. ASSESSMENT/PLAN: 1. Laceration of right index finger without foreign body without damage to nail, initial encounter - ICD9: 883.0, ICD10: S61.210A 2 sutures placed. Have removed 7 to 10 days. Supportive therapies discussed. Red flags for prompt reevaluation discussed. Be seen urgent care or ED for any new or worsening symptoms also anticipated. Patient verbalized understand agrees plan of care. Terrence Yeager APRN.SAMINA documented in this encounter [facility] 05-10-2023 Miscellaneous Notes Pharmacy verified in [employer]. Patient has been identified by name and date of : Yes Patient aware RX will be sent to pharmacy. No need to notify patient. Pharmacy phones for refill(s): Requested Prescriptions Pending Prescriptions Disp Refills amitriptyline (ELAVIL) 10 mg tablet [Pharmacy Med Name: AMITRIPTYLINE HCL 10 MG TAB] 30 tablet 3 Sig: TAKE 1 TABLET BY MOUTH EVERYDAY AT BEDTIME Date of last office visit : 04/14/2023 Date of next office visit : Visit date not found Last 2 Encounter Wt Readings: Date: Wt: 04/14/2023 80.7 kg (178 lb) 03/31/2023 78.9 kg (174 lb) Please advise. Yaima Perez documented in this encounter [facility] 04-14-2023 Instructions Mimi Razo MD - 04/14/2023 5:11 PM EDT 1-Maintain regular sleep schedule. 2-Limit over the counter medications and prescription rescue meds to 2 days per week or less 3-Maintain headache diary. 4-Limit caffeine to 1-2, 8 oz cups per day or less (300 mg) 5-Limit diet sodas to12 oz or less per day. Avoid other sources of nutrasweet. 6-Avoid dietary triggers. (list given to pt) 7-Eat regular, frequent meals. 8- Keep hydrated. Drink at least 6-8, 8 oz glasses of water/d documented in this encounter [facility] 04-14-2023 History of Presen t illness Narrative Images from the original note were not included. FOLLOW UP NOTE Follow up visit No orders found for this visit on 04/14/23. Accompanied by Interval history Headache Days of headache still 15 days a month Occipital and frontal Headache can be severe disabling , Was not able to renew Elavil So she ran out and wasn't able to take it Now off elavil ,feeling much worse On elavil better headache control and better sleep Post concussion headache and migraine Keep a headache diary New prescription for headache prevention Elavil 10 mg every night Side effects discusssed Accompanied by: Self ASSESSMENT: 35 year old female with head concussion. October 07, 2020 with no loss of consciousness. She continues to have residual headache with migrainous features not relieved by [id number] medication, nonsteroidal anti-inflammatory Partial relief with Excedrin History of migraine headache before her head concussion PLAN: Symptomatic treatment of acute headache as well as preventive treatment, as discussed in detail with patient Prescriptions written No orders found for this visit on 04/14/23. See prescription ---> Follow-up: 1-2 months, Tests results will be discussed in the follow up appointment Medications side effects explained and discussed with the patient . CC: Head concussion HxCC: 35 year old female , who presents for evaluation of head concussion and postconcussion symptoms. October 07 2020 hit her head and didn't black out . Occipital pain pain both sides, temporal and both eyes intermitttent headache but frequent, 3 days a week Each time lasting hours can be disabling. Tylenol ibuprofen doewsnt help ,excedrin migraine some releif Gets blurred vision with headache and pain when moving eyes Can see stars and flashes then disappears photphobia phonophobia associated with the headache, When she has a headache and able to go and lie down in dark quiet place To ease the headache She does not have dizziness when resting she only gets lightheaded when moving abruptly Or with certain neck movement imitrex before the accident because she had headache and two previous concussion imitrex didn't help, this time also baclofen partial releif and for neck pain, She also thinks that the baclofen helps the neck pain but not much the headache. Neck pain with headache and without ,but more with the headache On further neurologic questioning, the patient No new focal weakness,. No new problems with concentration, memory, language or confusion. No new blurry, double or loss of vision. No new loss of hearing, vertigo, or tinnitus. No dysarthria, dysphonia or dysphagia. No frequent falls or incoordination. No bowel or bladder incontinence. No saddle anesthesia. No muscular atrophy or fasciculations. Social History Tobacco Use Smoking status: Every Day Packs/day: 0.50 Years: 18.00 Total pack years: 9.00 Types: Cigarettes Start date: 1997 Last attempt to quit: 08/23/2015 Years since quittin.6 Smokeless tobacco: Never Vaping Use Vaping Use: Never used Substance Use Topics Alcohol use: Not Currently Drug use: No OBJECTIVE: Vital Signs: LMP 09/17/2012 RECENT LABS: WBC (k/uL) Date Value 08/14/2015 8.85 RBC (m/uL) Date Value 08/14/2015 4.92 Hemoglobin (g/dL) Date Value 08/14/2015 15.0 Hematocrit (%) Date Value 08/14/2015 43.7 MCV (fL) Date Value 08/14/2015 88.8 MCH (pG) Date Value 08/14/2015 30.5 MCHC (g/dL) Date Value 08/14/2015 34.3 RDW-CV (%) Date Value 08/14/2015 13.2 Platelet Count (k/uL) Date Value 08/14/2015 229 MPV (fL) Date Value 08/14/2015 12.8 (H) Last BMP (Basic Metabolic Panel) Lab Results Component Value Date NA 139 08/14/2015 Lab Results Component Value Date K 4.2 08/14/2015 Lab Results Component Value Date CHLOR 101 08/14/2015 Lab Results Component Value Date CO2 22 08/14/2015 Lab Results Component Value Date BUN 10 08/14/2015 Lab Results Component Value Date CREAT 0.87 08/14/2015 Lab Results Component Value Date GLUC 83 08/14/2015 Lab Results Component Value Date ANION 16 08/14/2015 Lab Results Component Value Date CA 9.6 08/14/2015 TSH Date Value Ref Range Status 08/14/2015 1.180 0.400 - 5.500 uU/mL Final Comment: If the patient is , TSH reference range varies by gestational period: First Trimester 0.1-2.5 uU/mL Second Trimester 0.2-3.0 uU/mL Third Trimester 0.3-3.0 uU/mL RECENT IMAGING/DIAGNOSTICS: CT brain done 2018 within normal limits PMH: PAST MEDICAL HISTORY Diagnosis Date Asthma Benign neoplasm of colon Benign polyp. 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 PSH: PAST SURGICAL HISTORY Procedure Laterality Date COLONOSCOPY FLX DX W/COLLJ SPEC WHEN PFRMD 07/31/2012 Colonoscopy COLONOSCOPY FLX DX W/COLLJ SPEC WHEN PFRMD 08/07/2017 5 year repeat COLONOSCOPY SCREENING 08/19/2022 Diverticulosis, tubular adenoma, sessile serrated polyp. EGD W/O [facility] SPEC VARICIES INJ 08/19/2022 Active inflammation in lower esophagus ESOPHAGOGASTRODUODENOSCOPY TRANSORAL DIAGNOSTIC 11/20/2014 EGD ESOPHAGOGASTRODUODENOSCOPY TRANSORAL DIAGNOSTIC 02/20/2015 EGD ESOPHAGOGASTRODUODENOSCOPY TRANSORAL DIAGNOSTIC 08/07/2017 EGD ESOPHAGOGASTRODUODENOSCOPY TRANSORAL DIAGNOSTIC 12/18/2018 EGD INCISION & REMOVAL FOREIGN BODY SUBQ TISS SIMPLE Left 07/12/2018 Removal foreign body left index finger INCISION & REMOVAL FOREIGN BODY SUBQ TISS SIMPLE Left 07/12/2018 Excision foreign body left index finger LAPS SURG CHOLECYSTECTOMY W/CHOLANGIOGRAPHY 08/13/2010 MIRENA IUD 08/2012 OPEN REPAIR OF ROTATOR CUFF ACUTE Left 04/2000 Rotator cuff repair PAST SURGICAL HISTORY OF Removal ganglion cyst, foot, wrist, PAST SURGICAL HISTORY OF Excision Pilonidal cyst TONSILLECTOMY PRIMARY/SECONDARY <AGE 10 Tonsillectomy CURRENT MEDS: @IPMED@ Current Outpatient Medications Medication Sig albuterol HFA (PROVENTIL HFA, VENTOLIN HFA) 90 mcg/actuation inhaler Inhale 2 Puffs as instructed every 4 hours as needed for wheezing/shortness of breath. buPROPion XL (WELLBUTRIN XL) 150 mg 24 hr tablet TAKE 1 TABLET BY MOUTH EVERY DAY escitalopram oxalate (LEXAPRO) 10 mg tablet TAKE 1 TABLET BY MOUTH EVERY DAY gabapentin (NEURONTIN) 300 mg capsule Take 1 capsule by mouth three times daily as needed for up to 30 days. hydrOXYzine pamoate (VISTARIL) 25 mg capsule TAKE 2 CAPSULES BY MOUTH AT BEDTIME FOR 30 DAYS varenicline (CHANTIX) 0.5 mg tablet Take One tablet x 3 days then 1 tablet twice a day for 4 days (Patient not taking: Reported on 12/10/2022) varenicline (CHANTIX) 1 mg tablet Take 0.5 tablets by mouth once daily for 3 days, THEN 0.5 tablets twice daily for 4 days, THEN 1 tablet twice daily for 23 days. varenicline (CHANTIX) 1 mg tablet Take 1 tablet by mouth twice daily. benzonatate (TESSALON PERLES) 100 mg capsule Take 1-2 capsules by mouth three times daily as needed. (Patient not taking: Reported on 12/10/2022) ondansetron orally disintegrating (ZOFRAN ODT) 4 mg disintegrating tablet Take 1 tablet by mouth every 6 hours as needed for nausea/vomiting. (Patient not taking: Reported on 12/10/2022) LORazepam (ATIVAN) 0.5 mg TAKE 1 TABLET BY MOUTH ONE TIME ONLY FOR 1 DOSE. 30-45 MINUTES BEFORE PROCEDURE. miSOPROStol (CYTOTEC) 200 mcg tablet Use 2 tablets vaginally as directed. The night before the procedure and the morning of the procedure. baclofen (LIORESAL) 10 mg tablet TAKE 1 TABLET BY MOUTH TWICE A DAY NEEDED pantoprazole DR (PROTONIX) 40 mg tablet Take 2 tablets by mouth once daily. Ascorbic Acid 1,000 mg tablet Take 1,000 mg by mouth once daily. multivit,calc,mins/iron/folic (ONE-A-DAY WOMENS FORMULA ORAL) Take by mouth. levonorgestrel (MIRENA) 20 mcg/24 hr (5 years) IUD Inserted in office No current facility-administered medications for this visit. Facility-Administered Medications Ordered in Other Visits Medication Dose Route Frequency lidocaine (PF) 10 mg/mL (1 %) 1-2 mg injection (XYLOCAINE) 0.1-0.2 mL INTRADERMAL PRN lactated ringers iv infusion 30 mL/hr INTRAVENOUS CONTINUOUS lactated ringers iv infusion 30 mL/hr INTRAVENOUS CONTINUOUS ALLERGIES: ALLERGIES Allergen Reactions Codeine Vomiting Penicillins GI Upset Post Op Bandaids [O* Itching FMH: FAMILY HISTORY Problem Relation Age of Onset Hypertension Mother 63 Stroke Mother Asthma Mother Heart disease Mother Cancer Father Throat cancer Breast Cancer Paternal Aunt other (other) Maternal Grandmother Cancer Maternal Grandmother Colon other (other) Maternal Grandfather Cancer Maternal Grandfather Leukemia Heart Paternal Grandmother other (DIverticulosis) Other SOCIAL: Social History Tobacco Use Smoking status: Every Day Packs/day: 0.50 Years: 18.00 Total pack years: 9.00 Types: Cigarettes Start date: 1997 Last attempt to quit: 08/23/2015 Years since quittin.6 Smokeless tobacco: Never Vaping Use Vaping Use: Never used Substance Use Topics Alcohol use: Not Currently Drug use: No REVIEW OF SYSTEMS (In addition to HPI): PHYSICAL EXAM: LMP 09/17/2012 GEN: Alert. NAD. Normal affect. Cooperative. HEENT: No icterus. Normal mucosa. No temporal artery tenderness. Fundoscopic exam unremarkable. NECK/BACK: No meningismus. No lymphadenopathy. No significant paraspinal neck or shoulder musculature tenderness or hypertonicity. No spinous process tenderness. CV: RRR. No M/G/R/C. No carotid bruits. RESP: CTA b/l. EXT: No cyanosis. No edema. No erythema. SKIN: No rashes. No lesions. NEUROLOGICAL: MENTAL STATUS: Alert and oriented x 3. Recent and remote memory intact. Immediate memory intact by 3 item recall and 7 digit recall. Attention knowledge intact. Speech fluent .Normal clock drawing. Normal copy of pentagon intersection. Reading intact. Writing intact. Comprehension intact. CN: II: Visual gillis intact. PERRLA. No Papilledema. III, IV, : EOMI. No ptosis present. Normal saccades. V: Symmetric facial sensation to PP. VII: Face symmetric. VIII: Hearing symmetric. No nystagmus. IX, X: Symmetric palatal rise. XI: Symmetric shoulder shrug. XII: Tongue midline with symmetric movements. MOTOR: Finger tap normal. No involuntary movement seen during today's exam. Normal tone and strength. Right Upper Extremity: (of 5) Left Upper Extremity: (of 5) Deltoid 5 Deltoid 5 Biceps 5 Biceps 5 Triceps 5 Triceps 5 Finger extensors 5 Finger extensors 5 Finger flexors 5 Finger flexors 5 Dorsal interossei 5 Dorsal interossei 5 Abductor pollicis 5 Abductor pollicis 5 Right Lower Extremity: (of 5) Left Lower Extremity: (of 5) Hip flexors 5 Hip flexors 5 Hip extensors 5 Hip extensors 5 Knee flexors 5 Knee flexors 5 Knee extensors 5 Knee extensors 5 Dorsiflexors 5 Dorsiflexors 5 Plantarflexors 5 Plantarflexors 5 REFLEXES: Biceps ++ Biceps ++ Brachioradialis ++ Brachioradialis ++ Triceps ++ Triceps ++ Patellar ++ Patellar ++ Ankle jerk ++ Ankle jerk ++ Plantar response down Plantar response down Plantar response flexor b/l. No clonus. Negative Avendano/Troemner. Negative palmomental, grasp, rooting, snouting and glabellar blink reflexes. SENSATION: PP, Proprioception, Vibration intact and symmetric. Negative Romberg. CEREBELLAR: Normal F-N-F. Normal H-S. No dysmetria. No nystagmus. GAIT: Stable primary Mimi Razo M.D. [facility] [place] Department of Neurology Total time in minutes spent with patient, reviewing records, labs, imaging, formulating plan, and documentin minutes with more than 50% of the time spent in patient education/counselling/coordinati ng care with the patient and /or family. documented in this encounter [facility] 03-31-2023 Nurse Note 100mL of LR given in recovery. Hob up. Passing air. States ready to go. Assisted pt w/dressing. All belongings given. [employer] to get car. [facility] 03-31-2023 Nurse Note 100mL of LR given in recovery. Hob up. Passing air. States ready to go. Assisted pt w/dressing. All belongings given. [employer] to get car. Dr at the bedside. No questions. [employer] friend angel is at the bedside. Encouraged to pass air. documented in this encounter [facility] 03-31-[address] at the bedside. No questions. [facility] 03-31-2023 Nurse Note [employer] friend angel is at the bedside. [facility] 03-31-2023 Nurse Note Encouraged to pass air. [facility] 03-28-2023 Miscellaneous Notes Pt notified via [employer]. Yee Reynoso Ma May try Proventil as ordered Nieves Jacobs MD TC to pharmacy to clarify. Pro Air is no longer available. Pharmacy sent a request for substitute: Proventil. Insurance requires a prior authorization. Pharmacy states a fax was sent to PCP office. Dr. Jacobs: Any other alternatives to ProAir inhaler to avoid a PA d/t timing of procedure? Leona Hernandez MA documented in this encounter [facility] 01-25-2023 Instructions Jody Levy - 01/25/2023 4:46 PM EDT Images from the original note were not included. Bowel Preparation Instructions for: Miralax-Gatorade Preparations IF YOU DO NOT FOLLOW THESE DIRECTIONS, YOUR COLONOSCOPY WILL BE CANCELLED. Rainey Instructions: Your bowel must be empty so that your doctor can clearly view your colon. Follow all of the instructions in this handout EXACTLY as they are written. Do NOT eat any solid food the ENTIRE day before your colonoscopy. Buy your bowel preparation at least 5 days before your colonoscopy. Four (4) Dulcolax laxative tablets containing 5mg of bisacodyl each (NOT Dulcolax stool softener) One (1) 8.3oz. bottle Miralax (238 grams) or generic equivalent 2 x 32oz. Bottles of Gatorade (NOT RED) Diabetic Patients: Use G2 (Gatorade 2) TRANSPORTATION on the Day of Your Exam A responsible adult MUST be present with you at Check In prior to your colonoscopy and REMAIN in the endoscopy area until you are discharged. You are NOT ALLOWED to drive, take a taxi or bus, or leave the Endoscopy Center ALONE. If you do not have a responsible [employer] driver (family member or friend) with you to take you home, your exam cannot be done with sedation and will be cancelled. Please bring a list of all of your current medications, including any [id number] medications with you. Medications If you take insulin, diabetic medications or blood thinners such as Coumadin (warfarin), Plavix (clopidogrel), Ticlid (ticlopidine hydrochloride), Agrylin (anagrelide), Xarelto (Rivaroxaban), Pradaxa (Dabigatran), Eliquis (Apixaban), and Effient (Prasugrel). You MUST call the doctors who orders those medicines for instructions on altering the dosage before your colonoscopy. All other medications should be taken the day of the exam with a sip of water including ASPIRIN. Five (5) Days Before Your Colonoscopy Do NOT take medicines that stop diarrhea - such as Imodium, Kaopectate, or Pepto Bismol. Do NOT take fiber supplements - such as Metamucil, Citrucel, or Perdiem. Do NOT take products that contain iron - such as multi-vitamins (the label lists what is in the products). Three (3) Days Before Your Colonoscopy Do NOT eat high-fiber foods - such as popcorn, beans, seeds (flax, sunflower, quinoa), multigrain bread, nuts, salad/vegetables, or fresh and dried fruit. 1 Bowel Preparation Instructions for: Miralax-Gatorade Preparations One (1) Day Before Your Colonoscopy Only drink clear liquids the ENTIRE DAY before your colonoscopy. Do NOT eat any solid foods. Drink at least 8 ounces of clear liquids every hour after waking up. The clear liquids you can drink include: Clear Liquid (NO RED LIQUIDS) DO NOT DRINK Gatorade, Pedialyte or Powerade Clear broth or bouillon Coffee or tea (no milk or non-dairy creamer) Carbonated and non-carbonated soft drinks Daryl-Aid or other fruit flavored drinks Strained fruit juices (no pulp) Jell-O, popsicles, hard candy Water Alcohol Milk or non-dairy creamers Noodles or vegetables in soup Juice with pulp Liquid you cannot see through Do not use tobacco/vaping products Mix 1/2 of Miralax bottle (119 grams) in each 32 ounces of Gatorade bottle until dissolved. Keep cool in the refrigerator. DO NOT ADD ICE. The bowel preparation solution will be consumed in two parts. Part 1 5:00 PM - Evening before your colonoscopy Take 4 Dulcolax tablets. 6 PM - Evening before your colonoscopy Drink 32 oz. of the mixed solution. Drink an 8 oz. glass of bowel preparation every 15 minutes for a total of 4 glasses. Fifteen (15) minutes later, drink an 8 oz. glass of of clear liquids every 15 minutes for a total of 2 glasses. You may continue to drink clear liquids till midnight. Part 2 On the day of your colonoscopy you may drink clear liquids up to (three) 3 hours prior to procedure. 4 1/2 hours before your colonoscopy Take another 32 oz. bottle of mixed solution. Drink an 8 oz. glass of bowel prep every 15 minutes for a total of 4 glasses. Fifteen (15) minutes later, drink an 8 oz. glass of clear liquids every 15 minutes for a total of 2 glasses. You may continue to drink clear liquids up to (three) 3 hours before your exam. 2 09/2019 documented in this encounter [facility] 01-25-2023 Miscellaneous Notes Patient called in because she received a letter about a repeat colonoscopy being needed. Scheduled her on March 17 at 8:30am with Dr. Nava. Sending to you just for documentation. Scheduled using order created in September. Scheduled virtual follow up after. Jody Levy documented in this encounter [facility] 01-16-2023 Miscellaneous Notes 1 month of refill sent. The following approved medication requests have been transmitted electronically. Requested Prescriptions Signed Prescriptions Disp Refills escitalopram oxalate (LEXAPRO) 10 mg tablet 30 tablet 1 Sig: Take 1 tablet by mouth once daily. buPROPion XL (WELLBUTRIN XL) 150 mg 24 hr tablet 30 tablet 1 Sig: Take 1 tablet by mouth once daily. Mac Connelly APRN.SAMINA documented in this encounter [facility] 01-14-2023 Miscellaneous Notes OK to refill as ordered Nieves Jacobs MD Patient phones requesting refills as follows: Requested Prescriptions Pending Prescriptions Disp Refills albuterol HFA (PROAIR HFA) 90 mcg/actuation inhaler 18 g 5 Sig: Inhale 2 Puffs as instructed every 6 hours as needed. BONNY-10/10/22 Labs- none NOV-none med filled 10/15/20 Please review and advise. Holden Thompson LPN documented in this encounter [facility] 12-15-2022 Miscellaneous Notes Message left on VM that letter is available on [employer]. Radha Gentile Ma Letter done; I wrote it for off on 12/12, which was yesterday Nieves Jacobs MD Patient calls to request a letter be uploaded to excusing her from work yesterday d/t the Shingles. Patient also asking that letter says she is allowed to return to work as long as she keeps shingles covered. Employer reports d/t being in the contagious stage she has to have a letter with directions to be able to return. Leora Ch RN documented in this encounter [facility] 12-11-2022 Miscellaneous Notes This CLOTH GRADER SUPERVISOR called patient at [phone] and identified with name and . Informed of postive culture for shingles Continue valtrex as ordered Follow up with PCP as needed All questions answered. Cuca Gonzales CNP documented in this encounter [facility] 12-10-2022 Instructions Cuca Gonzales APRN.SAMINA - 12/10/2022 2:01 PM EST Valacyclovir as ordered [facility] PATIENT INFO SHINGLES Shingles (Herpes Zoster) What is shingles? Shingles is an infection caused by the same virus that causes chickenpox. This virus is called varicella zoster. You cannot develop shingles unless you have had a previous infection of chickenpox (usually as a child). Shingles is also called herpes zoster. This infection is most common in people over 60 years of age, but young people can have it as well. How does it occur? After you recover from chickenpox, the chickenpox virus is not destroyed. It moves back to the roots of your nerve cells (near the spinal cord) and becomes inactive (dormant). Later, if the virus is reactivated, the symptoms are called shingles. What exactly causes the reactivation of the virus is not known. A weakened immune system seems to allow reactivation of the virus. Advancing age and chronic use of cortisone-type drugs may trigger shingles. The virus may also become active again after the skin is injured or sunburned. Emotional stress seems to be a common trigger as well. What are the symptoms? The first sign of shingles is often burning, sharp pain, tingling, or numbness in or under your skin on one side of your body or face. The most common site is the back or upper abdomen. You may have severe itching or aching. You also may feel tired and ill with fever, chills, headache, and upset stomach. After several days, you will notice a rash of small, clear, fluid-filled blisters on reddened skin. Within 3 days after they appear, the blisters will turn yellow, then dry and crust over. Over the next 2 weeks the crusts will drop off, sometimes leaving small, pitted scars. Because they tend to follow nerve paths, the blisters are usually found in a line, often extending from the back or flank around to the abdomen, just on one side. Shingles usually doesn't cross the midline of the body. (The word shingles comes from the Latin word for belt or girdle.) The rash also may appear on one side of your face. Some people have painful eye inflammations and infections. Is shingles contagious? You can't get shingles from someone else, but you may get chickenpox from contact with shingles blisters if you have not had chickenpox before. The shingles virus is in the blister fluid. The virus can spread by direct contact with a blister. It can also be spread by indirect contact, for example, if you use a washcloth that has blister fluid on it. If you have shingles, avoid contact with infants, children, women, and adults who have never had chickenpox or the chickenpox shot until your blisters are completely dry. How is shingles diagnosed? Your health care provider will ask about your symptoms and examine you. Your provider may order lab tests to look for the virus in fluid from a blister. How is it treated? It is best to start treatment within 24 to 48 hours after symptoms start. Your health care provider may prescribe: -an antiviral drug, such as acyclovir, to speed recovery and lessen the chance of prolonged symptoms from nerve inflammation -painkillers for more serious discomfort if nonprescription painkillers are not helping enough -antibacterial salves or lotions to help prevent bacterial infection of the blisters -capsaicin cream for pain How long will the effects last? The rash from shingles will heal in 1 to 2 weeks and the pain or irritation will usually disappear within 3 to 5 weeks. If the virus damages a nerve, you may have pain, numbness, or tingling for months or even years after the rash is healed. This is a condition called postherpetic neuralgia. It is most likely to occur after a shingles outbreaks in people over 50 years old. Antiviral medicine prescribed at the time the shingles is diagnosed and taken for 7 days can help prevent this problem. How can I take care of myself? -Take a pain relief medicine such as acetaminophen. Take other medicine as prescribed by your health care provider. -Put a cool compress on the rash (such as a cool, moist washcloth). -Rest in bed during the early stages if you have fever and other symptoms. -Try to avoid having clothing or bed linens rubbing against the rash, which might irritate it. Call your health care provider if: -You develop worsening pain or fever. -The blisters show signs of bacterial infection, such as increasing pain or redness, or milky yellow drainage from the blister sites. -The blisters are close to the eyes. How can I help prevent shingles? -If you have never had chickenpox, you can get a shot to help prevent infection with the chickenpox virus. -You can protect your immune system and lessen your chances of getting shingles by trying to keep your stress under control documented in this encounter [facility] 12-10-2022 History of Presen t illness Narrative Images from the original note were not included. Subjective The history is provided by the patient. No high school foreign language tutor was used. Patient presents with: Rash: Rash on lower left back x 5 days Thaddeus Crawford is a 37 year old female who presents with a complaint of a rash on the back for the past 3 day(s) that is gradually worsening. The patients reports no new exposures, no recent contact with unusual or new material, no recent change in detergents, soap, or shampoo, and no other family members with the same rash. The rash is discribed as Vesicles, itchy, tingling, burning, painful Past treatments No Does the patient have a personal history of: Seasonal allergies: no Recent travel: no Recent infections: no Beginning a new medication: no Symptoms are triggered by: touch, clothing rubbing Other symtoms include: malaise Review of Systems Constitutional: Negative for chills and fever. Musculoskeletal: Negative for joint pain and myalgias. Skin: Positive for rash. Negative for itching. All other systems reviewed and are negative. Objective Physical Exam Vitals and nursing note reviewed. Pulmonary: Effort: Pulmonary effort is normal. Skin: General: Skin is warm and dry. Findings: Erythema and rash present. Rash is vesicular. Comments: vesicles on an erythematous base clustered in a dermatomal distribution Neurological: Mental Status: She is alert and oriented to person, place, and time. Psychiatric: Mood and Affect: Affect normal. Per patient, normal kidney function. ASSESSMENT/PLAN: 1. Rash - ICD9: 782.1, ICD10: R21 Appears to be shingles Culture done Started on vatrex, normal kidney function per patient Comfort measures discussed - see patient instructions Will call with results - HSV1,2/VZV NAAT LESION Diagnosis and treatment plan were discussed and questions were answered to the patient's satisfaction. Pt acknowledged understanding of concepts and follow up plan. Specific signs and symptoms that would indicate the need for higher level of care were discussed in detail warranting prompt ER evaluation. Cuca Gonzales APRN.SAMINA documented in this encounter [facility] 10-10-2022 History of Presen t illness Narrative Chief Complaint Patient presents with: fmla forms: Mental health issues HPI Thaddeus Crawford is a 37 year old female who presents here today for mental health concerns. She was on Chantix and quit smoking about a month but then the depression and stress triggered her to start smoking again. MATT/Depression: She has been getting worse; today was very bad; she has been calling around to see if she could be seen by any counselors and [facility] which she did and they referred her to [facility] Intensive Out Patient Therapy Program. States that [facility] should be contacting her about scheduling this. [facility] after the [facility] program is completed. She was not started on any medication. No SI/HI. In the past she has been treated with Wellbutrin 300 mg daily, Buspar 5, 10 and 15 mg TID prn, Valium 5 mg prn (this was for back spasms), Lexapro 10 mg daily, and Hydroxyzine 25 mg TID prn. She is having trouble at work, getting along with people, with her personal relationships. She is just not feeling like herself. She states she is not able to work, her job is already on the line and she blew up on someone already at work and is worried about doing that again. 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 She states her son has ADHD and she is wondering if she had it as well. She has a hard time staying focused, can't get things done, then she starts getting angry and overwhelmed with pt and the fact that tasks are not getting completed. Brought in paperwork to have completed for mental health issues, states this was what her employer gave her to have completed. First day missed was today 10/10/22. She needs it to cover her sessions with [facility] and then counseling after the intensive out patient therapy is completed. Pt prefers not to work at this time until she can get her depression and moods under control especially since her job is already on the line. Past medical history, appointments, medications, allergies reviewed. Previous Medical History PAST MEDICAL HISTORY Diagnosis Date Asthma Benign neoplasm of colon Benign polyp. 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 Previous Surgical History PAST SURGICAL HISTORY Procedure Laterality Date COLONOSCOPY FLX DX W/COLLJ SPEC WHEN PFRMD 07/31/2012 Colonoscopy COLONOSCOPY FLX DX W/COLLJ SPEC WHEN PFRMD 08/07/2017 5 year repeat COLONOSCOPY SCREENING 08/19/2022 Diverticulosis, tubular adenoma, sessile serrated polyp. EGD W/O [facility] SPEC VARICIES INJ 08/19/2022 Active inflammation in lower esophagus ESOPHAGOGASTRODUODENOSCOPY TRANSORAL DIAGNOSTIC 11/20/2014 EGD ESOPHAGOGASTRODUODENOSCOPY TRANSORAL DIAGNOSTIC 02/20/2015 EGD ESOPHAGOGASTRODUODENOSCOPY TRANSORAL DIAGNOSTIC 08/07/2017 EGD ESOPHAGOGASTRODUODENOSCOPY TRANSORAL DIAGNOSTIC 12/18/2018 EGD INCISION & REMOVAL FOREIGN BODY SUBQ TISS SIMPLE Left 07/12/2018 Removal foreign body left index finger INCISION & REMOVAL FOREIGN BODY SUBQ TISS SIMPLE Left 07/12/2018 Excision foreign body left index finger LAPS SURG CHOLECYSTECTOMY W/CHOLANGIOGRAPHY 08/13/2010 MIRENA IUD 08/2012 OPEN REPAIR OF ROTATOR CUFF ACUTE Left 04/2000 Rotator cuff repair PAST SURGICAL HISTORY OF Removal ganglion cyst, foot, wrist, PAST SURGICAL HISTORY OF Excision Pilonidal cyst TONSILLECTOMY PRIMARY/SECONDARY <AGE 12 Tonsillectomy Family History FAMILY HISTORY Problem Relation Age of Onset Hypertension Mother 63 Stroke Mother Asthma Mother Heart disease Mother Cancer Father Throat cancer Breast Cancer Paternal Aunt other (other) Maternal Grandmother Cancer Maternal Grandmother Colon other (other) Maternal Grandfather Cancer Maternal Grandfather Leukemia Heart Paternal Grandmother other (DIverticulosis) Other Patient Allergies ALLERGIES Allergen Reactions Codeine Vomiting Penicillins GI Upset Post Op Bandaids [O* Itching Current Medications Current Outpatient Medications on File Prior to Visit Medication Sig benzonatate (TESSALON PERLES) 100 mg capsule Take 1-2 capsules by mouth three times daily as needed. ondansetron orally disintegrating (ZOFRAN ODT) 4 mg disintegrating tablet Take 1 tablet by mouth every 6 hours as needed for nausea/vomiting. LORazepam (ATIVAN) 0.5 mg TAKE 1 TABLET BY MOUTH ONE TIME ONLY FOR 1 DOSE. 30-45 MINUTES BEFORE PROCEDURE. varenicline (CHANTIX) 0.5 mg tablet Take 1 tablet by mouth once daily. Take One tablet x 3 days then 1 tablet twice a day for 4 days miSOPROStol (CYTOTEC) 200 mcg tablet Use 2 tablets vaginally as directed. The night before the procedure and the morning of the procedure. baclofen (LIORESAL) 10 mg tablet TAKE 1 TABLET BY MOUTH TWICE A DAY NEEDED pantoprazole DR (PROTONIX) 40 mg tablet Take 2 tablets by mouth once daily. Ascorbic Acid 1,000 mg tablet Take 1,000 mg by mouth once daily. multivit,calc,mins/iron/folic (ONE-A-DAY WOMENS FORMULA ORAL) Take by mouth. albuterol HFA (PROAIR HFA) 90 mcg/actuation inhaler Inhale 2 Puffs as instructed every 6 hours as needed. levonorgestrel (MIRENA) 20 mcg/24 hr (5 years) IUD Inserted in office Current Facility-Administered Medications on File Prior to Visit Medication lactated ringers iv infusion Social History Social History Tobacco Use Smoking status: Every Day Packs/day: 0.50 Years: 18.00 Pack years: 9.00 Types: Cigarettes Start date: 1997 Last attempt to quit: 08/23/2015 Years since quittin.1 Smokeless tobacco: Never Vaping Use Vaping Use: Never used Substance Use Topics Alcohol use: Not Currently Drug use: No EXAM: BP 120/78 Pulse 88 Resp 16 Wt 82.2 kg (181 lb 3.2 oz) LMP 09/17/2012 BMI 31.10 kg/m General Appearance: Well appearing, alert, in no acute distress, well-hydrated, well nourished.. Health Maintenance List PNEUMOCOCCAL(1 - PCV) Never done HEPATITIS C SCREENING Never done HIV SCREENING Never done HEPATITIS B(3 of 3 - 19+ 3-dose series) due on 11/21/2010 COVID-19 VACCINE(3 - Booster for Pfizer series) due on 07/23/2021 INFLUENZA(1) due on 06/02/2022 DEPRESSION ASSESSMENT Never done ANNUAL PCP TEAM CHRONIC DISEASE VISIT due on 03/30/2023 PAP TESTING due on 08/16/2027 HPV TESTING due on 08/16/2027 DTAP,TDAP,TD(8 - Td or Tdap) due on 06/25/2028 COLORECTAL CANCER SCREENING due on 08/19/2029 SPIROMETRY Completed Data reviewed None ASSESSMENT/PLAN: 1. Anxiety with depression - ICD9: 300.4, ICD10: F41.8 Form completed stating that she needs to be off work until she is able to get mental health treatment and her condition improves. Follow with mental health providers as planned Follow up as needed. Forms completed and given to pt in office. Copy made for records. I agree with the Chief Complaint, ROS, and Past Histories independently gathered by the clinical business support specialist and the remaining scribed note accurately describes my personal service to the patient. Medical Decision Making: Problems: Moderate: 1+ chronic illnesses with change Risk: Low: Low risk from testing/treatment Medical Decision Making Level: 3 - Low Nieves Jacobs MD The documentation for this note was completed by Radha Gentile Ma acting as scribe for Nieves Jacobs MD. October 10, 2022 7:29 PM. Radha Gentile Ma documented in this encounter [facility] 09-12-2022 History of Presen t illness Narrative 09/12/2022 Patient presents with: Cough: POWER, body aches, congestion, diarrhea x 6 days SUBJECTIVE: This is a 37 year old that is here today for Complaint(s) of cough and congestion and bodyaches x 6 days. Fever associated, last fever was yesterday. + diarrhea, last episode was last night. No blood in the stools. Denies SOB, wheezing, chest pain, vomiting. Patient did have a flu shot this year. PAST MEDICAL HISTORY Diagnosis Date Asthma Benign neoplasm of colon Benign polyp. 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 ALLERGIES Codeine, Penicillins, and Post Op Bandaids [Other] MEDICATIONS Current Outpatient Medications Medication Sig ondansetron orally disintegrating (ZOFRAN ODT) 4 mg disintegrating tablet Take 1 tablet by mouth every 6 hours as needed for nausea/vomiting. LORazepam (ATIVAN) 0.5 mg TAKE 1 TABLET BY MOUTH ONE TIME ONLY FOR 1 DOSE. 30-45 MINUTES BEFORE PROCEDURE. varenicline (CHANTIX) 0.5 mg tablet Take 1 tablet by mouth once daily. Take One tablet x 3 days then 1 tablet twice a day for 4 days miSOPROStol (CYTOTEC) 200 mcg tablet Use 2 tablets vaginally as directed. The night before the procedure and the morning of the procedure. baclofen (LIORESAL) 10 mg tablet TAKE 1 TABLET BY MOUTH TWICE A DAY NEEDED pantoprazole DR (PROTONIX) 40 mg tablet Take 2 tablets by mouth once daily. Ascorbic Acid 1,000 mg tablet Take 1,000 mg by mouth once daily. multivit,calc,mins/iron/folic (ONE-A-DAY WOMENS FORMULA ORAL) Take by mouth. albuterol HFA (PROAIR HFA) 90 mcg/actuation inhaler Inhale 2 Puffs as instructed every 6 hours as needed. levonorgestrel (MIRENA) 20 mcg/24 hr (5 years) IUD Inserted in office No current facility-administered medications for this visit. Facility-Administered Medications Ordered in Other Visits Medication Dose Route Frequency lactated ringers iv infusion 30 mL/hr INTRAVENOUS CONTINUOUS SOCIAL HISTORY Social History Tobacco Use Smoking status: Every Day Packs/day: 0.50 Years: 18.00 Pack years: 9.00 Types: Cigarettes Start date: 1997 Last attempt to quit: 08/23/2015 Years since quittin.0 Smokeless tobacco: Never Vaping Use Vaping Use: Never used Substance Use Topics Alcohol use: Not Currently Drug use: No REVIEW OF SYSTEMS See HPI OBJECTIVE: BP 102/72 Pulse 78 Temp 36.6 C (97.9 F) Resp 18 Wt 82.3 kg (181 lb 6.4 oz) LMP 09/17/2012 SpO2 100% BMI 31.14 kg/m APPEARANCE alert, in no acute distress, well-hydrated, well nourished. EYES PERRLA, conjunctiva and sclera normal. EARS External ears normal, canals clear. TMs normal ANTHONY NOSE/SINUS Nares normal. Septum midline. Mucosa normal. No drainage or sinus tenderness. THROAT normal, no erythema NECK Supple, no adenopathy; HEART RRR with normal S1 and S2 LUNG clear to auscultation, No wheezing, rhonchi, rales. ASSESSMENT/PLAN: 1. Acute cough - ICD9: 786.2, ICD10: R05.1 Supportive care with fluids and rest Reviewed red flags and when to seek care sooner. The patient indicates understanding of these issues and agrees with the plan. - COVID WITH FLUA+B, ROUTINE - BENZONATATE 100 MG CAPSULE R/o COVID/Flu Margie Laams PA-C documented in this encounter [facility] 09-06-2022 Miscellaneous Notes The following approved medication requests have been transmitted electronically. Requested Prescriptions Signed Prescriptions Disp Refills ondansetron orally disintegrating (ZOFRAN ODT) 4 mg disintegrating tablet 20 tablet 1 Sig: Take 1 tablet by mouth every 6 hours as needed for nausea/vomiting. Mac Connelly APRN.CNP This patient gave consent to this Medical Advice Message and is aware that it may result in a bill to their insurance, as well as the possibility of receiving a bill for a copay and/or deductible. They are an established patient, but are not seeking information exclusively about a problem treated during an in person or video visit in the last seven days. I did not recommend an in person or video visit within seven days of my reply. See the [employer] message reply for my assessment and plan. I spent a total of 5 minutes reviewing the patient's prior medical records and current request for medical advice, prescribing medications or ordering tests (if applicable), replying to the patient, and documenting the encounter. See update from pt regarding Chantix medication. Yee Reynoso Ma documented in this encounter [facility] 09-05-2022 Instructions Etelvina Vasquez PA-C - 09/05/2022 4:23 PM EST Images from the original note were not included. Bowel Preparation Instructions for: Miralax-Gatorade Preparations IF YOU DO NOT FOLLOW THESE DIRECTIONS, YOUR COLONOSCOPY WILL BE CANCELLED. Rainey Instructions: Your bowel must be empty so that your doctor can clearly view your colon. Follow all of the instructions in this handout EXACTLY as they are written. Do NOT eat any solid food the ENTIRE day before your colonoscopy. Buy your bowel preparation at least 5 days before your colonoscopy. Four (4) Dulcolax laxative tablets containing 5mg of bisacodyl each (NOT Dulcolax stool softener) One (1) 8.3oz. bottle Miralax (238 grams) or generic equivalent 2 x 32oz. Bottles of Gatorade (NOT RED) Diabetic Patients: Use G2 (Gatorade 2) TRANSPORTATION on the Day of Your Exam A responsible adult MUST be present with you at Check In prior to your colonoscopy and REMAIN in the endoscopy area until you are discharged. You are NOT ALLOWED to drive, take a taxi or bus, or leave the Endoscopy Center ALONE. If you do not have a responsible bookmobile driver (family member or friend) with you to take you home, your exam cannot be done with sedation and will be cancelled. Please bring a list of all of your current medications, including any Kvem-bat-Xpzxbsn medications with you. Medications If you take insulin, diabetic medications or blood thinners such as Coumadin (warfarin), Plavix (clopidogrel), Ticlid (ticlopidine hydrochloride), Agrylin (anagrelide), Xarelto (Rivaroxaban), Pradaxa (Dabigatran), Eliquis (Apixaban), and Effient (Prasugrel). You MUST call the doctors who orders those medicines for instructions on altering the dosage before your colonoscopy. All other medications should be taken the day of the exam with a sip of water including ASPIRIN. Five (5) Days Before Your Colonoscopy Do NOT take medicines that stop diarrhea - such as Imodium, Kaopectate, or Pepto Bismol. Do NOT take fiber supplements - such as Metamucil, Citrucel, or Perdiem. Do NOT take products that contain iron - such as multi-vitamins (the label lists what is in the products). Three (3) Days Before Your Colonoscopy Do NOT eat high-fiber foods - such as popcorn, beans, seeds (flax, sunflower, quinoa), multigrain bread, nuts, salad/vegetables, or fresh and dried fruit. 1 Bowel Preparation Instructions for: Miralax-Gatorade Preparations One (1) Day Before Your Colonoscopy Only drink clear liquids the ENTIRE DAY before your colonoscopy. Do NOT eat any solid foods. Drink at least 8 ounces of clear liquids every hour after waking up. The clear liquids you can drink include: Clear Liquid (NO RED LIQUIDS) DO NOT DRINK Gatorade, Pedialyte or Powerade Clear broth or bouillon Coffee or tea (no milk or non-dairy creamer) Carbonated and non-carbonated soft drinks Daryl-Aid or other fruit flavored drinks Strained fruit juices (no pulp) Jell-O, popsicles, hard candy Water Alcohol Milk or non-dairy creamers Noodles or vegetables in soup Juice with pulp Liquid you cannot see through Do not use tobacco/vaping products Mix 1/2 of Miralax bottle (119 grams) in each 32 ounces of Gatorade bottle until dissolved. Keep cool in the refrigerator. DO NOT ADD ICE. The bowel preparation solution will be consumed in two parts. Part 1 5:00 PM - Evening before your colonoscopy Take 4 Dulcolax tablets. 6 PM - Evening before your colonoscopy Drink 32 oz. of the mixed solution. Drink an 8 oz. glass of bowel preparation every 15 minutes for a total of 4 glasses. Fifteen (15) minutes later, drink an 8 oz. glass of of clear liquids every 15 minutes for a total of 2 glasses. You may continue to drink clear liquids till midnight. Part 2 On the day of your colonoscopy you may drink clear liquids up to (three) 3 hours prior to procedure. 4 1/2 hours before your colonoscopy Take another 32 oz. bottle of mixed solution. Drink an 8 oz. glass of bowel prep every 15 minutes for a total of 4 glasses. Fifteen (15) minutes later, drink an 8 oz. glass of clear liquids every 15 minutes for a total of 2 glasses. You may continue to drink clear liquids up to (three) 3 hours before your exam. 2 09/2019 documented in this encounter [facility] 09-05-2022 History of Presen t illness Narrative CHIEF COMPLAINT: Patient presents with: Procedure Follow Up: Colon/EGD 08/19/22. Still having the same symptoms HPI Thaddeus Crawford is a 37 year old female here today for Procedure Follow Up (Colon/EGD 08/19/22. Still having the same symptoms). Seen last in GI office for GERD, altered Bms. EGD/colon 08/2022 demonstrated evidence of GERD, negative for H. Pylori/Foster's, normal random colon biopsies. Still having persistent sx. Worsened abd pain LUQ, 07/11, worsened with eating. Bms have been more formed lately, intermittently loose, some BRBPR. Denies emesis, early satiety. OV 07/2022 Thaddeus Crawford is a 37 year old female who presents for GERD (Also due for colonoscopy). Admits to some voice changes over the past the year. Went to ENT 2 mos ago and told she had signs of reflux on her laryngoscopy. Has been on Protonix 80 mg daily for the past 5 years. Was previously on anti-acids, Prilosec. Notices that GERD sx are significantly worse for her recently. Experiencing intermittent LUQ pain, nausea, emesis 1x per month. EGD from 2019 showed finds of reflux. Includes she has h/o IBS, Bms overall loose to formed, no blood. Has h/o polyps, was advised to get colon every 5 years. Denies unintentional weight loss, regular NSAID usage, dysphagia, regurgitation. EGD 2019 1. Jejunum, biopsy (A) - Duodenal-type mucosa with mild focal active duodenitis and prominent mucosal/ submucosal Osmany's glands. - Morphologic features of celiac disease are not seen. 2. Gastric antrum, biopsy (B) - Gastric antral/body mucosa with reactive gastropathy-type changes. - No morphologic evidence of H. pylori organisms. 3. Esophagogastric junction, biopsy (C) - Hyperplastic squamous epithelium with mild reactive epithelial changes and rare eosinophils consistent with gastroesophageal reflux. Current Outpatient Medications Medication Sig varenicline (CHANTIX) 0.5 mg tablet Take 1 tablet by mouth once daily. Take One tablet x 3 days then 1 tablet twice a day for 4 days miSOPROStol (CYTOTEC) 200 mcg tablet Use 2 tablets vaginally as directed. The night before the procedure and the morning of the procedure. baclofen (LIORESAL) 10 mg tablet TAKE 1 TABLET BY MOUTH TWICE A DAY NEEDED pantoprazole DR (PROTONIX) 40 mg tablet Take 2 tablets by mouth once daily. Ascorbic Acid 1,000 mg tablet Take 1,000 mg by mouth once daily. multivit,calc,mins/iron/folic (ONE-A-DAY WOMENS FORMULA ORAL) Take by mouth. albuterol HFA (PROAIR HFA) 90 mcg/actuation inhaler Inhale 2 Puffs as instructed every 6 hours as needed. levonorgestrel (MIRENA) 20 mcg/24 hr (5 years) IUD Inserted in office LORazepam (ATIVAN) 0.5 mg TAKE 1 TABLET BY MOUTH ONE TIME ONLY FOR 1 DOSE. 30-45 MINUTES BEFORE PROCEDURE. No current facility-administered medications for this visit. Facility-Administered Medications Ordered in Other Visits Medication Dose Route Frequency lactated ringers iv infusion 30 mL/hr INTRAVENOUS CONTINUOUS ALLERGIES Allergen Reactions Codeine Vomiting Penicillins GI Upset Post Op Bandaids [O* Itching Social History Tobacco Use Smoking status: Every Day Packs/day: 0.50 Years: 18.00 Pack years: 9.00 Types: Cigarettes Start date: 1997 Last attempt to quit: 08/23/2015 Years since quittin.0 Smokeless tobacco: Never Vaping Use Vaping Use: Never used Substance Use Topics Alcohol use: Not Currently Drug use: No PAST MEDICAL HISTORY Diagnosis Date Asthma Benign neoplasm of colon Benign polyp. 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 PAST SURGICAL HISTORY Procedure Laterality Date COLONOSCOPY FLX DX W/COLLJ SPEC WHEN PFRMD 07/31/2012 Colonoscopy COLONOSCOPY FLX DX W/COLLJ SPEC WHEN PFRMD 08/07/2017 5 year repeat COLONOSCOPY SCREENING 08/19/2022 Diverticulosis, tubular adenoma, sessile serrated polyp. EGD W/O [facility] SPEC VARICIES INJ 08/19/2022 Active inflammation in lower esophagus ESOPHAGOGASTRODUODENOSCOPY TRANSORAL DIAGNOSTIC 11/20/2014 EGD ESOPHAGOGASTRODUODENOSCOPY TRANSORAL DIAGNOSTIC 02/20/2015 EGD ESOPHAGOGASTRODUODENOSCOPY TRANSORAL DIAGNOSTIC 08/07/2017 EGD ESOPHAGOGASTRODUODENOSCOPY TRANSORAL DIAGNOSTIC 12/18/2018 EGD INCISION & REMOVAL FOREIGN BODY SUBQ TISS SIMPLE Left 07/12/2018 Removal foreign body left index finger INCISION & REMOVAL FOREIGN BODY SUBQ TISS SIMPLE Left 07/12/2018 Excision foreign body left index finger LAPS SURG CHOLECYSTECTOMY W/CHOLANGIOGRAPHY 08/13/2010 MIRENA IUD 08/2012 OPEN REPAIR OF ROTATOR CUFF ACUTE Left 04/2000 Rotator cuff repair PAST SURGICAL HISTORY OF Removal ganglion cyst, foot, wrist, PAST SURGICAL HISTORY OF Excision Pilonidal cyst TONSILLECTOMY PRIMARY/SECONDARY <AGE 12 Tonsillectomy FAMILY HISTORY Problem Relation Age of Onset Hypertension Mother 63 Stroke Mother Asthma Mother Heart disease Mother Cancer Father Throat cancer Breast Cancer Paternal Aunt other (other) Maternal Grandmother Cancer Maternal Grandmother Colon other (other) Maternal Grandfather Cancer Maternal Grandfather Leukemia Heart Paternal Grandmother other (DIverticulosis) Other REVIEW OF SYSTEMS Review of Systems HENT: Positive for trouble swallowing and voice change. Respiratory: Positive for cough. Gastrointestinal: Positive for abdominal distention, abdominal pain, constipation, diarrhea and nausea. Heartburn All other systems reviewed and are negative. PHYSICAL EXAM BP 108/72 Pulse 67 Ht 5' 4 (1.63m) Wt 184 lb (83.5kg) LMP 09/17/2012 BMI 31.57 kg/(m^2). Physical Exam Constitutional: General: She is not in acute distress. Appearance: Normal appearance. She is normal weight. She is not ill-appearing, toxic-appearing or diaphoretic. HENT: Head: Normocephalic and atraumatic. Nose: Nose normal. Eyes: General: No scleral icterus. Right eye: No discharge. Left eye: No discharge. Extraocular Movements: Extraocular movements intact. Conjunctiva/sclera: Conjunctivae normal. Pupils: Pupils are equal, round, and reactive to light. Cardiovascular: Rate and Rhythm: Normal rate and regular rhythm. Pulses: Normal pulses. Heart sounds: Normal heart sounds. No murmur heard. No friction rub. No gallop. Pulmonary: Effort: No respiratory distress. Breath sounds: Normal breath sounds. No stridor. No wheezing, rhonchi or rales. Chest: Chest wall: No tenderness. Abdominal: General: Bowel sounds are normal. There is distension. Palpations: Abdomen is soft. There is no mass. Tenderness: There is abdominal tenderness (Moderate TTP in LUQ). There is no right CVA tenderness, left CVA tenderness, guarding or rebound. Hernia: No hernia is present. Musculoskeletal: General: Normal range of motion. Cervical back: Normal range of motion and neck supple. Skin: General: Skin is warm and dry. Neurological: General: No focal deficit present. Mental Status: She is alert and oriented to person, place, and time. Psychiatric: Mood and Affect: Mood normal. Behavior: Behavior normal. Assessment/Plan (R10.12) LUQ pain (primary encounter diagnosis) (R14.0) Abdominal distension (gaseous) (K21.00) Gastroesophageal reflux disease with esophagitis without hemorrhage (K52.9) Chronic diarrhea (Z86.010) History of colonic polyps (R11.0) Nausea 1. LUQ pain - CT ABD/PEL W IVCON; Future - iv contrast (will be provided with radiology test); CT ABD/PEL -Inject, intravenously, once for 1 dose.No IV access, insert saline lock prior to the beginning of sedation, infusion, injection of imaging exam. Discontinue saline lock post exam. If Pt. has a central line or IVAD, may access for administration according to line specific nursing protocol. Once exam is complete flush line and de-access according to line specific nursing protocol in the CT contrast administration guidelines link. Dispense: 1 Each; Refill: 0 - enteric contrast (will be provided with radiology test); For CT ABD/PEL W IVCON Routine order Administer, As Directed One Time Only, via Oral, Rectal, both Oral and Rectal, Enteric Tube, Stoma or Indwelling Catheter, Enteric Contrast as designated per enteric contrast guidelines Dispense: 1 Each; Refill: 0 - Reports no relief in abd pain in the past with Bentyl PRN - EGD/Colon showed reflux otherwise essentially unremarkable for sources. Will plan for CT abd for additional eval. Pt states no chance of - Consider GES/HIDA if CT abd WNL 2. Abdominal distension (gaseous) - CT ABD/PEL W IVCON; Future - iv contrast (will be provided with radiology test); CT ABD/PEL -Inject, intravenously, once for 1 dose.No IV access, insert saline lock prior to the beginning of sedation, infusion, injection of imaging exam. Discontinue saline lock post exam. If Pt. has a central line or IVAD, may access for administration according to line specific nursing protocol. Once exam is complete flush line and de-access according to line specific nursing protocol in the CT contrast administration guidelines link. Dispense: 1 Each; Refill: 0 - enteric contrast (will be provided with radiology test); For CT ABD/PEL W IVCON Routine order Administer, As Directed One Time Only, via Oral, Rectal, both Oral and Rectal, Enteric Tube, Stoma or Indwelling Catheter, Enteric Contrast as designated per enteric contrast guidelines Dispense: 1 Each; Refill: 0 3. Gastroesophageal reflux disease with esophagitis without hemorrhage - Continue Protonix 80 mg daily 4. Chronic diarrhea - PANC ELASTASE, FECAL - CELIAC SCREEN WITH REFLEX; Future - Reports more formed stools recently - Will check elastase to r/o EPI, Celiac serology 5. History of colonic polyps - COLONOSCOPY SCREENING; Future - Repeat colon 01/2023 I spent a total of 30 minutes on the date of the service which included preparing to see the patient, [id number] patient care, completing clinical documentation, obtaining and/or reviewing separately obtained history, performing a medically appropriate examination, counseling and educating the patient/family/caregiver, ordering medications, tests, or procedures, communicating with other HCPs (not separately reported), independently interpreting results (not separately reported), communicating results to the patient/family/caregiver, and care coordination (not separately reported). Etelvina Vasquez PA-C September 05, 2022 4:23 PM documented in this encounter [facility] 08-29-2022 Miscellaneous Notes Pt notified. Radha Gentile Ma OK for 0.5 mg tablets as ordered Nieves Jacobs MD Patient calls and states that she is just starting varenicline today. Patient states that she needs to start on the .5 mg tablet since the 1 mg tablet cannot be cut in half. Patient asking for new prescription to be sent to [facility]. Patient already picked up the 1 mg tablets at pharmacy. Please review and advise, Susan Spears RN documented in this encounter [facility] 08-19-[address] Mcadams at bedside to speak with patient and friend. [facility] 08-19-[address] Mcadams at bedside to speak with patient and friend. documented in this encounter [facility] 08-19-2022 History and physical note HISTORY AND PHYSICAL Thaddeus Crawford, 37 year old female Current history and physical on file: Yes Is a new History and Physical required for today's visit? No Indication for procedure: GERD and Screening PROCEDURE(S) SCHEDULED FOR: Colonoscopy with or without biopsies and with or without removal of polyps or lesions, dilation (any means), treatment of bleeding (any means), based on clinical findings. and EGD (Esophagogastroduodenoscopy) with or without biopsies, removal of polyps or lesions, dilation ( any means), treatment of bleeding ( any means), Barrx treatment of Luis's Esophagus, image tube placement or cryo therapy treatment based on clinical findings. BASELINE BEHAVIOR: Calm BASELINE ORIENTATION: A & O x3 All medications and allergies reviewed: Yes Skin Assessment: Warm dry mucus membranes pink Airway/Respiratory Assessment: Airway: visualization of the uvula- Yes Mouth: opening greater than 2 fingerbreadths- Yes Neck: full range of motion- Yes Breath sounds clear/equal- Yes Cardiac Assessment: Regular rate and rhythm without murmur Abdominal Assessment: Abdomen soft, non-tender, no masses or organomegaly. Sedation Plan: MAC Additional Comments: None Nicko Mcadams MD [facility] Work Phone: 08-19-2022 History and physical note HISTORY AND PHYSICAL Thaddeus Crawford, 37 year old female Current history and physical on file: Yes Is a new History and Physical required for today's visit? No Indication for procedure: GERD and Screening PROCEDURE(S) SCHEDULED FOR: Colonoscopy with or without biopsies and with or without removal of polyps or lesions, dilation (any means), treatment of bleeding (any means), based on clinical findings. and EGD (Esophagogastroduodenoscopy) with or without biopsies, removal of polyps or lesions, dilation ( any means), treatment of bleeding ( any means), Barrx treatment of Luis's Esophagus, image tube placement or cryo therapy treatment based on clinical findings. BASELINE BEHAVIOR: Calm BASELINE ORIENTATION: A & O x3 All medications and allergies reviewed: Yes Skin Assessment: Warm dry mucus membranes pink Airway/Respiratory Assessment: Airway: visualization of the uvula- Yes Mouth: opening greater than 2 fingerbreadths- Yes Neck: full range of motion- Yes Breath sounds clear/equal- Yes Cardiac Assessment: Regular rate and rhythm without murmur Abdominal Assessment: Abdomen soft, non-tender, no masses or organomegaly. Sedation Plan: MAC Additional Comments: None Nicko Mcadams MD documented in this encounter [facility] 08-16-2022 History of Presen t illness Narrative Thaddeus is a 37 year old who presents for an annual gynecologic exam with complaints, heavy and irregular bleeding and pain with intercourse. Menses: irregular cycle with Mirena. Contraception: IUD HPV vaccine: No Last Pap: 11/17/2015 abnormal, ASCUS HPV: 11/06/2015 negative History of abnormal pap: Yes Last mammogram: never Sexually active: Yes Patient concerns for STD exposure: No. 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 PAST MEDICAL HISTORY Diagnosis Date Asthma Benign neoplasm of colon Benign polyp. 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 PAST SURGICAL HISTORY Procedure Laterality Date COLONOSCOPY FLX DX W/COLLJ SPEC WHEN PFRMD 07/31/12 Colonoscopy COLONOSCOPY FLX DX W/COLLJ SPEC WHEN PFRMD 08/07/2017 5 year repeat ESOPHAGOGASTRODUODENOSCOPY TRANSORAL DIAGNOSTIC 11/20/14 EGD ESOPHAGOGASTRODUODENOSCOPY TRANSORAL DIAGNOSTIC 02/20/2015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 Abuse Patient Records regulations: The Federal rules restrict any use of the information to criminally investigate or prosecute any alcohol or drug abuse patient.[facility] HospitalIn the event this information is protected by the Federal Confidentiality of Alcohol and Drug Abuse Patient Records regulations: The Federal rules restrict any use of the information to criminally investigate or prosecute any alcohol or drug abuse patient.[facility] HospitalIn the event this information is protected by the Federal Confidentiality of Alcohol and Drug Abuse Patient Records regulations: The Federal rules restrict any use of the information to criminally investigate or prosecute any alcohol or drug abuse patient.[facility] HospitalIn the event this information is protected by the Federal Confidentiality of Alcohol and Drug Abuse Patient Records regulations: The Federal rules restrict any use of the information to criminally investigate or prosecute any alcohol or drug abuse patient.[facility] HospitalIn the event this information is protected by the Federal Confidentiality of Alcohol and Drug Abuse Patient Records regulations: The Federal rules restrict any use of the information to criminally investigate or prosecute any alcohol or drug abuse patient.[facility] HospitalIn the event this information is protected by the Federal Confidentiality of Alcohol and Drug Abuse Patient Records regulations: The Federal rules restrict any use of the information to criminally investigate or prosecute any alcohol or drug abuse patient.[facility] HospitalIn the event this information is protected by the Federal Confidentiality of Alcohol and Drug Abuse Patient Records regulations: The Federal rules restrict any use of the information to criminally investigate or prosecute any alcohol or drug abuse patient.[facility] HospitalIn the event this information is protected by the Federal Confidentiality of Alcohol and Drug Abuse Patient Records regulations: The Federal rules restrict any use of the information to criminally investigate or prosecute any alcohol or drug abuse patient.[facility] HospitalIn the event this information is protected by the Federal Confidentiality of Alcohol and Drug Abuse Patient Records regulations: The Federal rules restrict any use of the information to criminally investigate or prosecute any alcohol or drug abuse patient.[facility] HospitalIn the event this information is protected by the Federal Confidentiality of Alcohol and Drug Abuse Patient Records regulations: The Federal rules restrict any use of the information to criminally investigate or prosecute any alcohol or drug abuse patient.[facility] HospitalIn the event this information is protected by the Federal Confidentiality of Alcohol and Drug Abuse Patient Records regulations: The Federal rules restrict any use of the information to criminally investigate or prosecute any alcohol or drug abuse patient.[facility] HospitalIn the event this information is protected by the Federal Confidentiality of Alcohol and Drug Abuse Patient Records regulations: The Federal rules restrict any use of the information to criminally investigate or prosecute any alcohol or drug abuse patient.[facility] HospitalIn the event this information is protected by the Federal Confidentiality of Alcohol and Drug Abuse Patient Records regulations: The Federal rules restrict any use of the information to criminally investigate or prosecute any alcohol or drug abuse patient.[facility] HospitalIn the event this information is protected by the Federal Confidentiality of Alcohol and Drug Abuse Patient Records regulations: The Federal rules restrict any use of the information to criminally investigate or prosecute any alcohol or drug abuse patient.[facility] HospitalIn the event this information is protected by the Federal Confidentiality of Alcohol and Drug Abuse Patient Records regulations: The Federal rules restrict any use of the information to criminally investigate or prosecute any alcohol or drug abuse patient.[facility] HospitalIn the event this information is protected by the Federal Confidentiality of Alcohol and Drug Abuse Patient Records regulations: The Federal rules restrict any use of the information to criminally investigate or prosecute any alcohol or drug abuse patient.[facility] HospitalIn the event this information is protected by the Federal Confidentiality of Alcohol and Drug Abuse Patient Records regulations: The Federal rules restrict any use of the information to criminally investigate or prosecute any alcohol or drug abuse patient.[facility] HospitalIn the event this information is protected by the Federal Confidentiality of Alcohol and Drug Abuse Patient Records regulations: The Federal rules restrict any use of the information to criminally investigate or prosecute any alcohol or drug abuse patient.[facility] HospitalIn the event this information is protected by the Federal Confidentiality of Alcohol and Drug Abuse Patient Records regulations: The Federal rules restrict any use of the information to criminally investigate or prosecute any alcohol or drug abuse patient.[facility] HospitalIn the event this information is protected by the Federal Confidentiality of Alcohol and Drug Abuse Patient Records regulations: The Federal rules restrict any use of the information to criminally investigate or prosecute any alcohol or drug abuse patient.[facility] HospitalIn the event this information is protected by the Federal Confidentiality of Alcohol and Drug Abuse Patient Records regulations: The Federal rules restrict any use of the information to criminally investigate or prosecute any alcohol or drug abuse patient.[facility] HospitalIn the event this information is protected by the Federal Confidentiality of Alcohol and Drug Abuse Patient Records regulations: The Federal rules restrict any use of the information to criminally investigate or prosecute any alcohol or drug abuse patient.[facility] HospitalIn the event this information is protected by the Federal Confidentiality of Alcohol and Drug Abuse Patient Records regulations: The Federal rules restrict any use of the information to criminally investigate or prosecute any alcohol or drug abuse patient.[facility] Reason for Visit (unrecogniz ed section and content) Reason Comments Neck Pain Reason Comments Peer To Peer Consultation MRI cervical s pine wo ivcon Specialty Diagnoses / Procedures Referred By Crescencioac t Referred To Contact MR IMAGING Diagnoses Cervical strain, subsequent encounter Procedures MRI CERVICAL SPINE WO IVCON MRI SPINAL CANAL CERVICAL W/O CONTRAST MATRL Nieves Jacobs MD [address] [place] [address] Mr Imaging Referral ID Status Reason Start Date Expiration Date V isits Requested Visits Authorized [id number] Closed Auto-Generate d Referral 04/19/2022 06/18/2022 1 1 Reason Comments Consult hoarseness/ throat t ightness/ trouble swallowing/ right ear fullness that radiates to throat Specialty Diagnoses / Procedures Referred By Crescencioac t Referred To Contact Ent - Otolaryngology Diagnoses Hoarse Procedures CONSULT TO ENT OFFICE/OUTPATIENT [facility] MDM 60-74 MINUTES Nieves Jacobs MD [address] [place] [address] Referral ID Status Reason Start Date Expiration Date V isits Requested Visits Authorized [id number] Closed PCP Requested Referral 03/30/2022 03/30/2023 1 1 Reason Comments New Gastro Consult Order Reason Comments Results Reason Onset Date Comments Refill Request 06/23/2022 Reason Comments Refill Request Reason Comments Discussion IUD removal Reason Comments DUB Reason Comments Well Woman Reason Comments Medication Problem Reason Comments Procedure Follow Up Colon/EGD 08/19/22. Still having the same symptoms Reason Comments Cough POWER, body aches, sebastian estion, diarrhea x 6 days Reason Comments fmla forms Mental health issues Reason Comments Rash Rash on lower left b ack x 5 days Reason Comments Results Reason Comments Forms/letter Reason Onset Date Comments Refill Request 01/14/2023 Reason Comments repeat colonscopy Reason Comments Trauma Right hand ring fing er cut Reason Onset Date Comments Refill Request 07/23/2023 Reason Comments Fatigue Reason Onset Date Comments Refill Request 11/01/2023 Reason Onset Date Comments Opened In Error 02/01/2024 Reason Comments Asthma Is coughing and whee zing Reason Comments Trauma Left index finger, h urt on Monday, swelling, pain, bruising x 3 days Reason Comments Pain Reason Comments Follow Up 2 week Reason Comments Radiology US Specialty Diagnoses / Procedures Referred By Contac t Referred To Contact US IMAGING Diagnoses Abnormal CBC Left sided abdominal pain Procedures US ABD SPLEEN US ABDOMINAL REAL TIME W/IMAGE LIMITED Mac Connelly APRN.FUR FINISHER [address] [place] [address] Us Imaging [facility] Referral ID Status Reason Start Date Expiration Date V isits Requested Visits Authorized [id number] Closed Auto-Generate d Referral 05/29/2024 06/28/2025 [address] Specialty Diagnoses / Procedures Referred By Contac t Referred To Contact CT IMAGING Diagnoses Left upper quadrant abdominal pain Flank pain Abdominal bloating Procedures CT ABD/PEL WO IVCON CT ABD & PELVIS W/O CONTRAST Mac Connelly APRN.FUR FINISHER [address] [place] [address] Ct Imaging [facility] Referral ID Status Reason Start Date Expiration Date V isits Requested Visits Authorized [id number] Closed Auto-Generate d Referral 06/07/2024 08/06/2024 2 1 Reason Comments Results Reason Comments Pain Left shoulder, upper back around shoulder blade Reason Comments Spirometry Specialty Diagnoses / Procedures [facility] Diagnoses Abnormal CT of the abdomen 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) Procedures SPIROMETRY - BASELINE AND POST DILATOR BRNCDILAT RSPSE SPMTRY PRE&POST-BRNCDILAT ADMN Mac Connelly APRN.FUR FINISHER [address] [place] [address] Respiratory [place] [address] [place] [id number] Referral ID Status Reason Start Date Expiration Date V isits Requested Visits Authorized [id number] Closed Auto-Generat ed Referral Patient Cleared - Admin/Chairm an/Director advise to proceed or did not respond 10/23/2024 10/01/2025 [address] Specialty Diagnoses / Procedures [facility] Ref[facility] To Contact CT IMAGING Diagnoses Abnormal CT of the abdomen Multiple idiopathic cysts of lung Fatigue, unspecified type 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) Procedures CT CHEST WO IVCON DIAGNOSTIC COMPUTED TOMOGRAPHY THORAX W/O CNTRST Mac Connelly APRN.FUR FINISHER [address] [place] [address] Ct [facility] [place] [address] Referral ID Status Reason Start Date Expiration Date V isits Requested Visits Authorized [id number] Closed Auto-Generate d Referral 10/23/2024 10/01/2025 1 1 Reason Comments PT Eval Physical Therapy Specialty Diagnoses / Procedures Referred By Contac t Referred To Contact [facility] Diagnoses Muscle tightness Acute pain of left shoulder Procedures CONSULT TO PHYSICAL THERAPY PHYSICAL THERAPY EVALUATION HIGH COMPLEX 45 MINS Nieves Jacobs MD [address] [place] [id number] [facility] [place] [address] [place], [place] [id number] Referral ID Status Reason Start Date Expiration Date Visits Requested Visits Authorized [id number] Authorized Auto-Generat ed Referral 10/02/2024 10/01/2025 25 25 Reason Comments Adrenal Specialty Diagnoses / Procedures Referred By Contac t Referred To Contact Endocrinology Diagnoses Adrenal hyperplasia (HCC) Procedures CONSULT TO ENDOCRINOLOGY OFFICE/OUTPATIENT [facility] 60 MINUTES Mac Connelly APRN.FUR FINISHER [address] [place] [address] Phone: tel: fax: Referral ID Status Reason Start Date Expiration Date V isits Requested Visits Authorized [id number] Closed PCP Requested Referral 06/18/2024 06/18/2025 1 1 Reason Comments Physical Therapy Specialty Diagnoses / Procedures Referred By Contac t Referred To Contact [facility] Diagnoses Muscle tightness Acute pain of left shoulder Procedures CONSULT TO PHYSICAL THERAPY PHYSICAL THERAPY EVALUATION HIGH COMPLEX 45 MINS Nieves Jacobs MD [address] [place] [address] Phone: tel: fax: [facility] [address] [place] [id number] Referral ID Status Reason Start Date Expiration Date Visits Requested Visits Authorized [id number] Authorized Auto-Generat ed Referral 10/02/2024 10/01/2025 25 25 Reason Comments Physical Therapy PT Discharge Specialty Diagnoses / Procedures Referred By Contac t Referred To Contact [facility] Diagnoses Muscle tightness Acute pain of left shoulder Procedures CONSULT TO PHYSICAL THERAPY PHYSICAL THERAPY EVALUATION HIGH COMPLEX 45 MINS Nieves Jacobs MD [address] [place] [address] Phone: tel: fax: [facility] [address] [place] [address] Referral ID Status Reason Start Date Expiration Date Visits Requested Visits Authorized [id number] Authorized Auto-Generat ed Referral 10/02/2024 10/01/2025 25 25 Reason Onset Date Comments Refill Request 01/03/2025 Reason Comments Congenital Adrenal Hyperplasia labs Reason Comments Chest Congestion cough, nasal congest ion, drainage, wheezing, fatigue and lightheaded x over 1 week Care Teams (unrecognized sec tion and content) Brake Coupler Dinkey Relationship Specialty Start Date End Date Nieves Jacobs MD [address] [place] [address] PCP - General Family Practice 01/13/11 Brake Coupler Dinkey Relationship Specialty Start Date End Date Nieves Jacobs MD [address] [place] [address] PCP - General Family Practice 01/13/11 Brake Coupler Dinkey Relationship Specialty Start Date End Date Nieves Jacobs MD [address] [place] [address] PCP - General Family Practice 01/13/11 Brake Coupler Dinkey Relationship Specialty Start Date End Date Nieves Jacobs MD [address] [place] [address] PCP - General Family Practice 01/13/11 Brake Coupler Dinkey Relationship Specialty Start Date End Date Nieves Jacobs MD [address] [place] [address] PCP - General Family Practice 01/13/11 Brake Coupler Dinkey Relationship Specialty Start Date End Date Nieves Jacobs MD [address] [place] [address] PCP - General Family Practice 01/13/11 Brake Coupler Dinkey Relationship Specialty Start Date End Date Nieves Jacobs MD [address] [place] [address] PCP - General Family Practice 01/13/11 Brake Coupler Dinkey Relationship Specialty Start Date End Date Nieves Jacobs MD [address] [place] [address] PCP - General Family Medicine 01/13/11 Brake Coupler Dinkey Relationship Specialty Start Date End Date Nieves Jacobs MD [address] [place] [address] PCP - General Family Medicine 01/13/11 Brake Coupler Dinkey Relationship Specialty Start Date End Date Nieves Jacobs MD [address] [place] [address] PCP - General Family Medicine 01/13/11 Brake Coupler Dinkey Relationship Specialty Start Date End Date Nieves Jacobs MD [address] [place] [address] PCP - General Family Medicine 01/13/11 Brake Coupler Dinkey Relationship Specialty Start Date End Date Nieves Jacobs MD [address] [place] [address] PCP - General Family Medicine 01/13/11 Brake Coupler Dinkey Relationship Specialty Start Date End Date Nieves Jacobs MD [address] [place] [address] PCP - General Family Medicine 01/13/11 Brake Coupler Dinkey Relationship Specialty Start Date End Date Nieves Jacobs MD [address] [place] [address] PCP - General Family Medicine 01/13/11 Brake Coupler Dinkey Relationship Specialty Start Date End Date Nieves Jacobs MD [address] [place] [address] PCP - General Family Medicine 01/13/11 Brake Coupler Dinkey Relationship Specialty Start Date End Date Nieves Jacobs MD [address] [place] [address] PCP - General Family Medicine 01/13/11 Brake Coupler Dinkey Relationship Specialty Start Date End Date Nieves Jacobs MD [address] [place] [address] PCP - General Family Medicine 01/13/11 Brake Coupler Dinkey Relationship Specialty Start Date End Date Nieves Jacobs MD [address] [place] [address] PCP - General Family Medicine 01/13/11 Brake Coupler Dinkey Relationship Specialty Start Date End Date Nieves Jacobs MD [address] [place] [address] PCP - General Family Medicine 01/13/11 Brake Coupler Dinkey Relationship Specialty Start Date End Date Nieves Jacobs MD [address] [place] [address] PCP - General Family Medicine 01/13/11 Brake Coupler Dinkey Relationship Specialty Start Date End Date Nieves Jacobs MD [address] [place] [address] PCP - General Family Medicine 01/13/11 Brake Coupler Dinkey Relationship Specialty Start Date End Date Nieves Jacobs MD [address] [place] [address] PCP - General Family Medicine 01/13/11 Brake Coupler Dinkey Relationship Specialty Start Date End Date Nieves Jacobs MD [address] [place] [address] PCP - General Family Medicine 01/13/11 Brake Coupler Dinkey Relationship Specialty Start Date End Date Nieves Jacobs MD [address] [place] [address] PCP - General Family Medicine 01/13/11 Brake Coupler Dinkey Relationship Specialty Start Date End Date Nieves Jacobs MD [address] [place] [address] PCP - General Family Medicine 01/13/11 Brake Coupler Dinkey Relationship Specialty Start Date End Date Nieves Jacobs MD [address] [place] [address] PCP - General Family Medicine 01/13/11 Brake Coupler Dinkey Relationship Specialty Start Date End Date Nieves Jacobs MD [address] [place] [address] PCP - General Family Medicine 01/13/11 Brake Coupler Dinkey Relationship Specialty Start Date End Date Nieves Jacobs MD [address] [place] [address] PCP - General Family Medicine 01/13/11 Brake Coupler Dinkey Relationship Specialty Start Date End Date Nieves Jacobs MD [address] [place] [address] PCP - General Family Medicine 01/13/11 Brake Coupler Dinkey Relationship Specialty Start Date End Date Nieves Jacobs MD [address] [place] [address] PCP - General Family Medicine 01/13/11 Brake Coupler Dinkey Relationship Specialty Start Date End Date Nieves Jacobs MD [address] [place] [address] PCP - General Family Medicine 01/13/11 Brake Coupler Dinkey Relationship Specialty Start Date End Date Nieves Jacobs MD [address] [place] [address] PCP - General Family Medicine 01/13/11 Brake Coupler Dinkey Relationship Specialty Start Date End Date Nieves Jacobs MD [address] [place] [address] PCP - General Family Medicine 01/13/11 Brake Coupler Dinkey Relationship Specialty Start Date End Date Nieves Jacobs MD [address] [place] [address] PCP - General Family Medicine 01/13/11 Brake Coupler Dinkey Relationship Specialty Start Date End Date Nieves Jacobs MD [address] [place] [address] PCP - General Family Medicine 01/13/11 Brake Coupler Dinkey Relationship Specialty Start Date End Date Nieves Jacobs MD [address] [place] [address] PCP - General Family Medicine 01/13/11 Brake Coupler Dinkey Relationship Specialty Start Date End Date Nieves Jacobs MD [address] [place] [address] PCP - General Family Medicine 01/13/11 Brake Coupler Dinkey Relationship Specialty Start Date End Date Nieves Jacobs MD [address] [place] [address] PCP - General Family Medicine 01/13/11 Brake Coupler Dinkey Relationship Specialty Start Date End Date Nieves Jacobs MD [address] [place] [address] PCP - General Family Medicine 01/13/11 Brake Coupler Dinkey Relationship Specialty Start Date End Date Nieves Jacobs MD [address] [place] [address] PCP - General Family Medicine 01/13/11 Brake Coupler Dinkey Relationship Specialty Start Date End Date Nieves Jacobs MD [address] [place] [address] PCP - General Family Medicine 01/13/11 Brake Coupler Dinkey Relationship Specialty Start Date End Date Nieves Jacobs MD [address] [place] [address] PCP - General Family Medicine 01/13/11 Brake Coupler Dinkey Relationship Specialty Start Date End Date Nieves Jacobs MD [address] [place] [address] PCP - General Family Medicine 01/13/11 Brake Coupler Dinkey Relationship Specialty Start Date End Date Nieves Jacobs MD [address] [place] [address] PCP - General Family Medicine 01/13/11 Brake Coupler Dinkey Relationship Specialty Start Date End Date Nieves Jacobs MD [address] [place] [address] PCP - General Family Medicine 01/13/11 Wanda Kearney APRN.FUR FINISHER [address] [place] [address] Director Statistical Programming Family Medicine 09/08/24 Mac Connelly APRN.FUR FINISHER [address] [place] [address] Director Statistical Programming Family Medicine 09/17/24 Brake Coupler Dinkey Relationship Specialty Start Date End Date Nieves Jacobs MD [address] [place] [address] PCP - General Family Medicine 01/13/11 Wanda Kearney APRN.FUR FINISHER [address] [place] [address] Director Statistical Programming Family Medicine 09/08/24 Mac Connelly APRN.FUR FINISHER [address] [place] [address] Director Statistical Programming Family Medicine 09/17/24 Brake Coupler Dinkey Relationship Specialty Start Date End Date Nievse Jacobs MD [address] [place] [address] PCP - General Family Medicine 01/13/11 Wanda Kearney APRN.FUR FINISHER [address] [place] [address] Director Statistical Programming Family Medicine 09/08/24 Mac Connelly APRN.FUR FINISHER [address] [place] [address] Director Statistical Programming Family Medicine 09/17/24 Brake Coupler Dinkey Relationship Specialty Start Date End Date Nieves Jacobs MD [address] [place] [address] PCP - General Family Medicine 01/13/11 Wanda Kearney APRN.FUR FINISHER [address] [place] [address] Director Statistical Programming Family Medicine 09/08/24 Mac Connelly APRN.FUR FINISHER [address] [place] [address] [facility] 09/17/24 Brake Coupler Dinkey Relationship Specialty Start Date End Date Nieves Jacobs MD [address] [place] [address] PCP - General Family Medicine 01/13/11 Wanda Kearney APRN.FUR FINISHER [address] [place] [address] Director [facility] 09/08/24 Mac Connelly APRN.FUR FINISHER [address] [place] [address] Formerly [facility] 09/17/24 Brake Coupler Dinkey Relationship Specialty Start Date End Date Nieves Jacobs MD [address] [place] [address] PCP - General Family Medicine 01/13/11 Wanda Kearney APRN.FUR FINISHER [address] [place] [address] Director Statistical Programming Family Medicine 09/08/24 Mac Connelly APRN.FUR FINISHER [address] [place] [address] Director Statistical Programming Family Medicine 09/17/24 Brake Coupler Dinkey Relationship Specialty Start Date End Date Nieves Jacobs MD [address] [place] [address] PCP - General Family Medicine 01/13/11 Wanda Kearney APRN.FUR FINISHER [address] [place] [address] Director Statistical Programming Family Medicine 09/08/24 Mac Connelly APRN.FUR FINISHER [address] [place] [address] Director Statistical Programming Family Medicine 09/17/24 Brake Coupler Dinkey Relationship Specialty Start Date End Date Nieves Jacobs MD [address] [place] [address] PCP - General Family Medicine 01/13/11 Wanda Kearney APRN.FUR FINISHER [address] [place] [address] Director Statistical Programming Family Medicine 09/08/24 Mac Connelly APRN.FUR FINISHER [address] [place] [address] Director Statistical Programming Family Medicine 09/17/24 Brake Coupler Dinkey Relationship Specialty Start Date End Date Nieves Jacobs MD [address] [place] [address] PCP - General Family Medicine 01/13/11 Wanda Kearney APRN.FUR FINISHER [address] [place] [address] Director Statistical Programming Family Medicine 09/08/24 Mac Connelly APRN.FUR FINISHER [address] [place] [address] Director Statistical Programming Family Medicine 09/17/24 Brake Coupler Dinkey Relationship Specialty Start Date End Date Nieves Jacobs MD [address] [place] [address] PCP - General Family Medicine 01/13/11 Wanda Kearney APRN.FUR FINISHER [address] [place] [address] Director [facility] 09/[facility]/24 Mac Connelly APRN.FUR FINISHER [address] [place] [id number] Formerly [facility] 09/17/24 Brake Coupler Dinkey Relationship Specialty Start Date End Date Nieves Jacobs MD [address] [place] [id number] PCP - General Family Medicine 01/13/11 Mac Connelly APRN.FUR FINISHER [address] [place] [address] Formerly [facility] 09/17/24 INFORMATION SOURCE (unrecogn ized section and content) DATE CREATED AUTHOR 06/23/2024 [facility] DATE CREATED AUTHOR AUTHOR'S ORGANIZ ATION 02/11/2025 [facility] DATE CREATED AUTHOR AUTHOR'S ORGANIZ ATION 04/26/2025 [facility] FOR RECORDS PERTAINING TO PATIENTS WHO ARE OR HAVE BEEN ENROLLED IN A CHEMICAL DEPENDENCY/SUBSTANCEABUSE PROGRAM, SOME INFORMATION MAY BE OMITTED. This clinical summary was aggregated from multiple sources. Caution should be exercised in using it in the provision of clinical care. This summary normalizes information from multiple sources, and as a consequence, information in this document may materially change the coding, format and clinical context of patient data. In addition, data may be omitted in some cases. CLINICAL DECISIONS SHOULD BE BASED ON THE PRIMARY CLINICAL RECORDS. [employer] provides no warranty or guarantee of the accuracy or completeness of information in this document.
[2025-08-23 11:57] VITALS: BP 113/62; PULSE 78; RESP 16; O2SAT 97
[2025-08-23 12:43] VITALS: BP 113/62; PULSE 78; RESP 16; TEMP 36.6; O2SAT 97
== END 2025-08-23 12:44 | disposition home or self-care (01) ==
PROVIDERS: Emergency Provider Emergency Medicine; PCP Nurse Practitioner Family; Visit Provider Emergency Medicine
DX: G43.909 Migraine, unspecified, not intractable, without status migrainosus (principal); F17.210 Nicotine dependence, cigarettes, uncomplicated; F41.1 Generalized anxiety disorder; F32.A Depression, unspecified; Z79.899 Other long term (current) drug therapy; Z90.49 Acquired absence of other specified parts of digestive tract; R11.0 Nausea
CPT/HCPCS: 96361; 96374; 96375; 99283; A4216